=== PATIENT | female | born 1955 | race African-American/Black ===

== ENCOUNTER 2016-09-28 11:40 | Inpatient (IN) | payer OTHER, MEDICAID ==
[~2016-09-28] VITALS: Ht 160 cm; Wt 90.7 kg
[~2016-09-28 11:40] MED LIST: AMOX1TAB11 PO; DOXY100T PO; FURO40TA4 PO; GABA-586 PO; HYDR-2666 PO; HYDR-2867 PO; INSU100I17 SQ; INSU100I27 SQ; METH2.5T PO; METO50TA2 PO; MULT-460 PO; PANT40TA5 PO; PRED50TA PO; PYRI60TA PO; RITU10VI IV; ROSUVASTATIN CA10 MG PO; SENN1TAB99 PO; SPIR50TA2 PO; VENTOLIN HFA18 GM INH
--- NOTE | 2016-09-28 14:04 | RAD ---
Single view chest History:Chest pain for 4 days, history of bypass, diabetes and hypertension An AP view of the chest is submitted. Comparison: 07/15/2016. Findings: There is no significant infiltrate, pleural effusion, or pneumothorax. There again has been a median sternotomy. Pericardial cardiac silhouette is unchanged. There is mild linear likely fibrotic change left lung base as seen previously. There is again stent in right subclavian region. Impression: There is no radiographic evidence of acute cardiopulmonary disease.
[2016-09-28 14:10] LABS: BASO # 0.1 x10^3/uL (0.0-0.2); BASO % 1 % (0-3); EOS % 0 % (0-3); HEMATOCRIT 36.7 % (36.0-47.0); HEMOGLOBIN 10.9 g/dL (12.0-15.5); LYMPH # 0.6 x10^3/uL (1.0-4.8); LYMPH % 4 % (24-48); MEAN CORPUSCULAR HEMOGLOBIN 27 pg (25-35); MEAN CORPUSCULAR HGB CONC 30 g/dL (31-37); MEAN CORPUSCULAR VOLUME 92 fL (79-100); MONO % 3 % (0-9); NEUT % 92 % (31-73); PLATELET COUNT 210 x10^3/uL (140-400); RED BLOOD COUNT 3.99 x10^6/uL (3.50-5.40); RED CELL DISTRIBUTION WIDTH 19.7 % (11.5-14.5); WHITE BLOOD COUNT 13.4 x10^3/uL (4.0-11.0)
[2016-09-28 14:11] LABS: INR 1.3 (0.8-1.1); PROTHROMBIN TIME PATIENT 15.2 SEC (11.7-14.0)
[2016-09-28 15:09] LABS: PLT ESTIMATE ADEQUATE (ADEQUATE)
[2016-09-28 15:31] LABS: CALCIUM 9.3 mg/dL (8.5-10.1); CREATININE 0.9 mg/dL (0.6-1.0); GFR 76.8; POTASSIUM 3.5 mmol/L (3.5-5.1)
[2016-09-28 15:38] LABS: ALBUMIN 3.2 g/dL (3.4-5.0); ALBUMIN/GLOBULIN RATIO 1.1 (1.0-1.7); TOTAL BILIRUBIN 0.3 mg/dL (0.2-1.0); TOTAL PROTEIN 6.1 g/dL (6.4-8.2)
--- NOTE | 2016-09-28 15:55 | PHYS DOC ---
Past Medical History Past Medical History: CHF, CVA, Diabetes-Type II, Heart Disease, Hypertension, Other Additional Past Medical Histor: Myasthenia Gravis, Respiratory compromised r/t MG,Paralyzed diaphragm Past Surgical History: Coronary Bypass Surgery, , Hysterectomy, Tonsillectomy, Other Additional Past Surgical Histo: Fistula placed "Several",L)arm fx w/repair Alcohol Use: None Drug Use: None Adult General Chief Complaint Chief Complaint: CHEST PAIN HPI HPI 61-year-old female with a history of coronary artery disease status post four- way bypass presents with lower extremity swelling and chest pain. She states she 's recently received one of her routine plasmapheresis treatments. She denies any fever chills sweats. She denies any significant shortness of breath. She does have a little bit of a cough. She does admit to dyspnea on exertion. She states she is not as concerned about her legs because they normally swell after she receives plasmapheresis. [] Review of Systems Review of Systems Constitutional: Denies fever or chills [] Eyes: Denies change in visual acuity, redness, or eye pain [] HENT: Denies nasal congestion or sore throat [] Respiratory: Denies cough or shortness of breath [] Cardiovascular: No additional information not addressed in HPI [] GI: Denies abdominal pain, nausea, vomiting, bloody stools or diarrhea [] : Denies dysuria or hematuria [] Musculoskeletal: Denies back pain or joint pain [] Integument: Denies rash or skin lesions [] Neurologic: Denies headache, focal weakness or sensory changes [] Endocrine: Denies polyuria or polydipsia [] Current Medications Current Medications Allergies Allergies Allergies Coded Allergies Type Severity Reaction Last Updated Verified Iodinated Contrast Media - Oral and Allergy Intermediate 04/23/16 Yes adhesive tape Allergy Intermediate 04/23/16 Yes insulin glargine Allergy Intermediate 04/23/16 Yes levofloxacin Allergy Intermediate 04/23/16 Yes Physical Exam Physical Exam Constitutional: Well developed, well nourished, no acute distress, non-toxic appearance. [] HENT: Normocephalic, atraumatic, bilateral external ears normal, oropharynx moist, no oral exudates, nose normal. [] Eyes: PERRLA, EOMI, conjunctiva normal, no discharge. [] Neck: Normal range of motion, no tenderness, supple, no stridor. [] Cardiovascular:Heart rate regular rhythm, no murmur [] Lungs & Thorax: Bilateral breath sounds clear to auscultation [] Abdomen: Bowel sounds normal, soft, no tenderness, no masses, no pulsatile masses. [] Skin: Warm, dry, no erythema, no rash. [] Back: No tenderness, no CVA tenderness. [] Extremities: No tenderness, no cyanosis, no clubbing, ROM intact, no edema. [] Neurologic: Alert and oriented X 3, normal motor function, normal sensory function, no focal deficits noted. [] Psychologic: Affect normal, judgement normal, mood normal. [] Current Patient Data Vital Signs Vital Signs Date Time Temp Pulse Resp B/P Pulse Ox O2 Delivery O2 Flow Rate FiO2 09/28/16 13:30 162/70 Room Air 09/28/16 13:19 68 94 09/28/16 11:46 98.1 22 98.1 Lab Values Laboratory Tests Test 09/28/16 11:50 09/28/16 15:05 White Blood Count 13.4x10^3/uL (4.0-11.0) H Red Blood Count 3.99x10^6/uL (3.50-5.40) Hemoglobin 10.9g/dL (12.0-15.5) L Hematocrit 36.7% (36.0-47.0) Mean Corpuscular Volume 92fL (79-100) Mean Corpuscular Hemoglobin 27pg (25-35) Mean Corpuscular Hemoglobin Concent 30g/dL (31-37) L Red Cell Distribution Width 19.7% (11.5-14.5) H Platelet Count 210x10^3/uL (140-400) Neutrophils (%) (Auto) 92% (31-73) H Lymphocytes (%) (Auto) 4% (24-48) L Monocytes (%) (Auto) 3% (0-9) Eosinophils (%) (Auto) 0% (0-3) Basophils (%) (Auto) 1% (0-3) Neutrophils # (Auto) 12.4x10^3uL (1.8-7.7) H Lymphocytes # (Auto) 0.6x10^3/uL (1.0-4.8) L Monocytes # (Auto) 0.3x10^3/uL (0.0-1.1) Eosinophils # (Auto) 0.0x10^3/uL (0.0-0.7) Basophils # (Auto) 0.1x10^3/uL (0.0-0.2) Segmented Neutrophils % 91% (35-66) H Lymphocytes % 6% (24-48) L Monocytes % 3% (0-10) Platelet Estimate Adequate (ADEQUATE) Prothrombin Time 15.2SEC (11.7-14.0) H Prothrombin Time INR 1.3 (0.8-1.1) H Sodium Level 150mmol/L (136-145) H Potassium Level 3.5mmol/L (3.5-5.1) Chloride Level 109mmol/L (98-107) H Carbon Dioxide Level 34mmol/L (21-32) H Anion Gap 7 (6-14) Blood Urea Nitrogen 18mg/dL (7-20) Creatinine 0.9mg/dL (0.6-1.0) Estimated GFR (Cockcroft-Gault) 76.8 BUN/Creatinine Ratio 20 (6-20) Glucose Level 172mg/dL (70-99) H Calcium Level 9.3mg/dL (8.5-10.1) Total Bilirubin 0.3mg/dL (0.2-1.0) Aspartate Amino Transferase (AST) 20U/L (15-37) Alanine Aminotransferase (ALT) 36U/L (14-59) Alkaline Phosphatase 58U/L (46-116) Creatine Kinase 46U/L (26-192) Troponin I Quantitative 0.112ng/mL (0.000-0.055) Total Protein 6.1g/dL (6.4-8.2) L Albumin 3.2g/dL (3.4-5.0) L Albumin/Globulin Ratio 1.1 (1.0-1.7) Laboratory Tests 09/28/16 11:50 Laboratory Tests 09/28/16 15:05 EKG EKG EKG: Normal sinus rhythm rate of [address]-T changes [] Radiology/Procedures Radiology/Procedures [] Impressions: PROCEDURE: CHEST AP ONLY Single view chest History:Chest pain for 4 days, history of bypass, diabetes and hypertension An AP view of the chest is submitted. Comparison: 07/15/2016. Findings: There is no significant infiltrate, pleural effusion, or pneumothorax. There again has been a median sternotomy. Pericardial cardiac silhouette is unchanged. There is mild linear likely fibrotic change left lung base as seen previously. There is again stent in right subclavian region. Impression: There is no radiographic evidence of acute cardiopulmonary disease. Course & Med Decision Making Course & Med Decision Making Pertinent Labs and Imaging studies reviewed. (See chart for details) [ED course: Evaluation reveals a 59-year-old female with concerning symptoms for acute coronary syndrome. The patient remained essentially chest pain-free throughout her stay in the emergency department however her troponin was elevated. We gave her aspirin and Lovenox during her stay in the department. I spoke with Dr. Denney who agreed to accept patient for admission. We will consult cardiology to help assist in the management of the patient on the floor.] Dragon Disclaimer Dragon Disclaimer This electronic medical record was generated, in whole or in part, using a voice recognition dictation system. Departure Departure Impression: Primary Impression: Chest pain Disposition: ADMITTED INPATIENT Admitting Physician: Srinivas Negron Condition: STABLE Referrals: JANEY JONES MD (PCP) Problem Qualifiers Primary Impression: Chest pain Chest pain type: unspecified Qualified Code: R07.9 - Chest pain, unspecified SALMA BURNETTE DO Sep 28, 2016 15:55
[2016-09-28] MEDS ORDERED: FENTANYL PF 100 MCG/2 ML VIAL. IV PRN (16:00)
[2016-09-28] MEDS ORDERED: ACETAMINOPHEN 325 MG TABLET. PO PRN (16:00)
[2016-09-28] MEDS ORDERED: NITROGLYCERIN SUBLINGUAL 0.4 MG BOTTLE OF 25. SL PRN (16:00)
[2016-09-28] MEDS ORDERED: ASPIRIN 81 MG TAB.CHEW PO ONE (16:00)
[2016-09-28] MEDS: IV NORMAL SALINE 1000ML BAG 1,000 ML IV SCH ×2 (16:00→21:58)
[2016-09-28] MEDS ORDERED: ONDANSETRON PF 4 MG/2 ML VIAL. IV PRN (16:00)
[2016-09-28] MEDS ORDERED: ENOXAPARIN ** NOTE DOSE ** SYRINGE SQ ONE (16:15)
[2016-09-28] MEDS: ENOXAPARIN ** NOTE DOSE ** SYRINGE SQ SCH (17:00)
--- NOTE | 2016-09-28 18:53 | EKG ---
[facility] [address] [place] [address] Test Date: 2016-09-28 Test Time: 11:49:40 Pat Name: ASMUEL FONTENOT Department: Room: ED HOLD 1 Gender: F Flower Picker: : [phone] Requested By: SALMA BURNETTE Order Number: [id number] Reading MD: Tatiana Rueda Measurements Intervals [place] Rate: 68 P: 34 UT: 108 QRS: 30 QRSD: 96 T: 87 QT: 410 QTc: 441 Interpretive Statements SINUS RHYTHM LEFT ATRIAL ABNORMALITY ABNORMAL ECG RI6.01 Compared to ECG 07/15/2016 15:43:32 T-wave abnormality no longer present Electronically Signed On 09-29-2016 19:09:37 [employer] by Tatiana Rueda
[2016-09-28 19:49] VITALS: BP 153/63
[2016-09-28] MEDS ORDERED: DOXYCYCLINE HYCLATE 100 MG TABLET PO SCH (21:00)
[2016-09-28] MEDS: ALBUTEROL SULFATE 2.5 MG/3 ML NEBU. NEB SCH ×2 (21:00→23:33)
[2016-09-28] MEDS ORDERED: AMOXICILLIN/K CLAV 875/125MG TABLET. PO SCH (21:00)
[2016-09-28] MEDS: ATORVASTATIN CALCIUM 40 MG TABLET. PO SCH (21:58)
[2016-09-28] MEDS: GABAPENTIN 300 MG CAPSULE. PO SCH (21:59)
[2016-09-28] MEDS: PYRIDOSTIGMINE BROMIDE 60 MG TABLET PO SCH (22:00)
[2016-09-28] MEDS: INSULIN DETEMIR 300 UNITS/3 ML INSULN.PEN. SQ SCH (22:01)
[2016-09-28] MEDS: HYDRALAZINE 10 MG TABLET PO SCH (22:04)
[2016-09-28] MEDS: METOPROLOL TART IMMED RELEASE 50 MG TABLET PO SCH (22:05)
--- NOTE | 2016-09-28 22:38 | HP ---
ADMIT DATE: 09/28/2016 CHIEF COMPLAINT: Chest pain. HISTORY OF PRESENT ILLNESS: The patient is a pleasant 61-year-old female well known to our service. She has known coronary disease and multiple medical issues. She has had bypass surgery even. Basically, she presents with chest pain. She has some lower extremity swelling, rates her symptoms at 9 out of 10. She tried to increase her home meds, but that did not work. She also has a cough. I have discussed the case with the ER physician. We are going to admit the patient and consult Cardiology. PAST MEDICAL HISTORY: Coronary artery disease with coronary artery bypass grafting, hysterectomy, tonsillectomy, myasthenia gravis, hypertension, left arm fistula, stroke, . ALLERGIES: IODINE, ADHESIVE TAPE, INSULIN, LEVAQUIN. FAMILY HISTORY: Coronary disease. SOCIAL HISTORY: She does not drink, smoke, or take drugs. MEDICATIONS: Reviewed, please refer to the MRAD. REVIEW OF SYSTEMS: GENERAL: No history of weight change, weakness or fevers. SKIN: No bruising, hair changes or rashes. EYES: No blurred, double or loss of vision. NOSE AND THROAT: No history of nosebleeds, hoarseness or sore throat. CARDIAC: Complains of chest pain. LUNGS: Denies cough, hemoptysis, wheezing or shortness of breath. GASTROINTESTINAL: Denies changes in appetite, nausea, vomiting, diarrhea or constipation. GENITOURINARY: No history of frequency, urgency, hesitancy or nocturia. NEUROLOGIC: Denies history of numbness, tingling, tremor or weakness. PSYCHIATRIC: No history of panic, anxiety or depression. ENDOCRINE: No history of heat or cold intolerance, polyuria or polydipsia. EXTREMITIES: Denies muscle weakness, joint pain, pain on walking or stiffness. PHYSICAL EXAMINATION: VITAL SIGNS: Temperature afebrile, pulse 64, respirations 20, blood pressure 158/70. GENERAL: She is alert, cooperative. HEART: Normal S1, S2. LUNGS: Clear. ABDOMEN: Soft, positive bowel sounds. EXTREMITIES: 1+ edema. SKIN: No rashes. PSYCHIATRIC: She is stable. VASCULAR: Good capillary refill. ENDOCRINE: No thyromegaly. LYMPHATICS: No cervical nodes. HEMATOPOIETIC: No bruising. LABORATORY DATA: White count 13, hemoglobin 10.9, platelets 210. Electrolytes: Sodium 150, potassium 3.5, chloride 109, bicarb 34, BUN 18, creatinine 0.9, glucose 172. INR 1.3. ASSESSMENT AND PLAN: Chest pain. We will check serial enzymes, serial EKGs. Consult Cardiology, cardiac monitoring, resume home medicines. BI LARSON DO DR: YOSI/jesus JOB#: [id number] / [id number]
[2016-09-28 22:53] VITALS: BP 157/70
[2016-09-29] MEDS ORDERED: NON FORMULARY ITEM (Albuterol Sulfate (Ventolin Hfa Inhaler) 2 PUFF) INH SCH
[2016-09-29] MEDS: IV NORMAL SALINE 1000ML BAG 1,000 ML IV SCH ×2 (01:10→12:00)
[2016-09-29 02:24] VITALS: BP 194/95
[2016-09-29] MEDS: ALBUTEROL SULFATE 2.5 MG/3 ML NEBU. NEB SCH ×6 (04:00→23:40)
[2016-09-29] MEDS: HYDROCODONE/APAP 5/325MG TABLET. PO PRN (04:00)
[2016-09-29] MEDS ORDERED: MYCO500T PO (04:32)
[2016-09-29] MEDS ORDERED: PANT40TA3 PO (04:33)
[2016-09-29] MEDS ORDERED: FERR-26 PO (04:35)
[2016-09-29] MEDS ORDERED: FURO40TA4 PO (04:37)
[2016-09-29] MEDS ORDERED: DRON400T PO (04:37)
[2016-09-29] MEDS ORDERED: BACI1CAP6 PO (04:42)
[2016-09-29] MEDS ORDERED: ALEN70TA3 PO (04:43)
[2016-09-29] MEDS ORDERED: APIX5TAB PO (04:44)
[2016-09-29] MEDS ORDERED: oscal 500 (04:46)
[2016-09-29] MEDS ORDERED: CLOT15CR3 TP (04:48)
[2016-09-29 07:00] VITALS: BP 154/56
[2016-09-29] MEDS: INSULIN ASPART 300 UNITS/3 ML INSULN.PEN SQ SCH ×3 (07:30→17:49)
[2016-09-29] MEDS: SENNOSIDES/DOCUSATE 8.6/50MG TABLET. PO SCH (09:00)
--- NOTE | 2016-09-29 10:46 | PDOC ---
PROGRESS NOTES Chief Complaint Chief Complaint cc: chest pain Chest pain : Trend troponin, atypical in nature, says flutter of her heart. Telemetry Chronic CHF with diastolic dysfunction: IV Lasix, monitor intake and out put Elevated troponin: Monitor, cardiology consult. hx PAFIB : sinus now Restrictive lung disease/ROBERTO hx CAD; CABG in 2000 HTN: controlled, continue with home regimen. HLP: statin Hx of CVA/TIA DM2 with retinopathy: SSI with Levemir Hx of myasthenia gravis: intermittent plasmapheresis last treatment 03/2016. Hx of IgA monoclonal gammopathy Polypharmacy Hypernatremia: monitor, nephrology consult History of Present Illness History of Present Illness got 150mls/hr fluids flutter in heart no chest pain no fever Vitals Vitals Vital Signs Date Time Temp Pulse Resp B/P Pulse Ox O2 Delivery O2 Flow Rate FiO2 09/29/16 07:49 92 Room Air 09/29/16 07:00 97.9 72 20 154/56 97.9 Physical Exam General: Alert, Oriented X3 Heart: Normal S1 Lungs: Clear, Other Extremities: Other (+2 edema) Skin: No rashes Labs LABS Laboratory Tests Test 09/28/16 11:50 09/28/16 15:05 09/28/16 20:00 09/28/16 21:08 White Blood Count 13.4x10^3/uL (4.0-11.0) Red Blood Count 3.99x10^6/uL (3.50-5.40) Hemoglobin 10.9g/dL (12.0-15.5) Hematocrit 36.7% (36.0-47.0) Mean Corpuscular Volume 92fL (79-100) Mean Corpuscular Hemoglobin 27pg (25-35) Mean Corpuscular Hemoglobin Concent 30g/dL (31-37) Red Cell Distribution Width 19.7% (11.5-14.5) Platelet Count 210x10^3/uL (140-400) Neutrophils (%) (Auto) 92% (31-73) Lymphocytes (%) (Auto) 4% (24-48) Monocytes (%) (Auto) 3% (0-9) Eosinophils (%) (Auto) 0% (0-3) Basophils (%) (Auto) 1% (0-3) Neutrophils # (Auto) 12.4x10^3uL (1.8-7.7) Lymphocytes # (Auto) 0.6x10^3/uL (1.0-4.8) Monocytes # (Auto) 0.3x10^3/uL (0.0-1.1) Eosinophils # (Auto) 0.0x10^3/uL (0.0-0.7) Basophils # (Auto) 0.1x10^3/uL (0.0-0.2) Segmented Neutrophils % 91% (35-66) Lymphocytes % 6% (24-48) Monocytes % 3% (0-10) Platelet Estimate Adequate (ADEQUATE) Prothrombin Time 15.2SEC (11.7-14.0) Prothromb Time International Ratio 1.3 (0.8-1.1) Sodium Level 150mmol/L (136-145) Potassium Level 3.5mmol/L (3.5-5.1) Chloride Level 109mmol/L (98-107) Carbon Dioxide Level 34mmol/L (21-32) Anion Gap 7 (6-14) Blood Urea Nitrogen 18mg/dL (7-20) Creatinine 0.9mg/dL (0.6-1.0) Estimated GFR (Cockcroft-Gault) 76.8 BUN/Creatinine Ratio 20 (6-20) Glucose Level 172mg/dL (70-99) Calcium Level 9.3mg/dL (8.5-10.1) Total Bilirubin 0.3mg/dL (0.2-1.0) Aspartate Amino Transf (AST/SGOT) 20U/L (15-37) Alanine Aminotransferase (ALT/SGPT) 36U/L (14-59) Alkaline Phosphatase 58U/L (46-116) Creatine Kinase 46U/L (26-192) Troponin I Quantitative 0.112ng/mL (0.000-0.055) 0.074ng/mL (0.000-0.055) KX-Qje-Y-Type Natriuretic Peptide 1262pg/mL (0-124) Total Protein 6.1g/dL (6.4-8.2) Albumin 3.2g/dL (3.4-5.0) Albumin/Globulin Ratio 1.1 (1.0-1.7) Glucose (Fingerstick) 156mg/dL (70-99) Test 09/29/16 03:00 Troponin I Quantitative 0.068ng/mL (0.000-0.055) Assessment and Plan Assessmemt and Plan Problems Medical Problems: (1) Chest pain Status: Acute (2) Chest pain Status: Acute (3) Hypernatremia Status: Acute Problems: Comment Review of Relevant I have reviewed the following items omer (where applicable) has been applied. Labs Laboratory Tests Test 09/28/16 11:50 09/28/16 15:05 09/28/16 20:00 09/28/16 21:08 White Blood Count 13.4x10^3/uL (4.0-11.0) Red Blood Count 3.99x10^6/uL (3.50-5.40) Hemoglobin 10.9g/dL (12.0-15.5) Hematocrit 36.7% (36.0-47.0) Mean Corpuscular Volume 92fL (79-100) Mean Corpuscular Hemoglobin 27pg (25-35) Mean Corpuscular Hemoglobin Concent 30g/dL (31-37) Red Cell Distribution Width 19.7% (11.5-14.5) Platelet Count 210x10^3/uL (140-400) Neutrophils (%) (Auto) 92% (31-73) Lymphocytes (%) (Auto) 4% (24-48) Monocytes (%) (Auto) 3% (0-9) Eosinophils (%) (Auto) 0% (0-3) Basophils (%) (Auto) 1% (0-3) Neutrophils # (Auto) 12.4x10^3uL (1.8-7.7) Lymphocytes # (Auto) 0.6x10^3/uL (1.0-4.8) Monocytes # (Auto) 0.3x10^3/uL (0.0-1.1) Eosinophils # (Auto) 0.0x10^3/uL (0.0-0.7) Basophils # (Auto) 0.1x10^3/uL (0.0-0.2) Segmented Neutrophils % 91% (35-66) Lymphocytes % 6% (24-48) Monocytes % 3% (0-10) Platelet Estimate Adequate (ADEQUATE) Prothrombin Time 15.2SEC (11.7-14.0) Prothromb Time International Ratio 1.3 (0.8-1.1) Sodium Level 150mmol/L (136-145) Potassium Level 3.5mmol/L (3.5-5.1) Chloride Level 109mmol/L (98-107) Carbon Dioxide Level 34mmol/L (21-32) Anion Gap 7 (6-14) Blood Urea Nitrogen 18mg/dL (7-20) Creatinine 0.9mg/dL (0.6-1.0) Estimated GFR (Cockcroft-Gault) 76.8 BUN/Creatinine Ratio 20 (6-20) Glucose Level 172mg/dL (70-99) Calcium Level 9.3mg/dL (8.5-10.1) Total Bilirubin 0.3mg/dL (0.2-1.0) Aspartate Amino Transf (AST/SGOT) 20U/L (15-37) Alanine Aminotransferase (ALT/SGPT) 36U/L (14-59) Alkaline Phosphatase 58U/L (46-116) Creatine Kinase 46U/L (26-192) Troponin I Quantitative 0.112ng/mL (0.000-0.055) 0.074ng/mL (0.000-0.055) GY-Qsg-D-Type Natriuretic Peptide 1262pg/mL (0-124) Total Protein 6.1g/dL (6.4-8.2) Albumin 3.2g/dL (3.4-5.0) Albumin/Globulin Ratio 1.1 (1.0-1.7) Glucose (Fingerstick) 156mg/dL (70-99) Test 09/29/16 03:00 Troponin I Quantitative 0.068ng/mL (0.000-0.055) Laboratory Tests Test 09/28/16 11:50 09/28/16 15:05 09/28/16 20:00 09/28/16 21:08 White Blood Count 13.4x10^3/uL (4.0-11.0) Red Blood Count 3.99x10^6/uL (3.50-5.40) Hemoglobin 10.9g/dL (12.0-15.5) Hematocrit 36.7% (36.0-47.0) Mean Corpuscular Volume 92fL (79-100) Mean Corpuscular Hemoglobin 27pg (25-35) Mean Corpuscular Hemoglobin Concent 30g/dL (31-37) Red Cell Distribution Width 19.7% (11.5-14.5) Platelet Count 210x10^3/uL (140-400) Neutrophils (%) (Auto) 92% (31-73) Lymphocytes (%) (Auto) 4% (24-48) Monocytes (%) (Auto) 3% (0-9) Eosinophils (%) (Auto) 0% (0-3) Basophils (%) (Auto) 1% (0-3) Neutrophils # (Auto) 12.4x10^3uL (1.8-7.7) Lymphocytes # (Auto) 0.6x10^3/uL (1.0-4.8) Monocytes # (Auto) 0.3x10^3/uL (0.0-1.1) Eosinophils # (Auto) 0.0x10^3/uL (0.0-0.7) Basophils # (Auto) 0.1x10^3/uL (0.0-0.2) Segmented Neutrophils % 91% (35-66) Lymphocytes % 6% (24-48) Monocytes % 3% (0-10) Platelet Estimate Adequate (ADEQUATE) Prothrombin Time 15.2SEC (11.7-14.0) Prothromb Time International Ratio 1.3 (0.8-1.1) Sodium Level 150mmol/L (136-145) Potassium Level 3.5mmol/L (3.5-5.1) Chloride Level 109mmol/L (98-107) Carbon Dioxide Level 34mmol/L (21-32) Anion Gap 7 (6-14) Blood Urea Nitrogen 18mg/dL (7-20) Creatinine 0.9mg/dL (0.6-1.0) Estimated GFR (Cockcroft-Gault) 76.8 BUN/Creatinine Ratio 20 (6-20) Glucose Level 172mg/dL (70-99) Calcium Level 9.3mg/dL (8.5-10.1) Total Bilirubin 0.3mg/dL (0.2-1.0) Aspartate Amino Transf (AST/SGOT) 20U/L (15-37) Alanine Aminotransferase (ALT/SGPT) 36U/L (14-59) Alkaline Phosphatase 58U/L (46-116) Creatine Kinase 46U/L (26-192) Troponin I Quantitative 0.112ng/mL (0.000-0.055) 0.074ng/mL (0.000-0.055) XS-Iyc-D-Type Natriuretic Peptide 1262pg/mL (0-124) Total Protein 6.1g/dL (6.4-8.2) Albumin 3.2g/dL (3.4-5.0) Albumin/Globulin Ratio 1.1 (1.0-1.7) Glucose (Fingerstick) 156mg/dL (70-99) Test 09/29/16 03:00 Troponin I Quantitative 0.068ng/mL (0.000-0.055) Medications Current Medications Ondansetron HCl (Zofran) 4 mg PRN Q8HRS PRN IV NAUSEA/VOMITING; Start 09/28/16 at 16:00; Stop 09/29/16 at 15:59 Fentanyl Citrate 50 mcg 50 mcg PRN Q2HR PRN IV PAIN; Start 09/28/16 at 16:00; Stop 09/29/16 at 15:59 Sodium Chloride (Iv Sodium Chloride 0.9% 1000ml Bag) 1,000 ml @ 150 mls/hr Q6H40M IV Last administered on 09/29/16 01:10; Start 09/28/16 at 16:00; Stop 09/29/16 at 15:59 Acetaminophen (Tylenol) 650 mg PRN Q4HRS PRN PO FEVER; Start 09/28/16 at 16:00 ; Stop 09/29/16 at 15:59 Nitroglycerin (Nitrostat) 0.4 mg PRN Q5MIN PRN SL CHEST PAIN; Start 09/28/16 at 16:00; Stop 09/29/16 at 15:59 Enoxaparin Sodium (Lovenox Per Pharmacy Treatment Dosing) 1 each PRN DAILY PRN MC SEE COMMENTS; Start 09/28/16 at 16:00 Aspirin (Children'S Aspirin) 324 mg 1X ONCE PO Last administered on 09/28/16 16:38; Start 09/28/16 at 16:00; Stop 09/28/16 at 16:01; Status DC Enoxaparin Sodium (Lovenox 100mg Syringe) 90 mg 1X ONCE SQ Last administered on 09/28/16 16:38; Start 09/28/16 at 16:15; Stop 09/28/16 at 16:16; Status DC Enoxaparin Sodium (Lovenox 100mg Syringe) 90 mg Q12HR SQ ; Start 09/28/16 at 17: 00 Amoxicillin/ Clavulanate Potassium (Augmentin 875/ 125mg) 1 tab BID PO ; Start 09/28/16 at 21:00; Status Cancel Doxycycline Hyclate (Vibra-Tab) 100 mg BID PO ; Start 09/28/16 at 21:00; Status Cancel Furosemide (Lasix) 40 mg QODAY PO ; Start 09/29/16 at 09:00 Gabapentin (Neurontin) 300 mg QHS PO Last administered on 09/28/16 21:59; Start 09/28/16 at 21:00 Hydralazine HCl (Apresoline) 10 mg TID PO Last administered on 09/28/16 22:04 ; Start 09/28/16 at 21:00 Acetaminophen/ Hydrocodone Bitart (Lortab 5/325) 1 tab PRN Q6HRS PRN PO PAIN Last administered on 09/29/16 04:00; Start 09/28/16 at 20:15 Insulin Aspart (Novolog) 10 units TIDAC SQ ; Start 09/29/16 at 07:30 Insulin Detemir (Levemir) 20 units HS SQ ; Start 09/28/16 at 21:00 Methotrexate (Rheumatrex) 2.5 mg WEEKLY PO ; Start 10/05/16 at 09:00; Status UNV Metoprolol Tartrate (Lopressor) 50 mg BID PO Last administered on 09/28/16 22: 05; Start 09/28/16 at 21:00 Pantoprazole Sodium (Protonix) 40 mg DAILY07 PO ; Start 09/29/16 at 09:00 Pyridostigmine [place] (Mestinon) 60 mg QID PO Last administered on 09/28/16 22:00; Start 09/28/16 at 21:00 Senna/Docusate Sodium (Senna Plus) 1 tab DAILY PO ; Start 09/29/16 at 09:00 Non-Formulary Medication 2 puff Q4HRS INH FOR ASTHMA; Start 09/29/16 at 00:00; Stop 09/29/16 at 00:00; Status DC Prednisone (Prednisone) 50 mg DAILY PO ; Start 09/29/16 at 09:00 Atorvastatin Calcium (Lipitor) 40 mg QHS PO Last administered on 09/28/16t 21: 58; Start 09/28/16 at 21:00 Spironolactone (Aldactone) 50 mg DAILY PO ; Start 09/29/16 at 09:00 Albuterol Sulfate (Ventolin Neb Soln) 2.5 mg Q4HRS NEB Last administered on t 07:49; Start 09/28/16 at 21:00 Active Scripts Active Reported Lotrisone Cream (Clotrimazole/Betamethasone Dip) 15 Gm Cream..g. 1 Hema TP BID [oscal 500] Eliquis (Apixaban) 5 Mg Tablet 5 Mg PO Fosamax (Alendronate Sodium) 70 Mg Tablet 1 Tab PO QSU Probiotic (Bacillus Coagulans) 1 Each Capsule.dr 1 Each PO PRN Multaq (Dronedarone Hcl) 400 Mg Tablet 1 Tab PO BIDAC Furosemide 40 Mg Tablet 0.5 Tab PO DAILY Ferrous Sulfate 325 Mg Tablet 1 Tab PO TID Cellcept (Mycophenolate Mofetil) 500 Mg Tablet 1 Tab PO BID Doxycycline Hyclate 100 Mg Tablet 1 Tab PO BID 10 Days Ventolin Hfa Inhaler (Albuterol Sulfate) 18 Gm Hfa.aer.ad 2 Puff INH Q4HRS Amox Tr-K Clv 875-125 Mg Tab (Amoxicillin/Potassium Clav) 1 Each Tablet 1 Tab PO BID Multiple Vitamin (Multivitamin With Minerals) 1 Each Tablet 1 Each PO Spironolactone 50 Mg Tablet 1 Tab PO DAILY Senna-Docusate Sodium Tablet (Sennosides/Docusate Sodium) 1 Each Tablet 1 Each PO Rosuvastatin Calcium 10 Mg Tablet 10 Mg PO DAILY Pyridostigmine [place] 60 Mg Tablet 60 Mg PO QID Prednisone 50 Mg Tablet 50 Mg PO DAILY Pantoprazole Sodium 40 Mg Tablet.dr 1 Tab PO DAILY Metoprolol Tartrate 50 Mg Tablet 1 Tab PO BID Methotrexate (Methotrexate Sodium) 2.5 Mg Tablet 8 Tab PO WEEKLY Levemir Flextouch (Insulin Detemir) 100 Unit/1 Ml Insuln.pen Unit SQ BIDAC 40 units in am, 25 units evening Novolog Flexpen (Insulin Aspart) 100 Unit/1 Ml Insuln.pen 35 Unit SQ TIDAC Hydrocodone-Apap 5-325 (Hydrocodone Bit/Acetaminophen) 1 Each Tablet 1 Tab PO PRN Q6HRS PRN Hydralazine Hcl 10 Mg Tablet 1 Tab PO TID Gabapentin 300 Mg Capsule 300 Mg PO QHS Furosemide 40 Mg Tablet 40 Mg PO QODAY Vitals/I & O Vital Sign - Last 24 Hours 09/28/16 09/28/16 09/28/16 09/28/16 11:46 12:19 12:49 13:19 Temp 98.1 98.1 Pulse 66 62 68 Resp 22 B/P 182/82 158/71 189/84 191/86 Pulse Ox 94 93 94 O2 Delivery Room Air Room Air Room Air Room Air 09/28/16 09/28/16 09/28/16 09/28/16 13:30 16:38 17:08 17:38 Pulse 62 56 56 B/P 162/70 190/81 158/70 170/75 Pulse Ox 95 96 96 O2 Delivery Room Air Room Air Room Air Room Air 09/28/16 09/28/16 09/28/16 09/28/16 18:08 18:38 19:08 19:45 Pulse 62 80 B/P 171/79 169/77 146/72 Pulse Ox 98 96 95 O2 Delivery Room Air Room Air Room Air Room Air 09/28/16 09/28/16 09/28/16 09/28/16 19:49 19:49 22:04 22:05 Temp 98.4 98.4 98.4 98.4 Pulse 66 66 64 64 Resp 18 18 B/P 153/63 153/63 173/64 173/64 Pulse Ox 96 96 O2 Delivery Room Air Room Air 09/28/16 09/28/16 09/29/16 09/29/16 22:53 23:32 02:24 04:00 Temp 97.9 97.9 97.9 97.9 Pulse 60 68 Resp 20 19 18 B/P 157/70 194/95 Pulse Ox 94 97 94 94 O2 Delivery Room Air Room Air Room Air Room Air 09/29/16 09/29/16 09/29/16 04:58 07:00 07:49 Temp 97.9 97.9 Pulse 72 Resp 20 B/P 154/56 Pulse Ox 94 90 92 O2 Delivery Room Air Room Air Room Air Intake and Output 09/28/16 09/28/16 09/29/16 15:00 23:00 07:00 Intake Total 1231 ml Output Total 250 ml Balance 981 ml KENYATTA MILLER MD Sep 29, 2016 10:46
[2016-09-29 11:00] VITALS: BP 136/61
[2016-09-29] MEDS ORDERED: FUROSEMIDE 20 MG/2 ML VIAL IVP ONE (11:45)
[2016-09-29 12:20] LABS: CALCIUM 9.4 mg/dL (8.5-10.1); CREATININE 1.1 mg/dL (0.6-1.0); GFR 60.9; POTASSIUM 3.9 mmol/L (3.5-5.1)
[2016-09-29] MEDS: METOPROLOL TART IMMED RELEASE 50 MG TABLET PO SCH ×2 (12:27→20:11)
[2016-09-29] MEDS: SPIRONOLACTONE 25 MG TABLET PO SCH (12:27)
[2016-09-29] MEDS: PANTOPRAZOLE 40 MG TABLET. PO SCH (12:27)
[2016-09-29] MEDS: FUROSEMIDE 40 MG TABLET PO SCH (12:28)
[2016-09-29] MEDS: PYRIDOSTIGMINE BROMIDE 60 MG TABLET PO SCH ×4 (12:28→20:11)
[2016-09-29] MEDS: HYDRALAZINE 10 MG TABLET PO SCH ×3 (12:29→20:11)
[2016-09-29] MEDS: ENOXAPARIN ** NOTE DOSE ** SYRINGE SQ SCH ×2 (12:30→20:12)
[2016-09-29] MEDS: PREDNISONE 10 MG TABLET PO SCH (12:34)
[2016-09-29 15:00] VITALS: BP 117/57
[2016-09-29] MEDS ORDERED: DEXTROSE 50% 25 GM / 50ML DISP.SYRIN. IV PRN (19:00)
[2016-09-29 19:13] VITALS: BP 138/61
[2016-09-29] MEDS: GABAPENTIN 300 MG CAPSULE. PO SCH (20:10)
[2016-09-29] MEDS: ATORVASTATIN CALCIUM 40 MG TABLET. PO SCH (20:12)
[2016-09-29] MEDS: INSULIN DETEMIR 300 UNITS/3 ML INSULN.PEN. SQ SCH (20:18)
[2016-09-29 23:10] VITALS: BP 145/61
--- NOTE | 2016-09-29 23:21 | PDOC2 ---
CARDIAC CONSULT DATE OF CONSULT Date of Consult DATE: 09/29/16 REASON FOR CONSULT Reason for Consult: Heart failure REFERRING PHYSICIAN Referring Physician: Hospitalist SOURCE Source: Patient HISTORY OF PRESENT ILLNESS HISTORY OF PRESENT ILLNESS Patient is a 61 y.o woman with past medical history as noted below who presents to the hospital in the setting of dypsnea and chest pain. 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 More recently, she transferred her other care to the [facility]. SHe presented with acute on chronic heart failure symptoms and some mild chest discomfort. Denies any palpitations, syncope, orthopnea or PND but does have exertional dyspnea . PAST MEDICAL HISTORY Cardiovascular: CAD, CHF, HTN Heme/Onc: Cancer Hepatobiliary: No pertinent hx Psych: No pertinent hx Musculoskeletal: low back pain PAST SURGICAL HISTORY Past Surgical History: CABG FAMILY HISTORY Family History Non contributory. SOCIAL HISTORY Smoke: No ALCOHOL: none Drugs: None Lives: Alone Domestic Violence: Neg CURRENT MEDICATIONS CURRENT MEDICATIONS Current Medications Medications (Trade) Dose Ordered Sig/Oksana Route PRN Reason Start Time Stop Time Status Last Admin Dose Admin Furosemide (Lasix) 40 mg QODAY PO 09/29/16 09:00 09/29/16 12:28 Insulin Aspart (Novolog) 10 units TIDAC SQ 09/29/16 07:30 09/29/16 19:08 DC 09/29/16 17:49 Pantoprazole Sodium (Protonix) 40 mg DAILY07 PO 09/29/16 09:00 09/29/16 12:27 Prednisone (Prednisone) 50 mg DAILY PO 09/29/16 09:00 09/29/16 12:34 Spironolactone (Aldactone) 50 mg DAILY PO 09/29/16 09:00 09/29/16 12:27 Furosemide (Lasix) 40 mg 1X ONCE IVP 09/29/16 11:45 09/29/16 11:46 DC 09/29/16 12:30 ALLERGIES ALLERGIES: Coded Allergies: Iodinated Contrast Media - Oral and (Verified Allergy, Intermediate, ) adhesive tape (Verified Allergy, Intermediate, 04/23/16) insulin glargine (Verified Allergy, Intermediate, 04/23/16) levofloxacin (Verified Allergy, Intermediate, 04/23/16) ROS General: YES: Chills, Fatigue, Night Sweats PSYCHOLOGICAL ROS: YES: Anxiety Eyes: Yes Blurry vision HEENT: YES: Joanna ALLERGY AND IMMUNOLOGY: YES: Hives Hematological and Lymphatic: YES: Bleeding Problems, Blood Clots Respiratory: YES: Cough PHYSICAL EXAM General: Alert, Oriented X3 HEENT: Atraumatic Lungs: Clear to auscultation Heart: Regular rate, Normal S1, Normal S2 Abdomen: Normal bowel sounds Extremities: No clubbing Skin: No rashes Neuro: Normal gait, Normal speech Psych/Mental Status: Mental status NL VITALS VITALS Vital Signs Date Time Temp Pulse Resp B/P Pulse Ox O2 Delivery O2 Flow Rate FiO2 09/29/16 20:56 Room Air 09/29/16 20:11 73 138/61 09/29/16 19:13 98.1 20 93 98.1 LABS Lab: Laboratory Tests Test 09/29/16 03:00 09/29/16 08:49 09/29/16 12:40 09/29/16 17:08 Sodium Level 150mmol/L (136-145) Potassium Level 3.9mmol/L (3.5-5.1) Chloride Level 108mmol/L (98-107) Carbon Dioxide Level 29mmol/L (21-32) Anion Gap 13 (6-14) Blood Urea Nitrogen 19mg/dL (7-20) Creatinine 1.1mg/dL (0.6-1.0) Estimated GFR (Cockcroft-Gault) 60.9 Glucose Level 125mg/dL (70-99) Calcium Level 9.4mg/dL (8.5-10.1) Troponin I Quantitative 0.068ng/mL (0.000-0.055) Glucose (Fingerstick) 120mg/dL (70-99) 279mg/dL (70-99) 256mg/dL (70-99) ASSESSMENT/PLAN ASSESSMENT/PLAN 1. Acute on chronic diastolic HF 2. Hypernatremia - suspect hypervolemic Hypernatremia 3. HTN 4. Morbid obesity 5. CAD s/p CABG - remote. Plan: 1. Continue diuresis. 2. Will need to monitor Na in a.m. May need vasopressin antagonists. 3. CP likely non-cardiac. Supportive care. Will follow along. Problems: BEATRICE TREJO MD Sep 29, 2016 23:21
[2016-09-30] VITALS (7 sets, daily range): BP systolic 128–192; BP diastolic 48–79
[2016-09-30] MEDS: ALBUTEROL SULFATE 2.5 MG/3 ML NEBU. NEB SCH ×6 (03:07→22:36)
[2016-09-30] MEDS: PANTOPRAZOLE 40 MG TABLET. PO SCH (05:09)
[2016-09-30] MEDS: HYDROCODONE/APAP 5/325MG TABLET. PO PRN ×2 (05:10→15:48)
[2016-09-30] MEDS ORDERED: INSULIN DETEMIR 300 UNITS/3 ML INSULN.PEN. SQ SCH (08:00)
[2016-09-30] MEDS: INSULIN ASPART 300 UNITS/3 ML INSULN.PEN SQ SCH ×6 (08:51→18:04)
[2016-09-30] MEDS: METOPROLOL TART IMMED RELEASE 50 MG TABLET PO SCH ×2 (10:16→21:03)
[2016-09-30] MEDS: FUROSEMIDE 40 MG TABLET PO SCH (10:16)
[2016-09-30] MEDS: HYDRALAZINE 10 MG TABLET PO SCH ×3 (10:16→21:02)
[2016-09-30] MEDS: SPIRONOLACTONE 25 MG TABLET PO SCH (10:16)
[2016-09-30] MEDS: SENNOSIDES/DOCUSATE 8.6/50MG TABLET. PO SCH (10:17)
[2016-09-30] MEDS: ENOXAPARIN ** NOTE DOSE ** SYRINGE SQ SCH ×2 (10:17→21:03)
[2016-09-30] MEDS: PREDNISONE 10 MG TABLET PO SCH (10:17)
[2016-09-30] MEDS: PYRIDOSTIGMINE BROMIDE 60 MG TABLET PO SCH ×4 (10:18→21:02)
[2016-09-30] MEDS: ANTI-COAG MONITOR BY PHARMACY. MC PRN ×2 (10:27→10:45)
[2016-09-30 10:48] LABS: BASO % 0 % (0-3); EOS % 0 % (0-3); HEMATOCRIT 37.4 % (36.0-47.0); HEMOGLOBIN 11.2 g/dL (12.0-15.5); LYMPH # 0.8 x10^3/uL (1.0-4.8); LYMPH % 8 % (24-48); MEAN CORPUSCULAR HEMOGLOBIN 27 pg (25-35); MEAN CORPUSCULAR HGB CONC 30 g/dL (31-37); MEAN CORPUSCULAR VOLUME 90 fL (79-100); MONO % 7 % (0-9); NEUT % 84 % (31-73); PLATELET COUNT 189 x10^3/uL (140-400); RED BLOOD COUNT 4.16 x10^6/uL (3.50-5.40); RED CELL DISTRIBUTION WIDTH 18.9 % (11.5-14.5); WHITE BLOOD COUNT 10.3 x10^3/uL (4.0-11.0)
[2016-09-30 10:49] LABS: CALCIUM 8.9 mg/dL (8.5-10.1); CREATININE 1.2 mg/dL (0.6-1.0); GFR 55.1; POTASSIUM 3.1 mmol/L (3.5-5.1)
--- NOTE | 2016-09-30 11:55 | PDOC2 ---
CONSULT Date of Consult Date of Consult DATE: 09/30/16 TIME: 11:39 Reason for Consult Reason for Consult: ^Na Referring Physician Referring Physician: Lu Identification/Chief Complaint Chief Complaint CP Problems: Source Source: Chart review, Patient Past Medical History Cardiovascular: CAD, CHF, HTN Pulmonary: Other CENTRAL NERVOUS SYSTEM: CVA, TIA, Other GI: Diverticulosis, GERD, Irritable bowel disease Heme/Onc: Cancer Hepatobiliary: No pertinent hx Psych: No pertinent hx Musculoskeletal: low back pain Rheumatologic: No pertinent hx Infectious disease: No pertinent hx Renal/: Chronic renal insuff Endocrine: Diabetes Past Surgical History Past Surgical History: CABG Family History Family History: Asthma Social History No ALCOHOL: none Drugs: None Lives: Alone Domestic Violence: Neg Current Problem List Problem List Problems Medical Problems: (1) Chest pain Status: Acute (2) Chest pain Status: Acute (3) Hypernatremia Status: Acute Current Medications Current Medications Current Medications Ondansetron HCl (Zofran) 4 mg PRN Q8HRS PRN IV NAUSEA/VOMITING; Start 09/28/16 at 16:00; Stop 09/29/16 at 15:59; Status DC Fentanyl Citrate 50 mcg 50 mcg PRN Q2HR PRN IV PAIN; Start 09/28/16 at 16:00; Stop 09/29/16 at 15:59; Status DC Sodium Chloride (Iv Sodium Chloride 0.9% 1000ml Bag) 1,000 ml @ 150 mls/hr Q6H40M IV Last administered on 09/29/16 01:10; Start 09/28/16 at 16:00; Stop 09/29/16 at 15:59; Status DC Acetaminophen (Tylenol) 650 mg PRN Q4HRS PRN PO FEVER; Start 09/28/16 at 16:00 ; Stop 09/29/16 at 15:59; Status DC Nitroglycerin (Nitrostat) 0.4 mg PRN Q5MIN PRN SL CHEST PAIN; Start 09/28/16 at 16:00; Stop 09/29/16 at 15:59; Status DC Enoxaparin Sodium (Lovenox Per Pharmacy Treatment Dosing) 1 each PRN DAILY PRN MC SEE COMMENTS; Start 09/28/16 at 16:00 Aspirin (Children'S Aspirin) 324 mg 1X ONCE PO Last administered on 2/11/17at 16:38; Start 09/28/16 at 16:00; Stop 09/28/16 at 16:01; Status DC Enoxaparin Sodium (Lovenox 100mg Syringe) 90 mg 1X ONCE SQ Last administered on 09/28/16 16:38; Start 09/28/16 at 16:15; Stop 09/28/16 at 16:16; Status DC Enoxaparin Sodium (Lovenox 100mg Syringe) 90 mg Q12HR SQ Last administered on 10:17; Start 09/28/16 at 17:00 Amoxicillin/ Clavulanate Potassium (Augmentin 875/ 125mg) 1 tab BID PO ; Start 09/28/16 at 21:00; Status Cancel Doxycycline Hyclate (Vibra-Tab) 100 mg BID PO ; Start 09/28/16 at 21:00; Status Cancel Furosemide (Lasix) 40 mg QODAY PO Last administered on 09/30/16 10:16; Start 09/29/16 at 09:00 Gabapentin (Neurontin) 300 mg QHS PO Last administered on 09/29/16 20:10; Start 09/28/16 at 21:00 Hydralazine HCl (Apresoline) 10 mg TID PO Last administered on 09/30/16 10:16 ; Start 09/28/16 at 21:00 Acetaminophen/ Hydrocodone Bitart (Lortab 5/325) 1 tab PRN Q6HRS PRN PO PAIN Last administered on 09/30/16 05:10; Start 09/28/16 at 20:15 Insulin Aspart (Novolog) 10 units TIDAC SQ Last administered on 09/29/16 17:49 ; Start 09/29/16 at 07:30; Stop 09/29/16 at 19:08; Status DC Insulin Detemir (Levemir) 20 units HS SQ Last administered on 09/29/16 20:18; Start 09/28/16 at 21:00 Methotrexate (Rheumatrex) 2.5 mg WEEKLY PO ; Start 10/05/16 at 09:00; Status UNV Metoprolol Tartrate (Lopressor) 50 mg BID PO Last administered on 09/30/16 10: 16; Start 09/28/16 at 21:00 Pantoprazole Sodium (Protonix) 40 mg DAILY07 PO Last administered on 09/30/16 05:09; Start 09/29/16 at 09:00 Pyridostigmine [place] (Mestinon) 60 mg QID PO Last administered on 09/30/16 10:18; Start 09/28/16 at 21:00 Senna/Docusate Sodium (Senna Plus) 1 tab DAILY PO Last administered on 10:17; Start 09/29/16 at 09:00 Non-Formulary Medication 2 puff Q4HRS INH FOR ASTHMA; Start 09/29/16 at 00:00; Stop 09/29/16 at 00:00; Status DC Prednisone (Prednisone) 50 mg DAILY PO Last administered on 09/30/16 10:17; Start 09/29/16 at 09:00 Atorvastatin Calcium (Lipitor) 40 mg QHS PO Last administered on 09/29/16 20: 12; Start 09/28/16 at 21:00 Spironolactone (Aldactone) 50 mg DAILY PO Last administered on 09/30/16 10:16 ; Start 09/29/16 at 09:00 Albuterol Sulfate (Ventolin Neb Soln) 2.5 mg Q4HRS NEB Last administered on 08:07; Start 09/28/16 at 21:00 Furosemide (Lasix) 40 mg 1X ONCE IVP Last administered on 09/29/16 12:30; Start 09/29/16 at 11:45; Stop 09/29/16 at 11:46; Status DC Insulin Aspart (Novolog) 35 units TIDAC SQ Last administered on 09/30/16 08:51 ; Start 09/30/16 at 07:30 Insulin Detemir (Levemir) 30 units DAILY08 SQ Last administered on 09/30/16 08 :50; Start 09/30/16 at 08:00 Insulin Aspart (Novolog) 0-7 UNITS TIDWMEALS SQ Last administered on 09/30/16 08:52; Start 09/30/16 at 08:00 Dextrose 12.5 gm PRN Q15MIN PRN IV SEE COMMENTS; Start 09/29/16 at 19:00 Info (Anti-Coagulation Monitoring By Pharmacy) 1 each PRN DAILY PRN MC SEE COMMENTS Last administered on 2/13/17at 10:45; Start 09/30/16 at 10:30 Active Scripts Active Reported Lotrisone Cream (Clotrimazole/Betamethasone Dip) 15 Gm Cream..g. 1 Hema TP BID [oscal 500] Eliquis (Apixaban) 5 Mg Tablet 5 Mg PO Fosamax (Alendronate Sodium) 70 Mg Tablet 1 Tab PO QSU Probiotic (Bacillus Coagulans) 1 Each Capsule.dr 1 Each PO PRN Multaq (Dronedarone Hcl) 400 Mg Tablet 1 Tab PO BIDAC Furosemide 40 Mg Tablet 0.5 Tab PO DAILY Ferrous Sulfate 325 Mg Tablet 1 Tab PO TID Cellcept (Mycophenolate Mofetil) 500 Mg Tablet 1 Tab PO BID Doxycycline Hyclate 100 Mg Tablet 1 Tab PO BID 10 Days Ventolin Hfa Inhaler (Albuterol Sulfate) 18 Gm Hfa.aer.ad 2 Puff INH Q4HRS Amox Tr-K Clv 875-125 Mg Tab (Amoxicillin/Potassium Clav) 1 Each Tablet 1 Tab PO BID Multiple Vitamin (Multivitamin With Minerals) 1 Each Tablet 1 Each PO Spironolactone 50 Mg Tablet 1 Tab PO DAILY Senna-Docusate Sodium Tablet (Sennosides/Docusate Sodium) 1 Each Tablet 1 Each PO Rosuvastatin Calcium 10 Mg Tablet 10 Mg PO DAILY Pyridostigmine [place] 60 Mg Tablet 60 Mg PO QID Prednisone 50 Mg Tablet 50 Mg PO DAILY Pantoprazole Sodium 40 Mg Tablet.dr 1 Tab PO DAILY Metoprolol Tartrate 50 Mg Tablet 1 Tab PO BID Methotrexate (Methotrexate Sodium) 2.5 Mg Tablet 8 Tab PO WEEKLY Levemir Flextouch (Insulin Detemir) 100 Unit/1 Ml Insuln.pen Unit SQ BIDAC 40 units in am, 25 units evening Novolog Flexpen (Insulin Aspart) 100 Unit/1 Ml Insuln.pen 35 Unit SQ TIDAC Hydrocodone-Apap 5-325 (Hydrocodone Bit/Acetaminophen) 1 Each Tablet 1 Tab PO PRN Q6HRS PRN Hydralazine Hcl 10 Mg Tablet 1 Tab PO TID Gabapentin 300 Mg Capsule 300 Mg PO QHS Furosemide 40 Mg Tablet 40 Mg PO QODAY Allergies Allergies: Coded Allergies: Iodinated Contrast Media - Oral and (Verified Allergy, Intermediate, ) adhesive tape (Verified Allergy, Intermediate, 04/23/16) insulin glargine (Verified Allergy, Intermediate, 04/23/16) levofloxacin (Verified Allergy, Intermediate, 04/23/16) ROS Review of System GEN: no Fevers no Chills EYES: no new Visual Complaints ENT: no EN Drainage no Hearing deficiets CVS: no Orthopnea + CP + Edema in Lower ext RESP: no SOB no HERNANDEZ GI: no Nausea no Vomiting : no Dysuria no Urgency HEME: no easy bruising no Palp Ly Nodes NEURO no Focal Weakness no Sz PSYCH: no Suicidal Ideation min Depression SKIN: no Rashes ENDO: no Polyuria or Polydipsia no Hot/Cold Intolerance MU SK: No Arthraigia no Myalgia Physical Exam Physical Exam General Appearance: Awake Alert Oriented x 3 In no Distress; Cushingoid Appearance Eyes: VIsion Unchanged Conjunctiva Normal EN: No EN Drainage Mucous Memb. moist Neck: no JVD min JVP Supple no Thyromegaly; thick neck CVS: S1 S2 + Murmur No Gallop No Rub +2-3 Edema Resp: rare Rales no Rhonchi no Acc. Muscle use GI: BS +ve NO Bruit Non Tender Non Distended - obese : no CVA tenderness; no Suprapubic Tenderness SKIN: no Rashes Breast Exam deferred Mu.Sk: Adequate ROM no Muscle Atrophy Heme: Unable to palpate Obvious LAD palp Splenomegaly NEURO: adequate Strength x 4; ? a little weak in her thighs Cranial Nerves II - XII grossly intact Psych: min Depressed no Active hallucination Vital Signs Vital Signs Date Time Temp Pulse Resp B/P Pulse Ox O2 Delivery O2 Flow Rate FiO2 09/30/16 11:12 98.6 73 18 135/57 97 Room Air 98.6 Assessment & Plan ^Na - in adequate Water intake. Not noted to be polyuric. Watch trend off of Diurecits for now Edema - ECHO noted - Unclear etio. If Liver US is WNL and no IVC obstruction is noted - she may need Lymphedema therapy. Lt sided Edema has been Chrnoic after SVG harvest ? KORY - watch off of Diuretics for now Low K - PO KCL for now Labs Labs Laboratory Tests Test 09/28/16 11:50 09/28/16 15:05 09/28/16 20:00 09/28/16 21:08 White Blood Count 13.4x10^3/uL (4.0-11.0) Red Blood Count 3.99x10^6/uL (3.50-5.40) Hemoglobin 10.9g/dL (12.0-15.5) Hematocrit 36.7% (36.0-47.0) Mean Corpuscular Volume 92fL (79-100) Mean Corpuscular Hemoglobin 27pg (25-35) Mean Corpuscular Hemoglobin Concent 30g/dL (31-37) Red Cell Distribution Width 19.7% (11.5-14.5) Platelet Count 210x10^3/uL (140-400) Neutrophils (%) (Auto) 92% (31-73) Lymphocytes (%) (Auto) 4% (24-48) Monocytes (%) (Auto) 3% (0-9) Eosinophils (%) (Auto) 0% (0-3) Basophils (%) (Auto) 1% (0-3) Neutrophils # (Auto) 12.4x10^3uL (1.8-7.7) Lymphocytes # (Auto) 0.6x10^3/uL (1.0-4.8) Monocytes # (Auto) 0.3x10^3/uL (0.0-1.1) Eosinophils # (Auto) 0.0x10^3/uL (0.0-0.7) Basophils # (Auto) 0.1x10^3/uL (0.0-0.2) Segmented Neutrophils % 91% (35-66) Lymphocytes % 6% (24-48) Monocytes % 3% (0-10) Platelet Estimate Adequate (ADEQUATE) Prothrombin Time 15.2SEC (11.7-14.0) Prothromb Time International Ratio 1.3 (0.8-1.1) Sodium Level 150mmol/L (136-145) Potassium Level 3.5mmol/L (3.5-5.1) Chloride Level 109mmol/L (98-107) Carbon Dioxide Level 34mmol/L (21-32) Anion Gap 7 (6-14) Blood Urea Nitrogen 18mg/dL (7-20) Creatinine 0.9mg/dL (0.6-1.0) Estimated GFR (Cockcroft-Gault) 76.8 BUN/Creatinine Ratio 20 (6-20) Glucose Level 172mg/dL (70-99) Calcium Level 9.3mg/dL (8.5-10.1) Total Bilirubin 0.3mg/dL (0.2-1.0) Aspartate Amino Transf (AST/SGOT) 20U/L (15-37) Alanine Aminotransferase (ALT/SGPT) 36U/L (14-59) Alkaline Phosphatase 58U/L (46-116) Creatine Kinase 46U/L (26-192) Troponin I Quantitative 0.112ng/mL (0.000-0.055) 0.074ng/mL (0.000-0.055) OZ-Esr-C-Type Natriuretic Peptide 1262pg/mL (0-124) Total Protein 6.1g/dL (6.4-8.2) Albumin 3.2g/dL (3.4-5.0) Albumin/Globulin Ratio 1.1 (1.0-1.7) Glucose (Fingerstick) 156mg/dL (70-99) Test 09/29/16 03:00 09/29/16 08:49 09/29/16 12:40 09/29/16 17:08 Sodium Level 150mmol/L (136-145) Potassium Level 3.9mmol/L (3.5-5.1) Chloride Level 108mmol/L (98-107) Carbon Dioxide Level 29mmol/L (21-32) Anion Gap 13 (6-14) Blood Urea Nitrogen 19mg/dL (7-20) Creatinine 1.1mg/dL (0.6-1.0) Estimated GFR (Cockcroft-Gault) 60.9 Glucose Level 125mg/dL (70-99) Calcium Level 9.4mg/dL (8.5-10.1) Troponin I Quantitative 0.068ng/mL (0.000-0.055) Glucose (Fingerstick) 120mg/dL (70-99) 279mg/dL (70-99) 256mg/dL (70-99) Test 09/30/16 07:38 09/30/16 10:34 Glucose (Fingerstick) 234mg/dL (70-99) White Blood Count 10.3x10^3/uL (4.0-11.0) Red Blood Count 4.16x10^6/uL (3.50-5.40) Hemoglobin 11.2g/dL (12.0-15.5) Hematocrit 37.4% (36.0-47.0) Mean Corpuscular Volume 90fL (79-100) Mean Corpuscular Hemoglobin 27pg (25-35) Mean Corpuscular Hemoglobin Concent 30g/dL (31-37) Red Cell Distribution Width 18.9% (11.5-14.5) Platelet Count 189x10^3/uL (140-400) Neutrophils (%) (Auto) 84% (31-73) Lymphocytes (%) (Auto) 8% (24-48) Monocytes (%) (Auto) 7% (0-9) Eosinophils (%) (Auto) 0% (0-3) Basophils (%) (Auto) 0% (0-3) Neutrophils # (Auto) 8.7x10^3uL (1.8-7.7) Lymphocytes # (Auto) 0.8x10^3/uL (1.0-4.8) Monocytes # (Auto) 0.8x10^3/uL (0.0-1.1) Eosinophils # (Auto) 0.0x10^3/uL (0.0-0.7) Basophils # (Auto) 0.0x10^3/uL (0.0-0.2) Sodium Level 148mmol/L (136-145) Potassium Level 3.1mmol/L (3.5-5.1) Chloride Level 105mmol/L (98-107) Carbon Dioxide Level 32mmol/L (21-32) Anion Gap 11 (6-14) Blood Urea Nitrogen 20mg/dL (7-20) Creatinine 1.2mg/dL (0.6-1.0) Estimated GFR (Cockcroft-Gault) 55.1 Glucose Level 228mg/dL (70-99) Calcium Level 8.9mg/dL (8.5-10.1) Laboratory Tests Test 09/29/16 12:40 09/29/16 17:08 09/30/16 07:38 09/30/16 10:34 Glucose (Fingerstick) 279mg/dL (70-99) 256mg/dL (70-99) 234mg/dL (70-99) White Blood Count 10.3x10^3/uL (4.0-11.0) Red Blood Count 4.16x10^6/uL (3.50-5.40) Hemoglobin 11.2g/dL (12.0-15.5) Hematocrit 37.4% (36.0-47.0) Mean Corpuscular Volume 90fL (79-100) Mean Corpuscular Hemoglobin 27pg (25-35) Mean Corpuscular Hemoglobin Concent 30g/dL (31-37) Red Cell Distribution Width 18.9% (11.5-14.5) Platelet Count 189x10^3/uL (140-400) Neutrophils (%) (Auto) 84% (31-73) Lymphocytes (%) (Auto) 8% (24-48) Monocytes (%) (Auto) 7% (0-9) Eosinophils (%) (Auto) 0% (0-3) Basophils (%) (Auto) 0% (0-3) Neutrophils # (Auto) 8.7x10^3uL (1.8-7.7) Lymphocytes # (Auto) 0.8x10^3/uL (1.0-4.8) Monocytes # (Auto) 0.8x10^3/uL (0.0-1.1) Eosinophils # (Auto) 0.0x10^3/uL (0.0-0.7) Basophils # (Auto) 0.0x10^3/uL (0.0-0.2) Sodium Level 148mmol/L (136-145) Potassium Level 3.1mmol/L (3.5-5.1) Chloride Level 105mmol/L (98-107) Carbon Dioxide Level 32mmol/L (21-32) Anion Gap 11 (6-14) Blood Urea Nitrogen 20mg/dL (7-20) Creatinine 1.2mg/dL (0.6-1.0) Estimated GFR (Cockcroft-Gault) 55.1 Glucose Level 228mg/dL (70-99) Calcium Level 8.9mg/dL (8.5-10.1) Images Images Comparison: 07/15/2016. Findings: There is no significant infiltrate, pleural effusion, or pneumothorax. There again has been a median sternotomy. Pericardial cardiac silhouette is unchanged. There is mild linear likely fibrotic change left lung base as seen previously. There is again stent in right subclavian region. Impression: There is no radiographic evidence of acute cardiopulmonary disease. ALEISHA MELENDEZ MD Sep 30, 2016 11:55
[2016-09-30] MEDS ORDERED: MAGNESIUM SULFATE 2GM 50 ML IV PRN (12:00)
[2016-09-30] MEDS: POTASSIUM CHLORIDE 20 MEQ TABLET.ER. PO SCH ×3 (13:31→21:02)
--- NOTE | 2016-09-30 13:36 | PDOC ---
PROGRESS NOTES Chief Complaint Chief Complaint cc: chest pain Chest pain : Trend troponin, atypical in nature, says flutter of her heart. Telemetry Chronic CHF with diastolic dysfunction: IV Lasix, monitor intake and out put Elevated troponin: Monitor, cardiology consult. hx PAFIB : sinus now Restrictive lung disease/ROBERTO hx CAD; CABG in 2000 HTN: controlled, continue with home regimen. HLP: statin Hx of CVA/TIA DM2 with retinopathy: SSI with Levemir , INCrease to levemir 40u bid, aspart 35u tid Hx of myasthenia gravis: intermittent plasmapheresis last treatment 03/2016. decrease prednisone to 30mg daily as per pt till go to see her own doc Hx of IgA monoclonal gammopathy Polypharmacy Hypernatremia: monitor, nephrology consult lasix dced as per specialist History of Present Illness History of Present Illness Na 148 from 150 hyperglycemia sometime sob, on RA Vitals Vitals Vital Signs Date Time Temp Pulse Resp B/P Pulse Ox O2 Delivery O2 Flow Rate FiO2 09/30/16 12:37 Room Air 09/30/16 12:30 94 09/30/16 11:12 98.6 73 18 135/57 98.6 Physical Exam General: Alert, Oriented X3 Heart: Regular rate, Normal S1, Normal S2 Lungs: Clear, Other Abdomen: Normal bowel sounds Extremities: No clubbing Skin: No rashes Labs LABS Laboratory Tests Test 09/29/16 17:08 09/30/16 07:38 09/30/16 10:34 Glucose (Fingerstick) 256mg/dL (70-99) 234mg/dL (70-99) White Blood Count 10.3x10^3/uL (4.0-11.0) Red Blood Count 4.16x10^6/uL (3.50-5.40) Hemoglobin 11.2g/dL (12.0-15.5) Hematocrit 37.4% (36.0-47.0) Mean Corpuscular Volume 90fL (79-100) Mean Corpuscular Hemoglobin 27pg (25-35) Mean Corpuscular Hemoglobin Concent 30g/dL (31-37) Red Cell Distribution Width 18.9% (11.5-14.5) Platelet Count 189x10^3/uL (140-400) Neutrophils (%) (Auto) 84% (31-73) Lymphocytes (%) (Auto) 8% (24-48) Monocytes (%) (Auto) 7% (0-9) Eosinophils (%) (Auto) 0% (0-3) Basophils (%) (Auto) 0% (0-3) Neutrophils # (Auto) 8.7x10^3uL (1.8-7.7) Lymphocytes # (Auto) 0.8x10^3/uL (1.0-4.8) Monocytes # (Auto) 0.8x10^3/uL (0.0-1.1) Eosinophils # (Auto) 0.0x10^3/uL (0.0-0.7) Basophils # (Auto) 0.0x10^3/uL (0.0-0.2) Sodium Level 148mmol/L (136-145) Potassium Level 3.1mmol/L (3.5-5.1) Chloride Level 105mmol/L (98-107) Carbon Dioxide Level 32mmol/L (21-32) Anion Gap 11 (6-14) Blood Urea Nitrogen 20mg/dL (7-20) Creatinine 1.2mg/dL (0.6-1.0) Estimated GFR (Cockcroft-Gault) 55.1 Glucose Level 228mg/dL (70-99) Calcium Level 8.9mg/dL (8.5-10.1) Review of Systems Review of Systems no fever, chills, sob or chest pain Assessment and Plan Assessmemt and Plan Problems Medical Problems: (1) Chest pain Status: Acute (2) Chest pain Status: Acute (3) Hypernatremia Status: Acute Problems: Comment Review of Relevant I have reviewed the following items omer (where applicable) has been applied. Labs Laboratory Tests Test 09/28/16 15:05 09/28/16 20:00 09/28/16 21:08 09/29/16 03:00 Sodium Level 150mmol/L (136-145) 150mmol/L (136-145) Potassium Level 3.5mmol/L (3.5-5.1) 3.9mmol/L (3.5-5.1) Chloride Level 109mmol/L (98-107) 108mmol/L (98-107) Carbon Dioxide Level 34mmol/L (21-32) 29mmol/L (21-32) Anion Gap 7 (6-14) 13 (6-14) Blood Urea Nitrogen 18mg/dL (7-20) 19mg/dL (7-20) Creatinine 0.9mg/dL (0.6-1.0) 1.1mg/dL (0.6-1.0) Estimated GFR (Cockcroft-Gault) 76.8 60.9 BUN/Creatinine Ratio 20 (6-20) Glucose Level 172mg/dL (70-99) 125mg/dL (70-99) Calcium Level 9.3mg/dL (8.5-10.1) 9.4mg/dL (8.5-10.1) Total Bilirubin 0.3mg/dL (0.2-1.0) Aspartate Amino Transf (AST/SGOT) 20U/L (15-37) Alanine Aminotransferase (ALT/SGPT) 36U/L (14-59) Alkaline Phosphatase 58U/L (46-116) Creatine Kinase 46U/L (26-192) Troponin I Quantitative 0.112ng/mL (0.000-0.055) 0.074ng/mL (0.000-0.055) 0.068ng/mL (0.000-0.055) KX-Hof-E-Type Natriuretic Peptide 1262pg/mL (0-124) Total Protein 6.1g/dL (6.4-8.2) Albumin 3.2g/dL (3.4-5.0) Albumin/Globulin Ratio 1.1 (1.0-1.7) Glucose (Fingerstick) 156mg/dL (70-99) Test 09/29/16 08:49 09/29/16 12:40 09/29/16 17:08 09/30/16 07:38 Glucose (Fingerstick) 120mg/dL (70-99) 279mg/dL (70-99) 256mg/dL (70-99) 234mg/dL (70-99) Test 09/30/16 10:34 White Blood Count 10.3x10^3/uL (4.0-11.0) Red Blood Count 4.16x10^6/uL (3.50-5.40) Hemoglobin 11.2g/dL (12.0-15.5) Hematocrit 37.4% (36.0-47.0) Mean Corpuscular Volume 90fL (79-100) Mean Corpuscular Hemoglobin 27pg (25-35) Mean Corpuscular Hemoglobin Concent 30g/dL (31-37) Red Cell Distribution Width 18.9% (11.5-14.5) Platelet Count 189x10^3/uL (140-400) Neutrophils (%) (Auto) 84% (31-73) Lymphocytes (%) (Auto) 8% (24-48) Monocytes (%) (Auto) 7% (0-9) Eosinophils (%) (Auto) 0% (0-3) Basophils (%) (Auto) 0% (0-3) Neutrophils # (Auto) 8.7x10^3uL (1.8-7.7) Lymphocytes # (Auto) 0.8x10^3/uL (1.0-4.8) Monocytes # (Auto) 0.8x10^3/uL (0.0-1.1) Eosinophils # (Auto) 0.0x10^3/uL (0.0-0.7) Basophils # (Auto) 0.0x10^3/uL (0.0-0.2) Sodium Level 148mmol/L (136-145) Potassium Level 3.1mmol/L (3.5-5.1) Chloride Level 105mmol/L (98-107) Carbon Dioxide Level 32mmol/L (21-32) Anion Gap 11 (6-14) Blood Urea Nitrogen 20mg/dL (7-20) Creatinine 1.2mg/dL (0.6-1.0) Estimated GFR (Cockcroft-Gault) 55.1 Glucose Level 228mg/dL (70-99) Calcium Level 8.9mg/dL (8.5-10.1) Laboratory Tests Test 09/29/16 17:08 09/30/16 07:38 09/30/16 10:34 Glucose (Fingerstick) 256mg/dL (70-99) 234mg/dL (70-99) White Blood Count 10.3x10^3/uL (4.0-11.0) Red Blood Count 4.16x10^6/uL (3.50-5.40) Hemoglobin 11.2g/dL (12.0-15.5) Hematocrit 37.4% (36.0-47.0) Mean Corpuscular Volume 90fL (79-100) Mean Corpuscular Hemoglobin 27pg (25-35) Mean Corpuscular Hemoglobin Concent 30g/dL (31-37) Red Cell Distribution Width 18.9% (11.5-14.5) Platelet Count 189x10^3/uL (140-400) Neutrophils (%) (Auto) 84% (31-73) Lymphocytes (%) (Auto) 8% (24-48) Monocytes (%) (Auto) 7% (0-9) Eosinophils (%) (Auto) 0% (0-3) Basophils (%) (Auto) 0% (0-3) Neutrophils # (Auto) 8.7x10^3uL (1.8-7.7) Lymphocytes # (Auto) 0.8x10^3/uL (1.0-4.8) Monocytes # (Auto) 0.8x10^3/uL (0.0-1.1) Eosinophils # (Auto) 0.0x10^3/uL (0.0-0.7) Basophils # (Auto) 0.0x10^3/uL (0.0-0.2) Sodium Level 148mmol/L (136-145) Potassium Level 3.1mmol/L (3.5-5.1) Chloride Level 105mmol/L (98-107) Carbon Dioxide Level 32mmol/L (21-32) Anion Gap 11 (6-14) Blood Urea Nitrogen 20mg/dL (7-20) Creatinine 1.2mg/dL (0.6-1.0) Estimated GFR (Cockcroft-Gault) 55.1 Glucose Level 228mg/dL (70-99) Calcium Level 8.9mg/dL (8.5-10.1) Medications Current Medications Ondansetron HCl (Zofran) 4 mg PRN Q8HRS PRN IV NAUSEA/VOMITING; Start 09/28/16 at 16:00; Stop 09/29/16 at 15:59; Status DC Fentanyl Citrate 50 mcg 50 mcg PRN Q2HR PRN IV PAIN; Start 09/28/16 at 16:00; Stop 09/29/16 at 15:59; Status DC Sodium Chloride (Iv Sodium Chloride 0.9% 1000ml Bag) 1,000 ml @ 150 mls/hr Q6H40M IV Last administered on 09/29/16 01:10; Start 09/28/16 at 16:00; Stop 09/29/16 at 15:59; Status DC Acetaminophen (Tylenol) 650 mg PRN Q4HRS PRN PO FEVER; Start 09/28/16 at 16:00 ; Stop 09/29/16 at 15:59; Status DC Nitroglycerin (Nitrostat) 0.4 mg PRN Q5MIN PRN SL CHEST PAIN; Start 09/28/16 at 16:00; Stop 09/29/16 at 15:59; Status DC Enoxaparin Sodium (Lovenox Per Pharmacy Treatment Dosing) 1 each PRN DAILY PRN MC SEE COMMENTS; Start 09/28/16 at 16:00 Aspirin (Children'S Aspirin) 324 mg 1X ONCE PO Last administered on 09/28/16 16:38; Start 09/28/16 at 16:00; Stop 09/28/16 at 16:01; Status DC Enoxaparin Sodium (Lovenox 100mg Syringe) 90 mg 1X ONCE SQ Last administered on 09/28/16 16:38; Start 09/28/16 at 16:15; Stop 09/28/16 at 16:16; Status DC Enoxaparin Sodium (Lovenox 100mg Syringe) 90 mg Q12HR SQ Last administered on 10:17; Start 09/28/16 at 17:00 Amoxicillin/ Clavulanate Potassium (Augmentin 875/ 125mg) 1 tab BID PO ; Start 09/28/16 at 21:00; Status Cancel Doxycycline Hyclate (Vibra-Tab) 100 mg BID PO ; Start 09/28/16 at 21:00; Status Cancel Furosemide (Lasix) 40 mg QODAY PO Last administered on 09/30/16 10:16; Start 09/29/16 at 09:00; Stop 09/30/16 at 11:50; Status DC Gabapentin (Neurontin) 300 mg QHS PO Last administered on 09/29/16 20:10; Start 09/28/16 at 21:00 Hydralazine HCl (Apresoline) 10 mg TID PO Last administered on 09/30/16 10:16 ; Start 09/28/16 at 21:00 Acetaminophen/ Hydrocodone Bitart (Lortab 5/325) 1 tab PRN Q6HRS PRN PO PAIN Last administered on 09/30/16 05:10; Start 09/28/16 at 20:15 Insulin Aspart (Novolog) 10 units TIDAC SQ Last administered on 09/29/16 17:49 ; Start 09/29/16 at 07:30; Stop 09/29/16 at 19:08; Status DC Insulin Detemir (Levemir) 20 units HS SQ Last administered on 09/29/16 20:18; Start 09/28/16 at 21:00 Methotrexate (Rheumatrex) 2.5 mg WEEKLY PO ; Start 10/05/16 at 09:00; Status UNV Metoprolol Tartrate (Lopressor) 50 mg BID PO Last administered on 09/30/16 10: 16; Start 09/28/16 at 21:00 Pantoprazole Sodium (Protonix) 40 mg DAILY07 PO Last administered on 09/30/16 05:09; Start 09/29/16 at 09:00 Pyridostigmine [place] (Mestinon) 60 mg QID PO Last administered on 09/30/16 10:18; Start 09/28/16 at 21:00 Senna/Docusate Sodium (Senna Plus) 1 tab DAILY PO Last administered on 10:17; Start 09/29/16 at 09:00 Non-Formulary Medication 2 puff Q4HRS INH FOR ASTHMA; Start 09/29/16 at 00:00; Stop 09/29/16 at 00:00; Status DC Prednisone (Prednisone) 50 mg DAILY PO Last administered on 09/30/16 10:17; Start 09/29/16 at 09:00 Atorvastatin Calcium (Lipitor) 40 mg QHS PO Last administered on 09/29/16 20: 12; Start 09/28/16 at 21:00 Spironolactone (Aldactone) 50 mg DAILY PO Last administered on 09/30/16 10:16 ; Start 09/29/16 at 09:00; Stop 09/30/16 at 11:50; Status DC Albuterol Sulfate (Ventolin Neb Soln) 2.5 mg Q4HRS NEB Last administered on 12:26; Start 09/28/16 at 21:00 Furosemide (Lasix) 40 mg 1X ONCE IVP Last administered on 09/29/16 12:30; Start 09/29/16 at 11:45; Stop 09/29/16 at 11:46; Status DC Insulin Aspart (Novolog) 35 units TIDAC SQ Last administered on 09/30/16 08:51 ; Start 09/30/16 at 07:30 Insulin Detemir (Levemir) 30 units DAILY08 SQ Last administered on 09/30/16 08 :50; Start 09/30/16 at 08:00 Insulin Aspart (Novolog) 0-7 UNITS TIDWMEALS SQ Last administered on 09/30/16 08:52; Start 09/30/16 at 08:00 Dextrose 12.5 gm PRN Q15MIN PRN IV SEE COMMENTS; Start 09/29/16 at 19:00 Info 1 each 1 each PRN DAILY PRN MC SEE COMMENTS Last administered on 10:45; Start 09/30/16 at 10:30 Magnesium Sulfate/ Dextrose (Magnesium Sulfate PREMIX 2GM) 50 ml @ 25 mls/hr PRN DAILY PRN IV for Mag < 1.7 on am labs; Start 09/30/16 at 12:00 Potassium Chloride (Klor-Con) 40 meq QID PO ; Start 09/30/16 at 13:00; Stop at 21:01 Active Scripts Active Reported Lotrisone Cream (Clotrimazole/Betamethasone Dip) 15 Gm Cream..g. 1 Hema TP BID [oscal 500] Eliquis (Apixaban) 5 Mg Tablet 5 Mg PO Fosamax (Alendronate Sodium) 70 Mg Tablet 1 Tab PO QSU Probiotic (Bacillus Coagulans) 1 Each Capsule.dr 1 Each PO PRN Multaq (Dronedarone Hcl) 400 Mg Tablet 1 Tab PO BIDAC Furosemide 40 Mg Tablet 0.5 Tab PO DAILY Ferrous Sulfate 325 Mg Tablet 1 Tab PO TID Cellcept (Mycophenolate Mofetil) 500 Mg Tablet 1 Tab PO BID Doxycycline Hyclate 100 Mg Tablet 1 Tab PO BID 10 Days Ventolin Hfa Inhaler (Albuterol Sulfate) 18 Gm Hfa.aer.ad 2 Puff INH Q4HRS Amox Tr-K Clv 875-125 Mg Tab (Amoxicillin/Potassium Clav) 1 Each Tablet 1 Tab PO BID Multiple Vitamin (Multivitamin With Minerals) 1 Each Tablet 1 Each PO Spironolactone 50 Mg Tablet 1 Tab PO DAILY Senna-Docusate Sodium Tablet (Sennosides/Docusate Sodium) 1 Each Tablet 1 Each PO Rosuvastatin Calcium 10 Mg Tablet 10 Mg PO DAILY Pyridostigmine [place] 60 Mg Tablet 60 Mg PO QID Prednisone 50 Mg Tablet 50 Mg PO DAILY Pantoprazole Sodium 40 Mg Tablet.dr 1 Tab PO DAILY Metoprolol Tartrate 50 Mg Tablet 1 Tab PO BID Methotrexate (Methotrexate Sodium) 2.5 Mg Tablet 8 Tab PO WEEKLY Levemir Flextouch (Insulin Detemir) 100 Unit/1 Ml Insuln.pen Unit SQ BIDAC 40 units in am, 25 units evening Novolog Flexpen (Insulin Aspart) 100 Unit/1 Ml Insuln.pen 35 Unit SQ TIDAC Hydrocodone-Apap 5-325 (Hydrocodone Bit/Acetaminophen) 1 Each Tablet 1 Tab PO PRN Q6HRS PRN Hydralazine Hcl 10 Mg Tablet 1 Tab PO TID Gabapentin 300 Mg Capsule 300 Mg PO QHS Furosemide 40 Mg Tablet 40 Mg PO QODAY Vitals/I & O Vital Sign - Last 24 Hours 09/29/16 09/29/16 09/29/16 09/29/16 14:00 15:00 15:12 19:13 Temp 98.3 98.1 98.3 98.1 Pulse 64 64 73 Resp 20 20 B/P 117/57 117/57 138/61 Pulse Ox 96 93 O2 Delivery Room Air Room Air Room Air 09/29/16 09/29/16 09/29/16 09/29/16 19:40 20:11 20:11 20:56 Pulse 73 73 B/P 138/61 138/61 O2 Delivery Room Air Room Air 09/29/16 09/29/16 09/30/16 09/30/16 23:10 23:41 02:47 05:10 Temp 98.1 98.3 98.1 98.3 Pulse 78 75 Resp 18 18 20 B/P 145/61 165/79 Pulse Ox 96 O2 Delivery Room Air Room Air Room Air Room Air 09/30/16 09/30/16 09/30/16 09/30/16 06:10 07:33 08:00 08:08 Temp 98.4 98.4 Pulse 69 Resp 18 17 B/P 192/67 Pulse Ox 93 94 O2 Delivery Room Air Room Air Room Air Room Air 09/30/16 09/30/16 09/30/16 09/30/16 10:16 10:16 11:12 12:30 Temp 98.6 98.6 Pulse 87 69 73 Resp 18 B/P 192/67 192/67 135/57 Pulse Ox 97 94 O2 Delivery Room Air Room Air 09/30/16 12:37 O2 Delivery Room Air Intake and Output 09/29/16 09/29/16 09/30/16 15:00 23:00 07:00 Intake Total 720 ml 240 ml Output Total 1600 ml 200 ml Balance -880 ml 40 ml AMANDEEP ASTORGA MD Sep 30, 2016 13:36
[2016-09-30] MEDS ORDERED: ONDANSETRON PF 4 MG/2 ML VIAL. IV PRN (13:45)
--- NOTE | 2016-09-30 16:11 | RAD ---
INDICATION: Abdominal pain. COMPARISON: None. TECHNIQUE: Grayscale and color ultrasound images obtained through the abdomen. FINDINGS: Aorta/IVC: Vascular flow seen in proximal inferior vena cava but the majority of the inferior vena cava is obscured including mid to distal portion Pancreas: Only partially seen secondary to bowel gas. Liver: Liver is echogenic Gallbladder: Partially contracted Common Bile Duct: Not dilated. Right Kidney: No hydronephrosis. Vascular flow seen in the visualized portions of the portal and hepatic veins. IMPRESSION: Inferior vena cava is only seen through a small portion of its course and has vascular flow in this region. Liver is echogenic. Nonspecific but can be seen with fatty infiltration.
--- NOTE | 2016-09-30 16:20 | PDOC ---
MAURISIO DE LEON [employer] 09/30/16 1620: CARDIO Progress Notes Date and Time Date of Service 09/30/16 Subjective Subjective: No Chest Pain, Other (feeling better, dyspnea improved ) Vitals Vitals Vital Signs Date Time Temp Pulse Resp B/P Pulse Ox O2 Delivery O2 Flow Rate FiO2 09/30/16 15:48 16 94 Room Air 09/30/16 15:48 68 137/51 09/30/16 15:36 98.4 98.4 Weight Weight [ ] Input and Output Intake and Output Intake and Output 09/30/16 07:00 Intake Total 960 ml Output Total 1800 ml Balance -840 ml Intake Oral 960 ml Output Urine Total 1800 ml Laboratory Labs Laboratory Tests Test 09/29/16 17:08 09/30/16 07:38 09/30/16 10:34 Glucose (Fingerstick) 256mg/dL (70-99) 234mg/dL (70-99) White Blood Count 10.3x10^3/uL (4.0-11.0) Red Blood Count 4.16x10^6/uL (3.50-5.40) Hemoglobin 11.2g/dL (12.0-15.5) Hematocrit 37.4% (36.0-47.0) Mean Corpuscular Volume 90fL (79-100) Mean Corpuscular Hemoglobin 27pg (25-35) Mean Corpuscular Hemoglobin Concent 30g/dL (31-37) Red Cell Distribution Width 18.9% (11.5-14.5) Platelet Count 189x10^3/uL (140-400) Neutrophils (%) (Auto) 84% (31-73) Lymphocytes (%) (Auto) 8% (24-48) Monocytes (%) (Auto) 7% (0-9) Eosinophils (%) (Auto) 0% (0-3) Basophils (%) (Auto) 0% (0-3) Neutrophils # (Auto) 8.7x10^3uL (1.8-7.7) Lymphocytes # (Auto) 0.8x10^3/uL (1.0-4.8) Monocytes # (Auto) 0.8x10^3/uL (0.0-1.1) Eosinophils # (Auto) 0.0x10^3/uL (0.0-0.7) Basophils # (Auto) 0.0x10^3/uL (0.0-0.2) Sodium Level 148mmol/L (136-145) Potassium Level 3.1mmol/L (3.5-5.1) Chloride Level 105mmol/L (98-107) Carbon Dioxide Level 32mmol/L (21-32) Anion Gap 11 (6-14) Blood Urea Nitrogen 20mg/dL (7-20) Creatinine 1.2mg/dL (0.6-1.0) Estimated GFR (Cockcroft-Gault) 55.1 Glucose Level 228mg/dL (70-99) Calcium Level 8.9mg/dL (8.5-10.1) Physical Exam HEENT: Neck Supple W Full Motion Chest: Symmetric LUNGS: Clear to Auscultation Heart: S1S2, RRR Abdomen: Soft N/T Extremities: No Calf Tenderness Neurology: alert, oriented, follow commands Assessment Assessment 1. Acute on chronic diastolic HF 2. Chest pain 3. Mildly elevated troponin 4. Coronary artery disease s/p remote CABG 5. Hypertension 6. PAFIB- maintaining SR 7. Pulmonary hypertension 8. Hyperlipidemia 9. Hypernatremia 10. Hypokalemia Recommendations Appears fairly compensated from a HF standpoint. Diuretics being held secondary to hypernatremia; Na now 148. CP likely non-cardiac in nature; recent MPI with no evidence of ischemia. Continue secondary prevention Check lipids Replace K, check Mg- replace as warranted Supportive care BEATRICE TREJO MD 09/30/16 2209: CARDIO Progress Notes Plan Plan Pt. seen and examined. Agree with above [employer] INTER[employer] note. No acute events overnight. Doing about the same today, no sig improvement. Persistent bilateral lower ext edema. Labs reviewed. Na 148 Noted nephrology recs. Will follow along. MAURISIO DE LEON APRN Sep 30, 2016 16:20 BEATRICE TREJO MD Sep 30, 2016 22:09
[2016-09-30 16:53] LABS: MAGNESIUM 1.7 mg/dL (1.8-2.4)
[2016-09-30 16:56] LABS: CHOLESTEROL/HDL RATIO 2.4
[2016-09-30] MEDS ORDERED: INSULIN ASPART 300 UNITS/3 ML INSULN.PEN SQ ONE (18:00)
[2016-09-30] MEDS ORDERED: MYCOPHENOLATE MOFETIL 250 MG CAPSULE. PO SCH (18:30)
[2016-09-30] MEDS: MYCOPHENOLATE MOFETIL 250 MG CAPSULE. PO SCH (18:35)
[2016-09-30] MEDS: ATORVASTATIN CALCIUM 40 MG TABLET. PO SCH (21:02)
[2016-09-30] MEDS: GABAPENTIN 300 MG CAPSULE. PO SCH (21:02)
[2016-09-30] MEDS: INSULIN DETEMIR 300 UNITS/3 ML INSULN.PEN. SQ SCH (21:07)
[2016-10-01] MEDS: HYDROCODONE/APAP 5/325MG TABLET. PO PRN (00:59)
[2016-10-01] MEDS: ALBUTEROL SULFATE 2.5 MG/3 ML NEBU. NEB SCH ×6 (02:19→23:30)
[2016-10-01 03:00] VITALS: BP 146/59
--- NOTE | 2016-10-01 03:51 | CONS ---
DATE OF CONSULTATION: REASON FOR CONSULTATION: Hypernatremia. HISTORY OF PRESENT ILLNESS: The patient is a 61-year-old -[place] female with known history of myasthenia gravis. She apparently had plasmapheresis in the middle of August. She was discharged from [facility] on the . She claims that after she has had significant worsening of her edema in the right lower extremity, she was also noted to have some chest pain and was admitted to the hospital for further evaluation. She has been evaluated by Dr. Cheng, who she is not going to follow as an outpatient. She is known to have CAD status post CABG. Her chest pain is currently felt to be noncardiac; however, further workup for the same is ongoing. Echocardiogram shows EF of 70% in the past. Her sodium was noted to be 150 at presentation and is now down to 148. She claims that she does not drink enough water because she does not want her phlegm to come up. She has had chronic issues with the same. For rest of details, see electronic records. ALEISHA MELENDEZ MD DR: MORENO/jesus JOB#: [id number] / [id number]
[2016-10-01 06:34] LABS: ALBUMIN 3.2 g/dL (3.4-5.0); CALCIUM 9.1 mg/dL (8.5-10.1); CREATININE 1.1 mg/dL (0.6-1.0); GFR 60.9; PHOSPHORUS 2.7 mg/dL (2.6-4.7)
[2016-10-01 07:00] VITALS: BP 147/73
[2016-10-01] MEDS: INSULIN ASPART 300 UNITS/3 ML INSULN.PEN SQ SCH ×6 (07:30→17:52)
[2016-10-01] MEDS: PANTOPRAZOLE 40 MG TABLET. PO SCH (08:57)
[2016-10-01] MEDS: METOPROLOL TART IMMED RELEASE 50 MG TABLET PO SCH ×2 (08:58→21:53)
[2016-10-01] MEDS: HYDRALAZINE 10 MG TABLET PO SCH ×3 (08:58→21:49)
[2016-10-01] MEDS: PREDNISONE 10 MG TABLET PO SCH (08:58)
[2016-10-01] MEDS: PYRIDOSTIGMINE BROMIDE 60 MG TABLET PO SCH ×4 (08:58→21:49)
[2016-10-01] MEDS: ENOXAPARIN ** NOTE DOSE ** SYRINGE SQ SCH (09:00)
[2016-10-01] MEDS: SENNOSIDES/DOCUSATE 8.6/50MG TABLET. PO SCH (09:00)
[2016-10-01] MEDS: MYCOPHENOLATE MOFETIL 250 MG CAPSULE. PO SCH ×2 (10:26→17:28)
[2016-10-01 11:22] VITALS: BP 142/50
--- NOTE | 2016-10-01 11:30 | PDOC ---
SUBJECTIVE ROS ^Na Feels Bloated CVS: no Orthopnea, no CP RESP: no SOB, no HERNANDEZ GI: no Nausea, no Vomiting : no Dysuria, no Urgency OBJECTIVE Vital Signs Vital Signs Date Time Temp Pulse Resp B/P Pulse Ox O2 Delivery O2 Flow Rate FiO2 10/01/16 11:22 97.8 76 20 142/50 92 Room Air 97.8 I & 0 Intake and Output 10/01/16 07:00 Intake Total 1480 ml Output Total 2750 ml Balance -1270 ml Intake Oral 1480 ml Output Urine Total 2750 ml # Bowel Movements 3 PHYSICAL EXAM Physical Exam General Appearance: Awake Alert Oriented x 3 In no Distress; Cushingoid Appearance Eyes: VIsion Unchanged Conjunctiva Normal EN: No EN Drainage Mucous Memb. moist Neck: no JVD min JVP Supple no Thyromegaly; thick neck CVS: S1 S2 + Murmur No Gallop No Rub +2-3 Edema Resp: rare Rales no Rhonchi no Acc. Muscle use GI: BS +ve NO Bruit Non Tender Non Distended - obese : no CVA tenderness; no Suprapubic Tenderness Assessment & Plan ^Na - inadequate Water intake as admitted by pt. Not noted to be polyuric. PPN ( hypotonic IVF) and lasix (did not use D5 due to ^ FSBS Edema - ECHO noted -suspect asso with Pulm HTN and Fatty liver. this usually occurs after TPE (per pt) ? KORY - better today - reval after -ve fluid balance Low K - Better after PO KCL , watch with restarting some lasix COMMENT/RELEVANT DATA Meds Current Medications Medications (Trade) Dose Ordered Sig/Oksana Start Time Stop Time Status Last Admin Dose Admin Acetaminophen (Tylenol) 650 mg PRN Q6HRS PRN 09/30/16 13:45 Acetaminophen/ Hydrocodone Bitart (Lortab 5/325) 1 tab PRN Q6HRS PRN 09/28/16 20:15 10/01/16 00:59 1 TAB Albuterol Sulfate (Ventolin Neb Soln) 2.5 mg Q4HRS 09/28/16 21:00 10/01/16 09:16 2.5 MG Amoxicillin/ Clavulanate Potassium (Augmentin 875/ 125mg) 1 tab BID 09/28/16 21:00 Cancel Apixaban (Eliquis) 5 mg BID 10/01/16 21:00 Aspirin (Children'S Aspirin) 324 mg 1X ONCE 09/28/16 16:00 09/28/16 16:01 DC 09/28/16 16:38 324 MG Atorvastatin Calcium (Lipitor) 40 mg QHS 09/28/16 21:00 09/30/16 21:02 40 MG Dextrose 12.5 gm PRN Q15MIN PRN 09/29/16 19:00 Doxycycline Hyclate (Vibra-Tab) 100 mg BID 09/28/16 21:00 Cancel Enoxaparin Sodium (Lovenox 100mg Syringe) 90 mg Q12HR 09/28/16 17:00 10/01/16 09:56 DC 10/01/16 09:00 90 MG Enoxaparin Sodium (Lovenox Per Pharmacy Treatment Dosing) 1 each PRN DAILY PRN 09/28/16 16:00 10/01/16 09:56 DC Fentanyl Citrate 50 mcg 50 mcg PRN Q2HR PRN 09/28/16 16:00 09/29/16 15:59 DC Furosemide (Lasix) 40 mg 1X ONCE 09/29/16 11:45 09/29/16 11:46 DC 09/29/16 12:30 40 MG Gabapentin (Neurontin) 300 mg QHS 09/28/16 21:00 09/30/16 21:02 300 MG Hydralazine HCl (Apresoline) 10 mg TID 09/28/16 21:00 10/01/16 08:58 10 MG Info 1 each 1 each PRN DAILY PRN 09/30/16 10:30 09/30/16 10:45 1 EACH Insulin Aspart (Novolog) 35 units 1X ONCE 09/30/16 18:00 09/30/16 18:04 DC 09/30/16 18:00 35 UNITS Insulin Detemir (Levemir) 40 units DAILY08 10/01/16 08:00 Magnesium Sulfate/ Dextrose (Magnesium Sulfate PREMIX 2GM) 50 ml @ 25 mls/hr PRN DAILY PRN 09/30/16 12:00 Methotrexate (Rheumatrex) 2.5 mg WEEKLY 10/05/16 09:00 UNV Metoprolol Tartrate (Lopressor) 50 mg BID 09/28/16 21:00 10/01/16 08:58 50 MG Mycophenolate Mofetil (Cellcept) 1,000 mg BID@09,18 09/30/16 18:30 10/01/16 10:26 1,000 MG Nitroglycerin (Nitrostat) 0.4 mg PRN Q5MIN PRN 09/28/16 16:00 09/29/16 15:59 DC Non-Formulary Medication 2 puff Q4HRS 09/29/16 00:00 09/29/16 00:00 DC Ondansetron HCl (Zofran) 4 mg PRN Q6HRS PRN 09/30/16 13:45 Pantoprazole Sodium (Protonix) 40 mg DAILY07 09/29/16 09:00 10/01/16 08:57 40 MG Potassium Chloride (Klor-Con) 40 meq QID 09/30/16 13:00 09/30/16 21:01 DC 09/30/16 21:02 40 MEQ Prednisone (Prednisone) 30 mg DAILY 10/01/16 09:00 10/01/16 08:58 30 MG Pyridostigmine [place] (Mestinon) 60 mg QID 09/28/16 21:00 10/01/16 08:58 60 MG Senna/Docusate Sodium (Senna Plus) 1 tab DAILY 09/29/16 09:00 10/01/16 09:00 1 TAB Sodium Chloride (Iv Sodium Chloride 0.9% 1000ml Bag) 1,000 ml @ 150 mls/hr Q6H40M 09/28/16 16:00 09/29/16 15:59 DC 09/29/16 01:10 150 MLS/HR Spironolactone (Aldactone) 50 mg DAILY 09/29/16 09:00 09/30/16 11:50 DC 09/30/16 10:16 50 MG Lab Laboratory Tests Test 09/30/16 15:54 09/30/16 17:53 09/30/16 21:00 10/01/16 05:35 Glucose (Fingerstick) 174mg/dL (70-99) 318mg/dL (70-99) 259mg/dL (70-99) Hemoglobin 10.7g/dL (12.0-15.5) Sodium Level 149mmol/L (136-145) Potassium Level 5.0mmol/L (3.5-5.1) Chloride Level 110mmol/L (98-107) Carbon Dioxide Level 32mmol/L (21-32) Anion Gap 7 (6-14) Blood Urea Nitrogen 22mg/dL (7-20) Creatinine 1.1mg/dL (0.6-1.0) Estimated GFR (Cockcroft-Gault) 60.9 Glucose Level 141mg/dL (70-99) Calcium Level 9.1mg/dL (8.5-10.1) Phosphorus Level 2.7mg/dL (2.6-4.7) Magnesium Level 2.1mg/dL (1.8-2.4) Albumin 3.2g/dL (3.4-5.0) Test 10/01/16 08:48 10/01/16 11:12 Glucose (Fingerstick) 104mg/dL (70-99) 216mg/dL (70-99) ALEISHA MELENDEZ MD Oct 01, 2016 11:30
--- NOTE | 2016-10-01 11:37 | PDOC ---
MAURISIO DE LEON ENGINE ASSEMBLY SUPERVISOR 10/01/16 1137: CARDIO Progress Notes Date and Time Date of Service 10/01/16 Time of Evaluation 1045 Subjective Subjective: No Chest Pain, No shortness of breath, Other (no significant changes. pain right mid-back- worse with movement, imporved with massage) Vitals Vitals Vital Signs Date Time Temp Pulse Resp B/P Pulse Ox O2 Delivery O2 Flow Rate FiO2 10/01/16 11:22 97.8 76 20 142/50 92 Room Air 97.8 Weight Weight [ ] Input and Output Intake and Output Intake and Output 10/01/16 07:00 Intake Total 1480 ml Output Total 2750 ml Balance -1270 ml Intake Oral 1480 ml Output Urine Total 2750 ml # Bowel Movements 3 Laboratory Labs Laboratory Tests Test 09/30/16 15:54 09/30/16 17:53 09/30/16 21:00 10/01/16 05:35 Glucose (Fingerstick) 174mg/dL (70-99) 318mg/dL (70-99) 259mg/dL (70-99) Hemoglobin 10.7g/dL (12.0-15.5) Sodium Level 149mmol/L (136-145) Potassium Level 5.0mmol/L (3.5-5.1) Chloride Level 110mmol/L (98-107) Carbon Dioxide Level 32mmol/L (21-32) Anion Gap 7 (6-14) Blood Urea Nitrogen 22mg/dL (7-20) Creatinine 1.1mg/dL (0.6-1.0) Estimated GFR (Cockcroft-Gault) 60.9 Glucose Level 141mg/dL (70-99) Calcium Level 9.1mg/dL (8.5-10.1) Phosphorus Level 2.7mg/dL (2.6-4.7) Magnesium Level 2.1mg/dL (1.8-2.4) Albumin 3.2g/dL (3.4-5.0) Test 10/01/16 08:48 10/01/16 11:12 Glucose (Fingerstick) 104mg/dL (70-99) 216mg/dL (70-99) Physical Exam HEENT: Neck Supple W Full Motion Chest: Symmetric LUNGS: Clear to Auscultation Heart: S1S2, RRR, other (2/6 systolic murmur ) Abdomen: Soft N/T Extremities: No Calf Tenderness, Other (persistent 2+ bilateral LE edema ) Neurology: alert, oriented, follow commands Assessment Assessment 1. Acute on chronic diastolic HF 2. Chest pain 3. Mildly elevated troponin 4. Coronary artery disease s/p remote CABG 5. Hypertension 6. PAFIB- maintaining SR 7. Pulmonary hypertension 8. Hyperlipidemia 9. Hypernatremia 10. Hypokalemia Recommendations Appears fairly compensated from a HF standpoint. Diuretics being held secondary to hypernatremia; Na now 148. CP likely non-cardiac in nature; recent MPI with no evidence of ischemia. Continue secondary prevention Check lipids Replace K, check Mg- replace as warranted Supportive care Plan Plan 1. Acute on chronic diastolic HF 2. Chest pain 3. Mildly elevated troponin 4. Coronary artery disease s/p remote CABG 5. Hypertension 6. PAFIB- maintaining SR 7. Pulmonary hypertension 8. Hypernatremia Recommendations Na 149. Hypotonic IVF and lasix per renal Continue supportive care BEATRICE TREJO MD 10/01/16 1628: CARDIO Progress Notes Plan Plan Patient seen and examined. Agree with above nurse practitioner note. No acute events overnight. Patient still has hypernatremia with a sodium of 149. On examination she still has persistent edema. Noted nephrology recommendations for reinitiation of Lasix with hypotonic saline. We will attempt to obtain a serum and urine osmolality for further evaluation of her electrolyte status. Continue supportive care from a cardiac perspective. We will follow along closely. Agree with diuresis. MAURISIO DE LEON APRN Oct 01, 2016 11:37 BEATRICE TREJO MD Oct 01, 2016 16:28
[2016-10-01] MEDS: AA 3%/ELECTROLYTE-TPN SOLN/GLY 1,000 ML IV SCH (12:40)
[2016-10-01] MEDS: INSULIN DETEMIR 300 UNITS/3 ML INSULN.PEN. SQ SCH ×2 (12:54→21:59)
[2016-10-01] MEDS: ANTI-COAG MONITOR BY PHARMACY. MC PRN (13:06)
--- NOTE | 2016-10-01 13:11 | PDOC ---
PROGRESS NOTES Chief Complaint Chief Complaint cc: chest pain Chest pain : Trend troponin, atypical in nature, says flutter of her heart. Telemetry Chronic CHF with diastolic dysfunction: IV Lasix, monitor intake and out put Elevated troponin: Monitor, cardiology consult. hx PAFIB : sinus now Restrictive lung disease/ROBERTO hx CAD; CABG in 2000 HTN: controlled, continue with home regimen. HLP: statin Hx of CVA/TIA DM2 with retinopathy: SSI with Levemir , INCrease to levemir 40u bid, aspart 35u tid Hx of myasthenia gravis: intermittent plasmapheresis last treatment 03/2016. decrease prednisone to 30mg daily as per pt till go to see her own doc Hx of IgA monoclonal gammopathy Polypharmacy Hypernatremia: monitor, nephrology consult PPN as per renal, lasix iv bid on insulin, adjust dose on eliquis at home, resume, dc lovenox History of Present Illness History of Present Illness Na 149 from 150 hyperglycemia better sometime sob, on RA Vitals Vitals Vital Signs Date Time Temp Pulse Resp B/P Pulse Ox O2 Delivery O2 Flow Rate FiO2 10/01/16 12:35 93 Room Air 10/01/16 11:22 97.8 76 20 142/50 97.8 Physical Exam General: Alert, Oriented X3 Heart: Regular rate, Normal S1, Normal S2 Lungs: Clear, Other Abdomen: Normal bowel sounds Extremities: No clubbing Skin: No rashes Labs LABS Laboratory Tests Test 09/30/16 15:54 09/30/16 17:53 09/30/16 21:00 10/01/16 05:35 Glucose (Fingerstick) 174mg/dL (70-99) 318mg/dL (70-99) 259mg/dL (70-99) Hemoglobin 10.7g/dL (12.0-15.5) Sodium Level 149mmol/L (136-145) Potassium Level 5.0mmol/L (3.5-5.1) Chloride Level 110mmol/L (98-107) Carbon Dioxide Level 32mmol/L (21-32) Anion Gap 7 (6-14) Blood Urea Nitrogen 22mg/dL (7-20) Creatinine 1.1mg/dL (0.6-1.0) Estimated GFR (Cockcroft-Gault) 60.9 Glucose Level 141mg/dL (70-99) Calcium Level 9.1mg/dL (8.5-10.1) Phosphorus Level 2.7mg/dL (2.6-4.7) Magnesium Level 2.1mg/dL (1.8-2.4) Albumin 3.2g/dL (3.4-5.0) Test 10/01/16 08:48 10/01/16 11:12 Glucose (Fingerstick) 104mg/dL (70-99) 216mg/dL (70-99) Review of Systems Review of Systems no fever, chills, sob or chest pain Assessment and Plan Assessmemt and Plan Problems Medical Problems: (1) Chest pain Status: Acute (2) Chest pain Status: Acute (3) Hypernatremia Status: Acute Problems: Comment Review of Relevant I have reviewed the following items omer (where applicable) has been applied. Labs Laboratory Tests Test 09/29/16 17:08 09/29/16 20:09 09/30/16 04:10 09/30/16 07:38 Glucose (Fingerstick) 256mg/dL (70-99) 287mg/dL (70-99) 287mg/dL (70-99) 234mg/dL (70-99) Test 09/30/16 10:34 09/30/16 11:15 09/30/16 15:54 09/30/16 17:53 White Blood Count 10.3x10^3/uL (4.0-11.0) Red Blood Count 4.16x10^6/uL (3.50-5.40) Hemoglobin 11.2g/dL (12.0-15.5) Hematocrit 37.4% (36.0-47.0) Mean Corpuscular Volume 90fL (79-100) Mean Corpuscular Hemoglobin 27pg (25-35) Mean Corpuscular Hemoglobin Concent 30g/dL (31-37) Red Cell Distribution Width 18.9% (11.5-14.5) Platelet Count 189x10^3/uL (140-400) Neutrophils (%) (Auto) 84% (31-73) Lymphocytes (%) (Auto) 8% (24-48) Monocytes (%) (Auto) 7% (0-9) Eosinophils (%) (Auto) 0% (0-3) Basophils (%) (Auto) 0% (0-3) Neutrophils # (Auto) 8.7x10^3uL (1.8-7.7) Lymphocytes # (Auto) 0.8x10^3/uL (1.0-4.8) Monocytes # (Auto) 0.8x10^3/uL (0.0-1.1) Eosinophils # (Auto) 0.0x10^3/uL (0.0-0.7) Basophils # (Auto) 0.0x10^3/uL (0.0-0.2) Sodium Level 148mmol/L (136-145) Potassium Level 3.1mmol/L (3.5-5.1) Chloride Level 105mmol/L (98-107) Carbon Dioxide Level 32mmol/L (21-32) Anion Gap 11 (6-14) Blood Urea Nitrogen 20mg/dL (7-20) Creatinine 1.2mg/dL (0.6-1.0) Estimated GFR (Cockcroft-Gault) 55.1 Glucose Level 228mg/dL (70-99) Calcium Level 8.9mg/dL (8.5-10.1) Magnesium Level 1.7mg/dL (1.8-2.4) Triglycerides Level 150mg/dL (0-150) Cholesterol Level 160mg/dL (0-200) LDL Cholesterol, Calculated 64mg/dL (0-100) VLDL Cholesterol, Calculated 30mg/dL (0-40) HDL Cholesterol 66mg/dL (40-60) Cholesterol/HDL Ratio 2.4 Glucose (Fingerstick) 266mg/dL (70-99) 174mg/dL (70-99) 318mg/dL (70-99) Test 09/30/16 21:00 10/01/16 05:35 10/01/16 08:48 10/01/16 11:12 Glucose (Fingerstick) 259mg/dL (70-99) 104mg/dL (70-99) 216mg/dL (70-99) Hemoglobin 10.7g/dL (12.0-15.5) Sodium Level 149mmol/L (136-145) Potassium Level 5.0mmol/L (3.5-5.1) Chloride Level 110mmol/L (98-107) Carbon Dioxide Level 32mmol/L (21-32) Anion Gap 7 (6-14) Blood Urea Nitrogen 22mg/dL (7-20) Creatinine 1.1mg/dL (0.6-1.0) Estimated GFR (Cockcroft-Gault) 60.9 Glucose Level 141mg/dL (70-99) Calcium Level 9.1mg/dL (8.5-10.1) Phosphorus Level 2.7mg/dL (2.6-4.7) Magnesium Level 2.1mg/dL (1.8-2.4) Albumin 3.2g/dL (3.4-5.0) Laboratory Tests Test 09/30/16 15:54 09/30/16 17:53 09/30/16 21:00 10/01/16 05:35 Glucose (Fingerstick) 174mg/dL (70-99) 318mg/dL (70-99) 259mg/dL (70-99) Hemoglobin 10.7g/dL (12.0-15.5) Sodium Level 149mmol/L (136-145) Potassium Level 5.0mmol/L (3.5-5.1) Chloride Level 110mmol/L (98-107) Carbon Dioxide Level 32mmol/L (21-32) Anion Gap 7 (6-14) Blood Urea Nitrogen 22mg/dL (7-20) Creatinine 1.1mg/dL (0.6-1.0) Estimated GFR (Cockcroft-Gault) 60.9 Glucose Level 141mg/dL (70-99) Calcium Level 9.1mg/dL (8.5-10.1) Phosphorus Level 2.7mg/dL (2.6-4.7) Magnesium Level 2.1mg/dL (1.8-2.4) Albumin 3.2g/dL (3.4-5.0) Test 10/01/16 08:48 10/01/16 11:12 Glucose (Fingerstick) 104mg/dL (70-99) 216mg/dL (70-99) Medications Current Medications Ondansetron HCl (Zofran) 4 mg PRN Q8HRS PRN IV NAUSEA/VOMITING; Start 09/28/16 at 16:00; Stop 09/29/16 at 15:59; Status DC Fentanyl Citrate 50 mcg 50 mcg PRN Q2HR PRN IV PAIN; Start 09/28/16 at 16:00; Stop 09/29/16 at 15:59; Status DC Sodium Chloride (Iv Sodium Chloride 0.9% 1000ml Bag) 1,000 ml @ 150 mls/hr Q6H40M IV Last administered on 09/29/16 01:10; Start 09/28/16 at 16:00; Stop 09/29/16 at 15:59; Status DC Acetaminophen (Tylenol) 650 mg PRN Q4HRS PRN PO FEVER; Start 09/28/16 at 16:00 ; Stop 09/29/16 at 15:59; Status DC Nitroglycerin (Nitrostat) 0.4 mg PRN Q5MIN PRN SL CHEST PAIN; Start 09/28/16 at 16:00; Stop 09/29/16 at 15:59; Status DC Enoxaparin Sodium (Lovenox Per Pharmacy Treatment Dosing) 1 each PRN DAILY PRN MC SEE COMMENTS; Start 09/28/16 at 16:00; Stop 10/01/16 at 09:56; Status DC Aspirin (Children'S Aspirin) 324 mg 1X ONCE PO Last administered on 09/28/16 16:38; Start 09/28/16 at 16:00; Stop 09/28/16 at 16:01; Status DC Enoxaparin Sodium (Lovenox 100mg Syringe) 90 mg 1X ONCE SQ Last administered on 09/28/16 16:38; Start 09/28/16 at 16:15; Stop 09/28/16 at 16:16; Status DC Enoxaparin Sodium (Lovenox 100mg Syringe) 90 mg Q12HR SQ Last administered on 09:00; Start 09/28/16 at 17:00; Stop 10/01/16 at 09:56; Status DC Amoxicillin/ Clavulanate Potassium (Augmentin 875/ 125mg) 1 tab BID PO ; Start 09/28/16 at 21:00; Status Cancel Doxycycline Hyclate (Vibra-Tab) 100 mg BID PO ; Start 09/28/16 at 21:00; Status Cancel Furosemide (Lasix) 40 mg QODAY PO Last administered on 09/30/16 10:16; Start 09/29/16 at 09:00; Stop 09/30/16 at 11:50; Status DC Gabapentin (Neurontin) 300 mg QHS PO Last administered on 09/30/16 21:02; Start 09/28/16 at 21:00 Hydralazine HCl (Apresoline) 10 mg TID PO Last administered on 10/01/16 08:58 ; Start 09/28/16 at 21:00 Acetaminophen/ Hydrocodone Bitart (Lortab 5/325) 1 tab PRN Q6HRS PRN PO PAIN Last administered on 10/01/16 00:59; Start 09/28/16 at 20:15 Insulin Aspart (Novolog) 10 units TIDAC SQ Last administered on 09/29/16 17:49 ; Start 09/29/16 at 07:30; Stop 09/29/16 at 19:08; Status DC Insulin Detemir (Levemir) 20 units HS SQ Last administered on 09/29/16 20:18; Start 09/28/16 at 21:00; Stop 09/30/16 at 13:36; Status DC Methotrexate (Rheumatrex) 2.5 mg WEEKLY PO ; Start 10/05/16 at 09:00; Status UNV Metoprolol Tartrate (Lopressor) 50 mg BID PO Last administered on 10/01/16 08: 58; Start 09/28/16 at 21:00 Pantoprazole Sodium (Protonix) 40 mg DAILY07 PO Last administered on 10/01/16 08:57; Start 09/29/16 at 09:00 Pyridostigmine [place] (Mestinon) 60 mg QID PO Last administered on 10/01/16 08:58; Start 09/28/16 at 21:00 Senna/Docusate Sodium (Senna Plus) 1 tab DAILY PO Last administered on 09:00; Start 09/29/16 at 09:00 Non-Formulary Medication 2 puff Q4HRS INH FOR ASTHMA; Start 09/29/16 at 00:00; Stop 09/29/16 at 00:00; Status DC Prednisone (Prednisone) 50 mg DAILY PO Last administered on 09/30/16 10:17; Start 09/29/16 at 09:00; Stop 09/30/16 at 13:36; Status DC Atorvastatin Calcium (Lipitor) 40 mg QHS PO Last administered on 09/30/16 21: 02; Start 09/28/16 at 21:00 Spironolactone (Aldactone) 50 mg DAILY PO Last administered on 09/30/16 10:16 ; Start 09/29/16 at 09:00; Stop 09/30/16 at 11:50; Status DC Albuterol Sulfate (Ventolin Neb Soln) 2.5 mg Q4HRS NEB Last administered on 12:33; Start 09/28/16 at 21:00 Furosemide (Lasix) 40 mg 1X ONCE IVP Last administered on 09/29/16 12:30; Start 09/29/16 at 11:45; Stop 09/29/16 at 11:46; Status DC Insulin Aspart (Novolog) 35 units TIDAC SQ Last administered on 10/01/16 12:55 ; Start 09/30/16 at 07:30 Insulin Detemir (Levemir) 30 units DAILY08 SQ Last administered on 09/30/16 08 :50; Start 09/30/16 at 08:00; Stop 09/30/16 at 13:36; Status DC Insulin Aspart (Novolog) 0-7 UNITS TIDWMEALS SQ Last administered on 09/30/16 18:04; Start 09/30/16 at 08:00 Dextrose 12.5 gm PRN Q15MIN PRN IV SEE COMMENTS; Start 09/29/16 at 19:00 Info 1 each 1 each PRN DAILY PRN MC SEE COMMENTS Last administered on 13:06; Start 09/30/16 at 10:30 Magnesium Sulfate/ Dextrose (Magnesium Sulfate PREMIX 2GM) 50 ml @ 25 mls/hr PRN DAILY PRN IV for Mag < 1.7 on am labs; Start 09/30/16 at 12:00 Potassium Chloride (Klor-Con) 40 meq QID PO Last administered on 09/30/16 21: 02; Start 09/30/16 at 13:00; Stop 09/30/16 at 21:01; Status DC Insulin Detemir (Levemir) 40 units HS SQ Last administered on 09/30/16 21:07; Start 09/30/16 at 21:00 Insulin Detemir (Levemir) 40 units DAILY08 SQ Last administered on 10/01/16 12 :54; Start 10/01/16 at 08:00 Prednisone (Prednisone) 30 mg DAILY PO Last administered on 10/01/16 08:58; Start 10/01/16 at 09:00 Acetaminophen (Tylenol) 650 mg PRN Q6HRS PRN PO MILD PAIN / TEMP; Start at 13:45 Ondansetron HCl (Zofran) 4 mg PRN Q6HRS PRN IV NAUSEA/VOMITING; Start 09/30/16 at 13:45 Mycophenolate Mofetil (Cellcept) 500 mg BID@18 PO ; Start 09/30/16 at 18:30; Stop 09/30/16 at 18:30; Status DC Insulin Aspart (Novolog) 35 units 1X ONCE SQ Last administered on 09/30/16 18 :00; Start 09/30/16 at 18:00; Stop 09/30/16 at 18:04; Status DC Mycophenolate Mofetil (Cellcept) 1,000 mg BID@ PO Last administered on 10:26; Start 09/30/16 at 18:30 Apixaban 5 mg 5 mg BID PO ; Start 10/01/16 at 21:00 Amino Acids/ Glycerin/ Electrolytes (Procalamine) 1,000 ml @ 80 mls/hr [id number] IV Last administered on 10/01/16 12:40; Start 10/01/16 at 11:45 Furosemide (Lasix) 40 mg BID92 IVP ; Start 10/01/16 at 14:00 Active Scripts Active Reported Lotrisone Cream (Clotrimazole/Betamethasone Dip) 15 Gm Cream..g. 1 Hema TP BID [oscal 500] Eliquis (Apixaban) 5 Mg Tablet 5 Mg PO BID Fosamax (Alendronate Sodium) 70 Mg Tablet 1 Tab PO QSU Probiotic (Bacillus Coagulans) 1 Each Capsule.dr 1 Each PO PRN Multaq (Dronedarone Hcl) 400 Mg Tablet 1 Tab PO BIDAC Furosemide 40 Mg Tablet 0.5 Tab PO DAILY Ferrous Sulfate 325 Mg Tablet 1 Tab PO TID Cellcept (Mycophenolate Mofetil) 500 Mg Tablet 1 Tab PO BID Doxycycline Hyclate 100 Mg Tablet 1 Tab PO BID 10 Days Ventolin Hfa Inhaler (Albuterol Sulfate) 18 Gm Hfa.aer.ad 2 Puff INH Q4HRS Amox Tr-K Clv 875-125 Mg Tab (Amoxicillin/Potassium Clav) 1 Each Tablet 1 Tab PO BID Multiple Vitamin (Multivitamin With Minerals) 1 Each Tablet 1 Each PO Spironolactone 50 Mg Tablet 1 Tab PO DAILY Senna-Docusate Sodium Tablet (Sennosides/Docusate Sodium) 1 Each Tablet 1 Each PO Rosuvastatin Calcium 10 Mg Tablet 10 Mg PO DAILY Pyridostigmine [place] 60 Mg Tablet 60 Mg PO QID Prednisone 50 Mg Tablet 50 Mg PO DAILY Pantoprazole Sodium 40 Mg Tablet.dr 1 Tab PO DAILY Metoprolol Tartrate 50 Mg Tablet 1 Tab PO BID Methotrexate (Methotrexate Sodium) 2.5 Mg Tablet 8 Tab PO WEEKLY Levemir Flextouch (Insulin Detemir) 100 Unit/1 Ml Insuln.pen Unit SQ BIDAC 40 units in am, 25 units evening Novolog Flexpen (Insulin Aspart) 100 Unit/1 Ml Insuln.pen 35 Unit SQ TIDAC Hydrocodone-Apap 5-325 (Hydrocodone Bit/Acetaminophen) 1 Each Tablet 1 Tab PO PRN Q6HRS PRN Hydralazine Hcl 10 Mg Tablet 1 Tab PO TID Gabapentin 300 Mg Capsule 300 Mg PO QHS Furosemide 40 Mg Tablet 40 Mg PO QODAY Vitals/I & O Vital Sign - Last 24 Hours 09/30/16 09/30/16 09/30/16 09/30/16 13:37 15:03 15:36 15:48 Temp 98.4 98.4 Pulse 68 68 68 Resp 20 B/P 137/64 137/51 137/51 Pulse Ox 100 94 O2 Delivery Room Air Room Air 09/30/16 09/30/16 09/30/16 09/30/16 15:48 19:24 19:35 20:08 Temp 97.4 97.4 Pulse 76 Resp 16 20 B/P 128/48 Pulse Ox 94 100 93 O2 Delivery Room Air Room Air Room Air Room Air 09/30/16 09/30/16 09/30/16 10/01/16 21:02 21:03 23:00 00:59 Temp 98.4 98.4 Pulse 76 76 80 Resp 22 18 B/P 128/48 128/48 142/69 Pulse Ox 92 92 O2 Delivery Room Air Room Air 10/01/16 10/01/16 10/01/16 10/01/16 01:59 03:00 07:00 08:00 Temp 97.6 98.5 97.6 98.5 Pulse 72 81 Resp 20 20 18 B/P 146/59 147/73 Pulse Ox 92 94 90 O2 Delivery Room Air Room Air Room Air Room Air 10/01/16 10/01/16 10/01/16 10/01/16 08:58 08:58 09:30 11:22 Temp 97.8 97.8 Pulse 72 72 76 Resp 20 B/P 146/59 146/59 142/50 Pulse Ox 94 92 O2 Delivery Room Air Room Air 10/01/16 12:35 Pulse Ox 93 O2 Delivery Room Air Intake and Output 09/30/16 09/30/16 10/01/16 15:00 23:00 07:00 Intake Total 0 ml 1280 ml 200 ml Output Total 1800 ml 950 ml Balance 0 ml -520 ml -750 ml AMANDEEP ASTORGA MD Oct 01, 2016 13:11
[2016-10-01] MEDS: FUROSEMIDE 40 MG/4 ML VIAL IVP SCH (13:35)
[2016-10-01 15:21] VITALS: BP 133/58
[2016-10-01 19:53] VITALS: BP 138/68
[2016-10-01] MEDS: GABAPENTIN 300 MG CAPSULE. PO SCH (21:00)
[2016-10-01] MEDS: ATORVASTATIN CALCIUM 40 MG TABLET. PO SCH (21:49)
[2016-10-01] MEDS: APIXABAN 5 MG TABLET. PO SCH (21:53)
[2016-10-01] MEDS: ACETAMINOPHEN 325 MG TABLET. PO PRN (22:20)
[2016-10-01 23:29] VITALS: BP 156/40
[2016-10-02] MEDS: AA 3%/ELECTROLYTE-TPN SOLN/GLY 1,000 ML IV SCH ×2 (00:15→11:57)
[2016-10-02 03:04] VITALS: BP 124/96
[2016-10-02] MEDS: ALBUTEROL SULFATE 2.5 MG/3 ML NEBU. NEB SCH ×6 (04:00→23:22)
[2016-10-02] MEDS: PANTOPRAZOLE 40 MG TABLET. PO SCH (06:24)
[2016-10-02 07:42] VITALS: BP 175/95
[2016-10-02] MEDS: INSULIN ASPART 300 UNITS/3 ML INSULN.PEN SQ SCH ×6 (08:00→17:35)
[2016-10-02] MEDS: INSULIN DETEMIR 300 UNITS/3 ML INSULN.PEN. SQ SCH ×2 (08:47→21:13)
[2016-10-02] MEDS: PYRIDOSTIGMINE BROMIDE 60 MG TABLET PO SCH ×4 (08:54→21:09)
[2016-10-02] MEDS: APIXABAN 5 MG TABLET. PO SCH ×2 (08:54→21:09)
[2016-10-02] MEDS: MYCOPHENOLATE MOFETIL 250 MG CAPSULE. PO SCH ×2 (08:54→17:33)
[2016-10-02] MEDS: SENNOSIDES/DOCUSATE 8.6/50MG TABLET. PO SCH (08:55)
[2016-10-02] MEDS: PREDNISONE 10 MG TABLET PO SCH (08:55)
[2016-10-02] MEDS: HYDRALAZINE 10 MG TABLET PO SCH ×3 (08:55→21:10)
[2016-10-02] MEDS: METOPROLOL TART IMMED RELEASE 50 MG TABLET PO SCH ×2 (08:56→21:10)
[2016-10-02] MEDS: FUROSEMIDE 40 MG/4 ML VIAL IVP SCH ×2 (08:57→14:58)
[2016-10-02] MEDS: ANTI-COAG MONITOR BY PHARMACY. MC PRN (08:59)
[2016-10-02 11:12] LABS: ALBUMIN 2.7 g/dL (3.4-5.0); CALCIUM 9.1 mg/dL (8.5-10.1); CREATININE 1.1 mg/dL (0.6-1.0); GFR 60.9; PHOSPHORUS 2.1 mg/dL (2.6-4.7); POTASSIUM 4.7 mmol/L (3.5-5.1)
--- NOTE | 2016-10-02 11:27 | PDOC ---
Renal-Progress Notes Subjective Notes Notes NONE History of Present Illness Hx of present illness NO CHANGE Vitals Vitals Vital Signs Date Time Temp Pulse Resp B/P Pulse Ox O2 Delivery O2 Flow Rate FiO2 10/02/16 08:56 71 175/95 10/02/16 07:45 98 Room Air 10/02/16 07:42 98.3 19 98.3 Weight Weight [ ] I.O. Intake and Output Intake and Output 10/02/16 06:59 Output Total 1700 ml Balance -1700 ml Output Urine Total 1700 ml Labs Labs Laboratory Tests Test 10/01/16 17:19 10/01/16 21:03 10/02/16 07:42 10/02/16 10:17 Glucose (Fingerstick) 342mg/dL (70-99) 349mg/dL (70-99) 114mg/dL (70-99) 290mg/dL (70-99) Test 10/02/16 10:35 Sodium Level 145mmol/L (136-145) Potassium Level 4.7mmol/L (3.5-5.1) Chloride Level 106mmol/L (98-107) Carbon Dioxide Level 32mmol/L (21-32) Anion Gap 7 (6-14) Blood Urea Nitrogen 21mg/dL (7-20) Creatinine 1.1mg/dL (0.6-1.0) Estimated GFR (Cockcroft-Gault) 60.9 Glucose Level 342mg/dL (70-99) Calcium Level 9.1mg/dL (8.5-10.1) Phosphorus Level 2.1mg/dL (2.6-4.7) Magnesium Level 1.8mg/dL (1.8-2.4) Albumin 2.7g/dL (3.4-5.0) Review of Systems Constitutional: yes: no symptom reported Physical Exam General Appearance: no apparent distress Skin: warm Respiratory: bilateral CTA Heart: S1S2, RRR Abdomen: soft, bowel sounds present Genitourinary: bladder flat Neurology: alert, oriented Assessment Assessment IMP HYPERNATREMIA-IMPROVING HYPOVOLEMIA MILD KORY-BETTER PLAN CONT WITH PPN LABS IN AM WILL FOLLOW MYLA MCCRAY MD Oct 02, 2016 11:27
[2016-10-02 11:32] VITALS: BP 138/63
--- NOTE | 2016-10-02 13:23 | PDOC ---
CARDIO Progress Notes Date and Time Date of Service 10/02/16 Time of Evaluation 1110 Subjective Subjective: No Chest Pain, No shortness of breath, Other (no acute events overnight. had episodes of urinary incont.) Vitals Vitals Vital Signs Date Time Temp Pulse Resp B/P Pulse Ox O2 Delivery O2 Flow Rate FiO2 10/02/16 11:39 Room Air 10/02/16 11:32 98.1 80 20 138/63 97 98.1 Weight Weight [ ] Input and Output Intake and Output Intake and Output 10/02/16 06:59 Output Total 1700 ml Balance -1700 ml Output Urine Total 1700 ml Laboratory Labs Laboratory Tests Test 10/01/16 17:19 10/01/16 21:03 10/02/16 07:42 10/02/16 10:17 Glucose (Fingerstick) 342mg/dL (70-99) 349mg/dL (70-99) 114mg/dL (70-99) 290mg/dL (70-99) Test 10/02/16 10:35 Sodium Level 145mmol/L (136-145) Potassium Level 4.7mmol/L (3.5-5.1) Chloride Level 106mmol/L (98-107) Carbon Dioxide Level 32mmol/L (21-32) Anion Gap 7 (6-14) Blood Urea Nitrogen 21mg/dL (7-20) Creatinine 1.1mg/dL (0.6-1.0) Estimated GFR (Cockcroft-Gault) 60.9 Glucose Level 342mg/dL (70-99) Calcium Level 9.1mg/dL (8.5-10.1) Phosphorus Level 2.1mg/dL (2.6-4.7) Magnesium Level 1.8mg/dL (1.8-2.4) Albumin 2.7g/dL (3.4-5.0) Review of Systems Constitutional: yes: no symptom reported Physical Exam HEENT: Neck Supple W Full Motion Chest: Symmetric LUNGS: Clear to Auscultation Heart: S1S2, RRR, other (2/6 systolic murmur ) Abdomen: Soft N/T Extremities: No Calf Tenderness, Other (persistent 2+ bilateral LE edema ) Neurology: alert, oriented, follow commands Assessment Assessment 1. Acute on chronic diastolic HF 2. Coronary artery disease s/p remote CABG 3. Hypertension 4. PAFIB- maintaining SR 5. Pulmonary hypertension 6. Hypernatremia 7. Mild protein malnutrition Recommendations Na improved; now 145. Moderate UOP overnight. Having incontinence; difficulty making it to BR. To try BSC- d/w RN urine osmolality pending Continue PPN and lasix Supportive care MAURISIO DE LEON APRN Oct 02, 2016 13:23
[2016-10-02 14:15] VITALS: BP 151/60
--- NOTE | 2016-10-02 14:15 | PDOC ---
PROGRESS NOTES Chief Complaint Chief Complaint cc: chest pain Chest pain : Trend troponin, atypical in nature, says flutter of her heart. Telemetry Chronic CHF with diastolic dysfunction: IV Lasix, monitor intake and out put Elevated troponin: Monitor, cardiology consult. hx PAFIB : sinus now Restrictive lung disease/ROBERTO hx CAD; CABG in 2000 HTN: controlled, continue with home regimen. HLP: statin Hx of CVA/TIA DM2 with retinopathy: SSI with Levemir , INCrease to levemir 40u bid, aspart 35u tid Hx of myasthenia gravis: intermittent plasmapheresis last treatment 03/2016. decrease prednisone to 30mg daily as per pt till go to see her own doc Hx of IgA monoclonal gammopathy Polypharmacy Hypernatremia: monitor, nephrology consult PPN as per renal, lasix iv bid on insulin, adjust dose on eliquis at home, resume, dc lovenox History of Present Illness History of Present Illness Na 145 from 150 hyperglycemia better sometime sob, on RA Vitals Vitals Vital Signs Date Time Temp Pulse Resp B/P Pulse Ox O2 Delivery O2 Flow Rate FiO2 10/02/16 11:39 Room Air 10/02/16 11:32 98.1 80 20 138/63 97 98.1 Physical Exam General: Alert, Oriented X3 Heart: Regular rate, Normal S1, Normal S2 Lungs: Clear, Other Abdomen: Normal bowel sounds Extremities: No clubbing Skin: No rashes Labs LABS Laboratory Tests Test 10/01/16 17:19 10/01/16 21:03 10/02/16 07:42 10/02/16 10:17 Glucose (Fingerstick) 342mg/dL (70-99) 349mg/dL (70-99) 114mg/dL (70-99) 290mg/dL (70-99) Test 10/02/16 10:35 Sodium Level 145mmol/L (136-145) Potassium Level 4.7mmol/L (3.5-5.1) Chloride Level 106mmol/L (98-107) Carbon Dioxide Level 32mmol/L (21-32) Anion Gap 7 (6-14) Blood Urea Nitrogen 21mg/dL (7-20) Creatinine 1.1mg/dL (0.6-1.0) Estimated GFR (Cockcroft-Gault) 60.9 Glucose Level 342mg/dL (70-99) Calcium Level 9.1mg/dL (8.5-10.1) Phosphorus Level 2.1mg/dL (2.6-4.7) Magnesium Level 1.8mg/dL (1.8-2.4) Albumin 2.7g/dL (3.4-5.0) Review of Systems Review of Systems no fever, chills, sob or chest pain Assessment and Plan Assessmemt and Plan Problems Medical Problems: (1) Chest pain Status: Acute (2) Chest pain Status: Acute (3) Hypernatremia Status: Acute Problems: Comment Review of Relevant I have reviewed the following items omer (where applicable) has been applied. Labs Laboratory Tests Test 09/30/16 15:54 09/30/16 17:53 09/30/16 21:00 10/01/16 05:35 Glucose (Fingerstick) 174mg/dL (70-99) 318mg/dL (70-99) 259mg/dL (70-99) Hemoglobin 10.7g/dL (12.0-15.5) Sodium Level 149mmol/L (136-145) Potassium Level 5.0mmol/L (3.5-5.1) Chloride Level 110mmol/L (98-107) Carbon Dioxide Level 32mmol/L (21-32) Anion Gap 7 (6-14) Blood Urea Nitrogen 22mg/dL (7-20) Creatinine 1.1mg/dL (0.6-1.0) Estimated GFR (Cockcroft-Gault) 60.9 Glucose Level 141mg/dL (70-99) Serum Osmolality 311mOsm/Kg (279-304) Calcium Level 9.1mg/dL (8.5-10.1) Phosphorus Level 2.7mg/dL (2.6-4.7) Magnesium Level 2.1mg/dL (1.8-2.4) Albumin 3.2g/dL (3.4-5.0) Test 10/01/16 08:48 10/01/16 11:12 10/01/16 17:19 10/01/16 21:03 Glucose (Fingerstick) 104mg/dL (70-99) 216mg/dL (70-99) 342mg/dL (70-99) 349mg/dL (70-99) Test 10/02/16 07:42 10/02/16 10:17 10/02/16 10:35 Glucose (Fingerstick) 114mg/dL (70-99) 290mg/dL (70-99) Sodium Level 145mmol/L (136-145) Potassium Level 4.7mmol/L (3.5-5.1) Chloride Level 106mmol/L (98-107) Carbon Dioxide Level 32mmol/L (21-32) Anion Gap 7 (6-14) Blood Urea Nitrogen 21mg/dL (7-20) Creatinine 1.1mg/dL (0.6-1.0) Estimated GFR (Cockcroft-Gault) 60.9 Glucose Level 342mg/dL (70-99) Calcium Level 9.1mg/dL (8.5-10.1) Phosphorus Level 2.1mg/dL (2.6-4.7) Magnesium Level 1.8mg/dL (1.8-2.4) Albumin 2.7g/dL (3.4-5.0) Laboratory Tests Test 10/01/16 17:19 10/01/16 21:03 10/02/16 07:42 10/02/16 10:17 Glucose (Fingerstick) 342mg/dL (70-99) 349mg/dL (70-99) 114mg/dL (70-99) 290mg/dL (70-99) Test 10/02/16 10:35 Sodium Level 145mmol/L (136-145) Potassium Level 4.7mmol/L (3.5-5.1) Chloride Level 106mmol/L (98-107) Carbon Dioxide Level 32mmol/L (21-32) Anion Gap 7 (6-14) Blood Urea Nitrogen 21mg/dL (7-20) Creatinine 1.1mg/dL (0.6-1.0) Estimated GFR (Cockcroft-Gault) 60.9 Glucose Level 342mg/dL (70-99) Calcium Level 9.1mg/dL (8.5-10.1) Phosphorus Level 2.1mg/dL (2.6-4.7) Magnesium Level 1.8mg/dL (1.8-2.4) Albumin 2.7g/dL (3.4-5.0) Medications Current Medications Ondansetron HCl (Zofran) 4 mg PRN Q8HRS PRN IV NAUSEA/VOMITING; Start 09/28/16 at 16:00; Stop 09/29/16 at 15:59; Status DC Fentanyl Citrate 50 mcg 50 mcg PRN Q2HR PRN IV PAIN; Start 09/28/16 at 16:00; Stop 09/29/16 at 15:59; Status DC Sodium Chloride (Iv Sodium Chloride 0.9% 1000ml Bag) 1,000 ml @ 150 mls/hr Q6H40M IV Last administered on 09/29/16 01:10; Start 09/28/16 at 16:00; Stop 09/29/16 at 15:59; Status DC Acetaminophen (Tylenol) 650 mg PRN Q4HRS PRN PO FEVER; Start 09/28/16 at 16:00 ; Stop 09/29/16 at 15:59; Status DC Nitroglycerin (Nitrostat) 0.4 mg PRN Q5MIN PRN SL CHEST PAIN; Start 09/28/16 at 16:00; Stop 09/29/16 at 15:59; Status DC Enoxaparin Sodium (Lovenox Per Pharmacy Treatment Dosing) 1 each PRN DAILY PRN MC SEE COMMENTS; Start 09/28/16 at 16:00; Stop 10/01/16 at 09:56; Status DC Aspirin (Children'S Aspirin) 324 mg 1X ONCE PO Last administered on 09/28/16 16:38; Start 09/28/16 at 16:00; Stop 09/28/16 at 16:01; Status DC Enoxaparin Sodium (Lovenox 100mg Syringe) 90 mg 1X ONCE SQ Last administered on 09/28/16 16:38; Start 09/28/16 at 16:15; Stop 09/28/16 at 16:16; Status DC Enoxaparin Sodium (Lovenox 100mg Syringe) 90 mg Q12HR SQ Last administered on 09:00; Start 09/28/16 at 17:00; Stop 10/01/16 at 09:56; Status DC Amoxicillin/ Clavulanate Potassium (Augmentin 875/ 125mg) 1 tab BID PO ; Start 09/28/16 at 21:00; Status Cancel Doxycycline Hyclate (Vibra-Tab) 100 mg BID PO ; Start 09/28/16 at 21:00; Status Cancel Furosemide (Lasix) 40 mg QODAY PO Last administered on 09/30/16 10:16; Start 09/29/16 at 09:00; Stop 09/30/16 at 11:50; Status DC Gabapentin (Neurontin) 300 mg QHS PO Last administered on 09/30/16 21:02; Start 09/28/16 at 21:00 Hydralazine HCl (Apresoline) 10 mg TID PO Last administered on 10/02/16 08:55 ; Start 09/28/16 at 21:00 Acetaminophen/ Hydrocodone Bitart (Lortab 5/325) 1 tab PRN Q6HRS PRN PO PAIN Last administered on 10/01/16 00:59; Start 09/28/16 at 20:15 Insulin Aspart (Novolog) 10 units TIDAC SQ Last administered on 09/29/16 17:49 ; Start 09/29/16 at 07:30; Stop 09/29/16 at 19:08; Status DC Insulin Detemir (Levemir) 20 units HS SQ Last administered on 09/29/16 20:18; Start 09/28/16 at 21:00; Stop 09/30/16 at 13:36; Status DC Methotrexate (Rheumatrex) 2.5 mg WEEKLY PO ; Start 10/05/16 at 09:00; Status UNV Metoprolol Tartrate (Lopressor) 50 mg BID PO Last administered on 10/02/16 08: 56; Start 09/28/16 at 21:00 Pantoprazole Sodium (Protonix) 40 mg DAILY07 PO Last administered on 10/02/16 06:24; Start 09/29/16 at 09:00 Pyridostigmine [place] (Mestinon) 60 mg QID PO Last administered on 10/02/16 08:54; Start 09/28/16 at 21:00 Senna/Docusate Sodium (Senna Plus) 1 tab DAILY PO Last administered on 08:55; Start 09/29/16 at 09:00 Non-Formulary Medication 2 puff Q4HRS INH FOR ASTHMA; Start 09/29/16 at 00:00; Stop 09/29/16 at 00:00; Status DC Prednisone (Prednisone) 50 mg DAILY PO Last administered on 09/30/16 10:17; Start 09/29/16 at 09:00; Stop 09/30/16 at 13:36; Status DC Atorvastatin Calcium (Lipitor) 40 mg QHS PO Last administered on 10/01/16 21: 49; Start 09/28/16 at 21:00 Spironolactone (Aldactone) 50 mg DAILY PO Last administered on 09/30/16 10:16 ; Start 09/29/16 at 09:00; Stop 09/30/16 at 11:50; Status DC Albuterol Sulfate (Ventolin Neb Soln) 2.5 mg Q4HRS NEB Last administered on 11:36; Start 09/28/16 at 21:00 Furosemide (Lasix) 40 mg 1X ONCE IVP Last administered on 09/29/16 12:30; Start 09/29/16 at 11:45; Stop 09/29/16 at 11:46; Status DC Insulin Aspart (Novolog) 35 units TIDAC SQ Last administered on 10/01/16 12:55 ; Start 09/30/16 at 07:30; Stop 10/01/16 at 13:11; Status DC Insulin Detemir (Levemir) 30 units DAILY08 SQ Last administered on 09/30/16 08 :50; Start 09/30/16 at 08:00; Stop 09/30/16 at 13:36; Status DC Insulin Aspart (Novolog) 0-7 UNITS TIDWMEALS SQ Last administered on 10/02/16 11:57; Start 09/30/16 at 08:00 Dextrose 12.5 gm PRN Q15MIN PRN IV SEE COMMENTS; Start 09/29/16 at 19:00 Info 1 each 1 each PRN DAILY PRN MC SEE COMMENTS Last administered on 08:59; Start 09/30/16 at 10:30 Magnesium Sulfate/ Dextrose (Magnesium Sulfate PREMIX 2GM) 50 ml @ 25 mls/hr PRN DAILY PRN IV for Mag < 1.7 on am labs; Start 09/30/16 at 12:00 Potassium Chloride (Klor-Con) 40 meq QID PO Last administered on 09/30/16 21: 02; Start 09/30/16 at 13:00; Stop 09/30/16 at 21:01; Status DC Insulin Detemir (Levemir) 40 units HS SQ Last administered on 10/01/16 21:59; Start 09/30/16 at 21:00 Insulin Detemir (Levemir) 40 units DAILY08 SQ Last administered on 10/02/16 08 :47; Start 10/01/16 at 08:00 Prednisone (Prednisone) 30 mg DAILY PO Last administered on 10/02/16 08:55; Start 10/01/16 at 09:00 Acetaminophen (Tylenol) 650 mg PRN Q6HRS PRN PO MILD PAIN / TEMP Last administered on 10/01/16 22:20; Start 09/30/16 at 13:45 Ondansetron HCl (Zofran) 4 mg PRN Q6HRS PRN IV NAUSEA/VOMITING; Start 09/30/16 at 13:45 Mycophenolate Mofetil (Cellcept) 500 mg BID@,18 PO ; Start 09/30/16 at 18:30; Stop 09/30/16 at 18:30; Status DC Insulin Aspart (Novolog) 35 units 1X ONCE SQ Last administered on 09/30/16 18 :00; Start 09/30/16 at 18:00; Stop 09/30/16 at 18:04; Status DC Mycophenolate Mofetil (Cellcept) 1,000 mg BID@09,18 PO Last administered on 08:54; Start 09/30/16 at 18:30 Apixaban 5 mg 5 mg BID PO Last administered on 10/02/16 08:54; Start 10/01/16 at 21:00 Amino Acids/ Glycerin/ Electrolytes (Procalamine) 1,000 ml @ 80 mls/hr [id number] IV Last administered on 10/02/16 11:57; Start 10/01/16 at 11:45 Furosemide (Lasix) 40 mg BID92 IVP Last administered on 10/02/16 08:57; Start 10/01/16 at 14:00 Insulin Aspart (Novolog) 30 units TIDAC SQ Last administered on 10/02/16 11:56 ; Start 10/01/16 at 16:30 Active Scripts Active Reported Lotrisone Cream (Clotrimazole/Betamethasone Dip) 15 Gm Cream..g. 1 Hema TP BID [oscal 500] Eliquis (Apixaban) 5 Mg Tablet 5 Mg PO BID Fosamax (Alendronate Sodium) 70 Mg Tablet 1 Tab PO QSU Probiotic (Bacillus Coagulans) 1 Each Capsule.dr 1 Each PO PRN Multaq (Dronedarone Hcl) 400 Mg Tablet 1 Tab PO BIDAC Furosemide 40 Mg Tablet 0.5 Tab PO DAILY Ferrous Sulfate 325 Mg Tablet 1 Tab PO TID Cellcept (Mycophenolate Mofetil) 500 Mg Tablet 1 Tab PO BID Doxycycline Hyclate 100 Mg Tablet 1 Tab PO BID 10 Days Ventolin Hfa Inhaler (Albuterol Sulfate) 18 Gm Hfa.aer.ad 2 Puff INH Q4HRS Amox Tr-K Clv 875-125 Mg Tab (Amoxicillin/Potassium Clav) 1 Each Tablet 1 Tab PO BID Multiple Vitamin (Multivitamin With Minerals) 1 Each Tablet 1 Each PO Spironolactone 50 Mg Tablet 1 Tab PO DAILY Senna-Docusate Sodium Tablet (Sennosides/Docusate Sodium) 1 Each Tablet 1 Each PO Rosuvastatin Calcium 10 Mg Tablet 10 Mg PO DAILY Pyridostigmine [place] 60 Mg Tablet 60 Mg PO QID Prednisone 50 Mg Tablet 50 Mg PO DAILY Pantoprazole Sodium 40 Mg Tablet. 1 Tab PO DAILY Metoprolol Tartrate 50 Mg Tablet 1 Tab PO BID Methotrexate (Methotrexate Sodium) 2.5 Mg Tablet 8 Tab PO WEEKLY Levemir Flextouch (Insulin Detemir) 100 Unit/1 Ml Insuln.pen Unit SQ BIDAC 40 units in am, 25 units evening Novolog Flexpen (Insulin Aspart) 100 Unit/1 Ml Insuln.pen 35 Unit SQ TIDAC Hydrocodone-Apap 5-325 (Hydrocodone Bit/Acetaminophen) 1 Each Tablet 1 Tab PO PRN Q6HRS PRN Hydralazine Hcl 10 Mg Tablet 1 Tab PO TID Gabapentin 300 Mg Capsule 300 Mg PO QHS Furosemide 40 Mg Tablet 40 Mg PO QODAY Vitals/I & O Vital Sign - Last 24 Hours 10/01/16 10/01/16 10/01/16 10/01/16 15:21 17:02 19:47 19:53 Temp 97.3 97.9 97.3 97.9 Pulse 95 80 Resp 20 18 B/P 133/58 138/68 Pulse Ox 96 97 98 O2 Delivery Room Air Room Air Room Air Room Air 10/01/16 10/01/16 10/01/16 10/01/16 20:00 21:49 21:53 23:29 Temp 98.1 98.1 Pulse 87 90 73 Resp 18 B/P 138/68 138/68 156/40 Pulse Ox 93 O2 Delivery Room Air Room Air 10/01/16 10/02/16 10/02/16 10/02/16 23:30 03:04 07:42 07:45 Temp 98.0 98.3 98.0 98.3 Pulse 65 71 Resp 22 19 B/P 124/96 175/95 Pulse Ox 97 98 98 O2 Delivery Room Air Room Air Room Air Room Air 10/02/16 10/02/16 10/02/16 10/02/16 08:55 08:56 11:32 11:39 Temp 98.1 98.1 Pulse 71 71 80 Resp 20 B/P 175/95 175/95 138/63 Pulse Ox 97 O2 Delivery Room Air Room Air Intake and Output 10/01/16 10/01/16 10/02/16 15:00 23:00 07:00 Output Total 800 ml 650 ml 250 ml Balance -800 ml -650 ml -250 ml AMANDEEP ASTORGA MD Oct 02, 2016 14:14
[2016-10-02] MEDS: ASPIRIN ENTERIC COATED 81 MG TABLET.DR. PO SCH (17:32)
[2016-10-02 19:48] VITALS: BP 144/67
[2016-10-02] MEDS: GABAPENTIN 300 MG CAPSULE. PO SCH (21:09)
[2016-10-02] MEDS: ATORVASTATIN CALCIUM 40 MG TABLET. PO SCH (21:09)
[2016-10-02 22:48] VITALS: BP 180/64
[2016-10-03] MEDS: AA 3%/ELECTROLYTE-TPN SOLN/GLY 1,000 ML IV SCH ×2 (01:15→13:31)
[2016-10-03 02:39] VITALS: BP 173/68
[2016-10-03] MEDS: ALBUTEROL SULFATE 2.5 MG/3 ML NEBU. NEB SCH ×6 (04:00→23:41)
[2016-10-03 07:00] VITALS: BP 167/68
[2016-10-03 09:59] LABS: ALBUMIN 2.9 g/dL (3.4-5.0); CALCIUM 9.8 mg/dL (8.5-10.1); CREATININE 0.9 mg/dL (0.6-1.0); GFR 76.8; MAGNESIUM 2.1 mg/dL (1.8-2.4); PHOSPHORUS 3.2 mg/dL (2.6-4.7); POTASSIUM 4.7 mmol/L (3.5-5.1)
[2016-10-03] MEDS: MYCOPHENOLATE MOFETIL 250 MG CAPSULE. PO SCH ×2 (10:32→18:11)
[2016-10-03] MEDS: PYRIDOSTIGMINE BROMIDE 60 MG TABLET PO SCH ×4 (10:32→21:47)
[2016-10-03] MEDS: ASPIRIN ENTERIC COATED 81 MG TABLET.DR. PO SCH (10:32)
[2016-10-03] MEDS: PANTOPRAZOLE 40 MG TABLET. PO SCH (10:33)
[2016-10-03] MEDS: APIXABAN 5 MG TABLET. PO SCH ×2 (10:33→21:48)
[2016-10-03] MEDS: PREDNISONE 10 MG TABLET PO SCH (10:33)
[2016-10-03] MEDS: METOPROLOL TART IMMED RELEASE 50 MG TABLET PO SCH ×2 (10:33→21:48)
[2016-10-03] MEDS: SENNOSIDES/DOCUSATE 8.6/50MG TABLET. PO SCH (10:33)
[2016-10-03] MEDS: HYDRALAZINE 10 MG TABLET PO SCH ×3 (10:34→21:48)
[2016-10-03] MEDS: FUROSEMIDE 40 MG/4 ML VIAL IVP SCH (10:34)
[2016-10-03] MEDS: INSULIN DETEMIR 300 UNITS/3 ML INSULN.PEN. SQ SCH ×2 (10:35→21:58)
[2016-10-03] MEDS: INSULIN ASPART 300 UNITS/3 ML INSULN.PEN SQ SCH ×6 (10:36→17:00)
[2016-10-03] MEDS: HYDROCODONE/APAP 5/325MG TABLET. PO PRN (10:57)
[2016-10-03 11:00] VITALS: BP 138/65
--- NOTE | 2016-10-03 11:35 | PDOC ---
Renal-Progress Notes Subjective Notes Notes NONE History of Present Illness Hx of present illness STABLE Vitals Vitals Vital Signs Date Time Temp Pulse Resp B/P Pulse Ox O2 Delivery O2 Flow Rate FiO2 10/03/16 10:57 18 92 Room Air 10/03/16 10:34 70 167/68 10/03/16 07:00 98.4 98.4 Weight Weight [ ] I.O. Intake and Output Intake and Output 10/03/16 07:00 Intake Total 1221 ml Output Total 2050 ml Balance -829 ml Intake Oral 600 ml IV Total 621 ml Output Urine Total 2050 ml Labs Labs Laboratory Tests Test 10/02/16 16:59 10/02/16 20:52 10/03/16 08:27 10/03/16 09:30 Glucose (Fingerstick) 326mg/dL (70-99) 332mg/dL (70-99) 162mg/dL (70-99) Sodium Level 144mmol/L (136-145) Potassium Level 4.7mmol/L (3.5-5.1) Chloride Level 104mmol/L (98-107) Carbon Dioxide Level 34mmol/L (21-32) Anion Gap 6 (6-14) Blood Urea Nitrogen 26mg/dL (7-20) Creatinine 0.9mg/dL (0.6-1.0) Estimated GFR (Cockcroft-Gault) 76.8 Glucose Level 237mg/dL (70-99) Calcium Level 9.8mg/dL (8.5-10.1) Phosphorus Level 3.2mg/dL (2.6-4.7) Magnesium Level 2.1mg/dL (1.8-2.4) Albumin 2.9g/dL (3.4-5.0) Review of Systems Constitutional: yes: no symptom reported Physical Exam General Appearance: no apparent distress Skin: warm Respiratory: bilateral CTA Heart: S1S2, RRR Abdomen: soft, bowel sounds present Genitourinary: bladder flat Neurology: alert, oriented, follow commands Assessment Assessment IMP HYPERNATREMIA-IMPROVING MILD KORY-BETTER PLAN CONT WITH PPN CHANGE LASIX TO PO LABS IN AM WILL FOLLOW MYLA MCCRAY MD Oct 03, 2016 11:35
--- NOTE | 2016-10-03 12:22 | PDOC ---
THIEUN LUCAS [facility] [employer] 10/03/16 1222: CARDIO Progress Notes Date and Time Date of Service 10/03/2016 Time of Evaluation 1222 Subjective Subjective: No Chest Pain, No shortness of breath, Other (sinus headache today) Vitals Vitals Vital Signs Date Time Temp Pulse Resp B/P Pulse Ox O2 Delivery O2 Flow Rate FiO2 10/03/16 12:09 Room Air 10/03/16 10:57 18 92 10/03/16 10:34 70 167/68 10/03/16 07:00 98.4 98.4 Weight Weight [ ] Input and Output Intake and Output Intake and Output 10/03/16 06:59 Intake Total 1221 ml Output Total 2050 ml Balance -829 ml Intake Oral 600 ml IV Total 621 ml Output Urine Total 2050 ml Laboratory Labs Laboratory Tests Test 10/02/16 16:59 10/02/16 20:52 10/03/16 08:27 10/03/16 09:30 Glucose (Fingerstick) 326mg/dL (70-99) 332mg/dL (70-99) 162mg/dL (70-99) Sodium Level 144mmol/L (136-145) Potassium Level 4.7mmol/L (3.5-5.1) Chloride Level 104mmol/L (98-107) Carbon Dioxide Level 34mmol/L (21-32) Anion Gap 6 (6-14) Blood Urea Nitrogen 26mg/dL (7-20) Creatinine 0.9mg/dL (0.6-1.0) Estimated GFR (Cockcroft-Gault) 76.8 Glucose Level 237mg/dL (70-99) Calcium Level 9.8mg/dL (8.5-10.1) Phosphorus Level 3.2mg/dL (2.6-4.7) Magnesium Level 2.1mg/dL (1.8-2.4) Albumin 2.9g/dL (3.4-5.0) Test 10/03/16 11:51 Glucose (Fingerstick) 308mg/dL (70-99) Review of Systems Constitutional: yes: no symptom reported Physical Exam HEENT: Neck Supple W Full Motion Chest: Symmetric LUNGS: Clear to Auscultation Heart: S1S2, RRR, no murmurs (1/6 systolic), murmurs, other (tele: SR) Abdomen: Soft N/T Extremities: Other (1+ bilateral LE edema; dressing on right posterior calf) Neurology: alert, oriented, follow commands Assessment Assessment 1. Acute on chronic diastolic HF appears reasonably compensated continue medical management 2. Coronary artery disease s/p remote CABG no anginal symptoms continue secondary prevention 3. Hypertension not well controlled with grade 1 diastolic dysfunction and DM - recommend addition of ARB if agreeable with Nephrology 4. PAFIB- maintaining SR rate controlled with BB and with OAC for stroke prevention 5. Pulmonary hypertension, mild to moderate PA = 43 needs improved control of systemic HTN as well BEATRICE TREJO MD 10/03/16 1702: CARDIO Progress Notes Plan Plan Patient seen and examined. Agree with above nurse practitioner note. No acute events overnight. Tolerating diuresis well. Continues to be on PPN. Persistent lower extremity edema is present. Seen by wound care clinic. No significant changes to cardiovascular exam. Laboratory studies reviewed with a sodium now 144. Continue supportive care from a cardiac perspective. We'll follow along. EUN RAJPUT APRN Oct 03, 2016 12:22 BEATRICE TREJO MD Oct 03, 2016 17:02
--- NOTE | 2016-10-03 13:23 | PDOC2 ---
CONSULT Date of Consult Date of Consult DATE: 10/03/16 TIME: 13:16 Reason for Consult Reason for Consult: Right lower extremity wound Referring Physician Referring Physician: Hospitalist Identification/Chief Complaint Chief Complaint This is a 61-year-old patient recently admitted for congestive heart failure and atypical chest discomfort. She is a well-known patient to the wound care center and has been followed for right lower extremity venous insufficiency ulceration with vasculitic component for some time. We're asked to review care of the ulcer. History of Present Illness Reason for Visit: Patient is well known to the wound care clinic for right lower extremity venous insufficiency ulceration with fat layer exposure and complicated by a vasculitic components. Were currently utilizing aqua cell AG the affected site. She reports no worsened pain, drainage, odor or redness. She denied right calf pain or worsened swelling. Historically, appetite and intake have been somewhat marginal. She is been poorly tolerant of compression. Past Medical History Cardiovascular: CAD, CHF, HTN Pulmonary: Other CENTRAL NERVOUS SYSTEM: CVA, TIA, Other GI: Diverticulosis, GERD, Irritable bowel disease Heme/Onc: Cancer Hepatobiliary: No pertinent hx Psych: No pertinent hx Rheumatologic: No pertinent hx Infectious disease: No pertinent hx Renal/: Chronic renal insuff Endocrine: Diabetes Past Surgical History Past Surgical History: CABG Family History Family History: Asthma Social History No ALCOHOL: none Drugs: None Lives: Alone Domestic Violence: Neg Current Problem List Problem List Problems Medical Problems: (1) Chest pain Status: Acute (2) Chest pain Status: Acute (3) Hypernatremia Status: Acute Current Medications Current Medications Current Medications Ondansetron HCl (Zofran) 4 mg PRN Q8HRS PRN IV NAUSEA/VOMITING; Start 09/28/16 at 16:00; Stop 09/29/16 at 15:59; Status DC Fentanyl Citrate 50 mcg 50 mcg PRN Q2HR PRN IV PAIN; Start 09/28/16 at 16:00; Stop 09/29/16 at 15:59; Status DC Sodium Chloride (Iv Sodium Chloride 0.9% 1000ml Bag) 1,000 ml @ 150 mls/hr Q6H40M IV Last administered on 09/29/16t 01:10; Start 09/28/16 at 16:00; Stop 09/29/16 at 15:59; Status DC Acetaminophen (Tylenol) 650 mg PRN Q4HRS PRN PO FEVER; Start 09/28/16 at 16:00 ; Stop 09/29/16 at 15:59; Status DC Nitroglycerin (Nitrostat) 0.4 mg PRN Q5MIN PRN SL CHEST PAIN; Start 09/28/16 at 16:00; Stop 09/29/16 at 15:59; Status DC Enoxaparin Sodium (Lovenox Per Pharmacy Treatment Dosing) 1 each PRN DAILY PRN MC SEE COMMENTS; Start 09/28/16 at 16:00; Stop 10/01/16 at 09:56; Status DC Aspirin (Children'S Aspirin) 324 mg 1X ONCE PO Last administered on 09/28/16 16:38; Start 09/28/16 at 16:00; Stop 09/28/16 at 16:01; Status DC Enoxaparin Sodium (Lovenox 100mg Syringe) 90 mg 1X ONCE SQ Last administered on 09/28/16 16:38; Start 09/28/16 at 16:15; Stop 09/28/16 at 16:16; Status DC Enoxaparin Sodium (Lovenox 100mg Syringe) 90 mg Q12HR SQ Last administered on 09:00; Start 09/28/16 at 17:00; Stop 10/01/16 at 09:56; Status DC Amoxicillin/ Clavulanate Potassium (Augmentin 875/ 125mg) 1 tab BID PO ; Start 09/28/16 at 21:00; Status Cancel Doxycycline Hyclate (Vibra-Tab) 100 mg BID PO ; Start 09/28/16 at 21:00; Status Cancel Furosemide (Lasix) 40 mg QODAY PO Last administered on 09/30/16 10:16; Start 09/29/16 at 09:00; Stop 09/30/16 at 11:50; Status DC Gabapentin (Neurontin) 300 mg QHS PO Last administered on 10/02/16 21:09; Start 09/28/16 at 21:00 Hydralazine HCl (Apresoline) 10 mg TID PO Last administered on 10/03/16 13:04 ; Start 09/28/16 at 21:00 Acetaminophen/ Hydrocodone Bitart (Lortab 5/325) 1 tab PRN Q6HRS PRN PO PAIN Last administered on 10/03/16 10:57; Start 09/28/16 at 20:15 Insulin Aspart (Novolog) 10 units TIDAC SQ Last administered on 09/29/16 17:49 ; Start 09/29/16 at 07:30; Stop 09/29/16 at 19:08; Status DC Insulin Detemir (Levemir) 20 units HS SQ Last administered on 09/29/16 20:18; Start 09/28/16 at 21:00; Stop 09/30/16 at 13:36; Status DC Methotrexate (Rheumatrex) 2.5 mg WEEKLY PO ; Start 10/05/16 at 09:00; Status UNV Metoprolol Tartrate (Lopressor) 50 mg BID PO Last administered on 10/03/16 10: 33; Start 09/28/16 at 21:00 Pantoprazole Sodium (Protonix) 40 mg DAILY07 PO Last administered on 10/03/16 10:33; Start 09/29/16 at 09:00 Pyridostigmine [place] (Mestinon) 60 mg QID PO Last administered on 10/03/16 13:02; Start 09/28/16 at 21:00 Senna/Docusate Sodium (Senna Plus) 1 tab DAILY PO Last administered on 10:33; Start 09/29/16 at 09:00 Non-Formulary Medication 2 puff Q4HRS INH FOR ASTHMA; Start 09/29/16 at 00:00; Stop 09/29/16 at 00:00; Status DC Prednisone (Prednisone) 50 mg DAILY PO Last administered on 09/30/16 10:17; Start 09/29/16 at 09:00; Stop 09/30/16 at 13:36; Status DC Atorvastatin Calcium (Lipitor) 40 mg QHS PO Last administered on 10/02/16 21: 09; Start 09/28/16 at 21:00 Spironolactone (Aldactone) 50 mg DAILY PO Last administered on 09/30/16 10:16 ; Start 09/29/16 at 09:00; Stop 09/30/16 at 11:50; Status DC Albuterol Sulfate (Ventolin Neb Soln) 2.5 mg Q4HRS NEB Last administered on 12:07; Start 09/28/16 at 21:00 Furosemide (Lasix) 40 mg 1X ONCE IVP Last administered on 09/29/16 12:30; Start 09/29/16 at 11:45; Stop 09/29/16 at 11:46; Status DC Insulin Aspart (Novolog) 35 units TIDAC SQ Last administered on 10/01/16 12:55 ; Start 09/30/16 at 07:30; Stop 10/01/16 at 13:11; Status DC Insulin Detemir (Levemir) 30 units DAILY08 SQ Last administered on 09/30/16 08 :50; Start 09/30/16 at 08:00; Stop 09/30/16 at 13:36; Status DC Insulin Aspart (Novolog) 0-7 UNITS TIDWMEALS SQ Last administered on 10/03/16 13:01; Start 09/30/16 at 08:00 Dextrose 12.5 gm PRN Q15MIN PRN IV SEE COMMENTS; Start 09/29/16 at 19:00 Info 1 each 1 each PRN DAILY PRN MC SEE COMMENTS Last administered on 08:59; Start 09/30/16 at 10:30 Magnesium Sulfate/ Dextrose (Magnesium Sulfate PREMIX 2GM) 50 ml @ 25 mls/hr PRN DAILY PRN IV for Mag < 1.7 on am labs; Start 09/30/16 at 12:00 Potassium Chloride (Klor-Con) 40 meq QID PO Last administered on 09/30/16 21: 02; Start 09/30/16 at 13:00; Stop 09/30/16 at 21:01; Status DC Insulin Detemir (Levemir) 40 units HS SQ Last administered on 10/02/16 21:13; Start 09/30/16 at 21:00 Insulin Detemir (Levemir) 40 units DAILY08 SQ Last administered on 10/03/16 10 :35; Start 10/01/16 at 08:00 Prednisone (Prednisone) 30 mg DAILY PO Last administered on 10/03/16 10:33; Start 10/01/16 at 09:00 Acetaminophen (Tylenol) 650 mg PRN Q6HRS PRN PO MILD PAIN / TEMP Last administered on 10/01/16 22:20; Start 09/30/16 at 13:45 Ondansetron HCl (Zofran) 4 mg PRN Q6HRS PRN IV NAUSEA/VOMITING; Start 09/30/16 at 13:45 Mycophenolate Mofetil (Cellcept) 500 mg BID@,18 PO ; Start 09/30/16 at 18:30; Stop 09/30/16 at 18:30; Status DC Insulin Aspart (Novolog) 35 units 1X ONCE SQ Last administered on 09/30/16 18 :00; Start 09/30/16 at 18:00; Stop 09/30/16 at 18:04; Status DC Mycophenolate Mofetil (Cellcept) 1,000 mg BID@,18 PO Last administered on 10:32; Start 09/30/16 at 18:30 Apixaban 5 mg 5 mg BID PO Last administered on 10/03/16 10:33; Start 10/01/16 at 21:00 Amino Acids/ Glycerin/ Electrolytes (Procalamine) 1,000 ml @ 80 mls/hr [id number] IV Last administered on 10/03/16 01:15; Start 10/01/16 at 11:45 Furosemide (Lasix) 40 mg BID92 IVP Last administered on 10/03/16 10:34; Start 10/01/16 at 14:00; Stop 10/03/16 at 11:36; Status DC Insulin Aspart (Novolog) 30 units TIDAC SQ Last administered on 10/03/16 13:01 ; Start 10/01/16 at 16:30 Aspirin (Ecotrin) 81 mg [id number] PO Last administered on 10/03/16 10:32; Start 10/02/16 at 17:00 Furosemide (Lasix) 40 mg DAILY PO ; Start 10/04/16 at 09:00 Active Scripts Active Reported Lotrisone Cream (Clotrimazole/Betamethasone Dip) 15 Gm Cream..g. 1 Hema TP BID [oscal 500] Eliquis (Apixaban) 5 Mg Tablet 5 Mg PO BID Fosamax (Alendronate Sodium) 70 Mg Tablet 1 Tab PO QSU Probiotic (Bacillus Coagulans) 1 Each Capsule.dr 1 Each PO PRN Multaq (Dronedarone Hcl) 400 Mg Tablet 1 Tab PO BIDAC Furosemide 40 Mg Tablet 0.5 Tab PO DAILY Ferrous Sulfate 325 Mg Tablet 1 Tab PO TID Cellcept (Mycophenolate Mofetil) 500 Mg Tablet 1 Tab PO BID Doxycycline Hyclate 100 Mg Tablet 1 Tab PO BID 10 Days Ventolin Hfa Inhaler (Albuterol Sulfate) 18 Gm Hfa.aer.ad 2 Puff INH Q4HRS Amox Tr-K Clv 875-125 Mg Tab (Amoxicillin/Potassium Clav) 1 Each Tablet 1 Tab PO BID Multiple Vitamin (Multivitamin With Minerals) 1 Each Tablet 1 Each PO Spironolactone 50 Mg Tablet 1 Tab PO DAILY Senna-Docusate Sodium Tablet (Sennosides/Docusate Sodium) 1 Each Tablet 1 Each PO Rosuvastatin Calcium 10 Mg Tablet 10 Mg PO DAILY Pyridostigmine [place] 60 Mg Tablet 60 Mg PO QID Prednisone 50 Mg Tablet 50 Mg PO DAILY Pantoprazole Sodium 40 Mg Tablet.dr 1 Tab PO DAILY Metoprolol Tartrate 50 Mg Tablet 1 Tab PO BID Methotrexate (Methotrexate Sodium) 2.5 Mg Tablet 8 Tab PO WEEKLY Levemir Flextouch (Insulin Detemir) 100 Unit/1 Ml Insuln.pen Unit SQ BIDAC 40 units in am, 25 units evening Novolog Flexpen (Insulin Aspart) 100 Unit/1 Ml Insuln.pen 35 Unit SQ TIDAC Hydrocodone-Apap 5-325 (Hydrocodone Bit/Acetaminophen) 1 Each Tablet 1 Tab PO PRN Q6HRS PRN Hydralazine Hcl 10 Mg Tablet 1 Tab PO TID Gabapentin 300 Mg Capsule 300 Mg PO QHS Furosemide 40 Mg Tablet 40 Mg PO QODAY Allergies Allergies: Coded Allergies: Iodinated Contrast Media - Oral and (Verified Allergy, Intermediate, ) adhesive tape (Verified Allergy, Intermediate, 04/23/16) insulin glargine (Verified Allergy, Intermediate, 04/23/16) levofloxacin (Verified Allergy, Intermediate, 04/23/16) ROS General: YES: Fatigue Respiratory: YES: Shortness of breath (this is improved) Cardiovascular: yes Chest Pain (also significantly improved), yes Edema (mild chronic bilateral edema noted) Musculoskeletal: Yes Muscular Weakness (myasthenia gravis) Physical Exam General: Alert, Oriented X3, Cooperative HEENT: Atraumatic, PERRLA, EOMI Lungs: Normal air movement Heart: Regular rate Abdomen: Soft Extremities: No clubbing, No cyanosis, Other (negative Homans on the right) Skin: Other (right calf demonstrates a 2.6 cm x 2.1 cm x 0.4 cm ulcer with chronic wound edges, minimal slough fibrin in the base and moderate serosanguineous drainage present. The periwound is intact. This is not significantly changed from prior evaluations) Neuro: Normal speech, Cranial nerves 3-12 NL Psych/Mental Status: Mental status NL, Mood NL Vitals VITALS Vital Signs Date Time Temp Pulse Resp B/P Pulse Ox O2 Delivery O2 Flow Rate FiO2 10/03/16 13:04 77 138/64 10/03/16 12:09 Room Air 10/03/16 11:57 18 99 10/03/16 11:00 98.5 98.5 Labs Labs Laboratory Tests Test 10/01/16 17:19 10/01/16 20:05 10/01/16 21:03 10/02/16 07:42 Glucose (Fingerstick) 342mg/dL (70-99) 349mg/dL (70-99) 114mg/dL (70-99) Urine Osmolality 481mOsmol/kg (.) Test 10/02/16 10:17 10/02/16 10:35 10/02/16 16:59 10/02/16 20:52 Glucose (Fingerstick) 290mg/dL (70-99) 326mg/dL (70-99) 332mg/dL (70-99) Sodium Level 145mmol/L (136-145) Potassium Level 4.7mmol/L (3.5-5.1) Chloride Level 106mmol/L (98-107) Carbon Dioxide Level 32mmol/L (21-32) Anion Gap 7 (6-14) Blood Urea Nitrogen 21mg/dL (7-20) Creatinine 1.1mg/dL (0.6-1.0) Estimated GFR (Cockcroft-Gault) 60.9 Glucose Level 342mg/dL (70-99) Calcium Level 9.1mg/dL (8.5-10.1) Phosphorus Level 2.1mg/dL (2.6-4.7) Magnesium Level 1.8mg/dL (1.8-2.4) Albumin 2.7g/dL (3.4-5.0) Test 10/03/16 08:27 10/03/16 09:30 10/03/16 11:51 Glucose (Fingerstick) 162mg/dL (70-99) 308mg/dL (70-99) Sodium Level 144mmol/L (136-145) Potassium Level 4.7mmol/L (3.5-5.1) Chloride Level 104mmol/L (98-107) Carbon Dioxide Level 34mmol/L (21-32) Anion Gap 6 (6-14) Blood Urea Nitrogen 26mg/dL (7-20) Creatinine 0.9mg/dL (0.6-1.0) Estimated GFR (Cockcroft-Gault) 76.8 Glucose Level 237mg/dL (70-99) Calcium Level 9.8mg/dL (8.5-10.1) Phosphorus Level 3.2mg/dL (2.6-4.7) Magnesium Level 2.1mg/dL (1.8-2.4) Albumin 2.9g/dL (3.4-5.0) Laboratory Tests Test 10/02/16 16:59 10/02/16 20:52 10/03/16 08:27 10/03/16 09:30 Glucose (Fingerstick) 326mg/dL (70-99) 332mg/dL (70-99) 162mg/dL (70-99) Sodium Level 144mmol/L (136-145) Potassium Level 4.7mmol/L (3.5-5.1) Chloride Level 104mmol/L (98-107) Carbon Dioxide Level 34mmol/L (21-32) Anion Gap 6 (6-14) Blood Urea Nitrogen 26mg/dL (7-20) Creatinine 0.9mg/dL (0.6-1.0) Estimated GFR (Cockcroft-Gault) 76.8 Glucose Level 237mg/dL (70-99) Calcium Level 9.8mg/dL (8.5-10.1) Phosphorus Level 3.2mg/dL (2.6-4.7) Magnesium Level 2.1mg/dL (1.8-2.4) Albumin 2.9g/dL (3.4-5.0) Test 10/03/16 11:51 Glucose (Fingerstick) 308mg/dL (70-99) Assessment/Plan Assessment/Plan Right calf venous insufficiency ulceration with evidence of fat layer exposure. Dressing replaced with aqua cell AG under absorbent foam. This to be changed on 2 time weekly basis. We continue to recommend Medi collar cutter compression as tolerated. We anticipate following the patient up in roughly 3-4 weeks time. The patient only allows herself monthly clinic visits because of considerable co -pay cost. ALINE JONES DO Oct 03, 2016 13:23
[2016-10-03 15:01] VITALS: BP 135/54
--- NOTE | 2016-10-03 15:32 | PDOC ---
PROGRESS NOTES Chief Complaint Chief Complaint cc: chest pain Chest pain Chronic CHF with diastolic dysfunction Elevated troponin hx PAFIB Restrictive lung disease/ROBERTO hx CAD; CABG in 2000 HTN HLP: statin Hx of CVA/TIA DM2 with retinopathy Hx of myasthenia gravis: intermittent plasmapheresis last treatment 03/2016. decrease prednisone to 30mg daily as per pt till go to see her own doc Hx of IgA monoclonal gammopathy Polypharmacy Hypernatremia PPN as per renal, lasix iv bid on insulin, adjust dose on eliquis at home, resume, dc lovenox dc tmr History of Present Illness History of Present Illness Na 145 from 150 hyperglycemia better sometime sob, on RA Vitals Vitals Vital Signs Date Time Temp Pulse Resp B/P Pulse Ox O2 Delivery O2 Flow Rate FiO2 10/03/16 15:01 98.3 67 20 135/54 95 Room Air 98.3 Physical Exam General: Alert, Oriented X3, Cooperative Heart: Regular rate Lungs: Clear, Other Abdomen: Soft Extremities: No clubbing, No cyanosis, Other (negative Homans on the right) Skin: Other (right calf demonstrates a 2.6 cm x 2.1 cm x 0.4 cm ulcer with chronic wound edges, minimal slough fibrin in the base and moderate serosanguineous drainage present. The periwound is intact. This is not significantly changed from prior evaluations) Labs LABS Laboratory Tests Test 10/02/16 16:59 10/02/16 20:52 10/03/16 08:27 10/03/16 09:30 Glucose (Fingerstick) 326mg/dL (70-99) 332mg/dL (70-99) 162mg/dL (70-99) Sodium Level 144mmol/L (136-145) Potassium Level 4.7mmol/L (3.5-5.1) Chloride Level 104mmol/L (98-107) Carbon Dioxide Level 34mmol/L (21-32) Anion Gap 6 (6-14) Blood Urea Nitrogen 26mg/dL (7-20) Creatinine 0.9mg/dL (0.6-1.0) Estimated GFR (Cockcroft-Gault) 76.8 Glucose Level 237mg/dL (70-99) Calcium Level 9.8mg/dL (8.5-10.1) Phosphorus Level 3.2mg/dL (2.6-4.7) Magnesium Level 2.1mg/dL (1.8-2.4) Albumin 2.9g/dL (3.4-5.0) Test 10/03/16 11:51 Glucose (Fingerstick) 308mg/dL (70-99) Review of Systems Review of Systems General: Alert, Oriented X3, Cooperative, No acute distress Heart: Normal S1, Normal S2, Other (tele: ST, 2/6 systolic murmur ) Lungs: Clear Abdomen: Soft, No tenderness Extremities: Normal pulses, Other (1+ bilateral LE edema ) Skin: No breakdown, No significant lesion Assessment and Plan Assessmemt and Plan Problems Medical Problems: (1) Chest pain Status: Acute (2) Chest pain Status: Acute (3) Hypernatremia Status: Acute Problems: Comment Review of Relevant I have reviewed the following items omer (where applicable) has been applied. Labs Laboratory Tests Test 10/01/16 17:19 10/01/16 20:05 10/01/16 21:03 10/02/16 07:42 Glucose (Fingerstick) 342mg/dL (70-99) 349mg/dL (70-99) 114mg/dL (70-99) Urine Osmolality 481mOsmol/kg (.) Test 10/02/16 10:17 10/02/16 10:35 10/02/16 16:59 10/02/16 20:52 Glucose (Fingerstick) 290mg/dL (70-99) 326mg/dL (70-99) 332mg/dL (70-99) Sodium Level 145mmol/L (136-145) Potassium Level 4.7mmol/L (3.5-5.1) Chloride Level 106mmol/L (98-107) Carbon Dioxide Level 32mmol/L (21-32) Anion Gap 7 (6-14) Blood Urea Nitrogen 21mg/dL (7-20) Creatinine 1.1mg/dL (0.6-1.0) Estimated GFR (Cockcroft-Gault) 60.9 Glucose Level 342mg/dL (70-99) Calcium Level 9.1mg/dL (8.5-10.1) Phosphorus Level 2.1mg/dL (2.6-4.7) Magnesium Level 1.8mg/dL (1.8-2.4) Albumin 2.7g/dL (3.4-5.0) Test 10/03/16 08:27 10/03/16 09:30 10/03/16 11:51 Glucose (Fingerstick) 162mg/dL (70-99) 308mg/dL (70-99) Sodium Level 144mmol/L (136-145) Potassium Level 4.7mmol/L (3.5-5.1) Chloride Level 104mmol/L (98-107) Carbon Dioxide Level 34mmol/L (21-32) Anion Gap 6 (6-14) Blood Urea Nitrogen 26mg/dL (7-20) Creatinine 0.9mg/dL (0.6-1.0) Estimated GFR (Cockcroft-Gault) 76.8 Glucose Level 237mg/dL (70-99) Calcium Level 9.8mg/dL (8.5-10.1) Phosphorus Level 3.2mg/dL (2.6-4.7) Magnesium Level 2.1mg/dL (1.8-2.4) Albumin 2.9g/dL (3.4-5.0) Laboratory Tests Test 10/02/16 16:59 10/02/16 20:52 10/03/16 08:27 10/03/16 09:30 Glucose (Fingerstick) 326mg/dL (70-99) 332mg/dL (70-99) 162mg/dL (70-99) Sodium Level 144mmol/L (136-145) Potassium Level 4.7mmol/L (3.5-5.1) Chloride Level 104mmol/L (98-107) Carbon Dioxide Level 34mmol/L (21-32) Anion Gap 6 (6-14) Blood Urea Nitrogen 26mg/dL (7-20) Creatinine 0.9mg/dL (0.6-1.0) Estimated GFR (Cockcroft-Gault) 76.8 Glucose Level 237mg/dL (70-99) Calcium Level 9.8mg/dL (8.5-10.1) Phosphorus Level 3.2mg/dL (2.6-4.7) Magnesium Level 2.1mg/dL (1.8-2.4) Albumin 2.9g/dL (3.4-5.0) Test 10/03/16 11:51 Glucose (Fingerstick) 308mg/dL (70-99) Medications Current Medications Ondansetron HCl (Zofran) 4 mg PRN Q8HRS PRN IV NAUSEA/VOMITING; Start 09/28/16 at 16:00; Stop 09/29/16 at 15:59; Status DC Fentanyl Citrate 50 mcg 50 mcg PRN Q2HR PRN IV PAIN; Start 09/28/16 at 16:00; Stop 09/29/16 at 15:59; Status DC Sodium Chloride (Iv Sodium Chloride 0.9% 1000ml Bag) 1,000 ml @ 150 mls/hr Q6H40M IV Last administered on 09/29/16 01:10; Start 09/28/16 at 16:00; Stop 09/29/16 at 15:59; Status DC Acetaminophen (Tylenol) 650 mg PRN Q4HRS PRN PO FEVER; Start 09/28/16 at 16:00 ; Stop 09/29/16 at 15:59; Status DC Nitroglycerin (Nitrostat) 0.4 mg PRN Q5MIN PRN SL CHEST PAIN; Start 09/28/16 at 16:00; Stop 09/29/16 at 15:59; Status DC Enoxaparin Sodium (Lovenox Per Pharmacy Treatment Dosing) 1 each PRN DAILY PRN MC SEE COMMENTS; Start 09/28/16 at 16:00; Stop 10/01/16 at 09:56; Status DC Aspirin (Children'S Aspirin) 324 mg 1X ONCE PO Last administered on 09/28/16 16:38; Start 09/28/16 at 16:00; Stop 09/28/16 at 16:01; Status DC Enoxaparin Sodium (Lovenox 100mg Syringe) 90 mg 1X ONCE SQ Last administered on 09/28/16 16:38; Start 09/28/16 at 16:15; Stop 09/28/16 at 16:16; Status DC Enoxaparin Sodium (Lovenox 100mg Syringe) 90 mg Q12HR SQ Last administered on 09:00; Start 09/28/16 at 17:00; Stop 10/01/16 at 09:56; Status DC Amoxicillin/ Clavulanate Potassium (Augmentin 875/ 125mg) 1 tab BID PO ; Start 09/28/16 at 21:00; Status Cancel Doxycycline Hyclate (Vibra-Tab) 100 mg BID PO ; Start 09/28/16 at 21:00; Status Cancel Furosemide (Lasix) 40 mg QODAY PO Last administered on 09/30/16 10:16; Start 09/29/16 at 09:00; Stop 09/30/16 at 11:50; Status DC Gabapentin (Neurontin) 300 mg QHS PO Last administered on 10/02/16 21:09; Start 09/28/16 at 21:00 Hydralazine HCl (Apresoline) 10 mg TID PO Last administered on 10/03/16 13:04 ; Start 09/28/16 at 21:00 Acetaminophen/ Hydrocodone Bitart (Lortab 5/325) 1 tab PRN Q6HRS PRN PO PAIN Last administered on 10/03/16 10:57; Start 09/28/16 at 20:15 Insulin Aspart (Novolog) 10 units TIDAC SQ Last administered on 09/29/16 17:49 ; Start 09/29/16 at 07:30; Stop 09/29/16 at 19:08; Status DC Insulin Detemir (Levemir) 20 units HS SQ Last administered on 09/29/16 20:18; Start 09/28/16 at 21:00; Stop 09/30/16 at 13:36; Status DC Methotrexate (Rheumatrex) 2.5 mg WEEKLY PO ; Start 10/05/16 at 09:00; Status UNV Metoprolol Tartrate (Lopressor) 50 mg BID PO Last administered on 10/03/16 10: 33; Start 09/28/16 at 21:00 Pantoprazole Sodium (Protonix) 40 mg DAILY07 PO Last administered on 10/03/16 10:33; Start 09/29/16 at 09:00 Pyridostigmine [place] (Mestinon) 60 mg QID PO Last administered on 10/03/16 13:02; Start 09/28/16 at 21:00 Senna/Docusate Sodium (Senna Plus) 1 tab DAILY PO Last administered on 10:33; Start 09/29/16 at 09:00 Non-Formulary Medication 2 puff Q4HRS INH FOR ASTHMA; Start 09/29/16 at 00:00; Stop 09/29/16 at 00:00; Status DC Prednisone (Prednisone) 50 mg DAILY PO Last administered on 09/30/16 10:17; Start 09/29/16 at 09:00; Stop 09/30/16 at 13:36; Status DC Atorvastatin Calcium (Lipitor) 40 mg QHS PO Last administered on 10/02/16 21: 09; Start 09/28/16 at 21:00 Spironolactone (Aldactone) 50 mg DAILY PO Last administered on 09/30/16 10:16 ; Start 09/29/16 at 09:00; Stop 09/30/16 at 11:50; Status DC Albuterol Sulfate (Ventolin Neb Soln) 2.5 mg Q4HRS NEB Last administered on 12:07; Start 09/28/16 at 21:00 Furosemide (Lasix) 40 mg 1X ONCE IVP Last administered on 09/29/16 12:30; Start 09/29/16 at 11:45; Stop 09/29/16 at 11:46; Status DC Insulin Aspart (Novolog) 35 units TIDAC SQ Last administered on 10/01/16 12:55 ; Start 09/30/16 at 07:30; Stop 10/01/16 at 13:11; Status DC Insulin Detemir (Levemir) 30 units DAILY08 SQ Last administered on 09/30/16 08 :50; Start 09/30/16 at 08:00; Stop 09/30/16 at 13:36; Status DC Insulin Aspart (Novolog) 0-7 UNITS TIDWMEALS SQ Last administered on 10/03/16 13:01; Start 09/30/16 at 08:00 Dextrose 12.5 gm PRN Q15MIN PRN IV SEE COMMENTS; Start 09/29/16 at 19:00 Info 1 each 1 each PRN DAILY PRN MC SEE COMMENTS Last administered on 08:59; Start 09/30/16 at 10:30 Magnesium Sulfate/ Dextrose (Magnesium Sulfate PREMIX 2GM) 50 ml @ 25 mls/hr PRN DAILY PRN IV for Mag < 1.7 on am labs; Start 09/30/16 at 12:00 Potassium Chloride (Klor-Con) 40 meq QID PO Last administered on 09/30/16 21: 02; Start 09/30/16 at 13:00; Stop 09/30/16 at 21:01; Status DC Insulin Detemir (Levemir) 40 units HS SQ Last administered on 10/02/16 21:13; Start 09/30/16 at 21:00 Insulin Detemir (Levemir) 40 units DAILY08 SQ Last administered on 10/03/16 10 :35; Start 10/01/16 at 08:00 Prednisone (Prednisone) 30 mg DAILY PO Last administered on 10/03/16 10:33; Start 10/01/16 at 09:00 Acetaminophen (Tylenol) 650 mg PRN Q6HRS PRN PO MILD PAIN / TEMP Last administered on 10/01/16 22:20; Start 09/30/16 at 13:45 Ondansetron HCl (Zofran) 4 mg PRN Q6HRS PRN IV NAUSEA/VOMITING; Start 09/30/16 at 13:45 Mycophenolate Mofetil (Cellcept) 500 mg BID@,18 PO ; Start 09/30/16 at 18:30; Stop 09/30/16 at 18:30; Status DC Insulin Aspart (Novolog) 35 units 1X ONCE SQ Last administered on 09/30/16 18 :00; Start 09/30/16 at 18:00; Stop 09/30/16 at 18:04; Status DC Mycophenolate Mofetil (Cellcept) 1,000 mg BID@,18 PO Last administered on 10:32; Start 09/30/16 at 18:30 Apixaban 5 mg 5 mg BID PO Last administered on 10/03/16 10:33; Start 10/01/16 at 21:00 Amino Acids/ Glycerin/ Electrolytes (Procalamine) 1,000 ml @ 80 mls/hr [id number] IV Last administered on 10/03/16 13:31; Start 10/01/16 at 11:45 Furosemide (Lasix) 40 mg BID92 IVP Last administered on 10/03/16 10:34; Start 10/01/16 at 14:00; Stop 10/03/16 at 11:36; Status DC Insulin Aspart (Novolog) 30 units TIDAC SQ Last administered on 10/03/16 13:01 ; Start 10/01/16 at 16:30 Aspirin (Ecotrin) 81 mg DAILYWBKFT PO Last administered on 10/03/16 10:32; Start 10/02/16 at 17:00 Furosemide (Lasix) 40 mg DAILY PO ; Start 10/04/16 at 09:00 Active Scripts Active Reported Lotrisone Cream (Clotrimazole/Betamethasone Dip) 15 Gm Cream..g. 1 Hema TP BID [oscal 500] Eliquis (Apixaban) 5 Mg Tablet 5 Mg PO BID Fosamax (Alendronate Sodium) 70 Mg Tablet 1 Tab PO QSU Probiotic (Bacillus Coagulans) 1 Each Capsule.dr 1 Each PO PRN Multaq (Dronedarone Hcl) 400 Mg Tablet 1 Tab PO BIDAC Furosemide 40 Mg Tablet 0.5 Tab PO DAILY Ferrous Sulfate 325 Mg Tablet 1 Tab PO TID Cellcept (Mycophenolate Mofetil) 500 Mg Tablet 1 Tab PO BID Doxycycline Hyclate 100 Mg Tablet 1 Tab PO BID 10 Days Ventolin Hfa Inhaler (Albuterol Sulfate) 18 Gm Hfa.aer.ad 2 Puff INH Q4HRS Amox Tr-K Clv 875-125 Mg Tab (Amoxicillin/Potassium Clav) 1 Each Tablet 1 Tab PO BID Multiple Vitamin (Multivitamin With Minerals) 1 Each Tablet 1 Each PO Spironolactone 50 Mg Tablet 1 Tab PO DAILY Senna-Docusate Sodium Tablet (Sennosides/Docusate Sodium) 1 Each Tablet 1 Each PO Rosuvastatin Calcium 10 Mg Tablet 10 Mg PO DAILY Pyridostigmine [place] 60 Mg Tablet 60 Mg PO QID Prednisone 50 Mg Tablet 50 Mg PO DAILY Pantoprazole Sodium 40 Mg Tablet. 1 Tab PO DAILY Metoprolol Tartrate 50 Mg Tablet 1 Tab PO BID Methotrexate (Methotrexate Sodium) 2.5 Mg Tablet 8 Tab PO WEEKLY Levemir Flextouch (Insulin Detemir) 100 Unit/1 Ml Insuln.pen Unit SQ BIDAC 40 units in am, 25 units evening Novolog Flexpen (Insulin Aspart) 100 Unit/1 Ml Insuln.pen 35 Unit SQ TIDAC Hydrocodone-Apap 5-325 (Hydrocodone Bit/Acetaminophen) 1 Each Tablet 1 Tab PO PRN Q6HRS PRN Hydralazine Hcl 10 Mg Tablet 1 Tab PO TID Gabapentin 300 Mg Capsule 300 Mg PO QHS Furosemide 40 Mg Tablet 40 Mg PO QODAY Vitals/I & O Vital Sign - Last 24 Hours 10/02/16 10/02/16 10/02/16 10/02/16 15:54 19:31 19:48 20:00 Temp 98.8 98.8 Pulse 80 Resp 20 B/P 144/67 Pulse Ox 100 O2 Delivery Room Air Room Air Room Air Room Air 10/02/16 10/02/16 10/02/16 10/03/16 21:10 21:10 22:48 02:39 Temp 98.3 98.5 98.3 98.5 Pulse 80 80 82 75 Resp 20 22 B/P 144/67 144/67 180/64 173/68 Pulse Ox 93 93 O2 Delivery Room Air Room Air 10/03/16 10/03/16 10/03/16 10/03/16 07:00 07:54 09:17 10:33 Temp 98.4 98.4 Pulse 70 70 Resp 18 B/P 167/68 167/68 Pulse Ox 91 92 O2 Delivery Room Air Room Air Room Air 10/03/16 10/03/16 10/03/16 10/03/16 10:34 10:57 11:00 11:57 Temp 98.5 98.5 Pulse 70 75 Resp 18 20 18 B/P 167/68 138/65 Pulse Ox 92 99 99 O2 Delivery Room Air Room Air Room Air 10/03/16 10/03/16 10/03/16 12:09 13:04 15:01 Temp 98.3 98.3 Pulse 77 67 Resp 20 B/P 138/64 135/54 Pulse Ox 95 O2 Delivery Room Air Room Air Intake and Output 10/02/16 10/02/16 10/03/16 15:00 23:00 07:00 Intake Total 1221 ml Output Total 850 ml 400 ml 800 ml Balance -850 ml 821 ml -800 ml AMANDEEP ASTORGA MD Oct 03, 2016 15:32
[2016-10-03 19:05] VITALS: BP 141/45
[2016-10-03] MEDS: ATORVASTATIN CALCIUM 40 MG TABLET. PO SCH (21:47)
[2016-10-03] MEDS: GABAPENTIN 300 MG CAPSULE. PO SCH (21:48)
[2016-10-03 23:45] VITALS: BP 156/60
[2016-10-04] MEDS: ALBUTEROL SULFATE 2.5 MG/3 ML NEBU. NEB SCH ×6 (03:40→23:50)
[2016-10-04 03:45] VITALS: BP 114/35
[2016-10-04] MEDS: AA 3%/ELECTROLYTE-TPN SOLN/GLY 1,000 ML IV SCH ×2 (05:04→14:45)
[2016-10-04] MEDS: PANTOPRAZOLE 40 MG TABLET. PO SCH (05:09)
[2016-10-04] MEDS: HYDROCODONE/APAP 5/325MG TABLET. PO PRN (05:46)
[2016-10-04] MEDS: ACETAMINOPHEN 325 MG TABLET. PO PRN ×3 (05:46→22:39)
[2016-10-04 07:43] VITALS: BP 139/66
[2016-10-04] MEDS: MYCOPHENOLATE MOFETIL 250 MG CAPSULE. PO SCH ×2 (08:39→18:06)
[2016-10-04] MEDS: SENNOSIDES/DOCUSATE 8.6/50MG TABLET. PO SCH (08:39)
[2016-10-04] MEDS: ASPIRIN ENTERIC COATED 81 MG TABLET.DR. PO SCH (08:40)
[2016-10-04] MEDS: HYDRALAZINE 10 MG TABLET PO SCH ×3 (08:40→21:06)
[2016-10-04] MEDS: PREDNISONE 10 MG TABLET PO SCH (08:40)
[2016-10-04] MEDS: PYRIDOSTIGMINE BROMIDE 60 MG TABLET PO SCH ×4 (08:40→21:06)
[2016-10-04] MEDS: METOPROLOL TART IMMED RELEASE 50 MG TABLET PO SCH ×2 (08:41→21:06)
[2016-10-04] MEDS: INSULIN DETEMIR 300 UNITS/3 ML INSULN.PEN. SQ SCH ×2 (08:44→21:12)
[2016-10-04] MEDS: INSULIN ASPART 300 UNITS/3 ML INSULN.PEN SQ SCH ×6 (08:45→18:13)
[2016-10-04] MEDS: APIXABAN 5 MG TABLET. PO SCH ×2 (09:00→21:06)
[2016-10-04 09:21] LABS: ALBUMIN 2.8 g/dL (3.4-5.0); CALCIUM 9.6 mg/dL (8.5-10.1); CREATININE 1.2 mg/dL (0.6-1.0); GFR 55.1; PHOSPHORUS 4.1 mg/dL (2.6-4.7); POTASSIUM 4.8 mmol/L (3.5-5.1)
--- NOTE | 2016-10-04 10:53 | PDOC ---
Renal-Progress Notes Subjective Notes Notes NONE History of Present Illness Hx of present illness NO CHANGE Vitals Vitals Vital Signs Date Time Temp Pulse Resp B/P Pulse Ox O2 Delivery O2 Flow Rate FiO2 10/04/16 08:41 73 139/66 10/04/16 07:56 94 Room Air 10/04/16 07:43 98.3 17 98.3 Weight Weight [ ] I.O. Intake and Output Intake and Output 10/04/16 07:00 Intake Total 1932 ml Output Total 1000 ml Balance 932 ml IV Total 1932 ml Output Urine Total 1000 ml # Voids 3 Labs Labs Laboratory Tests Test 10/03/16 11:51 10/03/16 17:29 10/03/16 20:59 10/04/16 07:46 Glucose (Fingerstick) 308mg/dL (70-99) 98mg/dL (70-99) 285mg/dL (70-99) 183mg/dL (70-99) Test 10/04/16 08:34 Sodium Level 142mmol/L (136-145) Potassium Level 4.8mmol/L (3.5-5.1) Chloride Level 103mmol/L (98-107) Carbon Dioxide Level 35mmol/L (21-32) Anion Gap 4 (6-14) Blood Urea Nitrogen 38mg/dL (7-20) Creatinine 1.2mg/dL (0.6-1.0) Estimated GFR (Cockcroft-Gault) 55.1 Glucose Level 193mg/dL (70-99) Calcium Level 9.6mg/dL (8.5-10.1) Phosphorus Level 4.1mg/dL (2.6-4.7) Magnesium Level 2.3mg/dL (1.8-2.4) Albumin 2.8g/dL (3.4-5.0) Review of Systems Constitutional: yes: no symptom reported Physical Exam General Appearance: no apparent distress Skin: warm Respiratory: bilateral CTA Heart: S1S2, RRR Abdomen: soft, bowel sounds present Genitourinary: bladder flat Neurology: alert, oriented, follow commands Assessment Assessment IMP HYPERNATREMIA-IMPROVING MILD KORY-BETTER PLAN CONT WITH PPN CONT LASIX WILL FOLLOW MYLA MCCRAY MD Oct 04, 2016 10:53
[2016-10-04] MEDS: ANTI-COAG MONITOR BY PHARMACY. MC PRN (11:11)
[2016-10-04 11:30] VITALS: BP 136/76
--- NOTE | 2016-10-04 11:37 | PDOC ---
CARDIO Progress Notes Date and Time Date of Service 10/04/16 Time of Evaluation 1015 Subjective Subjective: No Chest Pain, No shortness of breath, Other (sinus headache today) Vitals Vitals Vital Signs Date Time Temp Pulse Resp B/P Pulse Ox O2 Delivery O2 Flow Rate FiO2 10/04/16 08:41 73 139/66 10/04/16 07:56 94 Room Air 10/04/16 07:43 98.3 17 98.3 Weight Weight [ ] Input and Output Intake and Output Intake and Output 10/04/16 07:00 Intake Total 1932 ml Output Total 1000 ml Balance 932 ml IV Total 1932 ml Output Urine Total 1000 ml # Voids 3 Laboratory Labs Laboratory Tests Test 10/03/16 11:51 10/03/16 17:29 10/03/16 20:59 10/04/16 07:46 Glucose (Fingerstick) 308mg/dL (70-99) 98mg/dL (70-99) 285mg/dL (70-99) 183mg/dL (70-99) Test 10/04/16 08:34 Sodium Level 142mmol/L (136-145) Potassium Level 4.8mmol/L (3.5-5.1) Chloride Level 103mmol/L (98-107) Carbon Dioxide Level 35mmol/L (21-32) Anion Gap 4 (6-14) Blood Urea Nitrogen 38mg/dL (7-20) Creatinine 1.2mg/dL (0.6-1.0) Estimated GFR (Cockcroft-Gault) 55.1 Glucose Level 193mg/dL (70-99) Calcium Level 9.6mg/dL (8.5-10.1) Phosphorus Level 4.1mg/dL (2.6-4.7) Magnesium Level 2.3mg/dL (1.8-2.4) Albumin 2.8g/dL (3.4-5.0) Review of Systems Constitutional: yes: no symptom reported Physical Exam HEENT: Neck Supple W Full Motion Chest: Symmetric LUNGS: Clear to Auscultation Heart: S1S2, RRR, no murmurs (1/6 systolic), murmurs, other (tele: SR) Abdomen: Soft N/T Extremities: Other (1+ bilateral LE edema; dressing on right posterior calf) Neurology: alert, oriented, follow commands Assessment Assessment 1. Chronic diastolic HF 2. Coronary artery disease s/p remote CABG 3. Hypertension 4. PAFIB- maintaining SR 5. Pulmonary hypertension 6. Hypernatremia 7. Mild protein malnutrition Recommendations Na improved; now 142. Moderate UOP overnight. urine osmolality WNL PPN currently held due to IV complications. Continue diuresis. Continue supportive care from a cardiovascular perspective MAURISIO DE LEON APRN Oct 04, 2016 11:37
[2016-10-04] MEDS: ASCORBIC ACID 500 MG TABLET PO SCH ×2 (13:06→21:06)
[2016-10-04] MEDS: MULTIVITAMIN with MINERAL TABLET. PO SCH (13:06)
[2016-10-04] MEDS: FUROSEMIDE 40 MG TABLET PO SCH (13:06)
--- NOTE | 2016-10-04 15:52 | PDOC ---
PROGRESS NOTES Chief Complaint Chief Complaint cc: chest pain Chest pain Chronic CHF with diastolic dysfunction Elevated troponin hx PAFIB Restrictive lung disease/ROBERTO hx CAD; CABG in 2000 HTN HLP: statin Hx of CVA/TIA DM2 with retinopathy Hx of myasthenia gravis: intermittent plasmapheresis last treatment 03/2016. decrease prednisone to 30mg daily as per pt till go to see her own doc Hx of IgA monoclonal gammopathy Polypharmacy Hypernatremia PPN as per renal, lasix iv bid changed to 40mg daily on insulin, adjust dose on eliquis at home, resume, dc lovenox dc tmr History of Present Illness History of Present Illness Na 142 from 150 hyperglycemia better sometime sob, on RA Vitals Vitals Vital Signs Date Time Temp Pulse Resp B/P Pulse Ox O2 Delivery O2 Flow Rate FiO2 10/04/16 13:06 76 136/76 10/04/16 12:33 Room Air 10/04/16 11:30 98.9 18 91 98.9 Physical Exam General: Alert, Oriented X3, Cooperative Heart: Regular rate Lungs: Clear, Other Abdomen: Soft Extremities: No clubbing, No cyanosis, Other (negative Homans on the right) Skin: Other (right calf demonstrates a 2.6 cm x 2.1 cm x 0.4 cm ulcer with chronic wound edges, minimal slough fibrin in the base and moderate serosanguineous drainage present. The periwound is intact. This is not significantly changed from prior evaluations) Labs LABS Laboratory Tests Test 10/03/16 17:29 10/03/16 20:59 10/04/16 07:46 10/04/16 08:34 Glucose (Fingerstick) 98mg/dL (70-99) 285mg/dL (70-99) 183mg/dL (70-99) Sodium Level 142mmol/L (136-145) Potassium Level 4.8mmol/L (3.5-5.1) Chloride Level 103mmol/L (98-107) Carbon Dioxide Level 35mmol/L (21-32) Anion Gap 4 (6-14) Blood Urea Nitrogen 38mg/dL (7-20) Creatinine 1.2mg/dL (0.6-1.0) Estimated GFR (Cockcroft-Gault) 55.1 Glucose Level 193mg/dL (70-99) Calcium Level 9.6mg/dL (8.5-10.1) Phosphorus Level 4.1mg/dL (2.6-4.7) Magnesium Level 2.3mg/dL (1.8-2.4) Albumin 2.8g/dL (3.4-5.0) Test 10/04/16 12:25 Glucose (Fingerstick) 348mg/dL (70-99) Review of Systems Review of Systems no fever, chills, mild sob, no chest pain Assessment and Plan Assessmemt and Plan Problems Medical Problems: (1) Chest pain Status: Acute (2) Chest pain Status: Acute (3) Hypernatremia Status: Acute Problems: Comment Review of Relevant I have reviewed the following items omer (where applicable) has been applied. Labs Laboratory Tests Test 10/02/16 16:59 10/02/16 20:52 10/03/16 08:27 10/03/16 09:30 Glucose (Fingerstick) 326mg/dL (70-99) 332mg/dL (70-99) 162mg/dL (70-99) Sodium Level 144mmol/L (136-145) Potassium Level 4.7mmol/L (3.5-5.1) Chloride Level 104mmol/L (98-107) Carbon Dioxide Level 34mmol/L (21-32) Anion Gap 6 (6-14) Blood Urea Nitrogen 26mg/dL (7-20) Creatinine 0.9mg/dL (0.6-1.0) Estimated GFR (Cockcroft-Gault) 76.8 Glucose Level 237mg/dL (70-99) Calcium Level 9.8mg/dL (8.5-10.1) Phosphorus Level 3.2mg/dL (2.6-4.7) Magnesium Level 2.1mg/dL (1.8-2.4) Albumin 2.9g/dL (3.4-5.0) Test 10/03/16 11:51 10/03/16 17:29 10/03/16 20:59 10/04/16 07:46 Glucose (Fingerstick) 308mg/dL (70-99) 98mg/dL (70-99) 285mg/dL (70-99) 183mg/dL (70-99) Test 10/04/16 08:34 10/04/16 12:25 Sodium Level 142mmol/L (136-145) Potassium Level 4.8mmol/L (3.5-5.1) Chloride Level 103mmol/L (98-107) Carbon Dioxide Level 35mmol/L (21-32) Anion Gap 4 (6-14) Blood Urea Nitrogen 38mg/dL (7-20) Creatinine 1.2mg/dL (0.6-1.0) Estimated GFR (Cockcroft-Gault) 55.1 Glucose Level 193mg/dL (70-99) Calcium Level 9.6mg/dL (8.5-10.1) Phosphorus Level 4.1mg/dL (2.6-4.7) Magnesium Level 2.3mg/dL (1.8-2.4) Albumin 2.8g/dL (3.4-5.0) Glucose (Fingerstick) 348mg/dL (70-99) Laboratory Tests Test 10/03/16 17:29 10/03/16 20:59 10/04/16 07:46 10/04/16 08:34 Glucose (Fingerstick) 98mg/dL (70-99) 285mg/dL (70-99) 183mg/dL (70-99) Sodium Level 142mmol/L (136-145) Potassium Level 4.8mmol/L (3.5-5.1) Chloride Level 103mmol/L (98-107) Carbon Dioxide Level 35mmol/L (21-32) Anion Gap 4 (6-14) Blood Urea Nitrogen 38mg/dL (7-20) Creatinine 1.2mg/dL (0.6-1.0) Estimated GFR (Cockcroft-Gault) 55.1 Glucose Level 193mg/dL (70-99) Calcium Level 9.6mg/dL (8.5-10.1) Phosphorus Level 4.1mg/dL (2.6-4.7) Magnesium Level 2.3mg/dL (1.8-2.4) Albumin 2.8g/dL (3.4-5.0) Test 10/04/16 12:25 Glucose (Fingerstick) 348mg/dL (70-99) Medications Current Medications Ondansetron HCl (Zofran) 4 mg PRN Q8HRS PRN IV NAUSEA/VOMITING; Start 09/28/16 at 16:00; Stop 09/29/16 at 15:59; Status DC Fentanyl Citrate 50 mcg 50 mcg PRN Q2HR PRN IV PAIN; Start 09/28/16 at 16:00; Stop 09/29/16 at 15:59; Status DC Sodium Chloride (Iv Sodium Chloride 0.9% 1000ml Bag) 1,000 ml @ 150 mls/hr Q6H40M IV Last administered on 09/29/16 01:10; Start 09/28/16 at 16:00; Stop 09/29/16 at 15:59; Status DC Acetaminophen (Tylenol) 650 mg PRN Q4HRS PRN PO FEVER; Start 09/28/16 at 16:00 ; Stop 09/29/16 at 15:59; Status DC Nitroglycerin (Nitrostat) 0.4 mg PRN Q5MIN PRN SL CHEST PAIN; Start 09/28/16 at 16:00; Stop 09/29/16 at 15:59; Status DC Enoxaparin Sodium (Lovenox Per Pharmacy Treatment Dosing) 1 each PRN DAILY PRN MC SEE COMMENTS; Start 09/28/16 at 16:00; Stop 10/01/16 at 09:56; Status DC Aspirin (Children'S Aspirin) 324 mg 1X ONCE PO Last administered on 09/28/16 16:38; Start 09/28/16 at 16:00; Stop 09/28/16 at 16:01; Status DC Enoxaparin Sodium (Lovenox 100mg Syringe) 90 mg 1X ONCE SQ Last administered on 09/28/16 16:38; Start 09/28/16 at 16:15; Stop 09/28/16 at 16:16; Status DC Enoxaparin Sodium (Lovenox 100mg Syringe) 90 mg Q12HR SQ Last administered on 09:00; Start 09/28/16 at 17:00; Stop 10/01/16 at 09:56; Status DC Amoxicillin/ Clavulanate Potassium (Augmentin 875/ 125mg) 1 tab BID PO ; Start 09/28/16 at 21:00; Status Cancel Doxycycline Hyclate (Vibra-Tab) 100 mg BID PO ; Start 09/28/16 at 21:00; Status Cancel Furosemide (Lasix) 40 mg QODAY PO Last administered on 09/30/16 10:16; Start 09/29/16 at 09:00; Stop 09/30/16 at 11:50; Status DC Gabapentin (Neurontin) 300 mg QHS PO Last administered on 10/03/16 21:48; Start 09/28/16 at 21:00 Hydralazine HCl (Apresoline) 10 mg TID PO Last administered on 10/04/16 13:06 ; Start 09/28/16 at 21:00 Acetaminophen/ Hydrocodone Bitart (Lortab 5/325) 1 tab PRN Q6HRS PRN PO PAIN Last administered on 10/03/16 10:57; Start 09/28/16 at 20:15 Insulin Aspart (Novolog) 10 units TIDAC SQ Last administered on 09/29/16 17:49 ; Start 09/29/16 at 07:30; Stop 09/29/16 at 19:08; Status DC Insulin Detemir (Levemir) 20 units HS SQ Last administered on 09/29/16 20:18; Start 09/28/16 at 21:00; Stop 09/30/16 at 13:36; Status DC Methotrexate (Rheumatrex) 2.5 mg WEEKLY PO ; Start 10/05/16 at 09:00; Status UNV Metoprolol Tartrate (Lopressor) 50 mg BID PO Last administered on 10/04/16 08: 41; Start 09/28/16 at 21:00 Pantoprazole Sodium (Protonix) 40 mg DAILY07 PO Last administered on 10/04/16 05:09; Start 09/29/16 at 09:00 Pyridostigmine [place] (Mestinon) 60 mg QID PO Last administered on 10/04/16 13:06; Start 09/28/16 at 21:00 Senna/Docusate Sodium (Senna Plus) 1 tab DAILY PO Last administered on 08:39; Start 09/29/16 at 09:00 Non-Formulary Medication 2 puff Q4HRS INH FOR ASTHMA; Start 09/29/16 at 00:00; Stop 09/29/16 at 00:00; Status DC Prednisone (Prednisone) 50 mg DAILY PO Last administered on 09/30/16 10:17; Start 09/29/16 at 09:00; Stop 09/30/16 at 13:36; Status DC Atorvastatin Calcium (Lipitor) 40 mg QHS PO Last administered on 10/03/16 21: 47; Start 09/28/16 at 21:00 Spironolactone (Aldactone) 50 mg DAILY PO Last administered on 09/30/16 10:16 ; Start 09/29/16 at 09:00; Stop 09/30/16 at 11:50; Status DC Albuterol Sulfate (Ventolin Neb Soln) 2.5 mg Q4HRS NEB Last administered on 12:32; Start 09/28/16 at 21:00 Furosemide (Lasix) 40 mg 1X ONCE IVP Last administered on 09/29/16 12:30; Start 09/29/16 at 11:45; Stop 09/29/16 at 11:46; Status DC Insulin Aspart (Novolog) 35 units TIDAC SQ Last administered on 10/01/16 12:55 ; Start 09/30/16 at 07:30; Stop 10/01/16 at 13:11; Status DC Insulin Detemir (Levemir) 30 units DAILY08 SQ Last administered on 09/30/16 08 :50; Start 09/30/16 at 08:00; Stop 09/30/16 at 13:36; Status DC Insulin Aspart (Novolog) 0-7 UNITS TIDWMEALS SQ Last administered on 10/04/16 13:09; Start 09/30/16 at 08:00 Dextrose 12.5 gm PRN Q15MIN PRN IV SEE COMMENTS; Start 09/29/16 at 19:00 Info 1 each 1 each PRN DAILY PRN MC SEE COMMENTS Last administered on 11:11; Start 09/30/16 at 10:30 Magnesium Sulfate/ Dextrose (Magnesium Sulfate PREMIX 2GM) 50 ml @ 25 mls/hr PRN DAILY PRN IV for Mag < 1.7 on am labs; Start 09/30/16 at 12:00 Potassium Chloride (Klor-Con) 40 meq QID PO Last administered on 09/30/16 21: 02; Start 09/30/16 at 13:00; Stop 09/30/16 at 21:01; Status DC Insulin Detemir (Levemir) 40 units HS SQ Last administered on 10/02/16 21:13; Start 09/30/16 at 21:00; Stop 10/03/16 at 15:32; Status DC Insulin Detemir (Levemir) 40 units DAILY08 SQ Last administered on 10/04/16 08 :44; Start 10/01/16 at 08:00 Prednisone (Prednisone) 30 mg DAILY PO Last administered on 10/04/16 08:40; Start 10/01/16 at 09:00 Acetaminophen (Tylenol) 650 mg PRN Q6HRS PRN PO MILD PAIN / TEMP Last administered on 10/04/16 05:46; Start 09/30/16 at 13:45 Ondansetron HCl (Zofran) 4 mg PRN Q6HRS PRN IV NAUSEA/VOMITING; Start 09/30/16 at 13:45 Mycophenolate Mofetil (Cellcept) 500 mg BID@,18 PO ; Start 09/30/16 at 18:30; Stop 09/30/16 at 18:30; Status DC Insulin Aspart (Novolog) 35 units 1X ONCE SQ Last administered on 09/30/16 18 :00; Start 09/30/16 at 18:00; Stop 09/30/16 at 18:04; Status DC Mycophenolate Mofetil (Cellcept) 1,000 mg BID@09,18 PO Last administered on 08:39; Start 09/30/16 at 18:30 Apixaban 5 mg 5 mg BID PO Last administered on 10/04/16 09:00; Start 10/01/16 at 21:00 Amino Acids/ Glycerin/ Electrolytes (Procalamine) 1,000 ml @ 80 mls/hr [id number] IV Last administered on 10/04/16 05:04; Start 10/01/16 at 11:45 Furosemide (Lasix) 40 mg BID92 IVP Last administered on 10/03/16 10:34; Start 10/01/16 at 14:00; Stop 10/03/16 at 11:36; Status DC Insulin Aspart (Novolog) 30 units TIDAC SQ Last administered on 10/03/16 13:01 ; Start 10/01/16 at 16:30; Stop 10/03/16 at 15:32; Status DC Aspirin (Ecotrin) 81 mg [id number] PO Last administered on 10/04/16 08:40; Start 10/02/16 at 17:00 Furosemide (Lasix) 40 mg DAILY PO Last administered on 10/04/16 13:06; Start 10/04/16 at 09:00 Insulin Aspart (Novolog) 35 units TIDAC SQ Last administered on 10/04/16 13:09 ; Start 10/03/16 at 16:30 Insulin Detemir (Levemir) 45 units HS SQ Last administered on 10/03/16 21:58; Start 10/03/16 at 21:00 Multivitamins/ Calcium (Thera M Plus) 1 tab DAILY PO Last administered on 13:06; Start 10/04/16 at 12:00 Ascorbic Acid (Vitamin C) 500 mg BID PO Last administered on 10/04/16 13:06; Start 10/04/16 at 12:00 Active Scripts Active Reported Lotrisone Cream (Clotrimazole/Betamethasone Dip) 15 Gm Cream..g. 1 Hema TP BID [oscal 500] Eliquis (Apixaban) 5 Mg Tablet 5 Mg PO BID Fosamax (Alendronate Sodium) 70 Mg Tablet 1 Tab PO QSU Probiotic (Bacillus Coagulans) 1 Each Capsule.dr 1 Each PO PRN Multaq (Dronedarone Hcl) 400 Mg Tablet 1 Tab PO BIDAC Furosemide 40 Mg Tablet 0.5 Tab PO DAILY Ferrous Sulfate 325 Mg Tablet 1 Tab PO TID Cellcept (Mycophenolate Mofetil) 500 Mg Tablet 1 Tab PO BID Doxycycline Hyclate 100 Mg Tablet 1 Tab PO BID 10 Days Ventolin Hfa Inhaler (Albuterol Sulfate) 18 Gm Hfa.aer.ad 2 Puff INH Q4HRS Amox Tr-K Clv 875-125 Mg Tab (Amoxicillin/Potassium Clav) 1 Each Tablet 1 Tab PO BID Multiple Vitamin (Multivitamin With Minerals) 1 Each Tablet 1 Each PO Spironolactone 50 Mg Tablet 1 Tab PO DAILY Senna-Docusate Sodium Tablet (Sennosides/Docusate Sodium) 1 Each Tablet 1 Each PO Rosuvastatin Calcium 10 Mg Tablet 10 Mg PO DAILY Pyridostigmine [place] 60 Mg Tablet 60 Mg PO QID Prednisone 50 Mg Tablet 50 Mg PO DAILY Pantoprazole Sodium 40 Mg Tablet.dr 1 Tab PO DAILY Metoprolol Tartrate 50 Mg Tablet 1 Tab PO BID Methotrexate (Methotrexate Sodium) 2.5 Mg Tablet 8 Tab PO WEEKLY Levemir Flextouch (Insulin Detemir) 100 Unit/1 Ml Insuln.pen Unit SQ BIDAC 40 units in am, 25 units evening Novolog Flexpen (Insulin Aspart) 100 Unit/1 Ml Insuln.pen 35 Unit SQ TIDAC Hydrocodone-Apap 5-325 (Hydrocodone Bit/Acetaminophen) 1 Each Tablet 1 Tab PO PRN Q6HRS PRN Hydralazine Hcl 10 Mg Tablet 1 Tab PO TID Gabapentin 300 Mg Capsule 300 Mg PO QHS Furosemide 40 Mg Tablet 40 Mg PO QODAY Vitals/I & O Vital Sign - Last 24 Hours 10/03/16 10/03/16 10/03/16 10/03/16 16:15 19:05 19:34 20:00 Temp 98.6 98.6 Pulse 79 Resp 16 B/P 141/45 Pulse Ox 93 94 O2 Delivery Room Air Room Air Room Air Room Air 10/03/16 10/03/16 10/03/16 10/04/16 21:48 21:48 23:45 03:45 Temp 98.2 98.7 98.2 98.7 Pulse 79 79 93 68 Resp 23 18 B/P 141/45 141/45 156/60 114/35 Pulse Ox 90 95 O2 Delivery Room Air Room Air 10/04/16 10/04/16 10/04/16 10/04/16 07:43 07:56 08:40 08:41 Temp 98.3 98.3 Pulse 73 73 73 Resp 17 B/P 139/66 139/66 139/66 Pulse Ox 92 94 O2 Delivery Room Air Room Air 10/04/16 10/04/16 10/04/16 11:30 12:33 13:06 Temp 98.9 98.9 Pulse 76 76 Resp 18 B/P 136/76 136/76 Pulse Ox 91 O2 Delivery Room Air Room Air Intake and Output 10/03/16 10/03/16 10/04/16 15:00 23:00 07:00 Intake Total 932 ml 1000 ml Output Total 300 ml 700 ml Balance 932 ml -300 ml 300 ml AMANDEEP ASTORGA MD Oct 04, 2016 15:52
[2016-10-04 19:50] VITALS: BP 142/67
[2016-10-04] MEDS: ATORVASTATIN CALCIUM 40 MG TABLET. PO SCH (21:05)
[2016-10-04] MEDS: GABAPENTIN 300 MG CAPSULE. PO SCH (21:06)
[2016-10-04 23:15] VITALS: BP 139/71
[2016-10-05 03:30] VITALS: BP 132/57
[2016-10-05] MEDS: ALBUTEROL SULFATE 2.5 MG/3 ML NEBU. NEB SCH ×5 (04:00→19:53)
[2016-10-05 06:42] LABS: ALBUMIN 2.9 g/dL (3.4-5.0); CALCIUM 9.2 mg/dL (8.5-10.1); CREATININE 1.1 mg/dL (0.6-1.0); GFR 60.9; PHOSPHORUS 5.6 mg/dL (2.6-4.7); POTASSIUM 4.2 mmol/L (3.5-5.1)
[2016-10-05 07:00] VITALS: BP 116/62
[2016-10-05] MEDS: AA 3%/ELECTROLYTE-TPN SOLN/GLY 1,000 ML IV SCH ×2 (07:26→15:45)
[2016-10-05] MEDS: INSULIN ASPART 300 UNITS/3 ML INSULN.PEN SQ SCH ×6 (08:00→17:00)
[2016-10-05] MEDS: MYCOPHENOLATE MOFETIL 250 MG CAPSULE. PO SCH ×2 (08:25→16:54)
[2016-10-05] MEDS: ASPIRIN ENTERIC COATED 81 MG TABLET.DR. PO SCH (08:26)
[2016-10-05] MEDS: PYRIDOSTIGMINE BROMIDE 60 MG TABLET PO SCH ×4 (08:26→21:09)
[2016-10-05] MEDS: APIXABAN 5 MG TABLET. PO SCH ×2 (08:26→21:09)
[2016-10-05] MEDS: ASCORBIC ACID 500 MG TABLET PO SCH ×2 (08:26→21:09)
[2016-10-05] MEDS: SENNOSIDES/DOCUSATE 8.6/50MG TABLET. PO SCH (08:26)
[2016-10-05] MEDS: HYDRALAZINE 10 MG TABLET PO SCH ×3 (08:26→21:09)
[2016-10-05] MEDS: FUROSEMIDE 40 MG TABLET PO SCH (08:26)
[2016-10-05] MEDS: MULTIVITAMIN with MINERAL TABLET. PO SCH (08:27)
[2016-10-05] MEDS: PANTOPRAZOLE 40 MG TABLET. PO SCH (08:27)
[2016-10-05] MEDS: PREDNISONE 10 MG TABLET PO SCH (08:27)
[2016-10-05] MEDS: METOPROLOL TART IMMED RELEASE 50 MG TABLET PO SCH ×2 (08:29→21:09)
[2016-10-05] MEDS: INSULIN DETEMIR 300 UNITS/3 ML INSULN.PEN. SQ SCH (08:40)
[2016-10-05] MEDS ORDERED: METHOTREXATE SODIUM 2.5 MG TABLET PO SCH (09:00)
[2016-10-05] MEDS: ANTI-COAG MONITOR BY PHARMACY. MC PRN (09:24)
[2016-10-05 10:29] VITALS: BP 110/53
[2016-10-05 15:04] VITALS: BP 138/59
[2016-10-05] MEDS ORDERED: ASCO500T2 PO (15:12)
[2016-10-05] MEDS ORDERED: PRED-220 PO (15:12)
[2016-10-05] MEDS ORDERED: FURO40TA4 PO (15:12)
--- NOTE | 2016-10-05 15:16 | PDOC3 ---
Discharge Summary [facility] Date of Admission: Sep 28, 2016 Discharge Date: Oct 05, 2016 Admitting Diagnosis Chest pain, atypical, 2/2 anxiety likely Chronic CHF with diastolic dysfunction Elevated troponin hx PAFIB Restrictive lung disease/ROBERTO hx CAD; CABG in 2000 HTN HLP Hx of CVA/TIA DM2 with retinopathy Hx of myasthenia gravis: intermittent plasmapheresis last treatment 03/2016. decrease prednisone to 30mg daily as per pt till go to see her own doc Hx of IgA monoclonal gammopathy Polypharmacy Hypernatremia leg wound Problems: Final Diagnosis Problems Medical Problems: (1) Chest pain Status: Acute (2) Chest pain Status: Acute (3) Hypernatremia Status: Acute CONSULTS renal card Brief Hospital Course Ms. Narvaez is a 61 old F, MS on plasmaparesis in as per her neuro, currently on prednisone 30mg daily, DM2 on insulin, comes for sob, chest pain, was found hypernatremia. Pt recived higher dose of lasix, with PPN, Na better, but still flucuate. dc home if ok with specialists , with lasix 40mg daily. 6min walk passed. dc tiem 35min. General: Alert, Oriented X3, Cooperative Heart: Regular rate Lungs: Clear, Other Abdomen: Soft Extremities: No clubbing, No cyanosis, Other (negative Homans on the right) Skin: Other (right calf demonstrates a 2.6 cm x 2.1 cm x 0.4 cm ulcer with chronic wound edges, minimal slough fibrin in the base and moderate serosanguineous drainage present. The periwound is intact. This is not significantly changed from prior evaluations) Patient History: Family history: Cardiovascular disease (situation) 32 MOTHER Family history: Diabetes mellitus (situation) G8 BROTHER 32 MOTHER Family history: Hypertension (situation) 32 MOTHER Problems: Disposition home CONDITION AT DISCHARGE: Improved Diet cardiac ,ada Scheduled Albuterol Sulfate (Ventolin Hfa Inhaler) 2 PUFF INH Q4HRS (Reported) Alendronate Sodium (Fosamax) 1 TAB PO QSU (Reported) Amoxicillin/Potassium Clav (Amox Tr-K Clv 875-125 Mg Tab) 1 TAB PO BID (Reported ) Apixaban (Eliquis) 5 MG PO BID (Reported) Clotrimazole/Betamethasone Dip (Lotrisone Cream) 1 DAVE TP BID (Reported) Doxycycline Hyclate (Doxycycline Hyclate) 1 TAB PO BID (Reported) Dronedarone Hcl (Multaq) 1 TAB PO BIDAC (Reported) Ferrous Sulfate (Ferrous Sulfate) 1 TAB PO TID (Reported) Furosemide (Furosemide) 40 MG PO QODAY (Reported) Furosemide (Furosemide) 0.5 TAB PO DAILY (Reported) Gabapentin (Gabapentin) 300 MG PO QHS (Reported) Hydralazine Hcl (Hydralazine Hcl) 1 TAB PO TID (Reported) Insulin Aspart (Novolog Flexpen) 35 UNIT SQ TIDAC (Reported) Insulin Detemir (Levemir Flextouch) UNIT SQ BIDAC (Reported) Methotrexate Sodium (Methotrexate) 8 TAB PO WEEKLY (Reported) Metoprolol Tartrate (Metoprolol Tartrate) 1 TAB PO BID (Reported) Mycophenolate Mofetil (Cellcept) 1 TAB PO BID (Reported) Pantoprazole Sodium (Pantoprazole Sodium) 1 TAB PO DAILY (Reported) Prednisone (Prednisone) 50 MG PO DAILY (Reported) Pyridostigmine [place] (Pyridostigmine [place]) 60 MG PO QID (Reported) Rosuvastatin Calcium (Rosuvastatin Calcium) 10 MG PO DAILY (Reported) Spironolactone (Spironolactone) 1 TAB PO DAILY (Reported) Scheduled PRN Bacillus Coagulans (Probiotic) 1 EACH PO PRN prn (Reported) Hydrocodone Bit/Acetaminophen (Hydrocodone-Apap 5-325 ) 1 TAB PO PRN Q6HRS PRN PRN PAIN (Reported) Miscellaneous Medications ([oscal 500]) (Reported) Multivitamin With Minerals (Multiple Vitamin) 1 EACH PO (Reported) Sennosides/Docusate Sodium (Senna-Docusate Sodium Tablet) 1 EACH PO (Reported) Discontinued Medications Pantoprazole Sodium (Protonix) 1 TAB PO DAILY (Reported) Follow Up card, renal , pcp in 2 weeks AMANDEEP ASTORGA MD Oct 05, 2016 15:15
[2016-10-05 19:50] VITALS: BP 142/49
[2016-10-05] MEDS ORDERED: INSULIN DETEMIR 300 UNITS/3 ML INSULN.PEN. SQ SCH (21:00)
[2016-10-05] MEDS: GABAPENTIN 300 MG CAPSULE. PO SCH (21:09)
[2016-10-05] MEDS: ATORVASTATIN CALCIUM 40 MG TABLET. PO SCH (21:09)
[2016-10-05] MEDS: ACETAMINOPHEN 325 MG TABLET. PO PRN (21:13)
[2016-10-05 23:41] VITALS: BP 130/52
[2016-10-06] MEDS: ALBUTEROL SULFATE 2.5 MG/3 ML NEBU. NEB SCH ×3 (03:20→08:22)
[2016-10-06 03:50] VITALS: BP 153/53
[2016-10-06] MEDS: AA 3%/ELECTROLYTE-TPN SOLN/GLY 1,000 ML IV SCH (04:15)
[2016-10-06] MEDS: PANTOPRAZOLE 40 MG TABLET. PO SCH (06:31)
[2016-10-06 07:20] LABS: ALBUMIN 2.6 g/dL (3.4-5.0); CALCIUM 8.8 mg/dL (8.5-10.1); CREATININE 1.1 mg/dL (0.6-1.0); GFR 60.9; PHOSPHORUS 3.8 mg/dL (2.6-4.7); POTASSIUM 4.8 mmol/L (3.5-5.1)
[2016-10-06 07:59] VITALS: BP 141/69
[2016-10-06] MEDS: PYRIDOSTIGMINE BROMIDE 60 MG TABLET PO SCH (08:32)
[2016-10-06] MEDS: MYCOPHENOLATE MOFETIL 250 MG CAPSULE. PO SCH (08:33)
[2016-10-06] MEDS: HYDRALAZINE 10 MG TABLET PO SCH (08:34)
[2016-10-06] MEDS: MULTIVITAMIN with MINERAL TABLET. PO SCH (08:34)
[2016-10-06] MEDS: PREDNISONE 10 MG TABLET PO SCH (08:34)
[2016-10-06] MEDS: ASCORBIC ACID 500 MG TABLET PO SCH (08:34)
[2016-10-06] MEDS: ASPIRIN ENTERIC COATED 81 MG TABLET.DR. PO SCH (08:34)
[2016-10-06] MEDS: METOPROLOL TART IMMED RELEASE 50 MG TABLET PO SCH (08:34)
[2016-10-06] MEDS: FUROSEMIDE 40 MG TABLET PO SCH (08:34)
[2016-10-06] MEDS: SENNOSIDES/DOCUSATE 8.6/50MG TABLET. PO SCH (08:35)
[2016-10-06] MEDS: APIXABAN 5 MG TABLET. PO SCH (08:35)
[2016-10-06] MEDS: INSULIN DETEMIR 300 UNITS/3 ML INSULN.PEN. SQ SCH (08:49)
[2016-10-06] MEDS: INSULIN ASPART 300 UNITS/3 ML INSULN.PEN SQ SCH ×4 (08:50→12:00)
[2016-10-06 11:38] VITALS: BP 124/62
--- NOTE | 2016-10-06 12:03 | PDOC ---
SUBJECTIVE ROS ^Na - KORY Doing well OBJECTIVE Vital Signs Vital Signs Date Time Temp Pulse Resp B/P Pulse Ox O2 Delivery O2 Flow Rate FiO2 10/06/16 11:38 98.1 68 19 124/62 94 Room Air 98.1 I & 0 Intake and Output 10/06/16 07:00 Intake Total 750 ml Balance 750 ml Intake Oral 750 ml # Voids 4 PHYSICAL EXAM Physical Exam General Appearance: Awake: Alert Oriented x 3 Neck: No JVD or JVP Chest: CTA Dhiraj Heart: S1 S2 Abdomen - Soft NTND Extremities - + Edema DIAGNOSIS/ASSESSMENT Assessment & Plan ^Na - Reoslved KORY - Resolved Edema - diuresis as needed. willbe available prn Problems: COMMENT/RELEVANT DATA Meds Current Medications Medications (Trade) Dose Ordered Sig/Oksana Start Time Stop Time Status Last Admin Dose Admin Acetaminophen (Tylenol) 650 mg PRN Q6HRS PRN 09/30/16 13:45 10/05/16 21:13 650 MG Acetaminophen/ Hydrocodone Bitart (Lortab 5/325) 1 tab PRN Q6HRS PRN 09/28/16 20:15 10/03/16 10:57 1 TAB Albuterol Sulfate (Ventolin Neb Soln) 2.5 mg Q4HRS 09/28/16 21:00 10/06/16 08:22 2.5 MG Amino Acids/ Glycerin/ Electrolytes (Procalamine) 1,000 ml @ 80 mls/hr [id number] 10/01/16 11:45 10/04/16 05:04 80 MLS/HR Amoxicillin/ Clavulanate Potassium (Augmentin 875/ 125mg) 1 tab BID 09/28/16 21:00 Cancel Apixaban 5 mg 5 mg BID 10/01/16 21:00 10/06/16 08:35 5 MG Ascorbic Acid (Vitamin C) 500 mg BID 10/04/16 12:00 10/06/16 08:34 500 MG Aspirin (Children'S Aspirin) 324 mg 1X ONCE 09/28/16 16:00 09/28/16 16:01 DC 09/28/16 16:38 324 MG Aspirin (Ecotrin) 81 mg [id number] 10/02/16 17:00 10/06/16 08:34 81 MG Atorvastatin Calcium (Lipitor) 40 mg QHS 09/28/16 21:00 10/05/16 21:09 40 MG Dextrose 12.5 gm PRN Q15MIN PRN 09/29/16 19:00 Doxycycline Hyclate (Vibra-Tab) 100 mg BID 09/28/16 21:00 Cancel Enoxaparin Sodium (Lovenox 100mg Syringe) 90 mg Q12HR 09/28/16 17:00 10/01/16 09:56 DC 10/01/16 09:00 90 MG Enoxaparin Sodium (Lovenox Per Pharmacy Treatment Dosing) 1 each PRN DAILY PRN 09/28/16 16:00 10/01/16 09:56 DC Fentanyl Citrate 50 mcg 50 mcg PRN Q2HR PRN 09/28/16 16:00 09/29/16 15:59 DC Furosemide (Lasix) 40 mg DAILY 10/04/16 09:00 10/06/16 08:34 40 MG Gabapentin (Neurontin) 300 mg QHS 09/28/16 21:00 10/05/16 21:09 300 MG Hydralazine HCl (Apresoline) 10 mg TID 09/28/16 21:00 10/06/16 08:34 10 MG Info 1 each 1 each PRN DAILY PRN 09/30/16 10:30 10/05/16 09:24 1 EACH Insulin Aspart (Novolog) 35 units TIDAC 10/03/16 16:30 10/06/16 08:50 35 UNITS Insulin Detemir (Levemir) 20 units HS 10/05/16 21:00 10/05/16 21:16 20 UNITS Magnesium Sulfate/ Dextrose (Magnesium Sulfate PREMIX 2GM) 50 ml @ 25 mls/hr PRN DAILY PRN 09/30/16 12:00 Methotrexate (Rheumatrex) 2.5 mg WEEKLY 10/05/16 09:00 UNV Metoprolol Tartrate (Lopressor) 50 mg BID 09/28/16 21:00 10/06/16 08:34 50 MG Multivitamins/ Calcium (Thera M Plus) 1 tab DAILY 10/04/16 12:00 10/06/16 08:34 1 TAB Mycophenolate Mofetil (Cellcept) 1,000 mg BID@09,18 09/30/16 18:30 10/06/16 08:33 1,000 MG Nitroglycerin (Nitrostat) 0.4 mg PRN Q5MIN PRN 09/28/16 16:00 09/29/16 15:59 DC Non-Formulary Medication 2 puff Q4HRS 09/29/16 00:00 09/29/16 00:00 DC Ondansetron HCl (Zofran) 4 mg PRN Q6HRS PRN 09/30/16 13:45 Pantoprazole Sodium (Protonix) 40 mg DAILY07 09/29/16 09:00 10/06/16 06:31 40 MG Potassium Chloride (Klor-Con) 40 meq QID 09/30/16 13:00 09/30/16 21:01 DC 09/30/16 21:02 40 MEQ Prednisone (Prednisone) 30 mg DAILY 10/01/16 09:00 10/06/16 08:34 30 MG Pyridostigmine [place] (Mestinon) 60 mg QID 09/28/16 21:00 10/06/16 08:32 60 MG Senna/Docusate Sodium (Senna Plus) 1 tab DAILY 09/29/16 09:00 10/05/16 08:26 1 TAB Sodium Chloride (Iv Sodium Chloride 0.9% 1000ml Bag) 1,000 ml @ 150 mls/hr Q6H40M 09/28/16 16:00 09/29/16 15:59 DC 09/29/16 01:10 150 MLS/HR Spironolactone (Aldactone) 50 mg DAILY 09/29/16 09:00 09/30/16 11:50 DC 09/30/16 10:16 50 MG Lab Laboratory Tests Test 10/05/16 16:49 10/05/16 21:07 10/06/16 06:25 10/06/16 08:27 Glucose (Fingerstick) 301mg/dL (70-99) 266mg/dL (70-99) 183mg/dL (70-99) Sodium Level 145mmol/L (136-145) Potassium Level 4.8mmol/L (3.5-5.1) Chloride Level 107mmol/L (98-107) Carbon Dioxide Level 34mmol/L (21-32) Anion Gap 4 (6-14) Blood Urea Nitrogen 36mg/dL (7-20) Creatinine 1.1mg/dL (0.6-1.0) Estimated GFR (Cockcroft-Gault) 60.9 Glucose Level 223mg/dL (70-99) Calcium Level 8.8mg/dL (8.5-10.1) Phosphorus Level 3.8mg/dL (2.6-4.7) Albumin 2.6g/dL (3.4-5.0) Test 10/06/16 11:42 Glucose (Fingerstick) 203mg/dL (70-99) ALEISHA MELENDEZ MD Oct 06, 2016 12:03
[2016-10-06] MEDS: ANTI-COAG MONITOR BY PHARMACY. MC PRN (12:15)
--- NOTE | 2016-10-06 13:27 | PDOC3 ---
Discharge Summary [facility] Date of Admission: Sep 28, 2016 Discharge Date: Oct 06, 2016 Admitting Diagnosis Chest pain, atypical, 2/2 anxiety likely Chronic CHF with diastolic dysfunction Elevated troponin hx PAFIB Restrictive lung disease/ROBERTO hx CAD; CABG in 2000 HTN HLP Hx of CVA/TIA DM2 with retinopathy Hx of myasthenia gravis: intermittent plasmapheresis last treatment 03/2016. decrease prednisone to 30mg daily as per pt till go to see her own doc Hx of IgA monoclonal gammopathy Polypharmacy Hypernatremia leg wound Problems: Final Diagnosis Problems Medical Problems: (1) Chest pain Status: Acute (2) Chest pain Status: Acute (3) Hypernatremia Status: Acute CONSULTS renal card Brief Hospital Course Brief Hospital Course Ms. Narvaez is a 61 old F, MS on plasmaparesis in as per her neuro, currently on prednisone 30mg daily, DM2 on insulin, comes for sob, chest pain, was found hypernatremia. Pt recived higher dose of lasix, with PPN, Na better, but still flucuate. dc home if ok with specialists , with lasix 40mg daily. 6min walk passed. dc time 35min. General: Alert, Oriented X3, Cooperative Heart: Regular rate Lungs: Clear, Other Abdomen: Soft Extremities: No clubbing, No cyanosis, Other (negative Homans on the right) Skin: Other (right calf demonstrates a 2.6 cm x 2.1 cm x 0.4 cm ulcer with chronic wound edges, minimal slough fibrin in the base and moderate serosanguineous drainage present. The periwound is intact. This is not significantly changed from prior evaluations) Patient History: Family history: Cardiovascular disease (situation) 32 MOTHER Family history: Diabetes mellitus (situation) G8 BROTHER 32 MOTHER Family history: Hypertension (situation) 32 MOTHER Problems: Disposition home CONDITION AT DISCHARGE: Improved Diet cardiac Scheduled Albuterol Sulfate (Ventolin Hfa Inhaler) 2 PUFF INH Q4HRS (Reported) Alendronate Sodium (Fosamax) 1 TAB PO QSU (Reported) Apixaban (Eliquis) 5 MG PO BID (Reported) Ascorbic Acid (Vitamin C) 500 MG PO BID Clotrimazole/Betamethasone Dip (Lotrisone Cream) 1 DAVE TP BID (Reported) Ferrous Sulfate (Ferrous Sulfate) 1 TAB PO TID (Reported) Furosemide (Furosemide) 40 MG PO DAILY Gabapentin (Gabapentin) 300 MG PO QHS (Reported) Hydralazine Hcl (Hydralazine Hcl) 1 TAB PO TID (Reported) Insulin Aspart (Novolog Flexpen) 35 UNIT SQ TIDAC (Reported) Insulin Detemir (Levemir Flextouch) UNIT SQ BIDAC (Reported) Methotrexate Sodium (Methotrexate) 8 TAB PO WEEKLY (Reported) Metoprolol Tartrate (Metoprolol Tartrate) 1 TAB PO BID (Reported) Mycophenolate Mofetil (Cellcept) 1 TAB PO BID (Reported) Pantoprazole Sodium (Pantoprazole Sodium) 1 TAB PO DAILY (Reported) Prednisone (Prednisone) 30 MG PO DAILY Pyridostigmine Lee (Pyridostigmine Lee) 60 MG PO QID (Reported) Rosuvastatin Calcium (Rosuvastatin Calcium) 10 MG PO DAILY (Reported) Scheduled PRN Bacillus Coagulans (Probiotic) 1 EACH PO PRN prn (Reported) Hydrocodone Bit/Acetaminophen (Hydrocodone-Apap 5-325 ) 1 TAB PO PRN Q6HRS PRN PRN PAIN (Reported) Miscellaneous Medications ([oscal 500]) (Reported) Multivitamin With Minerals (Multiple Vitamin) 1 EACH PO (Reported) Sennosides/Docusate Sodium (Senna-Docusate Sodium Tablet) 1 EACH PO (Reported) Discontinued Medications Amoxicillin/Potassium Clav (Amox Tr-K Clv 875-125 Mg Tab) 1 TAB PO BID (Reported ) Doxycycline Hyclate (Doxycycline Hyclate) 1 TAB PO BID (Reported) Dronedarone Hcl (Multaq) 1 TAB PO BIDAC (Reported) Furosemide (Furosemide) 40 MG PO QODAY (Reported) Furosemide (Furosemide) 0.5 TAB PO DAILY (Reported) Pantoprazole Sodium (Protonix) 1 TAB PO DAILY (Reported) Prednisone (Prednisone) 50 MG PO DAILY (Reported) Spironolactone (Spironolactone) 1 TAB PO DAILY (Reported) Follow Up pcp , renal in 2 weeks AMANDEEP ASTORGA MD Oct 06, 2016 13:26
== END 2016-10-06 13:00 | disposition home or self-care (01) | DRG 682 ==
LOC: ER 11:40 → ED HOLD 15:56 → 2 NORTH 19:13 → 2 SOUTH 10-01 07:45
PROVIDERS: ADMIT Internal Medicine; ATTEND Internal Medicine
DX: N17.9 Acute kidney failure, unspecified (principal); I50.33 Acute on chronic diastolic (congestive) heart failure; E87.0 Hyperosmolality and hypernatremia; E44.1 Mild protein-calorie malnutrition; E11.319 Type 2 diabetes mellitus with unspecified diabetic retinopathy without macular edema; E11.622 Type 2 diabetes mellitus with other skin ulcer; E11.65 Type 2 diabetes mellitus with hyperglycemia; E66.01 Morbid (severe) obesity due to excess calories; E78.5 Hyperlipidemia, unspecified; E86.1 Hypovolemia; E87.6 Hypokalemia; F41.9 Anxiety disorder, unspecified; G47.33 Obstructive sleep apnea (adult) (pediatric); Z60.2 Problems related to living alone; I11.0 Hypertensive heart disease with heart failure; I48.0 Paroxysmal atrial fibrillation; I25.10 Atherosclerotic heart disease of native coronary artery without angina pectoris; K57.90 Diverticulosis of intestine, part unspecified, without perforation or abscess without bleeding; R07.89 Other chest pain; M54.5 Low back pain; I27.2 Other secondary pulmonary hypertension; I87.2 Venous insufficiency (chronic) (peripheral); K21.9 Gastro-esophageal reflux disease without esophagitis; K58.9 Irritable bowel syndrome, unspecified; Z79.4 Long term (current) use of insulin; Z82.49 Family history of ischemic heart disease and other diseases of the circulatory system; Z82.5 Family history of asthma and other chronic lower respiratory diseases; Z83.3 Family history of diabetes mellitus; Z86.73 Personal history of transient ischemic attack (TIA), and cerebral infarction without residual deficits; Z95.1 Presence of aortocoronary bypass graft; Z90.710 Acquired absence of both cervix and uterus; Z88.8 Allergy status to other drugs, medicaments and biological substances; Z88.1 Allergy status to other antibiotic agents; Z91.041 Radiographic dye allergy status
CPT/HCPCS: 36415; 71010; 76705; 80048; 80053; 80061; 80069; 82550; 82947; 83735; 83880; 83930; 83935; 84484; 85007; 85018; 85027; 85610; 93005; 94250; 94620; 94640; 94760; 96372; J1650; J1815; J1940; J7030; J7512; J7517; 99285-25

== ENCOUNTER → 2016-11-19 | Outpatient (CLI) | payer OTHER, MEDICAID ==
[2016-10-22 11:39] VITALS: BP 120/51
[~2016-11-19] MED LIST changes: +ALEN70TA3 PO; +APIX5TAB PO; +ASCO500T2 PO; +BACI1CAP6 PO; +CLOT15CR3 TP; +DRON400T PO; +FERR-26 PO; +MYCO500T PO; +PANT40TA3 PO; +PRED-220 PO; +oscal 500
== END | disposition home or self-care (01) ==
LOC: PMGWOUND 10:53
PROVIDERS: ATTEND Emergency Medicine Undersea and Hyperbaric Medicine
DX: I87.311 Chronic venous hypertension (idiopathic) with ulcer of right lower extremity (principal); E11.622 Type 2 diabetes mellitus with other skin ulcer; L97.211 Non-pressure chronic ulcer of right calf limited to breakdown of skin; I11.0 Hypertensive heart disease with heart failure; I50.9 Heart failure, unspecified; Z86.73 Personal history of transient ischemic attack (TIA), and cerebral infarction without residual deficits; E78.00 Pure hypercholesterolemia, unspecified
CPT/HCPCS: 11042

== ENCOUNTER → 2016-12-19 | Outpatient (CLI) | payer MEDICAID, OTHER ==
[2016-10-22 11:39] VITALS: BP 120/51
== END | disposition home or self-care (01) ==
LOC: PMGWOUND 10:59
PROVIDERS: ATTEND Emergency Medicine Undersea and Hyperbaric Medicine
DX: I87.311 Chronic venous hypertension (idiopathic) with ulcer of right lower extremity (principal); L97.212 Non-pressure chronic ulcer of right calf with fat layer exposed; I25.10 Atherosclerotic heart disease of native coronary artery without angina pectoris; E78.00 Pure hypercholesterolemia, unspecified; I11.0 Hypertensive heart disease with heart failure; I50.9 Heart failure, unspecified; Z90.710 Acquired absence of both cervix and uterus; Z86.73 Personal history of transient ischemic attack (TIA), and cerebral infarction without residual deficits
CPT/HCPCS: 99214

== ENCOUNTER → 2017-01-23 | Outpatient (CLI) | payer OTHER ==
[2016-10-22 11:39] VITALS: BP 120/51
[~2017-01-23] MED LIST changes: -HYDR-2666 PO; +HYDR-2758 PO
== END | disposition home or self-care (01) ==
LOC: PMGWOUND 11:03
PROVIDERS: ATTEND Emergency Medicine Undersea and Hyperbaric Medicine
DX: I87.311 Chronic venous hypertension (idiopathic) with ulcer of right lower extremity (principal); L97.212 Non-pressure chronic ulcer of right calf with fat layer exposed; I25.10 Atherosclerotic heart disease of native coronary artery without angina pectoris; I11.0 Hypertensive heart disease with heart failure; I50.9 Heart failure, unspecified; E78.00 Pure hypercholesterolemia, unspecified; Z86.73 Personal history of transient ischemic attack (TIA), and cerebral infarction without residual deficits; Z90.710 Acquired absence of both cervix and uterus
CPT/HCPCS: 99214

== ENCOUNTER → 2017-03-04 | Outpatient (CLI) | payer OTHER ==
[2016-10-22 11:39] VITALS: BP 120/51
[~2017-03-04] MED LIST changes: +[UNRECOGNIZED DRUG - CODE] PO
== END | disposition home or self-care (01) ==
LOC: PMGWOUND 11:00
PROVIDERS: ATTEND Emergency Medicine Undersea and Hyperbaric Medicine
DX: I87.311 Chronic venous hypertension (idiopathic) with ulcer of right lower extremity (principal); L97.212 Non-pressure chronic ulcer of right calf with fat layer exposed; I11.0 Hypertensive heart disease with heart failure; I50.9 Heart failure, unspecified; E78.00 Pure hypercholesterolemia, unspecified; Z90.710 Acquired absence of both cervix and uterus; Z86.73 Personal history of transient ischemic attack (TIA), and cerebral infarction without residual deficits
CPT/HCPCS: 97597

== ENCOUNTER 2017-03-11 07:50 | Inpatient (IN) | payer OTHER ==
[~2017-03-11] VITALS: Ht 160 cm; Wt 96.6 kg
[~2017-03-11 07:50] MED LIST changes: -[UNRECOGNIZED DRUG - CODE] PO
[2017-03-11] MEDS ORDERED: ASPIRIN 325 MG TABLET PO ONE (08:30)
--- NOTE | 2017-03-11 08:38 | PHYS DOC ---
Past Medical History Past Medical History: CHF, CVA, Diabetes-Type II, Heart Disease, Hypertension, Other Additional Past Medical Histor: Myasthenia Gravis, Respiratory compromised r/t MG,Paralyzed diaphragm Past Surgical History: Coronary Bypass Surgery, , Hysterectomy, Tonsillectomy, Other Additional Past Surgical Histo: Fistula placed "Several",L)arm fx w/repair Alcohol Use: None Drug Use: None Adult General Chief Complaint Chief Complaint: SHORTNESS OF BREATH HPI HPI Patient is a 61 year old female with history of diabetes type 2, hypertension, CAD, chronic venous stenosis with venous stasis ulcer on the right lower extremity, chronic left lower extremity swelling who presents today complaining of a 3 out of 10 mid substernal chest pain and shortness of breath that began yesterday. Patient is attributing her chest pain and shortness of breath to her lower extremity pain from venous stasis. She states whenever her pain is high she tends to have chest pain with shortness of breath. Patient denies anything making the chest pain better, denies chest pain radiation. Denies any fever coughing or congestion. She states she took pain a pain pill at home. She states she follows up with the wound clinic at [facility] for the venous stasis. PCP Dr. Valdez Review of Systems Review of Systems Constitutional: Denies fever or chills [] Eyes: Denies change in visual acuity, redness, or eye pain [] HENT: Denies nasal congestion or sore throat [] Respiratory: chest pain GI: Denies abdominal pain, nausea, vomiting, bloody stools or diarrhea [] : Denies dysuria or hematuria [] Musculoskeletal: RLE venous stasis ulcer and swelling to the LLE Integument: Denies rash or skin lesions [] Neurologic: Denies headache, focal weakness or sensory changes [] Endocrine: Denies polyuria or polydipsia [] Current Medications Current Medications Current Medications Medications (Trade) Dose Ordered Sig/Oksana Start Time Stop Time Status Last Admin Dose Admin Aspirin (Liza Aspirin) 325 mg 1X ONCE 03/11/17 08:30 03/11/17 08:31 DC 03/11/17 09:01 325 MG Allergies Allergies Allergies Coded Allergies Type Severity Reaction Last Updated Verified Iodinated Contrast- Oral and IV Dye Allergy Intermediate 04/23/16 Yes adhesive tape Allergy Intermediate 04/23/16 Yes insulin glargine Allergy Intermediate 04/23/16 Yes levofloxacin Allergy Intermediate 04/23/16 Yes Physical Exam Physical Exam Constitutional: Well developed, well nourished, no acute distress, non-toxic appearance. [] HENT: Normocephalic, atraumatic, bilateral external ears normal, oropharynx moist, no oral exudates, nose normal. [] Eyes: PERRLA, EOMI, conjunctiva normal, no discharge. [] Neck: Normal range of motion, no tenderness, supple, no stridor. [] Cardiovascular:Heart rate regular rhythm, no murmur [] Lungs & Thorax: Bilateral breath sounds clear to auscultation [] Abdomen: Bowel sounds normal, soft, no tenderness, no masses, no pulsatile masses. [] Skin: Right distal sheen with multiple stage two wounds mostly scabbed up consistent with venous stasis ulcer. +2 right pedal pulse. Left lower extremity with last 2 edema. +2 pedal pulse and left lower extremity. Back: No tenderness, no CVA tenderness. [] Extremities: No tenderness, no cyanosis, no clubbing, ROM intact, no edema. [] Neurologic: Alert and oriented X 3, normal motor function, normal sensory function, no focal deficits noted. [] Psychologic: Affect normal, judgement normal, mood normal. [] Current Patient Data Vital Signs Vital Signs Date Time Temp Pulse Resp B/P (MAP) Pulse Ox O2 Delivery O2 Flow Rate FiO2 03/11/17 07:55 98.2 81 26 220/95 (136) 93 Room Air 98.2 Lab Values Laboratory Tests Test 03/11/17 08:45 03/11/17 08:55 03/11/17 10:10 White Blood Count 9.5 x10^3/uL (4.0-11.0) Red Blood Count 4.13 x10^6/uL (3.50-5.40) Hemoglobin 10.5 g/dL (12.0-15.5) L Hematocrit 35.3 % (36.0-47.0) L Mean Corpuscular Volume 86 fL (79-100) Mean Corpuscular Hemoglobin 25 pg (25-35) Mean Corpuscular Hemoglobin Concent 30 g/dL (31-37) L Red Cell Distribution Width 19.5 % (11.5-14.5) H Platelet Count 229 x10^3/uL (140-400) Neutrophils (%) (Auto) 83 % (31-73) H Lymphocytes (%) (Auto) 7 % (24-48) L Monocytes (%) (Auto) 9 % (0-9) Eosinophils (%) (Auto) 0 % (0-3) Basophils (%) (Auto) 1 % (0-3) Neutrophils # (Auto) 7.9 x10^3uL (1.8-7.7) H Lymphocytes # (Auto) 0.7 x10^3/uL (1.0-4.8) L Monocytes # (Auto) 0.8 x10^3/uL (0.0-1.1) Eosinophils # (Auto) 0.0 x10^3/uL (0.0-0.7) Basophils # (Auto) 0.1 x10^3/uL (0.0-0.2) Prothrombin Time 15.3 SEC (11.7-14.0) H Prothrombin Time INR 1.3 (0.8-1.1) H PTT 29 SEC (24-38) Sodium Level 142 mmol/L (136-145) Potassium Level 4.1 mmol/L (3.5-5.1) Chloride Level 102 mmol/L (98-107) Carbon Dioxide Level 32 mmol/L (21-32) Anion Gap 8 (6-14) Blood Urea Nitrogen 34 mg/dL (7-20) H Creatinine 1.3 mg/dL (0.6-1.0) H Estimated GFR (Cockcroft-Gault) 50.2 BUN/Creatinine Ratio 26 (6-20) H Glucose Level 401 mg/dL (70-99) H Lactic Acid Level 1.8 mmol/L (0.4-2.0) Calcium Level 9.8 mg/dL (8.5-10.1) Magnesium Level 1.9 mg/dL (1.8-2.4) Total Bilirubin 0.4 mg/dL (0.2-1.0) Aspartate Amino Transferase (AST) 19 U/L (15-37) Alanine Aminotransferase (ALT) 24 U/L (14-59) Alkaline Phosphatase 90 U/L (46-116) Creatine Kinase 55 U/L (26-192) Creatine Kinase MB (Mass) 1.9 ng/mL (0.0-3.6) Creatine Kinase MB Relative Index % (0-4) Troponin I Quantitative 0.100 ng/mL (0.000-0.055) DQ-Ygn-C-Type Natriuretic Peptide 3520 pg/mL (0-124) H Total Protein 7.1 g/dL (6.4-8.2) Albumin 3.1 g/dL (3.4-5.0) L Albumin/Globulin Ratio 0.8 (1.0-1.7) L Lipase 151 U/L (73-393) O2 Saturation 97 % (92-99) Arterial Blood pH 7.40 (7.35-7.45) Arterial Blood pCO2 at Patient Temp 47 mmHg (35-46) H Arterial Blood pO2 at Patient Temp 113 mmHg (65-108) H Arterial Blood HCO3 29 mmol/L (21-28) H Arterial Blood Base Excess 3 mmol/L (-3-3) FiO2 28 Urine Collection Type Void Urine Color Yellow Urine Clarity Clear Urine pH 5.5 Urine Specific [place] >=1.030 Urine Protein 100 mg/dL (NEG-TRACE) Urine Glucose (UA) >=1000 mg/dL (NEG) Urine Ketones (Stick) Negative mg/dL (NEG) Urine Blood Negative (NEG) Urine Nitrite Negative (NEG) Urine Bilirubin Negative (NEG) Urine Urobilinogen Dipstick 0.2 mg/dL (0.2 mg/dL) Urine Leukocyte Esterase Negative (NEG) Urine RBC 1-2 /HPF (0-2) Urine WBC 1-4 /HPF (0-4) Urine Squamous Epithelial Cells Few /LPF Urine Bacteria Few /HPF (0-FEW) Urine Mucus Slight /LPF Laboratory Tests 03/11/17 08:45 Laboratory Tests 03/11/17 08:45 EKG EKG 08:[address] Mendiola sinus rhythm, QRS interval 102, heart rate 75 [] Radiology/Procedures Radiology/Procedures []PROCEDURE: PORTABLE CHEST 1V Portable chest, 03/11/2017: History: Shortness of breath and chest pain Comparison is made to a study from 09/28/2016. There has been a previous median sternotomy. Surgical clips are present the left hilum. A vascular stent is projected over the right subclavian region. The heart is at the upper limits of normal in size. The pulmonary vascularity is normal. There is minimal left perihilar scarring. No acute infiltrate is seen. There is no evidence of pleural fluid. IMPRESSION: No acute abnormality is detected with no significant change since 09/28/2016. DICTATED and SIGNED BY: BRIANA TALBOT MD DATE: 03/11/17 0853 CC: LEDA AGUILAR APRN; JANEY JONES MD ~ Course & Med Decision Making Course & Med Decision Making Pertinent Labs and Imaging studies reviewed. (See chart for details) This is a 61-year-old female patient with multiple medical history including CAD venous stasis diabetes type 2 and hypertension who presents today complaining of 3 out of 10 substernal chest pain with shortness of breath that began yesterday, patient is attributing her chest pain to her lower extremity pain. Chest x-ray and EKG are negative for any acute findings. CBC with hemoglobin of 10.5, hematocrit 35.3. CMP with creatinine of 1.3, BUN of 26. Troponin 0.1. BNP 3520 Patient's vitals on arrival to the ED blood pressure was 220/95, respirations were 26 on room and the patient appeared very anxious on arrival to the ED, O2 sats 93% on room air, heart rate 81. Patient had no IV access for work. She was given clonidine for his blood pressure. 10:07 Consulted with windows mobile developer Karina who will f/u with patient 10:[address] Bailey who accepted patient for admission Dragon Disclaimer Dragon Disclaimer This electronic medical record was generated, in whole or in part, using a voice recognition dictation system. Departure Departure Impression: Primary Impression: Chest pain Additional Impressions: Dyspnea Elevated troponin Disposition: ADMITTED INPATIENT Condition: STABLE Referrals: JANEY JONES MD (PCP) Problem Qualifiers Primary Impression: Chest pain Chest pain type: unspecified Qualified Codes: R07.9 - Chest pain, unspecified Additional Impressions: Dyspnea Dyspnea type: dyspnea on exertion Qualified Codes: R06.09 - Other forms of dyspnea LEDA AGUILAR APRN Mar 11, 2017 08:38
[2017-03-11 08:57] LABS: BASO # 0.1 x10^3/uL (0.0-0.2); BASO % 1 % (0-3); EOS % 0 % (0-3); HEMATOCRIT 35.3 % (36.0-47.0); HEMOGLOBIN 10.5 g/dL (12.0-15.5); LYMPH # 0.7 x10^3/uL (1.0-4.8); LYMPH % 7 % (24-48); MEAN CORPUSCULAR HEMOGLOBIN 25 pg (25-35); MEAN CORPUSCULAR HGB CONC 30 g/dL (31-37); MEAN CORPUSCULAR VOLUME 86 fL (79-100); MONO % 9 % (0-9); NEUT % 83 % (31-73); PLATELET COUNT 229 x10^3/uL (140-400); RED BLOOD COUNT 4.13 x10^6/uL (3.50-5.40); RED CELL DISTRIBUTION WIDTH 19.5 % (11.5-14.5); WHITE BLOOD COUNT 9.5 x10^3/uL (4.0-11.0)
[2017-03-11 08:58] LABS: HCO3 ABG 29 mmol/L (21-28); PCO2 ABG 47 mmHg (35-46); PO2 ABG 113 mmHg (65-108); SAT O2 ABG 97 % (92-99)
--- NOTE | 2017-03-11 08:58 | RAD ---
Portable chest, 03/11/2017: History: Shortness of breath and chest pain Comparison is made to a study from 09/28/2016. There has been a previous median sternotomy. Surgical clips are present the left hilum. A vascular stent is projected over the right subclavian region. The heart is at the upper limits of normal in size. The pulmonary vascularity is normal. There is minimal left perihilar scarring. No acute infiltrate is seen. There is no evidence of pleural fluid. IMPRESSION: No acute abnormality is detected with no significant change since 09/28/2016.
[2017-03-11 09:02] LABS: FIO2 ABG 28
[2017-03-11 09:08] LABS: INR 1.3 (0.8-1.1); PROTHROMBIN TIME PATIENT 15.3 SEC (11.7-14.0)
[2017-03-11 09:13] LABS: CALCIUM 9.8 mg/dL (8.5-10.1); CREATININE 1.3 mg/dL (0.6-1.0); GFR 50.2; POTASSIUM 4.1 mmol/L (3.5-5.1)
[2017-03-11 09:20] LABS: ALBUMIN 3.1 g/dL (3.4-5.0); ALBUMIN/GLOBULIN RATIO 0.8 (1.0-1.7); MAGNESIUM 1.9 mg/dL (1.8-2.4); TOTAL BILIRUBIN 0.4 mg/dL (0.2-1.0); TOTAL PROTEIN 7.1 g/dL (6.4-8.2)
[2017-03-11 09:29] LABS: CKMB MASS 1.9 ng/mL (0.0-3.6); CREATINE KINASE 55 U/L (26-192)
[2017-03-11] MEDS ORDERED: cloNIDine HCL 0.1 MG TABLET PO ONE (10:15)
[2017-03-11 10:24] LABS: BILIRUBIN,URINE NEGATIVE (NEG); GLUCOSE,URINE >=1000 mg/dL (NEG); NITRITE,URINE NEGATIVE (NEG); PH,URINE 5.5; PROTEIN,URINE 100 mg/dL (NEG-TRACE); UROBILINOGEN,URINE 0.2 mg/dL (0.2 mg/dL)
[2017-03-11 10:31] LABS: SQUAMOUS EPITHELIAL CELL,UR FEW /LPF
[2017-03-11 10:32] LABS: BACTERIA,URINE FEW /HPF (0-FEW)
[2017-03-11] MEDS ORDERED: ONDANSETRON PF 4 MG/2 ML VIAL. IV PRN (11:00)
[2017-03-11] MEDS ORDERED: NITROGLYCERIN SUBLINGUAL 0.4 MG BOTTLE OF 25. SL PRN (11:00)
[2017-03-11] MEDS ORDERED: LABETALOL 20 MG/4 ML DISP.SYRIN. IVP PRN ×3 (11:00→15:30)
[2017-03-11] MEDS ORDERED: MORPHINE SULFATE 2 MG/ML DISP.SYRIN. IV PRN (11:00)
[2017-03-11] MEDS ORDERED: INSULIN REGULAR 100 UNIT/ML 10ML VIAL. IV ONE (11:30)
--- NOTE | 2017-03-11 11:45 | EKG ---
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
[2017-03-11 12:30] VITALS: BP 149/69
[2017-03-11] MEDS ORDERED: DEXTROSE 50% 25 GM / 50ML DISP.SYRIN. IV PRN (13:30)
[2017-03-11 15:00] VITALS: BP 153/75
[2017-03-11] MEDS ORDERED: hydrALAZINE 20 MG/ML VIAL. IVP PRN (15:30)
[2017-03-11] MEDS ORDERED: MYCO500T PO ×2 (15:36)
[2017-03-11] MEDS ORDERED: INSU100I17 SQ (15:36)
[2017-03-11] MEDS ORDERED: [UNRECOGNIZED DRUG - CODE] PO (15:36)
--- NOTE | 2017-03-11 15:43 | PDOC2 ---
[address] SUPERVISOR 03/11/17 1543: CARDIAC CONSULT DATE OF CONSULT Date of Consult DATE: 03/11/17 TIME: 15:00 REASON FOR CONSULT Reason for Consult: Chest pain REFERRING PHYSICIAN Referring Physician: Tala SOURCE Source: Chart review, Patient HISTORY OF PRESENT ILLNESS HISTORY OF PRESENT ILLNESS This is a pleasant 61 yo female admitted for complains of SOA. Reports that in the last 2-3 weeks she has been getting SOa. She has increased briefly her lasix, she will get better then comes back. This Friday she has double her lasix dose again and actually lost about 3 pounds the next day but Friday she was 212 lbs. She also started having burning sensation in her chest but no nausea, or diaphoresis. Positive for increasing leg swelling but she feels like her lasix is not working despite doubling it at times. Today her burning sensation has been intermittent and triggered with ambulation and her HERNANDEZ increased. Denies any palpitations and has been complaint with her medications. She remain to be 212 and her baseline weight is about 205 Lbs. She is being followed by home health and finally she was convinced by them and her sister to come in to be evaluated. Upon admission her BP was uncontrollably high. PAST MEDICAL HISTORY Past Medical History Cardiovascular: CAD, CHF, HTN, Hyperlipidemia Pulmonary: Other (diaphragmatic injury from CABG) CENTRAL NERVOUS SYSTEM: CVA, TIA, Other (Myasthenia gravis) GI: Diverticulosis, GERD, Irritable bowel disease Heme/Onc: Anemia NOS Hepatobiliary: No pertinent hx Psych: No pertinent hx Musculoskeletal: Osteoarthritis Rheumatologic: No pertinent hx Infectious disease: No pertinent hx ENT: No pertinent hx Renal/: Chronic renal insuff Endocrine: Diabetes (2) Dermatology: Other (RLE wound) PAST SURGICAL HISTORY Past Surgical History CABG, , Hysterectomy, Other (Fistula placed "Several",L)arm fx w/repair ) FAMILY HISTORY Family History Coronary Artery Disease (mother and father) SOCIAL HISTORY Social History Smoke: No ALCOHOL: none Drugs: None Lives: with Family CURRENT MEDICATIONS CURRENT MEDICATIONS Current Medications Medications (Trade) Dose Ordered Sig/Oksana Route PRN Reason Start Time Stop Time Status Last Admin Dose Admin Aspirin (Liza Aspirin) 325 mg 1X ONCE PO 03/11/17 08:30 03/11/17 08:31 DC 03/11/17 09:01 Clonidine HCl (Catapres) 0.2 mg 1X ONCE PO 03/11/17 10:15 03/11/17 10:16 DC 03/11/17 11:55 ALLERGIES ALLERGIES: Coded Allergies: Iodinated Contrast- Oral and IV Dye (Verified Allergy, Intermediate, ) adhesive tape (Verified Allergy, Intermediate, 04/23/16) insulin glargine (Verified Allergy, Intermediate, 04/23/16) levofloxacin (Verified Allergy, Intermediate, 04/23/16) ROS Review of System 14 point ROS evaluated with pertinent positives noted per HPI PHYSICAL EXAM General: Alert, Oriented X3, Cooperative, mild distress HEENT: Atraumatic, Mucous membr. moist/pink Lungs: Clear to auscultation Heart: Regular rate (SR), Normal S1, Normal S2, Other (4/6 ssytolic murmur to NORMA border) Extremities: No cyanosis, Other (3+ bilateral LE pitting edema) Skin: Other (RLE venous stasis ulcer to posterior calf) Neuro: Normal speech, Sensation intact Psych/Mental Status: Mental status NL, Mood NL MUSCULOSKELETAL: Osteoarthritic changes both hands VITALS VITALS Vital Signs Date Time Temp Pulse Resp B/P (MAP) Pulse Ox O2 Delivery O2 Flow Rate FiO2 03/11/17 12:30 98.6 73 16 149/69 (95) 99 Nasal Cannula 98.6 03/11/17 11:55 2.0 LABS Lab: Laboratory Tests Test 03/11/17 08:45 03/11/17 08:55 03/11/17 10:10 03/11/17 13:26 White Blood Count 9.5 x10^3/uL (4.0-11.0) Red Blood Count 4.13 x10^6/uL (3.50-5.40) Hemoglobin 10.5 g/dL (12.0-15.5) Hematocrit 35.3 % (36.0-47.0) Mean Corpuscular Volume 86 fL (79-100) Mean Corpuscular Hemoglobin 25 pg (25-35) Mean Corpuscular Hemoglobin Concent 30 g/dL (31-37) Red Cell Distribution Width 19.5 % (11.5-14.5) Platelet Count 229 x10^3/uL (140-400) Neutrophils (%) (Auto) 83 % (31-73) Lymphocytes (%) (Auto) 7 % (24-48) Monocytes (%) (Auto) 9 % (0-9) Eosinophils (%) (Auto) 0 % (0-3) Basophils (%) (Auto) 1 % (0-3) Neutrophils # (Auto) 7.9 x10^3uL (1.8-7.7) Lymphocytes # (Auto) 0.7 x10^3/uL (1.0-4.8) Monocytes # (Auto) 0.8 x10^3/uL (0.0-1.1) Eosinophils # (Auto) 0.0 x10^3/uL (0.0-0.7) Basophils # (Auto) 0.1 x10^3/uL (0.0-0.2) Prothrombin Time 15.3 SEC (11.7-14.0) Prothromb Time International Ratio 1.3 (0.8-1.1) Activated Partial Thromboplast Time 29 SEC (24-38) Sodium Level 142 mmol/L (136-145) Potassium Level 4.1 mmol/L (3.5-5.1) Chloride Level 102 mmol/L (98-107) Carbon Dioxide Level 32 mmol/L (21-32) Anion Gap 8 (6-14) Blood Urea Nitrogen 34 mg/dL (7-20) Creatinine 1.3 mg/dL (0.6-1.0) Estimated GFR (Cockcroft-Gault) 50.2 BUN/Creatinine Ratio 26 (6-20) Glucose Level 401 mg/dL (70-99) Lactic Acid Level 1.8 mmol/L (0.4-2.0) Calcium Level 9.8 mg/dL (8.5-10.1) Magnesium Level 1.9 mg/dL (1.8-2.4) Total Bilirubin 0.4 mg/dL (0.2-1.0) Aspartate Amino Transf (AST/SGOT) 19 U/L (15-37) Alanine Aminotransferase (ALT/SGPT) 24 U/L (14-59) Alkaline Phosphatase 90 U/L (46-116) Creatine Kinase 55 U/L (26-192) Creatine Kinase MB (Mass) 1.9 ng/mL (0.0-3.6) Creatine Kinase MB Relative Index % (0-4) Troponin I Quantitative 0.100 ng/mL (0.000-0.055) BQ-Swn-Y-Type Natriuretic Peptide 3520 pg/mL (0-124) Total Protein 7.1 g/dL (6.4-8.2) Albumin 3.1 g/dL (3.4-5.0) Albumin/Globulin Ratio 0.8 (1.0-1.7) Lipase 151 U/L (73-393) O2 Saturation 97 % (92-99) Arterial Blood pH 7.40 (7.35-7.45) Arterial Blood pCO2 at Patient Temp 47 mmHg (35-46) Arterial Blood pO2 at Patient Temp 113 mmHg (65-108) Arterial Blood HCO3 29 mmol/L (21-28) Arterial Blood Base Excess 3 mmol/L (-3-3) FiO2 28 Urine Collection Type Void Urine Color Yellow Urine Clarity Clear Urine pH 5.5 Urine Specific [place] >=1.030 Urine Protein 100 mg/dL (NEG-TRACE) Urine Glucose (UA) >=1000 mg/dL (NEG) Urine Ketones (Stick) Negative mg/dL (NEG) Urine Blood Negative (NEG) Urine Nitrite Negative (NEG) Urine Bilirubin Negative (NEG) Urine Urobilinogen Dipstick 0.2 mg/dL (0.2 mg/dL) Urine Leukocyte Esterase Negative (NEG) Urine RBC 1-2 /HPF (0-2) Urine WBC 1-4 /HPF (0-4) Urine Squamous Epithelial Cells Few /LPF Urine Bacteria Few /HPF (0-FEW) Urine Mucus Slight /LPF Glucose (Fingerstick) 323 mg/dL (70-99) ECHOCARDIOGRAM ECHOCARDIOGRAM <Conclusion> The left ventricular systolic function is normal. The Ejection Fraction is estimated at 70%. There is normal LV segmental wall motion. Transmitral Doppler flow pattern is Grade I-abnormal relaxation pattern. Trace to mild tricuspid regurgitation. There is mild-moderate pulmonary hypertension. The PA pressure was estimated at 43 mmHg. There is no evidence of significant pericardial effusion. DATE: 05/01/16 1319 STRESS TEST STRESS TEST Conclusion 1. Regadenoson cardioisotope stress test did not show any evidence of ischemia or infarct. 2. Normal left ventricular systolic function with ejection fraction calculated at 79%. 3. Low risk for cardiac events. DATE: 05/01/16 1623 ASSESSMENT/PLAN ASSESSMENT/PLAN 1. Acute on chronic diastolic CHF: poor response to lasix 2. Malignant HTN: better with clonidine 3. Elevated troponin: 0.1 mg initially. EKG SR without acute changes. Could be demand mediated but with refractory CHF underlying ischemia could not be completely ruled out. 4. PAFIB: remains in SR 5. KORY on CKD 6. DM2/HLP; BG uncontrolled. 7. Chest pain: mainly retrosternal burning. 8. Hx of myasthenia gravis: on immunosuppressants. 9. Allergy to IV dye. Recommendations 1. Start Bumex IV. goal wt 205. 2. TTE. Check TSH. Trend troponin 3. Will discuss with primary spool winder. 4. Labetolol IV PRN. Start home metoprolol, imdur 5. ASA. 81 mg, start on PPI 6. Elquis for stroke prevention Problems: BEATRICE TREJO MD 03/11/17 1750: CARDIAC CONSULT ALLERGIES ALLERGIES: Coded Allergies: Iodinated Contrast- Oral and IV Dye (Verified Allergy, Intermediate, ) adhesive tape (Verified Allergy, Intermediate, 04/23/16) insulin glargine (Verified Allergy, Intermediate, 04/23/16) levofloxacin (Verified Allergy, Intermediate, 04/23/16) ASSESSMENT/PLAN ASSESSMENT/PLAN Patient seen and examined. Agree with above nurse practitioner note. Well-known to us from her previous visits to the hospital. 61-year-old woman with chronic lower extremity edema likely lymphedema and venous insufficiency. Her previous evaluations have been negative with respect to venous and arterial insufficiencies. She has significant lower extremity edema and given her nonresponse to Lasix will appropriately initiated Bumex. goal weight and close monitoring of renal function. Supportive care. Repeat echo Cardigan as noted above. Thank you for this consultation. Problems: CALVIN ROSALES APRN Mar 11, 2017 15:43 BEATRICE TREJO MD Mar 11, 2017 17:50
[2017-03-11] MEDS: ASPIRIN ENTERIC COATED 81 MG TABLET.DR. PO SCH (17:13)
[2017-03-11] MEDS: PANTOPRAZOLE 40 MG TABLET.DR. PO SCH (17:13)
[2017-03-11] MEDS: ISOSORBIDE MONONITRATE ER 30 MG TAB.ER.24H PO SCH (17:13)
[2017-03-11] MEDS: BUMETANIDE 1 MG/4 ML VIAL. IV SCH (17:14)
[2017-03-11] MEDS: INSULIN ASPART 300 UNITS/3 ML INSULN.PEN SQ SCH ×2 (17:22→19:00)
[2017-03-11 19:35] VITALS: BP 102/54
[2017-03-11] MEDS ORDERED: NON FORMULARY ITEM (Albuterol Sulfate (Ventolin Hfa Inhaler) 2 PUFF) INH SCH (20:00)
[2017-03-11] MEDS: ALBUTEROL SULFATE 2.5 MG/3 ML NEBU. NEB SCH ×2 (20:14→23:27)
[2017-03-11] MEDS ORDERED: INSULIN DETEMIR 300 UNITS/3 ML INSULN.PEN. SQ SCH (21:00)
[2017-03-11] MEDS ORDERED: APIXABAN 5 MG TABLET. PO SCH (21:00)
[2017-03-11] MEDS ORDERED: METOPROLOL TART IMMED RELEASE 50 MG TABLET. PO SCH (21:00)
[2017-03-11] MEDS: ATORVASTATIN CALCIUM 40 MG TABLET. PO SCH (21:26)
[2017-03-11] MEDS: PYRIDOSTIGMINE BROMIDE 60 MG TABLET PO SCH (21:27)
[2017-03-11] MEDS: METOPROLOL TART IMMED RELEASE 50 MG TABLET. PO SCH (21:27)
[2017-03-11] MEDS: APIXABAN 5 MG TABLET. PO SCH (21:27)
[2017-03-11] MEDS: GABAPENTIN 300 MG CAPSULE. PO SCH (21:27)
[2017-03-11] MEDS: DOXYCYCLINE HYCLATE 100 MG TABLET PO SCH (21:27)
[2017-03-11] MEDS: ASCORBIC ACID 500 MG TABLET PO SCH (21:27)
[2017-03-11] MEDS: MYCOPHENOLATE MOFETIL 250 MG CAPSULE. PO SCH (21:28)
[2017-03-11] MEDS: hydrALAZINE 10 MG TABLET PO SCH (21:29)
[2017-03-11] MEDS: TERBUTALINE 2.5 MG PO SCH (21:29)
[2017-03-11] MEDS: HEPARIN PF for SUB-Q USE 5,000 UNIT/0.5 ML VIAL. SQ SCH (21:37)
[2017-03-11] MEDS: HYDROcodone/APAP 5/325MG 1 TAB TABLET PO PRN (21:40)
[2017-03-11 23:40] VITALS: BP 128/58
[2017-03-12 03:30] VITALS: BP 146/49
[2017-03-12] MEDS: HYDROcodone/APAP 5/325MG 1 TAB TABLET PO PRN ×3 (03:50→21:09)
[2017-03-12] MEDS: ALBUTEROL SULFATE 2.5 MG/3 ML NEBU. NEB SCH ×5 (04:00→19:32)
[2017-03-12 04:45] LABS: CALCIUM 8.2 mg/dL (8.5-10.1); CREATININE 1.2 mg/dL (0.6-1.0); GFR 55.1; MAGNESIUM 1.9 mg/dL (1.8-2.4); POTASSIUM 4.1 mmol/L (3.5-5.1)
--- NOTE | 2017-03-12 05:16 | ACF ---
Admission Forms Criteria HEART FAILURE: COMMON COMPLICATIONS Clinical Indications for Inpatient Care (Place 'X' for any and all applicable criteria): Ongoing inpatient care may be indicated for heart failure with 1 or more of the following (1)(2)(3)(4)(5)(6)(7)(8): [ ]I. New-onset heart failure [ ]II. Acute cardiac ischemia causing or associated with failure [ ]III. Ongoing need for care for primary condition requiring frequent therapy adjustments because of changes in cardiac function (eg, drug dosage changes for drugs that are renally metabolized) [X]IV. Complications of heart failure, including 1 or more of the following: [ ]a) Hemodynamic instability [ ]b) Pericardial effusion [ ]c) Symptomatic pleural effusion [ ]d) Hypoxemia [ ]e) Tachypnea [X]f) Dyspnea [ ]g) Syncope [ ]h) Altered mental status [ ]i) Acute renal insufficiency that is severe (reduction of more than 50% in estimated glomerular filtration rate from baseline) or progressive reduction of more than 25% in estimated glomerular filtration rate from baseline, with creatinine continuing to rise) [ ]j) Debilitating anasarca (eg tissue breakdown with infection, inability to void due to edema) (E) [ ]k) Clinically significant metabolic abnormalities due to heart failure (eg, new-onset metabolic acidosis) Extended stay may be needed until ALL of the following are present (1)(3)(18)(41 )(55) [ ]a) Hemodynamic stability [ ]b) Stable and effective diuretic regimen established (or patient on stable dialysis regimen if in chronic renal failure) [ ]c) Volume status acceptable on oral medication [ ]d) Breathing comfortably at rest [ ]e) Saturation of arterial oxygen greater than 90% or at acceptable baseline [ ]f) Pulmonary edema absent or improved [ ]g) Peripheral or sacral edema absent or improved [ ]h) Renal function stable and manageable at a lower level of care [ ]i) Complications (eg, pleural effusion) resolved or manageable at a lower level of care [ ]g) Patient or caregiver has received written discharge instructions or educational material addressing activity level, diet, discharge medications, follow-up appointment, weight monitoring, and what to do if symptoms worsen.(25)(26) The original [facility] [employer] content created by [employer] [employer] [employer] has been revised. The portions of the content which have been revised are identified through the use of italic text, and [facility] has neither reviewed nor approved the modified material.All other unmodified content is copyright [facility]. Please see references footnoted in the original [facility] edition 2015 Admission Criteria Met?: Yes ASPEN SANCHEZ Mar 12, 2017 05:16 SANIA MOYER MD Mar 17, 2017 08:48
[2017-03-12 05:44] LABS: BASO % 0 % (0-3); EOS % 1 % (0-3); HEMATOCRIT 30.1 % (36.0-47.0); HEMOGLOBIN 8.8 g/dL (12.0-15.5); LYMPH # 0.6 x10^3/uL (1.0-4.8); LYMPH % 8 % (24-48); MEAN CORPUSCULAR HEMOGLOBIN 26 pg (25-35); MEAN CORPUSCULAR HGB CONC 29 g/dL (31-37); MEAN CORPUSCULAR VOLUME 87 fL (79-100); MONO % 9 % (0-9); NEUT % 82 % (31-73); PLATELET COUNT 188 x10^3/uL (140-400); RED BLOOD COUNT 3.44 x10^6/uL (3.50-5.40); RED CELL DISTRIBUTION WIDTH 18.8 % (11.5-14.5); WHITE BLOOD COUNT 8.1 x10^3/uL (4.0-11.0)
[2017-03-12] MEDS: HEPARIN PF for SUB-Q USE 5,000 UNIT/0.5 ML VIAL. SQ SCH ×2 (06:14→13:12)
--- NOTE | 2017-03-12 06:44 | HP ---
ADMIT DATE: 03/11/2017 ADMISSION DIAGNOSES: Shortness of breath, congestive heart failure exacerbation. HISTORY OF PRESENT ILLNESS: The patient is a 61-year-old -Citizen Of [place] woman with CAD, CHF and frequent admissions for exacerbations, who presented to the Emergency Room today with acute shortness of breath. She relates that her symptoms actually started about a couple of days ago, she noted increased swelling in her right lower extremity, with her left lower extremity being always swollen secondary to venous graft collection on that side. She denies any fevers or chills, any nausea or vomiting. Denies any chest pain or diaphoresis. In the Emergency Room, EKG was essentially within normal limits. Chest x-ray shows no acute abnormality without significant change. Pulmonary vascularity was considered normal. Vital signs, however, showed a blood pressure of ____, pulse ox at 93 on room air with a pulse of 81. She was admitted with a presumptive diagnosis of CHF to the cardiovascular care unit. She now feels better, the chest pain has resolved. Breathing is still somewhat labored, but she is able to speak in full sentences. The patient has a posterior right lower leg ulcer, which is very painful. She states when dressings get changed, she also has severe pain and that actually causes shortness of breath and chest pain as well. 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 PAST SURGICAL HISTORY: Status post CABG, , hysterectomy and tonsillectomy. FAMILY HISTORY: No known cardiac history. SOCIAL HISTORY: Never smoker, no alcohol, no drugs. ALLERGIES: IODINE DYE, ADHESIVE TAPE, INSULIN GLARGINE (SHE IS ON), LEVOFLOXACIN. MEDICATIONS: MAR reconciled with home medications. REVIEW OF SYSTEMS: Positive as per HPI. Entire rest of organ system review else no findings. PHYSICAL EXAMINATION: VITAL SIGNS: From today show a blood pressure of 153/75, of note, initial presentation ____, heart rate at 68 currently, previously 74, respiratory rate at 20. She is afebrile and satting 100% on 2 liters. GENERAL: This is a morbidly obese 61-year-old -Citizen [place] woman, awake, alert, in no acute distress. HEENT: Shows no scleral icterus. NECK: Supple, without any JVD. LUNGS: Clear bilaterally. HEART: Has regular rate and rhythm without any murmurs. ABDOMEN: Obese, positive bowel sounds. Organs could not be palpated. EXTREMITIES: Showed 2+ edema on the left with chronic venous stasis skin changes, 1+ edema on the right. There is a posterior well healing ulcer of about 4 x 2 cm on the mid calf. LABORATORY DATA: CBC with a WBC of 9.5, hemoglobin 10.5, platelets of 229. Chemistries with a BUN and creatinine of 34 and 1.3, slightly above her previous baseline. Electrolytes, however, are within normal limits. Glucose at 401. LFTs within normal. ProBNP at 3520, troponin is 0.100. TSH at 6.4. Urine with specific gravity greater than 1.030. IMAGING STUDIES: Chest x-ray showing no acute abnormality with pulmonary vascularity normal, previous median sternotomy noted as well as clips in the left hilum. ASSESSMENT AND PLAN: The patient is a 61-year-old morbidly obese woman with coronary artery disease, congestive heart failure, who now presents with presumptive congestive heart failure exacerbation. She has received Bumex. In addition, Bumex today with good diuresis. We will monitor ins and outs. Clinically, she is currently stable, feels a little better. Monitor her electrolytes on treatment. The patient does have mild chronic renal insufficiency with mild bump in her creatinine, presumably secondary to congestive heart failure. We will monitor with further diuresis. Her diabetes mellitus is very poorly controlled currently. We will resume her home medications. Add insulin sliding scale and adjust her medication regimen as indicated. We will obtain hemoglobin A1c as well. Complicating matters as far as her respiratory status is concerned is myasthenia gravis with paralyzed diaphragm . We will continue all her home medications, including pyridostigmine and a fairly high dose of CellCept as well. The prescription has been written just 2 weeks ago. We will continue all her other home medications and especially for cardiac secondary prevention. Prophylaxis will be achieved with heparin subQ. The wound care nurse will be consulted for her lower extremity ulcer. SANIA MOYER MD DR: FORREST/jesus JOB#: [id number] / [id number] JANEY Askew MD MTDD
[2017-03-12 07:00] VITALS: BP 124/44
[2017-03-12] MEDS ORDERED: INSULIN DETEMIR 300 UNITS/3 ML INSULN.PEN. SQ SCH (07:30)
[2017-03-12] MEDS ORDERED: PANTOPRAZOLE 40 MG TABLET.DR. PO SCH ×2 (07:30→09:00)
[2017-03-12] MEDS ORDERED: FUROSEMIDE 40 MG TABLET. PO SCH (09:00)
[2017-03-12] MEDS: PYRIDOSTIGMINE BROMIDE 60 MG TABLET PO SCH ×4 (09:33→21:08)
[2017-03-12] MEDS: TERBUTALINE 2.5 MG PO SCH ×3 (09:34→21:08)
[2017-03-12] MEDS: PANTOPRAZOLE 40 MG TABLET.DR. PO SCH (09:34)
[2017-03-12] MEDS: ASCORBIC ACID 500 MG TABLET PO SCH ×2 (09:34→21:09)
[2017-03-12] MEDS: LACTOBACILLUS ACIDOPH & BULGAR 1 TABLET. PO SCH ×3 (09:34→16:42)
[2017-03-12] MEDS: DOXYCYCLINE HYCLATE 100 MG TABLET PO SCH (09:34)
[2017-03-12] MEDS: ISOSORBIDE MONONITRATE ER 30 MG TAB.ER.24H PO SCH (09:35)
[2017-03-12] MEDS: ASPIRIN ENTERIC COATED 81 MG TABLET.DR. PO SCH (09:35)
[2017-03-12] MEDS: hydrALAZINE 10 MG TABLET PO SCH ×3 (09:35→21:08)
[2017-03-12] MEDS: predniSONE 10 MG TABLET PO SCH (09:35)
[2017-03-12] MEDS: APIXABAN 5 MG TABLET. PO SCH ×2 (09:35→21:08)
[2017-03-12] MEDS: METOPROLOL TART IMMED RELEASE 50 MG TABLET. PO SCH ×2 (09:36→21:09)
[2017-03-12] MEDS: BUMETANIDE 1 MG/4 ML VIAL. IV SCH ×2 (09:37→16:42)
[2017-03-12] MEDS: MYCOPHENOLATE MOFETIL 250 MG CAPSULE. PO SCH ×2 (09:37→21:08)
[2017-03-12] MEDS: INSULIN ASPART 300 UNITS/3 ML INSULN.PEN SQ SCH ×6 (09:51→16:33)
[2017-03-12 10:59] VITALS: BP 120/53
--- NOTE | 2017-03-12 11:25 | CARD ---
APPROVED REPORT EXAM: Two-dimensional and M-mode echocardiogram with Doppler and color Doppler. Other Information Quality : Fair Rhythm : NSR INDICATION Chest Pain Congestive Heart Failure 2D DIMENSIONS RVDd2.5 (2.9-3.5cm)Left Atrium(2D)4.6 (1.6-4.0cm) IVSd0.9 (0.7-1.1cm)Aortic Root(2D)2.7 (2.0-3.7cm) LVDd3.8 (3.9-5.9cm)LVOT Diameter2.0 (1.8-2.4cm) PWd0.8 (0.7-1.1cm)LVDs2.0 (2.5-4.0cm) FS (%) 38.4 %SV49.3 ml LVEF(%)60.4 (>50%) Aortic Valve AoV Peak Eric.177.6cm/sAoV VTI34.4cm AO Peak GR.12.6mmHgLVOT Peak Eric.152.5cm/s LVOT VTI 25.95cmAO Mean GR.7mmHg NAKIA (VMAX)2.58hu0DRW (VTI)2.26cm2 Mitral Valve MV E Bbrdgclk632.3cm/sMV DECEL [id number] MV A Kmxbmjed781.2cm/sMV E Mean Gr.3mmHg MV KYZ76lhO/A Ratio0.8 MV A [id number] (PHT)2.73cm2 TDI E/Lateral E'13.8E/Medial E'19.9 Pulmonary Valve PV Peak Hhaxbbyk240.9cm/sPV Peak Grad.6mmHg RVOT VTI11.2cm Tricuspid Valve TR P. Wxwrwdmf347xx/sRAP TFTDJCDA0zrPa TR Peak Gr.68xnCkONMO58wfUo Pulmonary Vein S1 Jaknbkli41.2cm/sD2 Jvkesfqc46.6cm/s LEFT VENTRICLE The left ventricle is normal size. There is normal left ventricular wall thickness. Left ventricle sy stolic function is normal. The Ejection Fraction is 55-60%. There is normal LV segmental wall motion. The left ventricular diastolic function and filling is normal for age. There is no ventricular septa l defect visualized. RIGHT VENTRICLE The right ventricle is normal size. The right ventricular systolic function is normal. ATRIA The left atrium is mildly dilated. The right atrium size is normal. The interatrial septum is intact with no evidence for an atrial septal defect or patent foramen ovale as noted on 2-D or Doppler imagi ng. AORTIC VALVE The aortic valve is not well visualized but is mildly calcifed. The aortic valve appears trileaflet. Doppler and Color Flow revealed no significant aortic regurgitation. There is no significant aortic v alvular stenosis. MITRAL VALVE Mitral annular calcification is moderate. The mitral valve leaflets are thickened. There is no mitral valve stenosis. Doppler and Color Flow revealed trace to mild mitral regurgitation. TRICUSPID VALVE The tricuspid valve is normal in structure. Doppler and Color Flow revealed mild tricuspid regurgitat ion. The PA pressure was estimated at 38 mmHg. There is no tricuspid valve stenosis. PULMONIC VALVE The pulmonic valve is not well visualized. Doppler and Color Flow revealed no pulmonic valvular regur gitation. There is no pulmonic valvular stenosis. GREAT VESSELS The aortic root is normal in size. Normal pulmonary venous flow (Doppler). The IVC is normal in size and collapses >50% with inspiration. PERICARDIAL EFFUSION There is no evidence of significant pericardial effusion. Critical Notification Critical Value: No <Conclusion> Left ventricle systolic function is normal. The Ejection Fraction is 55-60%. There is normal LV segmental wall motion. The left atrium is mildly dilated. Trace to mild mitral regurgitation. Mild tricuspid regurgitation. The PA pressure was estimated at 38 mmHg. There is no evidence of significant pericardial effusion.
--- NOTE | 2017-03-12 13:37 | PDOC ---
PROGRESS NOTES Chief Complaint Chief Complaint bl leg edema 2/2 chronic lymphedema and venous insufficiency likely Chronic CHF with diastolic dysfunction Elevated troponin with chf hx PAFIB on eliquis, sinus now Restrictive lung disease/ROBERTO hx CAD; CABG in 2000 HTN HLP Hx of CVA/TIA DM2 with retinopathy Hx of myasthenia gravis: intermittent plasmapheresis last treatment 03/2016. Hx of IgA monoclonal gammopathy leg wound, chronically CKD3 atypical chest pain, gi possibly Allergy to IV dye. morbid obesity h/o diaphram paralyse plan: fu with card echo done ,basically normal immunosuppresive home meds resume home insulin , SSI dc doxy on bumex iv bid as per card, watch in and out wound care cont home meds, hold lasix on NC 2 L now eliquis, dc heparin. History of Present Illness History of Present Illness feels ok on NC2L NOT TAking salt at home , but has weight gain mild cough with some mucus . no copd hyperglycemia Vitals Vitals Vital Signs Date Time Temp Pulse Resp B/P (MAP) Pulse Ox O2 Delivery O2 Flow Rate FiO2 03/12/17 13:03 85 120/53 03/12/17 13:02 93 2.0 03/12/17 11:03 Nasal Cannula 03/12/17 10:59 98.3 20 98.3 Physical Exam General: Alert, Oriented X3, Cooperative, mild distress Heart: Regular rate (SR), Normal S1, Normal S2, Other (4/6 ssytolic murmur to NORMA border) Lungs: Clear, Other Abdomen: Normal bowel sounds Extremities: No cyanosis, Other (2+ bilateral LE pitting edema) Skin: Other (RLE venous stasis ulcer to posterior calf) Labs LABS Laboratory Tests Test 03/11/17 16:39 03/11/17 18:15 03/11/17 21:07 03/12/17 03:00 Glucose (Fingerstick) 358 mg/dL (70-99) 359 mg/dL (70-99) Troponin I Quantitative 0.072 ng/mL (0.000-0.055) White Blood Count 8.1 x10^3/uL (4.0-11.0) Red Blood Count 3.44 x10^6/uL (3.50-5.40) Hemoglobin 8.8 g/dL (12.0-15.5) Hematocrit 30.1 % (36.0-47.0) Mean Corpuscular Volume 87 fL (79-100) Mean Corpuscular Hemoglobin 26 pg (25-35) Mean Corpuscular Hemoglobin Concent 29 g/dL (31-37) Red Cell Distribution Width 18.8 % (11.5-14.5) Platelet Count 188 x10^3/uL (140-400) Neutrophils (%) (Auto) 82 % (31-73) Lymphocytes (%) (Auto) 8 % (24-48) Monocytes (%) (Auto) 9 % (0-9) Eosinophils (%) (Auto) 1 % (0-3) Basophils (%) (Auto) 0 % (0-3) Neutrophils # (Auto) 6.6 x10^3uL (1.8-7.7) Lymphocytes # (Auto) 0.6 x10^3/uL (1.0-4.8) Monocytes # (Auto) 0.7 x10^3/uL (0.0-1.1) Eosinophils # (Auto) 0.0 x10^3/uL (0.0-0.7) Basophils # (Auto) 0.0 x10^3/uL (0.0-0.2) Sodium Level 142 mmol/L (136-145) Potassium Level 4.1 mmol/L (3.5-5.1) Chloride Level 105 mmol/L (98-107) Carbon Dioxide Level 34 mmol/L (21-32) Anion Gap 3 (6-14) Blood Urea Nitrogen 26 mg/dL (7-20) Creatinine 1.2 mg/dL (0.6-1.0) Estimated GFR (Cockcroft-Gault) 55.1 Glucose Level 354 mg/dL (70-99) Calcium Level 8.2 mg/dL (8.5-10.1) Magnesium Level 1.9 mg/dL (1.8-2.4) Test 03/12/17 07:43 03/12/17 10:23 Glucose (Fingerstick) 274 mg/dL (70-99) 335 mg/dL (70-99) Review of Systems Review of Systems no fever, chills, chest pain Assessment and Plan Assessmemt and Plan Problems Medical Problems: (1) Dyspnea Status: Acute (2) Elevated troponin Status: Acute Problems: Comment Review of Relevant I have reviewed the following items omer (where applicable) has been applied. Labs Laboratory Tests Test 03/11/17 08:45 03/11/17 08:55 03/11/17 10:10 03/11/17 13:26 White Blood Count 9.5 x10^3/uL (4.0-11.0) Red Blood Count 4.13 x10^6/uL (3.50-5.40) Hemoglobin 10.5 g/dL (12.0-15.5) Hematocrit 35.3 % (36.0-47.0) Mean Corpuscular Volume 86 fL (79-100) Mean Corpuscular Hemoglobin 25 pg (25-35) Mean Corpuscular Hemoglobin Concent 30 g/dL (31-37) Red Cell Distribution Width 19.5 % (11.5-14.5) Platelet Count 229 x10^3/uL (140-400) Neutrophils (%) (Auto) 83 % (31-73) Lymphocytes (%) (Auto) 7 % (24-48) Monocytes (%) (Auto) 9 % (0-9) Eosinophils (%) (Auto) 0 % (0-3) Basophils (%) (Auto) 1 % (0-3) Neutrophils # (Auto) 7.9 x10^3uL (1.8-7.7) Lymphocytes # (Auto) 0.7 x10^3/uL (1.0-4.8) Monocytes # (Auto) 0.8 x10^3/uL (0.0-1.1) Eosinophils # (Auto) 0.0 x10^3/uL (0.0-0.7) Basophils # (Auto) 0.1 x10^3/uL (0.0-0.2) Prothrombin Time 15.3 SEC (11.7-14.0) Prothromb Time International Ratio 1.3 (0.8-1.1) Activated Partial Thromboplast Time 29 SEC (24-38) Sodium Level 142 mmol/L (136-145) Potassium Level 4.1 mmol/L (3.5-5.1) Chloride Level 102 mmol/L (98-107) Carbon Dioxide Level 32 mmol/L (21-32) Anion Gap 8 (6-14) Blood Urea Nitrogen 34 mg/dL (7-20) Creatinine 1.3 mg/dL (0.6-1.0) Estimated GFR (Cockcroft-Gault) 50.2 BUN/Creatinine Ratio 26 (6-20) Glucose Level 401 mg/dL (70-99) Lactic Acid Level 1.8 mmol/L (0.4-2.0) Calcium Level 9.8 mg/dL (8.5-10.1) Magnesium Level 1.9 mg/dL (1.8-2.4) Total Bilirubin 0.4 mg/dL (0.2-1.0) Aspartate Amino Transf (AST/SGOT) 19 U/L (15-37) Alanine Aminotransferase (ALT/SGPT) 24 U/L (14-59) Alkaline Phosphatase 90 U/L (46-116) Creatine Kinase 55 U/L (26-192) Creatine Kinase MB (Mass) 1.9 ng/mL (0.0-3.6) Creatine Kinase MB Relative Index % (0-4) Troponin I Quantitative 0.100 ng/mL (0.000-0.055) YS-Neq-C-Type Natriuretic Peptide 3520 pg/mL (0-124) Total Protein 7.1 g/dL (6.4-8.2) Albumin 3.1 g/dL (3.4-5.0) Albumin/Globulin Ratio 0.8 (1.0-1.7) Lipase 151 U/L (73-393) Thyroid Stimulating Hormone (TSH) 6.141 uIU/mL (0.358-3.74) O2 Saturation 97 % (92-99) Arterial Blood pH 7.40 (7.35-7.45) Arterial Blood pCO2 at Patient Temp 47 mmHg (35-46) Arterial Blood pO2 at Patient Temp 113 mmHg (65-108) Arterial Blood HCO3 29 mmol/L (21-28) Arterial Blood Base Excess 3 mmol/L (-3-3) FiO2 28 Urine Collection Type Void Urine Color Yellow Urine Clarity Clear Urine pH 5.5 Urine Specific [place] >=1.030 Urine Protein 100 mg/dL (NEG-TRACE) Urine Glucose (UA) >=1000 mg/dL (NEG) Urine Ketones (Stick) Negative mg/dL (NEG) Urine Blood Negative (NEG) Urine Nitrite Negative (NEG) Urine Bilirubin Negative (NEG) Urine Urobilinogen Dipstick 0.2 mg/dL (0.2 mg/dL) Urine Leukocyte Esterase Negative (NEG) Urine RBC 1-2 /HPF (0-2) Urine WBC 1-4 /HPF (0-4) Urine Squamous Epithelial Cells Few /LPF Urine Bacteria Few /HPF (0-FEW) Urine Mucus Slight /LPF Glucose (Fingerstick) 323 mg/dL (70-99) Test 03/11/17 16:39 03/11/17 18:15 03/11/17 21:07 03/12/17 03:00 Glucose (Fingerstick) 358 mg/dL (70-99) 359 mg/dL (70-99) Troponin I Quantitative 0.072 ng/mL (0.000-0.055) White Blood Count 8.1 x10^3/uL (4.0-11.0) Red Blood Count 3.44 x10^6/uL (3.50-5.40) Hemoglobin 8.8 g/dL (12.0-15.5) Hematocrit 30.1 % (36.0-47.0) Mean Corpuscular Volume 87 fL (79-100) Mean Corpuscular Hemoglobin 26 pg (25-35) Mean Corpuscular Hemoglobin Concent 29 g/dL (31-37) Red Cell Distribution Width 18.8 % (11.5-14.5) Platelet Count 188 x10^3/uL (140-400) Neutrophils (%) (Auto) 82 % (31-73) Lymphocytes (%) (Auto) 8 % (24-48) Monocytes (%) (Auto) 9 % (0-9) Eosinophils (%) (Auto) 1 % (0-3) Basophils (%) (Auto) 0 % (0-3) Neutrophils # (Auto) 6.6 x10^3uL (1.8-7.7) Lymphocytes # (Auto) 0.6 x10^3/uL (1.0-4.8) Monocytes # (Auto) 0.7 x10^3/uL (0.0-1.1) Eosinophils # (Auto) 0.0 x10^3/uL (0.0-0.7) Basophils # (Auto) 0.0 x10^3/uL (0.0-0.2) Sodium Level 142 mmol/L (136-145) Potassium Level 4.1 mmol/L (3.5-5.1) Chloride Level 105 mmol/L (98-107) Carbon Dioxide Level 34 mmol/L (21-32) Anion Gap 3 (6-14) Blood Urea Nitrogen 26 mg/dL (7-20) Creatinine 1.2 mg/dL (0.6-1.0) Estimated GFR (Cockcroft-Gault) 55.1 Glucose Level 354 mg/dL (70-99) Calcium Level 8.2 mg/dL (8.5-10.1) Magnesium Level 1.9 mg/dL (1.8-2.4) Test 03/12/17 07:43 03/12/17 10:23 Glucose (Fingerstick) 274 mg/dL (70-99) 335 mg/dL (70-99) Laboratory Tests Test 03/11/17 16:39 03/11/17 18:15 03/11/17 21:07 03/12/17 03:00 Glucose (Fingerstick) 358 mg/dL (70-99) 359 mg/dL (70-99) Troponin I Quantitative 0.072 ng/mL (0.000-0.055) White Blood Count 8.1 x10^3/uL (4.0-11.0) Red Blood Count 3.44 x10^6/uL (3.50-5.40) Hemoglobin 8.8 g/dL (12.0-15.5) Hematocrit 30.1 % (36.0-47.0) Mean Corpuscular Volume 87 fL (79-100) Mean Corpuscular Hemoglobin 26 pg (25-35) Mean Corpuscular Hemoglobin Concent 29 g/dL (31-37) Red Cell Distribution Width 18.8 % (11.5-14.5) Platelet Count 188 x10^3/uL (140-400) Neutrophils (%) (Auto) 82 % (31-73) Lymphocytes (%) (Auto) 8 % (24-48) Monocytes (%) (Auto) 9 % (0-9) Eosinophils (%) (Auto) 1 % (0-3) Basophils (%) (Auto) 0 % (0-3) Neutrophils # (Auto) 6.6 x10^3uL (1.8-7.7) Lymphocytes # (Auto) 0.6 x10^3/uL (1.0-4.8) Monocytes # (Auto) 0.7 x10^3/uL (0.0-1.1) Eosinophils # (Auto) 0.0 x10^3/uL (0.0-0.7) Basophils # (Auto) 0.0 x10^3/uL (0.0-0.2) Sodium Level 142 mmol/L (136-145) Potassium Level 4.1 mmol/L (3.5-5.1) Chloride Level 105 mmol/L (98-107) Carbon Dioxide Level 34 mmol/L (21-32) Anion Gap 3 (6-14) Blood Urea Nitrogen 26 mg/dL (7-20) Creatinine 1.2 mg/dL (0.6-1.0) Estimated GFR (Cockcroft-Gault) 55.1 Glucose Level 354 mg/dL (70-99) Calcium Level 8.2 mg/dL (8.5-10.1) Magnesium Level 1.9 mg/dL (1.8-2.4) Test 03/12/17 07:43 03/12/17 10:23 Glucose (Fingerstick) 274 mg/dL (70-99) 335 mg/dL (70-99) Medications Current Medications Aspirin ([employer] Aspirin) 325 mg 1X ONCE PO Last administered on 03/11/17 09:01 ; Start 03/11/17 at 08:30; Stop 03/11/17 at 08:31; Status DC Clonidine HCl (Catapres) 0.2 mg 1X ONCE PO Last administered on 03/11/17 11: 55; Start 03/11/17 at 10:15; Stop 03/11/17 at 10:16; Status DC Ondansetron HCl (Zofran) 4 mg PRN Q8HRS PRN IV NAUSEA/VOMITING; Start 03/11/17 at 11:00; Stop 03/11/17 at 18:35; Status DC Morphine Sulfate 2 mg PRN Q2HR PRN IV PAIN Last administered on 03/11/17 17:19 ; Start 03/11/17 at 11:00; Stop 03/11/17 at 18:35; Status DC Nitroglycerin (Nitrostat) 0.4 mg PRN Q5MIN PRN SL CHEST PAIN; Start 03/11/17 at 11:00; Stop 03/11/17 at 18:35; Status DC Labetalol HCl (Normodyne) 10 mg Q6HRS PRN IVP ELEVATED BP, SEE COMMENTS; Start 03/11/17 at 11:00; Stop 03/11/17 at 11:00; Status DC Labetalol HCl (Normodyne) 10 mg PRN Q6HRS PRN IVP ELEVATED BP, SEE COMMENTS; Start 03/11/17 at 11:00 Insulin Human Regular (NovoLIN R VIAL) 8 unit 1X ONCE IV ; Start 03/11/17 at 11 :30; Stop 03/11/17 at 11:31; Status DC Insulin Aspart (NovoLOG) 0-9 UNITS TIDWMEALS SQ Last administered on 03/12/17 12:07; Start 03/11/17 at 17:00 Dextrose (Dextrose 50%-Water Syringe) 12.5 gm PRN Q15MIN PRN IV SEE COMMENTS; Start 03/11/17 at 13:30 Bumetanide (Bumex) 2 mg BID94 IV Last administered on 03/12/17 09:37; Start at 16:00 Isosorbide Mononitrate (Imdur) 30 mg DAILY PO Last administered on 03/12/17 09 :35; Start 03/11/17 at 16:00 Metoprolol Tartrate (Lopressor) 50 mg BID PO Last administered on 03/12/17 09: 36; Start 03/11/17 at 21:00 Labetalol HCl (Normodyne) 20 mg PRN Q2HR PRN IVP HYPERTENSION, SEE COMMENTS; Start 03/11/17 at 15:30 Hydralazine HCl (Apresoline) 10 mg PRN Q4HRS PRN IVP ELEVATED BP, SEE COMMENTS ; Start 03/11/17 at 15:30 Aspirin (Ecotrin) 81 mg DAILYWBKFT PO Last administered on 03/12/17 09:35; Start 03/11/17 at 16:00 Apixaban (Eliquis) 5 mg BID PO Last administered on 03/12/17 09:35; Start at 21:00 Pantoprazole Sodium (Protonix) 40 mg DAILYAC PO Last administered on 03/12/17 09:34; Start 03/11/17 at 16:30 Info (Anti-Coagulation Monitoring By Pharmacy) 1 each PRN DAILY PRN MC SEE COMMENTS; Start 03/11/17 at 16:00 Apixaban (Eliquis) 5 mg BID PO ; Start 03/11/17 at 21:00; Status UNV Ascorbic Acid (Vitamin C) 500 mg BID PO Last administered on 03/12/17 09:34; Start 03/11/17 at 21:00 Furosemide (Lasix) 40 mg DAILY PO ; Start 03/12/17 at 09:00; Status UNV Hydralazine HCl (Apresoline) 10 mg TID PO Last administered on 03/12/17 13:03 ; Start 03/11/17 at 21:00 Acetaminophen/ Hydrocodone Bitart (Lortab 5/325) 1 tab PRN Q6HRS PRN PO PAIN Last administered on 03/12/17 13:02; Start 03/11/17 at 18:30 Insulin Aspart (NovoLOG) 30 units TIDWMEALS SQ Last administered on 03/12/17 12:08; Start 03/11/17 at 19:00 Insulin Detemir (Levemir) 25 units QHS SQ Last administered on 03/11/17 21:37 ; Start 03/11/17 at 21:00; Stop 03/12/17 at 10:34; Status DC Metoprolol Tartrate (Lopressor) 50 mg BID PO ; Start 03/11/17 at 21:00; Status UNV Pantoprazole Sodium (Protonix) 40 mg DAILY PO ; Start 03/12/17 at 09:00; Status UNV Prednisone (Prednisone) 10 mg DAILY PO Last administered on 03/12/17 09:35; Start 03/12/17 at 09:00 Pyridostigmine [place] (Mestinon) 60 mg QID PO Last administered on 03/12/17 13:02; Start 03/11/17 at 21:00 Terbutaline Sulfate (Brethine) 2.5 mg TID PO Last administered on 03/12/17 13: 02; Start 03/11/17 at 21:00 Non-Formulary Medication 2 puff Q4HRS INH ; Start 03/11/17 at 20:00; Status UNV Gabapentin (Neurontin) 300 mg QHS PO Last administered on 03/11/17 21:27; Start 03/11/17 at 21:00 Mycophenolate Mofetil (Cellcept) 1,000 mg DAILY PO Last administered on 09:37; Start 03/12/17 at 09:00 Mycophenolate Mofetil (Cellcept) 1,500 mg QHS PO Last administered on 21:28; Start 03/11/17 at 21:00 Atorvastatin Calcium (Lipitor) 40 mg QHS PO Last administered on 03/11/17 21: 26; Start 03/11/17 at 21:00 Lactobacillus Acidophilus (Bacid, Alyssa-Bid) 1 tab TIDWMEALS PO Last administered on 03/12/17 12:00; Start 03/12/17 at 08:00 Insulin Detemir (Levemir) 40 units DAILYAC SQ Last administered on 03/12/17 09 :53; Start 03/12/17 at 07:30; Stop 03/12/17 at 10:40; Status DC Albuterol Sulfate (Ventolin Neb Soln) 2.5 mg Q4HRS NEB Last administered on 20:14; Start 03/11/17 at 20:00; Stop 03/12/17 at 06:48; Status DC Doxycycline Hyclate (Vibra-Tab) 100 mg BID PO Last administered on 03/12/17 09 :34; Start 03/11/17 at 19:30 Heparin Sodium (Porcine) (Heparin Sq) 5,000 unit Q8HRS SQ Last administered on 03/12/17 13:12; Start 03/11/17 at 22:00 Pantoprazole Sodium (Protonix) 40 mg DAILYAC PO ; Start 03/12/17 at 07:30; Status UNV Albuterol Sulfate (Ventolin Neb Soln) 2.5 mg RTQID NEB Last administered on 11:02; Start 03/12/17 at 07:00 Insulin Detemir (Levemir) 40 units BID SQ ; Start 03/12/17 at 21:00 Active Scripts Active Prednisone 10 Mg Tablet 30 Mg PO DAILY Furosemide 40 Mg Tablet 40 Mg PO DAILY Vitamin C (Ascorbic Acid) 500 Mg Tablet 500 Mg PO BID Reported Terbutaline Sulfate 2.5 Mg Tablet 2.5 Mg PO TID Novolog Flexpen (Insulin Aspart) 100 Unit/1 Ml Insuln.pen 30 Unit SQ TIDWMEALS Cellcept (Mycophenolate Mofetil) 500 Mg Tablet 3 Tab PO HS Cellcept (Mycophenolate Mofetil) 500 Mg Tablet 2 Tab PO DAILY Eliquis (Apixaban) 5 Mg Tablet 5 Mg PO BID Fosamax (Alendronate Sodium) 70 Mg Tablet 1 Tab PO QSU Probiotic (Bacillus Coagulans) 1 Each Capsule.dr 1 Each PO PRN Cellcept (Mycophenolate Mofetil) 500 Mg Tablet 1 Tab PO BID Ventolin Hfa Inhaler (Albuterol Sulfate) 18 Gm Hfa.aer.ad 2 Puff INH Q4HRS Multiple Vitamin (Multivitamin With Minerals) 1 Each Tablet 1 Each PO Rosuvastatin Calcium 10 Mg Tablet 10 Mg PO DAILY Pyridostigmine [place] 60 Mg Tablet 60 Mg PO QID Pantoprazole Sodium 40 Mg Tablet.dr 1 Tab PO DAILY Metoprolol Tartrate 50 Mg Tablet 1 Tab PO BID Levemir Flextouch (Insulin Detemir) 100 Unit/1 Ml Insuln.pen Unit SQ BIDAC 40 units in am, 25 units evening Hydrocodone-Apap 5-325 (Hydrocodone Bit/Acetaminophen) 1 Each Tablet 1 Tab PO PRN Q6HRS PRN Hydralazine Hcl 10 Mg Tablet 1 Tab PO TID Gabapentin 300 Mg Capsule 300 Mg PO QHS Vitals/I & O Vital Sign - Last 24 Hours 03/11/17 03/11/17 03/11/17 03/11/17 15:00 17:13 17:19 18:18 Temp 98.5 98.5 Pulse 68 68 Resp 20 16 B/P (MAP) 153/75 (101) 153/75 Pulse Ox 100 100 100 O2 Delivery Nasal Cannula Nasal Cannula O2 Flow Rate 2.0 2.0 03/11/17 03/11/17 03/11/17 03/11/17 19:35 20:00 20:14 21:27 Temp 98.3 98.3 Pulse 88 68 Resp 16 B/P (MAP) 102/54 (70) 153/75 Pulse Ox 98 99 O2 Delivery Nasal Cannula Nasal Cannula O2 Flow Rate 2.0 3.0 3.0 03/11/17 03/11/17 03/11/17 03/12/17 21:29 21:29 23:40 03:30 Temp 98.7 98.5 98.7 98.5 Pulse 68 68 79 75 Resp 16 18 B/P (MAP) 153/75 153/75 128/58 (81) 146/49 (81) Pulse Ox 97 97 O2 Delivery Nasal Cannula Nasal Cannula O2 Flow Rate 2.0 2.0 03/12/17 03/12/17 03/12/17 03/12/17 07:00 07:22 08:57 09:34 Temp 98.3 98.3 Pulse 73 73 Resp 20 B/P (MAP) 124/44 (70) 124/44 Pulse Ox 96 98 O2 Delivery Nasal Cannula Nasal Cannula O2 Flow Rate 2.0 3.0 3.0 03/12/17 03/12/17 03/12/17 03/12/17 09:35 09:35 09:36 10:59 Temp 98.3 98.3 Pulse 73 73 73 85 Resp 20 B/P (MAP) 124/44 124/44 124/44 120/53 (75) Pulse Ox 93 O2 Delivery Nasal Cannula O2 Flow Rate 2.0 03/12/17 03/12/17 03/12/17 03/12/17 11:03 13:02 13:02 13:03 Pulse 85 85 B/P (MAP) 120/53 120/53 Pulse Ox 93 O2 Delivery Nasal Cannula O2 Flow Rate 2.0 2.0 Intake and Output 03/11/17 03/11/17 03/12/17 14:59 22:59 06:59 Intake Total 0 ml 0 ml Output Total 1000 ml 300 ml Balance -1000 ml -300 ml AMANDEEP ASTORGA MD Mar 12, 2017 13:37
[2017-03-12 14:51] VITALS: BP 126/63
--- NOTE | 2017-03-12 15:44 | PDOC ---
CALVIN ROSLAES [employer] EXAMINER 03/12/17 1544: CARDIO Progress Notes Date and Time Date of Service 03/12/2017 Time of Evaluation 1430 Subjective Subjective: No Chest Pain, No Palpitations, No Dizziness, Other (Still has HERNANDEZ but feels better. ) Vitals Vitals Vital Signs Date Time Temp Pulse Resp B/P (MAP) Pulse Ox O2 Delivery O2 Flow Rate FiO2 03/12/17 15:09 Nasal Cannula 2.0 03/12/17 14:51 98.9 87 20 126/63 (84) 96 98.9 Weight Weight [ ] Input and Output Intake and Output Intake and Output 03/12/17 07:00 Intake Total 0 ml Output Total 1300 ml Balance -1300 ml Intake Oral 0 ml Output Urine Total 1300 ml Laboratory Labs Laboratory Tests Test 03/11/17 16:39 03/11/17 18:15 03/11/17 21:07 03/12/17 03:00 Glucose (Fingerstick) 358 mg/dL (70-99) 359 mg/dL (70-99) Troponin I Quantitative 0.072 ng/mL (0.000-0.055) White Blood Count 8.1 x10^3/uL (4.0-11.0) Red Blood Count 3.44 x10^6/uL (3.50-5.40) Hemoglobin 8.8 g/dL (12.0-15.5) Hematocrit 30.1 % (36.0-47.0) Mean Corpuscular Volume 87 fL (79-100) Mean Corpuscular Hemoglobin 26 pg (25-35) Mean Corpuscular Hemoglobin Concent 29 g/dL (31-37) Red Cell Distribution Width 18.8 % (11.5-14.5) Platelet Count 188 x10^3/uL (140-400) Neutrophils (%) (Auto) 82 % (31-73) Lymphocytes (%) (Auto) 8 % (24-48) Monocytes (%) (Auto) 9 % (0-9) Eosinophils (%) (Auto) 1 % (0-3) Basophils (%) (Auto) 0 % (0-3) Neutrophils # (Auto) 6.6 x10^3uL (1.8-7.7) Lymphocytes # (Auto) 0.6 x10^3/uL (1.0-4.8) Monocytes # (Auto) 0.7 x10^3/uL (0.0-1.1) Eosinophils # (Auto) 0.0 x10^3/uL (0.0-0.7) Basophils # (Auto) 0.0 x10^3/uL (0.0-0.2) Sodium Level 142 mmol/L (136-145) Potassium Level 4.1 mmol/L (3.5-5.1) Chloride Level 105 mmol/L (98-107) Carbon Dioxide Level 34 mmol/L (21-32) Anion Gap 3 (6-14) Blood Urea Nitrogen 26 mg/dL (7-20) Creatinine 1.2 mg/dL (0.6-1.0) Estimated GFR (Cockcroft-Gault) 55.1 Glucose Level 354 mg/dL (70-99) Calcium Level 8.2 mg/dL (8.5-10.1) Magnesium Level 1.9 mg/dL (1.8-2.4) Test 03/12/17 07:43 03/12/17 10:23 Glucose (Fingerstick) 274 mg/dL (70-99) 335 mg/dL (70-99) Physical Exam HEENT: Neck Supple W Full Motion Chest: Symmetric LUNGS: Clear to Auscultation Heart: S1S2, RRR (SR) Abdomen: Soft N/T Extremities: No Calf Tenderness, Other (2+ bilateral LE pitting edema) Neurology: alert, oriented, follow commands Assessment Assessment 1. Acute on chronic diastolic CHF: suspecting contributing ROBERTO 2. Malignant HTN: controlled 3. Elevated troponin: Peaked at 0.1 mg. EKG SR without acute changes. Demand mediated. 4. PAFIB: remains in SR 5. KORY on CKD: improving 6. DM2/HLP; BG remains uncontrolled. 7. Atypical CP: likely GI 8. Hx of myasthenia gravis: on immunosuppressants. 9. Subclinical hypothyroidism: TSH 6s, defer to PCP 10. Anemia: decreased to Hgb 8.8. Defer to PCP Recommendations 1. Continue bumex IV will transition to po bumex once close to goal wt 205. Monitor renal function. 2. TTE with normal wall motion and EF, mild to mod pulmonary HTN. Consider outpt sleep study 3. Continue secondary prevention 4. Eliquis for stroke prevention but will consider holding if Hgb continues to trend down 5. Hemogram this afternoon. . BEATRICE TREJO MD 03/12/17 2208: CARDIO Progress Notes Plan Plan Pt. seen and examined. Agree with above [employer] note. No chest pain. Edema improved. LLE lymphedema. RLE stable. Wound being cared by wound care team. No arterial insuff noted. Plan as above. CALVIN ROSALES APRN Mar 12, 2017 15:44 BEATRICE TREJO MD Mar 12, 2017 22:08
[2017-03-12 16:48] LABS: HEMATOCRIT 33.1 % (36.0-47.0); HEMOGLOBIN 9.8 g/dL (12.0-15.5); RED BLOOD COUNT 3.82 x10^6/uL (3.50-5.40); RED CELL DISTRIBUTION WIDTH 18.7 % (11.5-14.5); WHITE BLOOD COUNT 9.9 x10^3/uL (4.0-11.0)
[2017-03-12 19:20] VITALS: BP 127/54
[2017-03-12] MEDS: INSULIN DETEMIR 300 UNITS/3 ML INSULN.PEN. SQ SCH (21:00)
[2017-03-12] MEDS: GABAPENTIN 300 MG CAPSULE. PO SCH (21:00)
[2017-03-12] MEDS: ATORVASTATIN CALCIUM 40 MG TABLET. PO SCH (21:08)
[2017-03-12 23:35] VITALS: BP 137/55
[2017-03-13 03:05] VITALS: BP 133/53
[2017-03-13 07:00] VITALS: BP 134/60
[2017-03-13 07:42] LABS: BASO % 0 % (0-3); EOS % 0 % (0-3); HEMATOCRIT 33.7 % (36.0-47.0); HEMOGLOBIN 9.8 g/dL (12.0-15.5); LYMPH # 0.6 x10^3/uL (1.0-4.8); LYMPH % 6 % (24-48); MEAN CORPUSCULAR HEMOGLOBIN 25 pg (25-35); MEAN CORPUSCULAR HGB CONC 29 g/dL (31-37); MEAN CORPUSCULAR VOLUME 86 fL (79-100); MONO % 6 % (0-9); NEUT % 87 % (31-73); PLATELET COUNT 221 x10^3/uL (140-400); RED BLOOD COUNT 3.92 x10^6/uL (3.50-5.40); RED CELL DISTRIBUTION WIDTH 18.8 % (11.5-14.5); WHITE BLOOD COUNT 8.9 x10^3/uL (4.0-11.0)
[2017-03-13 07:49] LABS: CALCIUM 8.6 mg/dL (8.5-10.1); POTASSIUM 3.8 mmol/L (3.5-5.1)
[2017-03-13] MEDS: ALBUTEROL SULFATE 2.5 MG/3 ML NEBU. NEB SCH ×4 (08:25→19:45)
[2017-03-13] MEDS: PYRIDOSTIGMINE BROMIDE 60 MG TABLET PO SCH ×4 (09:01→20:51)
[2017-03-13] MEDS: BUMETANIDE 1 MG/4 ML VIAL. IV SCH ×2 (09:02→17:23)
[2017-03-13] MEDS: PANTOPRAZOLE 40 MG TABLET.DR. PO SCH (09:02)
[2017-03-13] MEDS: HYDROcodone/APAP 5/325MG 1 TAB TABLET PO PRN ×2 (09:02→20:50)
[2017-03-13] MEDS: predniSONE 10 MG TABLET PO SCH (09:02)
[2017-03-13] MEDS: METOPROLOL TART IMMED RELEASE 50 MG TABLET. PO SCH ×2 (09:03→20:50)
[2017-03-13] MEDS: ISOSORBIDE MONONITRATE ER 30 MG TAB.ER.24H PO SCH (09:03)
[2017-03-13] MEDS: ASCORBIC ACID 500 MG TABLET PO SCH ×2 (09:03→20:50)
[2017-03-13] MEDS: hydrALAZINE 10 MG TABLET PO SCH ×3 (09:04→20:51)
[2017-03-13] MEDS: LACTOBACILLUS ACIDOPH & BULGAR 1 TABLET. PO SCH ×3 (09:04→17:22)
[2017-03-13] MEDS: TERBUTALINE 2.5 MG PO SCH ×3 (09:04→20:51)
[2017-03-13] MEDS: APIXABAN 5 MG TABLET. PO SCH ×2 (09:04→20:51)
[2017-03-13] MEDS: INSULIN ASPART 300 UNITS/3 ML INSULN.PEN SQ SCH ×6 (09:10→17:00)
[2017-03-13] MEDS: INSULIN DETEMIR 300 UNITS/3 ML INSULN.PEN. SQ SCH ×3 (09:13→21:19)
[2017-03-13] MEDS: ASPIRIN ENTERIC COATED 81 MG TABLET.DR. PO SCH (09:32)
[2017-03-13] MEDS: MYCOPHENOLATE MOFETIL 250 MG CAPSULE. PO SCH ×2 (09:33→20:50)
[2017-03-13 11:00] VITALS: BP 120/61
--- NOTE | 2017-03-13 11:34 | PDOC ---
PROGRESS NOTES Chief Complaint Chief Complaint bl leg edema 2/2 chronic lymphedema and venous insufficiency likely Chronic CHF with diastolic dysfunction Elevated troponin with chf hx PAFIB on eliquis, sinus now Restrictive lung disease/ROBERTO hx CAD; CABG in 2000 HTN HLP Hx of CVA/TIA DM2 with retinopathy Hx of myasthenia gravis: intermittent plasmapheresis last treatment 03/2016. Hx of IgA monoclonal gammopathy leg wound, chronically CKD3 atypical chest pain, gi possibly Allergy to IV dye. morbid obesity h/o diaphram paralyse History of Present Illness History of Present Illness DOing good, no inc in SOA LEgs still swollen but not worse Advised to keep legs up LYtes ok, creat 1,.0, K normal PLAN: COnt bumex MOnitor lytes while on diuresis PT/OT Keep legs elevated Add OT for lymphedema Vitals Vitals Vital Signs Date Time Temp Pulse Resp B/P (MAP) Pulse Ox O2 Delivery O2 Flow Rate FiO2 03/13/17 09:04 90 134/60 03/13/17 09:02 18 98 2.0 03/13/17 08:26 Nasal Cannula 03/13/17 07:00 98.5 98.5 Physical Exam General: Alert, Oriented X3, Cooperative, mild distress Heart: Regular rate (SR), Normal S1, Normal S2, Other (4/6 ssytolic murmur to NORMA border) Lungs: Clear, Other Abdomen: Normal bowel sounds Extremities: No cyanosis, Other (2+ bilateral LE pitting edema) Skin: Other (RLE venous stasis ulcer to posterior calf) Labs LABS Laboratory Tests Test 03/12/17 16:26 03/12/17 16:40 03/12/17 20:41 03/13/17 07:15 Glucose (Fingerstick) 68 mg/dL (70-99) 182 mg/dL (70-99) White Blood Count 9.9 x10^3/uL (4.0-11.0) 8.9 x10^3/uL (4.0-11.0) Red Blood Count 3.82 x10^6/uL (3.50-5.40) 3.92 x10^6/uL (3.50-5.40) Hemoglobin 9.8 g/dL (12.0-15.5) 9.8 g/dL (12.0-15.5) Hematocrit 33.1 % (36.0-47.0) 33.7 % (36.0-47.0) Mean Corpuscular Volume 87 fL (79-100) 86 fL (79-100) Mean Corpuscular Hemoglobin 26 pg (25-35) 25 pg (25-35) Mean Corpuscular Hemoglobin Concent 30 g/dL (31-37) 29 g/dL (31-37) Red Cell Distribution Width 18.7 % (11.5-14.5) 18.8 % (11.5-14.5) Platelet Count 215 x10^3/uL (140-400) 221 x10^3/uL (140-400) Neutrophils (%) (Auto) 87 % (31-73) Lymphocytes (%) (Auto) 6 % (24-48) Monocytes (%) (Auto) 6 % (0-9) Eosinophils (%) (Auto) 0 % (0-3) Basophils (%) (Auto) 0 % (0-3) Neutrophils # (Auto) 7.8 x10^3uL (1.8-7.7) Lymphocytes # (Auto) 0.6 x10^3/uL (1.0-4.8) Monocytes # (Auto) 0.5 x10^3/uL (0.0-1.1) Eosinophils # (Auto) 0.0 x10^3/uL (0.0-0.7) Basophils # (Auto) 0.0 x10^3/uL (0.0-0.2) Sodium Level 145 mmol/L (136-145) Potassium Level 3.8 mmol/L (3.5-5.1) Chloride Level 104 mmol/L (98-107) Carbon Dioxide Level 35 mmol/L (21-32) Anion Gap 6 (6-14) Blood Urea Nitrogen 23 mg/dL (7-20) Creatinine 1.0 mg/dL (0.6-1.0) Estimated GFR (Cockcroft-Gault) 68.0 Glucose Level 214 mg/dL (70-99) Calcium Level 8.6 mg/dL (8.5-10.1) Test 03/13/17 08:14 Glucose (Fingerstick) 215 mg/dL (70-99) Review of Systems Review of Systems swollen legs, all else is neg Assessment and Plan Assessmemt and Plan Problems Medical Problems: (1) Dyspnea Status: Acute (2) Elevated troponin Status: Acute Problems: Comment Review of Relevant I have reviewed the following items omer (where applicable) has been applied. Labs Laboratory Tests Test 03/11/17 13:26 03/11/17 16:39 03/11/17 18:15 03/11/17 21:07 Glucose (Fingerstick) 323 mg/dL (70-99) 358 mg/dL (70-99) 359 mg/dL (70-99) Troponin I Quantitative 0.072 ng/mL (0.000-0.055) Test 03/12/17 03:00 03/12/17 07:43 03/12/17 10:23 03/12/17 16:26 White Blood Count 8.1 x10^3/uL (4.0-11.0) Red Blood Count 3.44 x10^6/uL (3.50-5.40) Hemoglobin 8.8 g/dL (12.0-15.5) Hematocrit 30.1 % (36.0-47.0) Mean Corpuscular Volume 87 fL (79-100) Mean Corpuscular Hemoglobin 26 pg (25-35) Mean Corpuscular Hemoglobin Concent 29 g/dL (31-37) Red Cell Distribution Width 18.8 % (11.5-14.5) Platelet Count 188 x10^3/uL (140-400) Neutrophils (%) (Auto) 82 % (31-73) Lymphocytes (%) (Auto) 8 % (24-48) Monocytes (%) (Auto) 9 % (0-9) Eosinophils (%) (Auto) 1 % (0-3) Basophils (%) (Auto) 0 % (0-3) Neutrophils # (Auto) 6.6 x10^3uL (1.8-7.7) Lymphocytes # (Auto) 0.6 x10^3/uL (1.0-4.8) Monocytes # (Auto) 0.7 x10^3/uL (0.0-1.1) Eosinophils # (Auto) 0.0 x10^3/uL (0.0-0.7) Basophils # (Auto) 0.0 x10^3/uL (0.0-0.2) Sodium Level 142 mmol/L (136-145) Potassium Level 4.1 mmol/L (3.5-5.1) Chloride Level 105 mmol/L (98-107) Carbon Dioxide Level 34 mmol/L (21-32) Anion Gap 3 (6-14) Blood Urea Nitrogen 26 mg/dL (7-20) Creatinine 1.2 mg/dL (0.6-1.0) Estimated GFR (Cockcroft-Gault) 55.1 Glucose Level 354 mg/dL (70-99) Calcium Level 8.2 mg/dL (8.5-10.1) Magnesium Level 1.9 mg/dL (1.8-2.4) Glucose (Fingerstick) 274 mg/dL (70-99) 335 mg/dL (70-99) 68 mg/dL (70-99) Test 03/12/17 16:40 03/12/17 20:41 03/13/17 07:15 03/13/17 08:14 White Blood Count 9.9 x10^3/uL (4.0-11.0) 8.9 x10^3/uL (4.0-11.0) Red Blood Count 3.82 x10^6/uL (3.50-5.40) 3.92 x10^6/uL (3.50-5.40) Hemoglobin 9.8 g/dL (12.0-15.5) 9.8 g/dL (12.0-15.5) Hematocrit 33.1 % (36.0-47.0) 33.7 % (36.0-47.0) Mean Corpuscular Volume 87 fL (79-100) 86 fL (79-100) Mean Corpuscular Hemoglobin 26 pg (25-35) 25 pg (25-35) Mean Corpuscular Hemoglobin Concent 30 g/dL (31-37) 29 g/dL (31-37) Red Cell Distribution Width 18.7 % (11.5-14.5) 18.8 % (11.5-14.5) Platelet Count 215 x10^3/uL (140-400) 221 x10^3/uL (140-400) Glucose (Fingerstick) 182 mg/dL (70-99) 215 mg/dL (70-99) Neutrophils (%) (Auto) 87 % (31-73) Lymphocytes (%) (Auto) 6 % (24-48) Monocytes (%) (Auto) 6 % (0-9) Eosinophils (%) (Auto) 0 % (0-3) Basophils (%) (Auto) 0 % (0-3) Neutrophils # (Auto) 7.8 x10^3uL (1.8-7.7) Lymphocytes # (Auto) 0.6 x10^3/uL (1.0-4.8) Monocytes # (Auto) 0.5 x10^3/uL (0.0-1.1) Eosinophils # (Auto) 0.0 x10^3/uL (0.0-0.7) Basophils # (Auto) 0.0 x10^3/uL (0.0-0.2) Sodium Level 145 mmol/L (136-145) Potassium Level 3.8 mmol/L (3.5-5.1) Chloride Level 104 mmol/L (98-107) Carbon Dioxide Level 35 mmol/L (21-32) Anion Gap 6 (6-14) Blood Urea Nitrogen 23 mg/dL (7-20) Creatinine 1.0 mg/dL (0.6-1.0) Estimated GFR (Cockcroft-Gault) 68.0 Glucose Level 214 mg/dL (70-99) Calcium Level 8.6 mg/dL (8.5-10.1) Laboratory Tests Test 03/12/17 16:26 03/12/17 16:40 03/12/17 20:41 03/13/17 07:15 Glucose (Fingerstick) 68 mg/dL (70-99) 182 mg/dL (70-99) White Blood Count 9.9 x10^3/uL (4.0-11.0) 8.9 x10^3/uL (4.0-11.0) Red Blood Count 3.82 x10^6/uL (3.50-5.40) 3.92 x10^6/uL (3.50-5.40) Hemoglobin 9.8 g/dL (12.0-15.5) 9.8 g/dL (12.0-15.5) Hematocrit 33.1 % (36.0-47.0) 33.7 % (36.0-47.0) Mean Corpuscular Volume 87 fL (79-100) 86 fL (79-100) Mean Corpuscular Hemoglobin 26 pg (25-35) 25 pg (25-35) Mean Corpuscular Hemoglobin Concent 30 g/dL (31-37) 29 g/dL (31-37) Red Cell Distribution Width 18.7 % (11.5-14.5) 18.8 % (11.5-14.5) Platelet Count 215 x10^3/uL (140-400) 221 x10^3/uL (140-400) Neutrophils (%) (Auto) 87 % (31-73) Lymphocytes (%) (Auto) 6 % (24-48) Monocytes (%) (Auto) 6 % (0-9) Eosinophils (%) (Auto) 0 % (0-3) Basophils (%) (Auto) 0 % (0-3) Neutrophils # (Auto) 7.8 x10^3uL (1.8-7.7) Lymphocytes # (Auto) 0.6 x10^3/uL (1.0-4.8) Monocytes # (Auto) 0.5 x10^3/uL (0.0-1.1) Eosinophils # (Auto) 0.0 x10^3/uL (0.0-0.7) Basophils # (Auto) 0.0 x10^3/uL (0.0-0.2) Sodium Level 145 mmol/L (136-145) Potassium Level 3.8 mmol/L (3.5-5.1) Chloride Level 104 mmol/L (98-107) Carbon Dioxide Level 35 mmol/L (21-32) Anion Gap 6 (6-14) Blood Urea Nitrogen 23 mg/dL (7-20) Creatinine 1.0 mg/dL (0.6-1.0) Estimated GFR (Cockcroft-Gault) 68.0 Glucose Level 214 mg/dL (70-99) Calcium Level 8.6 mg/dL (8.5-10.1) Test 03/13/17 08:14 Glucose (Fingerstick) 215 mg/dL (70-99) Medications Current Medications Aspirin (Liza Aspirin) 325 mg 1X ONCE PO Last administered on 03/11/17t 09:01 ; Start 03/11/17 at 08:30; Stop 03/11/17 at 08:31; Status DC Clonidine HCl (Catapres) 0.2 mg 1X ONCE PO Last administered on 03/11/17 11: 55; Start 03/11/17 at 10:15; Stop 03/11/17 at 10:16; Status DC Ondansetron HCl (Zofran) 4 mg PRN Q8HRS PRN IV NAUSEA/VOMITING; Start 03/11/17 at 11:00; Stop 03/11/17 at 18:35; Status DC Morphine Sulfate 2 mg PRN Q2HR PRN IV PAIN Last administered on 03/11/17 17:19 ; Start 03/11/17 at 11:00; Stop 03/11/17 at 18:35; Status DC Nitroglycerin (Nitrostat) 0.4 mg PRN Q5MIN PRN SL CHEST PAIN; Start 03/11/17 at 11:00; Stop 03/11/17 at 18:35; Status DC Labetalol HCl (Normodyne) 10 mg Q6HRS PRN IVP ELEVATED BP, SEE COMMENTS; Start 03/11/17 at 11:00; Stop 03/11/17 at 11:00; Status DC Labetalol HCl (Normodyne) 10 mg PRN Q6HRS PRN IVP ELEVATED BP, SEE COMMENTS; Start 03/11/17 at 11:00 Insulin Human Regular (NovoLIN R VIAL) 8 unit 1X ONCE IV ; Start 03/11/17 at 11 :30; Stop 03/11/17 at 11:31; Status DC Insulin Aspart (NovoLOG) 0-9 UNITS TIDWMEALS SQ Last administered on 03/13/17 09:14; Start 03/11/17 at 17:00 Dextrose (Dextrose 50%-Water Syringe) 12.5 gm PRN Q15MIN PRN IV SEE COMMENTS; Start 03/11/17 at 13:30 Bumetanide (Bumex) 2 mg [id number] IV Last administered on 03/13/17 09:02; Start at 16:00 Isosorbide Mononitrate (Imdur) 30 mg DAILY PO Last administered on 03/13/17 09 :03; Start 03/11/17 at 16:00 Metoprolol Tartrate (Lopressor) 50 mg BID PO Last administered on 03/13/17 09: 03; Start 03/11/17 at 21:00 Labetalol HCl (Normodyne) 20 mg PRN Q2HR PRN IVP HYPERTENSION, SEE COMMENTS; Start 03/11/17 at 15:30; Stop 03/12/17 at 13:36; Status DC Hydralazine HCl (Apresoline) 10 mg PRN Q4HRS PRN IVP ELEVATED BP, SEE COMMENTS ; Start 03/11/17 at 15:30 Aspirin (Ecotrin) 81 mg [id number] PO Last administered on 03/13/17 09:32; Start 03/11/17 at 16:00 Apixaban (Eliquis) 5 mg BID PO Last administered on 03/13/17 09:04; Start at 21:00 Pantoprazole Sodium (Protonix) 40 mg DAILYAC PO Last administered on 03/13/17 09:02; Start 03/11/17 at 16:30 Info (Anti-Coagulation Monitoring By Pharmacy) 1 each PRN DAILY PRN MC SEE COMMENTS; Start 03/11/17 at 16:00 Apixaban (Eliquis) 5 mg BID PO ; Start 03/11/17 at 21:00; Status UNV Ascorbic Acid (Vitamin C) 500 mg BID PO Last administered on 03/13/17 09:03; Start 03/11/17 at 21:00 Furosemide (Lasix) 40 mg DAILY PO ; Start 03/12/17 at 09:00; Status UNV Hydralazine HCl (Apresoline) 10 mg TID PO Last administered on 03/13/17 09:04 ; Start 03/11/17 at 21:00 Acetaminophen/ Hydrocodone Bitart (Lortab 5/325) 1 tab PRN Q6HRS PRN PO PAIN Last administered on 03/13/17 09:02; Start 03/11/17 at 18:30 Insulin Aspart (NovoLOG) 30 units TIDWMEALS SQ Last administered on 03/13/17 09:10; Start 03/11/17 at 19:00 Insulin Detemir (Levemir) 25 units QHS SQ Last administered on 03/11/17 21:37 ; Start 03/11/17 at 21:00; Stop 03/12/17 at 10:34; Status DC Metoprolol Tartrate (Lopressor) 50 mg BID PO ; Start 03/11/17 at 21:00; Status UNV Pantoprazole Sodium (Protonix) 40 mg DAILY PO ; Start 03/12/17 at 09:00; Status UNV Prednisone (Prednisone) 10 mg DAILY PO Last administered on 03/13/17 09:02; Start 03/12/17 at 09:00 Pyridostigmine Webb (Mestinon) 60 mg QID PO Last administered on 03/13/17 09:01; Start 03/11/17 at 21:00 Terbutaline Sulfate (Brethine) 2.5 mg TID PO Last administered on 03/13/17 09: 04; Start 03/11/17 at 21:00 Non-Formulary Medication 2 puff Q4HRS INH ; Start 03/11/17 at 20:00; Status UNV Gabapentin (Neurontin) 300 mg QHS PO Last administered on 03/11/17 21:27; Start 03/11/17 at 21:00 Mycophenolate Mofetil (Cellcept) 1,000 mg DAILY PO Last administered on 09:33; Start 03/12/17 at 09:00 Mycophenolate Mofetil (Cellcept) 1,500 mg QHS PO Last administered on 21:08; Start 03/11/17 at 21:00 Atorvastatin Calcium (Lipitor) 40 mg QHS PO Last administered on 03/12/17 21: 08; Start 03/11/17 at 21:00 Lactobacillus Acidophilus (Bacid, Alyssa-Bid) 1 tab TIDWMEALS PO Last administered on 03/13/17 09:04; Start 03/12/17 at 08:00 Insulin Detemir (Levemir) 40 units DAILYAC SQ Last administered on 03/12/17 09 :53; Start 03/12/17 at 07:30; Stop 03/12/17 at 10:40; Status DC Albuterol Sulfate (Ventolin Neb Soln) 2.5 mg Q4HRS NEB Last administered on 20:14; Start 03/11/17 at 20:00; Stop 03/12/17 at 06:48; Status DC Doxycycline Hyclate (Vibra-Tab) 100 mg BID PO Last administered on 03/12/17 09 :34; Start 03/11/17 at 19:30; Stop 03/12/17 at 13:30; Status DC Heparin Sodium (Porcine) (Heparin Sq) 5,000 unit Q8HRS SQ Last administered on 03/12/17 13:12; Start 03/11/17 at 22:00; Stop 03/12/17 at 13:36; Status DC Pantoprazole Sodium (Protonix) 40 mg DAILYAC PO ; Start 03/12/17 at 07:30; Status UNV Albuterol Sulfate (Ventolin Neb Soln) 2.5 mg RTQID NEB Last administered on 08:25; Start 03/12/17 at 07:00 Insulin Detemir (Levemir) 40 units BID SQ Last administered on 03/13/17 09:13 ; Start 03/12/17 at 21:00 Active Scripts Active Prednisone 10 Mg Tablet 30 Mg PO DAILY Furosemide 40 Mg Tablet 40 Mg PO DAILY Vitamin C (Ascorbic Acid) 500 Mg Tablet 500 Mg PO BID Reported Terbutaline Sulfate 2.5 Mg Tablet 2.5 Mg PO TID Novolog Flexpen (Insulin Aspart) 100 Unit/1 Ml Insuln.pen 30 Unit SQ TIDWMEALS Cellcept (Mycophenolate Mofetil) 500 Mg Tablet 3 Tab PO HS Cellcept (Mycophenolate Mofetil) 500 Mg Tablet 2 Tab PO DAILY Eliquis (Apixaban) 5 Mg Tablet 5 Mg PO BID Fosamax (Alendronate Sodium) 70 Mg Tablet 1 Tab PO QSU Probiotic (Bacillus Coagulans) 1 Each Capsule.dr 1 Each PO PRN Cellcept (Mycophenolate Mofetil) 500 Mg Tablet 1 Tab PO BID Ventolin Hfa Inhaler (Albuterol Sulfate) 18 Gm Hfa.aer.ad 2 Puff INH Q4HRS Multiple Vitamin (Multivitamin With Minerals) 1 Each Tablet 1 Each PO Rosuvastatin Calcium 10 Mg Tablet 10 Mg PO DAILY Pyridostigmine Webb 60 Mg Tablet 60 Mg PO QID Pantoprazole Sodium 40 Mg Tablet. 1 Tab PO DAILY Metoprolol Tartrate 50 Mg Tablet 1 Tab PO BID Levemir Flextouch (Insulin Detemir) 100 Unit/1 Ml Insuln.pen Unit SQ BIDAC 40 units in am, 25 units evening Hydrocodone-Apap 5-325 (Hydrocodone Bit/Acetaminophen) 1 Each Tablet 1 Tab PO PRN Q6HRS PRN Hydralazine Hcl 10 Mg Tablet 1 Tab PO TID Gabapentin 300 Mg Capsule 300 Mg PO QHS Vitals/I & O Vital Sign - Last 24 Hours 03/12/17 03/12/17 03/12/17 03/12/17 13:02 13:02 13:03 14:17 Pulse 85 85 B/P (MAP) 120/53 120/53 Pulse Ox 93 93 O2 Flow Rate 2.0 2.0 03/12/17 03/12/17 03/12/17 03/12/17 14:51 15:09 19:20 19:32 Temp 98.9 97.9 98.9 97.9 Pulse 87 85 Resp 20 18 B/P (MAP) 126/63 (84) 127/54 (78) Pulse Ox 96 97 98 O2 Delivery Nasal Cannula Nasal Cannula Nasal Cannula Nasal Cannula O2 Flow Rate 2.0 2.0 2.0 2.0 03/12/17 03/12/17 03/12/17 03/12/17 20:00 21:08 21:08 21:09 Pulse 85 85 85 B/P (MAP) 127/54 127/54 127/54 O2 Flow Rate 2.0 03/12/17 03/12/17 03/13/17 03/13/17 23:00 23:35 03:05 07:00 Temp 98.5 98.4 98.5 98.5 98.4 98.5 Pulse 84 77 76 85 Resp 18 18 22 B/P (MAP) 137/55 (82) 133/53 (79) 134/60 (84) Pulse Ox 98 96 93 O2 Delivery Nasal Cannula Nasal Cannula Room Air O2 Flow Rate 2.0 2.0 03/13/17 03/13/17 03/13/17 03/13/17 08:00 08:26 09:02 09:03 Pulse 85 Resp 18 B/P (MAP) 134/60 Pulse Ox 98 98 O2 Delivery Nasal Cannula Nasal Cannula O2 Flow Rate 2.0 2.0 2.0 03/13/17 03/13/17 03/13/17 09:03 09:04 09:04 Pulse 90 85 90 B/P (MAP) 134/60 134/60 134/60 Intake and Output 03/12/17 03/12/17 03/13/17 15:00 23:00 07:00 Intake Total 360 ml 420 ml 300 ml Output Total 600 ml Balance 360 ml 420 ml -300 ml ZENAIDA ROMERO MD Mar 13, 2017 11:34
[2017-03-13] MEDS: ANTI-COAG MONITOR BY PHARMACY. MC PRN (13:10)
[2017-03-13 13:50] LABS: ANISOCYTOSIS SLIGHT; PLT ESTIMATE ADEQUATE (ADEQUATE)
[2017-03-13 13:51] LABS: HYPOCHROMIA SLIGHT
--- NOTE | 2017-03-13 15:06 | PDOC ---
CALVIN ROSALES [employer] 03/13/17 1506: CARDIO Progress Notes Date and Time Date of Service 03/13/2017 Time of Evaluation 1450 Subjective Subjective: No Chest Pain, No Palpitations, No Dizziness, Other (Still has HERNANDEZ but feels better. ) Vitals Vitals Vital Signs Date Time Temp Pulse Resp B/P (MAP) Pulse Ox O2 Delivery O2 Flow Rate FiO2 03/13/17 14:25 82 120/61 03/13/17 11:55 Nasal Cannula 2.0 03/13/17 11:00 98.9 20 99 98.9 Weight Weight [ ] Input and Output Intake and Output Intake and Output 03/13/17 07:00 Intake Total 1080 ml Output Total 1200 ml Balance -120 ml Intake Oral 1080 ml Output Urine Total 1200 ml # Voids 2 # Bowel Movements 1 Laboratory Labs Laboratory Tests Test 03/12/17 16:26 03/12/17 16:40 03/12/17 20:41 03/13/17 07:15 Glucose (Fingerstick) 68 mg/dL (70-99) 182 mg/dL (70-99) White Blood Count 9.9 x10^3/uL (4.0-11.0) 8.9 x10^3/uL (4.0-11.0) Red Blood Count 3.82 x10^6/uL (3.50-5.40) 3.92 x10^6/uL (3.50-5.40) Hemoglobin 9.8 g/dL (12.0-15.5) 9.8 g/dL (12.0-15.5) Hematocrit 33.1 % (36.0-47.0) 33.7 % (36.0-47.0) Mean Corpuscular Volume 87 fL (79-100) 86 fL (79-100) Mean Corpuscular Hemoglobin 26 pg (25-35) 25 pg (25-35) Mean Corpuscular Hemoglobin Concent 30 g/dL (31-37) 29 g/dL (31-37) Red Cell Distribution Width 18.7 % (11.5-14.5) 18.8 % (11.5-14.5) Platelet Count 215 x10^3/uL (140-400) 221 x10^3/uL (140-400) Neutrophils (%) (Auto) 87 % (31-73) Lymphocytes (%) (Auto) 6 % (24-48) Monocytes (%) (Auto) 6 % (0-9) Eosinophils (%) (Auto) 0 % (0-3) Basophils (%) (Auto) 0 % (0-3) Neutrophils # (Auto) 7.8 x10^3uL (1.8-7.7) Lymphocytes # (Auto) 0.6 x10^3/uL (1.0-4.8) Monocytes # (Auto) 0.5 x10^3/uL (0.0-1.1) Eosinophils # (Auto) 0.0 x10^3/uL (0.0-0.7) Basophils # (Auto) 0.0 x10^3/uL (0.0-0.2) Segmented Neutrophils % 93 % (35-66) Lymphocytes % 4 % (24-48) Monocytes % 3 % (0-10) Platelet Estimate Adequate (ADEQUATE) Hypochromasia Slight Anisocytosis Slight Sodium Level 145 mmol/L (136-145) Potassium Level 3.8 mmol/L (3.5-5.1) Chloride Level 104 mmol/L (98-107) Carbon Dioxide Level 35 mmol/L (21-32) Anion Gap 6 (6-14) Blood Urea Nitrogen 23 mg/dL (7-20) Creatinine 1.0 mg/dL (0.6-1.0) Estimated GFR (Cockcroft-Gault) 68.0 Glucose Level 214 mg/dL (70-99) Calcium Level 8.6 mg/dL (8.5-10.1) Test 03/13/17 08:14 03/13/17 11:56 Glucose (Fingerstick) 215 mg/dL (70-99) 134 mg/dL (70-99) Physical Exam HEENT: Neck Supple W Full Motion Chest: Symmetric LUNGS: Clear to Auscultation Heart: S1S2, RRR (SR) Abdomen: Soft N/T Extremities: No Calf Tenderness, Other (2+ bilateral LE pitting edema) Neurology: alert, oriented, follow commands Assessment Assessment 1. Acute on chronic diastolic CHF: suspecting contributing ROBERTO 2. Malignant HTN: controlled 3. PAFIB: remains in SR 4. KORY on CKD: resolved 5. DM2/HLP; BG better 6. Atypical CP: likely GI 7. Hx of myasthenia gravis: on immunosuppressants. 8. Subclinical hypothyroidism: TSH 6s, defer to PCP 9. Anemia of chronic disease 10. 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 Contributing to HERNANDEZ? Recommendations 1. Continue bumex IV will transition to po bumex once close to goal wt 205. Wt 212 despite diurese, likely inaccurate UOP. Discuss with staff to use chair scale. Monitor renal function. 2. Consider outpt sleep study. Consider pulmonary consult. 3. Continue current regimen 4. Eliquis for stroke prevention . BEATRICE TREJO MD 03/13/17 9075: CARDIO Progress Notes Plan Plan Pt. seen and examined. LE edema is stable. She has chronic LLE lymphedema. OT eval pending Denies any chest pain. Fatigued. No palpitations Weight is increasing despite diuresis. Monitor renal function closely. She has an overall poor prognosis. CALVIN ROSALES APRN Mar 13, 2017 15:06 BEATRICE TREJO MD Mar 13, 2017 22:45
--- NOTE | 2017-03-13 15:31 | RAD ---
Chest, 2 views, 03/13/2017: History: Shortness of breath Comparison is made to a study from 03/11/2017. The patient is rotated to the left. There is a vascular stent projected over the right subclavian region. There is a suggestion of an additional stent projected over the left innominate vein region. There has been a previous median sternotomy. The heart is enlarged. There are mild streaky basilar parenchymal opacities compatible with atelectasis and/or scarring. No pleural fluid is seen. There are moderate scattered degenerative changes in the spine. IMPRESSION: Mild streaky bibasilar atelectasis and/or scarring.
[2017-03-13 17:23] VITALS: BP 150/70
[2017-03-13 19:30] VITALS: BP 129/49
[2017-03-13] MEDS: ATORVASTATIN CALCIUM 40 MG TABLET. PO SCH (20:50)
[2017-03-13] MEDS: GABAPENTIN 300 MG CAPSULE. PO SCH (20:51)
[2017-03-13 23:25] VITALS: BP 172/56
[2017-03-14 03:25] VITALS: BP 147/66
[2017-03-14] MEDS: HYDROcodone/APAP 5/325MG 1 TAB TABLET PO PRN ×3 (03:48→19:47)
[2017-03-14 07:15] VITALS: BP 139/74
[2017-03-14] MEDS: ALBUTEROL SULFATE 2.5 MG/3 ML NEBU. NEB SCH ×2 (07:38→13:26)
[2017-03-14] MEDS: MYCOPHENOLATE MOFETIL 250 MG CAPSULE. PO SCH ×2 (08:58→21:15)
[2017-03-14] MEDS: APIXABAN 5 MG TABLET. PO SCH ×2 (08:58→21:15)
[2017-03-14] MEDS: ISOSORBIDE MONONITRATE ER 30 MG TAB.ER.24H PO SCH (08:58)
[2017-03-14] MEDS: PANTOPRAZOLE 40 MG TABLET.DR. PO SCH (08:59)
[2017-03-14] MEDS: LACTOBACILLUS ACIDOPH & BULGAR 1 TABLET. PO SCH ×3 (08:59→17:37)
[2017-03-14] MEDS: ASCORBIC ACID 500 MG TABLET PO SCH ×2 (08:59→21:15)
[2017-03-14] MEDS: TERBUTALINE 2.5 MG PO SCH ×3 (08:59→21:16)
[2017-03-14] MEDS: PYRIDOSTIGMINE BROMIDE 60 MG TABLET PO SCH ×4 (08:59→21:27)
[2017-03-14] MEDS: ASPIRIN ENTERIC COATED 81 MG TABLET.DR. PO SCH (09:00)
[2017-03-14] MEDS: predniSONE 10 MG TABLET PO SCH (09:00)
[2017-03-14] MEDS: METOPROLOL TART IMMED RELEASE 50 MG TABLET. PO SCH ×2 (09:00→21:16)
[2017-03-14] MEDS: hydrALAZINE 10 MG TABLET PO SCH ×3 (09:00→21:17)
[2017-03-14] MEDS: INSULIN ASPART 300 UNITS/3 ML INSULN.PEN SQ SCH ×6 (09:07→17:38)
[2017-03-14] MEDS: INSULIN DETEMIR 300 UNITS/3 ML INSULN.PEN. SQ SCH ×2 (09:08→21:00)
[2017-03-14] MEDS: BUMETANIDE 1 MG/4 ML VIAL. IV SCH (10:41)
[2017-03-14] MEDS: ANTI-COAG MONITOR BY PHARMACY. MC PRN (10:45)
[2017-03-14 11:03] VITALS: BP 122/54
--- NOTE | 2017-03-14 11:46 | PDOC ---
PROGRESS NOTES Chief Complaint Chief Complaint bl leg edema 2/2 chronic lymphedema and venous insufficiency likely Chronic CHF with diastolic dysfunction Elevated troponin with chf hx PAFIB on eliquis, sinus now Restrictive lung disease/ROBERTO hx CAD; CABG in 2000 HTN HLP Hx of CVA/TIA DM2 with retinopathy and hYPOGLYCEMIA Hx of myasthenia gravis: intermittent plasmapheresis last treatment 03/2016. Hx of IgA monoclonal gammopathy leg wound, chronically CKD3 atypical chest pain, gi possibly Allergy to IV dye. morbid obesity h/o diaphram paralyse History of Present Illness History of Present Illness DOing good, no inc in SOA LEgs still swollen but not worse Advised to keep legs up LYtes ok, creat 1,.0, K normal On bumex 2 mgs IV BID UO good HYpoglycemic in the afternoons, twice now - for 2 consecutive days PLAN: COnt bumex Goal weight is 205 lbs then will shift to PO bumex per cards plans MOnitor lytes while on diuresis Dec levemir to 30 qdaily Keep levemir 40 qhs Pt claims her home regimen is 40 qdaily and 25 qhs PT/OT Keep legs elevated Awaiting OT for lymphedema Vitals Vitals Vital Signs Date Time Temp Pulse Resp B/P (MAP) Pulse Ox O2 Delivery O2 Flow Rate FiO2 03/14/17 11:03 98.2 85 18 122/54 (76) 96 Nasal Cannula 2.0 98.2 Physical Exam General: Alert, Oriented X3, Cooperative, mild distress Heart: Regular rate (SR), Normal S1, Normal S2, Other (4/6 ssytolic murmur to NORMA border) Lungs: Clear, Other Abdomen: Normal bowel sounds Extremities: No cyanosis, Other (2+ bilateral LE pitting edema) Skin: Other (RLE venous stasis ulcer to posterior calf) Labs LABS Laboratory Tests Test 03/13/17 11:56 03/13/17 17:08 03/13/17 17:33 03/13/17 20:24 Glucose (Fingerstick) 134 mg/dL (70-99) 65 mg/dL (70-99) 95 mg/dL (70-99) 242 mg/dL (70-99) Test 03/14/17 07:43 03/14/17 11:30 Glucose (Fingerstick) 181 mg/dL (70-99) 237 mg/dL (70-99) Review of Systems Review of Systems denies 14 pt reviewed Assessment and Plan Assessmemt and Plan Problems Medical Problems: (1) Dyspnea Status: Acute (2) Elevated troponin Status: Acute Problems: Comment Review of Relevant I have reviewed the following items omer (where applicable) has been applied. Labs Laboratory Tests Test 03/12/17 16:26 03/12/17 16:40 03/12/17 20:41 03/13/17 07:15 Glucose (Fingerstick) 68 mg/dL (70-99) 182 mg/dL (70-99) White Blood Count 9.9 x10^3/uL (4.0-11.0) 8.9 x10^3/uL (4.0-11.0) Red Blood Count 3.82 x10^6/uL (3.50-5.40) 3.92 x10^6/uL (3.50-5.40) Hemoglobin 9.8 g/dL (12.0-15.5) 9.8 g/dL (12.0-15.5) Hematocrit 33.1 % (36.0-47.0) 33.7 % (36.0-47.0) Mean Corpuscular Volume 87 fL (79-100) 86 fL (79-100) Mean Corpuscular Hemoglobin 26 pg (25-35) 25 pg (25-35) Mean Corpuscular Hemoglobin Concent 30 g/dL (31-37) 29 g/dL (31-37) Red Cell Distribution Width 18.7 % (11.5-14.5) 18.8 % (11.5-14.5) Platelet Count 215 x10^3/uL (140-400) 221 x10^3/uL (140-400) Neutrophils (%) (Auto) 87 % (31-73) Lymphocytes (%) (Auto) 6 % (24-48) Monocytes (%) (Auto) 6 % (0-9) Eosinophils (%) (Auto) 0 % (0-3) Basophils (%) (Auto) 0 % (0-3) Neutrophils # (Auto) 7.8 x10^3uL (1.8-7.7) Lymphocytes # (Auto) 0.6 x10^3/uL (1.0-4.8) Monocytes # (Auto) 0.5 x10^3/uL (0.0-1.1) Eosinophils # (Auto) 0.0 x10^3/uL (0.0-0.7) Basophils # (Auto) 0.0 x10^3/uL (0.0-0.2) Segmented Neutrophils % 93 % (35-66) Lymphocytes % 4 % (24-48) Monocytes % 3 % (0-10) Platelet Estimate Adequate (ADEQUATE) Hypochromasia Slight Anisocytosis Slight Sodium Level 145 mmol/L (136-145) Potassium Level 3.8 mmol/L (3.5-5.1) Chloride Level 104 mmol/L (98-107) Carbon Dioxide Level 35 mmol/L (21-32) Anion Gap 6 (6-14) Blood Urea Nitrogen 23 mg/dL (7-20) Creatinine 1.0 mg/dL (0.6-1.0) Estimated GFR (Cockcroft-Gault) 68.0 Glucose Level 214 mg/dL (70-99) Calcium Level 8.6 mg/dL (8.5-10.1) Test 03/13/17 08:14 03/13/17 11:56 03/13/17 17:08 03/13/17 17:33 Glucose (Fingerstick) 215 mg/dL (70-99) 134 mg/dL (70-99) 65 mg/dL (70-99) 95 mg/dL (70-99) Test 03/13/17 20:24 03/14/17 07:43 03/14/17 11:30 Glucose (Fingerstick) 242 mg/dL (70-99) 181 mg/dL (70-99) 237 mg/dL (70-99) Laboratory Tests Test 03/13/17 11:56 03/13/17 17:08 03/13/17 17:33 03/13/17 20:24 Glucose (Fingerstick) 134 mg/dL (70-99) 65 mg/dL (70-99) 95 mg/dL (70-99) 242 mg/dL (70-99) Test 03/14/17 07:43 03/14/17 11:30 Glucose (Fingerstick) 181 mg/dL (70-99) 237 mg/dL (70-99) Medications Current Medications Aspirin (Liza Aspirin) 325 mg 1X ONCE PO Last administered on 03/11/17 09:01 ; Start 03/11/17 at 08:30; Stop 03/11/17 at 08:31; Status DC Clonidine HCl (Catapres) 0.2 mg 1X ONCE PO Last administered on 03/11/17 11: 55; Start 03/11/17 at 10:15; Stop 03/11/17 at 10:16; Status DC Ondansetron HCl (Zofran) 4 mg PRN Q8HRS PRN IV NAUSEA/VOMITING; Start 03/11/17 at 11:00; Stop 03/11/17 at 18:35; Status DC Morphine Sulfate 2 mg PRN Q2HR PRN IV PAIN Last administered on 03/11/17 17:19 ; Start 03/11/17 at 11:00; Stop 03/11/17 at 18:35; Status DC Nitroglycerin (Nitrostat) 0.4 mg PRN Q5MIN PRN SL CHEST PAIN; Start 03/11/17 at 11:00; Stop 03/11/17 at 18:35; Status DC Labetalol HCl (Normodyne) 10 mg Q6HRS PRN IVP ELEVATED BP, SEE COMMENTS; Start 03/11/17 at 11:00; Stop 03/11/17 at 11:00; Status DC Labetalol HCl (Normodyne) 10 mg PRN Q6HRS PRN IVP ELEVATED BP, SEE COMMENTS; Start 03/11/17 at 11:00 Insulin Human Regular (NovoLIN R VIAL) 8 unit 1X ONCE IV ; Start 03/11/17 at 11 :30; Stop 03/11/17 at 11:31; Status DC Insulin Aspart (NovoLOG) 0-9 UNITS TIDWMEALS SQ Last administered on 03/14/17 09:07; Start 03/11/17 at 17:00 Dextrose (Dextrose 50%-Water Syringe) 12.5 gm PRN Q15MIN PRN IV SEE COMMENTS; Start 03/11/17 at 13:30 Bumetanide (Bumex) 2 mg BID94 IV Last administered on 03/14/17 10:41; Start at 16:00 Isosorbide Mononitrate (Imdur) 30 mg DAILY PO Last administered on 03/14/17 08 :58; Start 03/11/17 at 16:00 Metoprolol Tartrate (Lopressor) 50 mg BID PO Last administered on 03/14/17 09: 00; Start 03/11/17 at 21:00 Labetalol HCl (Normodyne) 20 mg PRN Q2HR PRN IVP HYPERTENSION, SEE COMMENTS; Start 03/11/17 at 15:30; Stop 03/12/17 at 13:36; Status DC Hydralazine HCl (Apresoline) 10 mg PRN Q4HRS PRN IVP ELEVATED BP, SEE COMMENTS ; Start 03/11/17 at 15:30 Aspirin (Ecotrin) 81 mg [id number] PO Last administered on 03/14/17 09:00; Start 03/11/17 at 16:00 Apixaban (Eliquis) 5 mg BID PO Last administered on 03/14/17 08:58; Start at 21:00 Pantoprazole Sodium (Protonix) 40 mg DAILYAC PO Last administered on 03/14/17 08:59; Start 03/11/17 at 16:30 Info (Anti-Coagulation Monitoring By Pharmacy) 1 each PRN DAILY PRN MC SEE COMMENTS Last administered on 03/14/17 10:45; Start 03/11/17 at 16:00 Apixaban (Eliquis) 5 mg BID PO ; Start 03/11/17 at 21:00; Status UNV Ascorbic Acid (Vitamin C) 500 mg BID PO Last administered on 03/14/17 08:59; Start 03/11/17 at 21:00 Furosemide (Lasix) 40 mg DAILY PO ; Start 03/12/17 at 09:00; Status UNV Hydralazine HCl (Apresoline) 10 mg TID PO Last administered on 03/14/17 09:00 ; Start 03/11/17 at 21:00 Acetaminophen/ Hydrocodone Bitart (Lortab 5/325) 1 tab PRN Q6HRS PRN PO PAIN Last administered on 03/14/17 10:42; Start 03/11/17 at 18:30 Insulin Aspart (NovoLOG) 30 units TIDWMEALS SQ Last administered on 03/14/17 09:08; Start 03/11/17 at 19:00 Insulin Detemir (Levemir) 25 units QHS SQ Last administered on 03/11/17 21:37 ; Start 03/11/17 at 21:00; Stop 03/12/17 at 10:34; Status DC Metoprolol Tartrate (Lopressor) 50 mg BID PO ; Start 03/11/17 at 21:00; Status UNV Pantoprazole Sodium (Protonix) 40 mg DAILY PO ; Start 03/12/17 at 09:00; Status UNV Prednisone (Prednisone) 10 mg DAILY PO Last administered on 03/14/17 09:00; Start 03/12/17 at 09:00 Pyridostigmine [place] (Mestinon) 60 mg QID PO Last administered on 03/14/17 08:59; Start 03/11/17 at 21:00 Terbutaline Sulfate (Brethine) 2.5 mg TID PO Last administered on 03/14/17 08: 59; Start 03/11/17 at 21:00 Non-Formulary Medication 2 puff Q4HRS INH ; Start 03/11/17 at 20:00; Status UNV Gabapentin (Neurontin) 300 mg QHS PO Last administered on 03/13/17 20:51; Start 03/11/17 at 21:00 Mycophenolate Mofetil (Cellcept) 1,000 mg DAILY PO Last administered on 08:58; Start 03/12/17 at 09:00 Mycophenolate Mofetil (Cellcept) 1,500 mg QHS PO Last administered on 20:50; Start 03/11/17 at 21:00 Atorvastatin Calcium (Lipitor) 40 mg QHS PO Last administered on 03/13/17 20: 50; Start 03/11/17 at 21:00 Lactobacillus Acidophilus (Bacid, Alyssa-Bid) 1 tab TIDWMEALS PO Last administered on 03/14/17 08:59; Start 03/12/17 at 08:00 Insulin Detemir (Levemir) 40 units DAILYAC SQ Last administered on 03/12/17 09 :53; Start 03/12/17 at 07:30; Stop 03/12/17 at 10:40; Status DC Albuterol Sulfate (Ventolin Neb Soln) 2.5 mg Q4HRS NEB Last administered on 20:14; Start 03/11/17 at 20:00; Stop 03/12/17 at 06:48; Status DC Doxycycline Hyclate (Vibra-Tab) 100 mg BID PO Last administered on 03/12/17 09 :34; Start 03/11/17 at 19:30; Stop 03/12/17 at 13:30; Status DC Heparin Sodium (Porcine) (Heparin Sq) 5,000 unit Q8HRS SQ Last administered on 03/12/17 13:12; Start 03/11/17 at 22:00; Stop 03/12/17 at 13:36; Status DC Pantoprazole Sodium (Protonix) 40 mg DAILYAC PO ; Start 03/12/17 at 07:30; Status UNV Albuterol Sulfate (Ventolin Neb Soln) 2.5 mg RTQID NEB Last administered on 07:38; Start 03/12/17 at 07:00 Insulin Detemir (Levemir) 40 units BID SQ Last administered on 03/14/17 09:08 ; Start 03/12/17 at 21:00; Stop 03/14/17 at 09:53; Status DC Insulin Detemir (Levemir) 40 units QHS SQ ; Start 03/14/17 at 21:00 Insulin Detemir (Levemir) 30 units DAILY SQ ; Start 03/15/17 at 09:00 Active Scripts Active Prednisone 10 Mg Tablet 30 Mg PO DAILY Furosemide 40 Mg Tablet 40 Mg PO DAILY Vitamin C (Ascorbic Acid) 500 Mg Tablet 500 Mg PO BID Reported Terbutaline Sulfate 2.5 Mg Tablet 2.5 Mg PO TID Novolog Flexpen (Insulin Aspart) 100 Unit/1 Ml Insuln.pen 30 Unit SQ TIDWMEALS Cellcept (Mycophenolate Mofetil) 500 Mg Tablet 3 Tab PO HS Cellcept (Mycophenolate Mofetil) 500 Mg Tablet 2 Tab PO DAILY Eliquis (Apixaban) 5 Mg Tablet 5 Mg PO BID Fosamax (Alendronate Sodium) 70 Mg Tablet 1 Tab PO QSU Probiotic (Bacillus Coagulans) 1 Each Capsule.dr 1 Each PO PRN Cellcept (Mycophenolate Mofetil) 500 Mg Tablet 1 Tab PO BID Ventolin Hfa Inhaler (Albuterol Sulfate) 18 Gm Hfa.aer.ad 2 Puff INH Q4HRS Multiple Vitamin (Multivitamin With Minerals) 1 Each Tablet 1 Each PO Rosuvastatin Calcium 10 Mg Tablet 10 Mg PO DAILY Pyridostigmine [place] 60 Mg Tablet 60 Mg PO QID Pantoprazole Sodium 40 Mg Tablet.dr 1 Tab PO DAILY Metoprolol Tartrate 50 Mg Tablet 1 Tab PO BID Levemir Flextouch (Insulin Detemir) 100 Unit/1 Ml Insuln.pen Unit SQ BIDAC 40 units in am, 25 units evening Hydrocodone-Apap 5-325 (Hydrocodone Bit/Acetaminophen) 1 Each Tablet 1 Tab PO PRN Q6HRS PRN Hydralazine Hcl 10 Mg Tablet 1 Tab PO TID Gabapentin 300 Mg Capsule 300 Mg PO QHS Vitals/I & O Vital Sign - Last 24 Hours 03/13/17 03/13/17 03/13/17 03/13/17 11:55 14:24 14:25 15:55 Pulse 82 82 B/P (MAP) 120/61 120/61 Pulse Ox 100 O2 Delivery Nasal Cannula Nasal Cannula O2 Flow Rate 2.0 2.0 03/13/17 03/13/17 03/13/17 03/13/17 17:23 19:30 19:46 20:00 Temp 97.8 97.8 Pulse 82 91 Resp 18 20 B/P (MAP) 150/70 (96) 129/49 (75) Pulse Ox 98 96 99 O2 Delivery Nasal Cannula Nasal Cannula Nasal Cannula Nasal Cannula O2 Flow Rate 2.0 2.0 2.0 2.0 03/13/17 03/13/17 03/13/17 03/13/17 20:50 20:50 20:51 20:51 Pulse 91 91 91 Resp 20 B/P (MAP) 129/49 129/49 129/49 O2 Delivery Nasal Cannula O2 Flow Rate 2.0 03/13/17 03/14/17 03/14/17 03/14/17 23:25 03:25 04:48 07:15 Temp 98.1 97.9 98.6 98.1 97.9 98.6 Pulse 93 81 61 Resp 17 15 20 20 B/P (MAP) 172/56 (94) 147/66 (93) 139/74 (95) Pulse Ox 97 97 95 O2 Delivery Nasal Cannula Nasal Cannula Nasal Cannula Nasal Cannula O2 Flow Rate 2.0 2.0 2.0 2.0 03/14/17 03/14/17 03/14/17 03/14/17 07:38 07:45 08:58 08:59 Pulse 61 61 B/P (MAP) 139/74 139/74 Pulse Ox 96 O2 Delivery Nasal Cannula Nasal Cannula O2 Flow Rate 2.0 2.0 03/14/17 03/14/17 03/14/17 03/14/17 09:00 09:00 10:42 11:03 Temp 98.2 98.2 Pulse 61 61 85 Resp 20 18 B/P (MAP) 139/74 139/74 122/54 (76) Pulse Ox 96 96 O2 Delivery Nasal Cannula Nasal Cannula O2 Flow Rate 2.0 2.0 Intake and Output 03/13/17 03/13/17 03/14/17 15:00 23:00 07:00 Intake Total 500 ml 0 ml Output Total 800 ml 625 ml 650 ml Balance -300 ml -625 ml -650 ml ZENAIDA ROMERO MD Mar 14, 2017 11:46
--- NOTE | 2017-03-14 12:53 | PDOC ---
CALVIN ROSALES BOTTLE WASHER 03/14/17 1253: CARDIO Progress Notes Date and Time Date of Service 03/14/2017 Time of Evaluation 1230 Subjective Subjective: No Chest Pain, No Palpitations, No Dizziness, Other (No SOA but with dyspnea on exrtion requiring more O2. ) Vitals Vitals Vital Signs Date Time Temp Pulse Resp B/P (MAP) Pulse Ox O2 Delivery O2 Flow Rate FiO2 03/14/17 11:03 98.2 85 18 122/54 (76) 96 Nasal Cannula 2.0 98.2 Weight Weight [ ] Input and Output Intake and Output Intake and Output 03/14/17 07:00 Intake Total 500 ml Output Total 2075 ml Balance -1575 ml Intake Oral 500 ml Output Urine Total 2075 ml Laboratory Labs Laboratory Tests Test 03/13/17 17:08 03/13/17 17:33 03/13/17 20:24 03/14/17 07:43 Glucose (Fingerstick) 65 mg/dL (70-99) 95 mg/dL (70-99) 242 mg/dL (70-99) 181 mg/dL (70-99) Test 03/14/17 11:30 Glucose (Fingerstick) 237 mg/dL (70-99) Physical Exam HEENT: Neck Supple W Full Motion Chest: Symmetric LUNGS: Clear to Auscultation Heart: S1S2, RRR (SR) Abdomen: Soft N/T Extremities: No Calf Tenderness, Other (2+ bilateral LE pitting edema) Neurology: alert, oriented, follow commands Assessment Assessment 1. Acute on chronic diastolic CHF 2. Malignant HTN: controlled 3. PAFIB: Burst of AFIB otherwise remains in SR 4. DM2/HLP 5. Hx of myasthenia gravis: on immunosuppressants. 6. Subclinical hypothyroidism: TSH 6s, defer to PCP 7. 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 Contributing to HERNANDEZ? Recommendations 1. Continue bumex IV will transition to po bumex once close to goal wt 205. Wt 212 despite diurese, likely inaccurate wt. Discuss with staff. Strict I & O Monitor renal function. 2. Consider outpt sleep study. Consider pulmonary consult. 3. Continue current regimen 4. Eliquis for stroke prevention 5. Lyphedema following 6. BMP and Mg today . BEATRICE TREJO MD 03/16/171928: CARDIO Progress Notes Plan Plan Late entry for March 14, 2017. Patient seen and examined. Agree with above nurse practitioner note. 61-year-old woman with bilateral lower extremity edema left greater than right which is chronic in nature. She has left lower extremity lymphedema. Right lower extremity venous ulcer without any clear demonstrable venous reflux noted on recent testing. She has no arterial insufficiency. Overall due to multiple comorbidities she has dyspnea but no clear treatable factor is noted. Will continue diuresis as tolerated. We'll be careful given that in the past she's had acute renal insufficiency. May need a right heart catheter to demonstrate euvolemia. We'll follow-up. CLAVIN ROSALES APRN Mar 14, 2017 12:53 BEATRICE TREJO MD Mar 16, 2017 19:29
--- NOTE | 2017-03-14 14:26 | PDOC ---
Provider Note Provider Note [id number] acute/chronic resp fail acute diastolic chf landry/ohs paf asthma ? copd see orders BETINA BENITEZ MD Mar 14, 2017 14:26
[2017-03-14 15:00] VITALS: BP 118/52
--- NOTE | 2017-03-14 15:20 | CONS ---
DATE OF CONSULTATION: 03/14/2017 I was asked to see this 61-year-old lady for shortness of breath, acute respiratory failure. HISTORY OF PRESENT ILLNESS: She does have a history of [id number] smoking, stopped smoking 30 years ago. She has not been diagnosed with COPD or asthma, but she has cough, shortness of breath, and wheezing. She has not been on any inhalers. She has diastolic CHF and has had increased shortness of breath with weight gain and lower extremity edema for the past few days. She has cough. She has had wheezing. She denies fever or chills. She has runny nose and nasal congestion. She denies gastroesophageal reflux symptoms. She did have chest pain. PAST MEDICAL HISTORY: Diastolic CHF; hypertension; paroxysmal atrial fibrillation, on Eliquis; diabetes mellitus; history of left hemidiaphragmatic paralysis after CABG in 2000 at [facility]; history of myasthenia gravis; obstructive sleep apnea-hypopnea syndrome. ALLERGIES: IODINE, ADHESIVE TAPE, INSULIN, LEVOFLOXACIN. MEDICATIONS: Currently, she is on insulin, prednisone, albuterol, Lipitor, gabapentin, Mestinon, hydralazine, vitamin C, Eliquis, metoprolol, Protonix, aspirin, Bumex. SOCIAL HISTORY: History of [id number]-fuxg smoking, quit smoking 30 years ago. FAMILY HISTORY: There is no history of lung disease. REVIEW OF SYSTEMS: As mentioned as above. She had a recent sleep study at [place], which did show obstructive sleep apnea-hypopnea syndrome and she and her primary physician decided to put her on oxygen at night. Other systems are otherwise negative. PHYSICAL EXAMINATION: GENERAL: An obese lady. VITAL SIGNS: Her O2 saturation on 2 liters of oxygen is 94%, respiratory rate 18, heart rate 85, blood pressure 122/54, temperature 98.2. HEENT: Normocephalic, atraumatic. Pupils equal, round, reactive to light. There is shallow oropharynx. Nose: There is inflamed mucosa. NECK: Positive JVD. No lymphadenopathy. CARDIOVASCULAR: Regular rate and rhythm. PMI is nondisplaced. CHEST: Inspection is normal. LUNGS: There are bibasilar crackles, end-expiratory wheezing with forced exhalation. ABDOMEN: Soft. Bowel sounds are good. There is no mass. EXTREMITIES: There is edema. LYMPHATICS: There is no lymphadenopathy. SKIN: Chronic changes. NEUROLOGIC: Alert and oriented. LYMPHATICS: There is no lymphadenopathy. LABORATORY DATA: I reviewed the following lab data: Chest x-ray shows increased vascular marking, atelectasis, status post CABG. WBC 8.9, hemoglobin 9.8, platelets 221. Sodium 145, potassium 3.8, chloride 104, CO2 of 35, glucose 214, BUN 23, creatinine 1. Troponin 0.072. BNP is 3520. Total bilirubin 0.4, AST 19, ALT 24, alkaline phosphatase 90. ABG: pH is 7.4, pCO2 of 47, pO2 of 113, on 2 liters of oxygen. IMPRESSION: 1. Hkgme-gy-wkiznps respiratory failure, multifactorial in etiology including acute diastolic congestive heart failure, asthma, obstructive sleep apnea-hypopnea syndrome, obesity hypoventilation syndrome versus others. 2. Abnormal chest x-ray. 3. Acute diastolic congestive heart failure. 4. Asthma, rule out chronic obstructive pulmonary disease. 5. Obstructive sleep apnea-hypopnea syndrome. 6. Obesity and deconditioning. 7. Paroxysmal atrial fibrillation. 8. Hypertension. 9. Diabetes mellitus. 10. Myasthenia gravis. 11. History of left hemidiaphragmatic paralysis. PLAN AND RECOMMENDATION: 1. Titrate FiO2 to keep O2 saturation 92%. 2. Bronchodilator. 3. Inhaled corticosteroid. 4. Keep intake less than output, agree with IV Bumex. 5. Monitor potassium and creatinine. 6. Continue Eliquis. 7. Protonix for stress ulcer prophylaxis. 8. 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 I do recommend to obtain her sleep study. She would require CPAP titration, if not done, for treatment of her obstructive sleep apnea-hypopnea syndrome. 9. Lose weight. 10. Exercise. 11. Monitor respiratory status very closely. 12. The findings and recommendations were discussed with the patient. She understood and agreed to proceed with the plan. I have answered all of her questions. Thank you very much for allowing me to participate in care of this very nice lady. BETINA BENITEZ M.D. : FRANTZ/jesus JOB#: [id number] / [id number] MTDD
[2017-03-14 15:30] LABS: CALCIUM 7.9 mg/dL (8.5-10.1); CREATININE 1.2 mg/dL (0.6-1.0); GFR 55.1; MAGNESIUM 1.9 mg/dL (1.8-2.4); POTASSIUM 4.3 mmol/L (3.5-5.1)
[2017-03-14] MEDS: IPRATRPIUM/ALBUTEROL 0.5/2.5MG 3 ML NEBU. NEB SCH ×2 (16:24→19:15)
[2017-03-14 19:09] VITALS: BP 123/54
[2017-03-14] MEDS: BUDESONIDE 0.5 MG/2 ML NEBU. NEB SCH (19:15)
[2017-03-14] MEDS: MONTELUKAST SODIUM 10 MG TABLET. PO SCH (21:15)
[2017-03-14] MEDS: GABAPENTIN 300 MG CAPSULE. PO SCH (21:15)
[2017-03-14] MEDS: ATORVASTATIN CALCIUM 40 MG TABLET. PO SCH (21:16)
[2017-03-14 22:45] VITALS: BP 132/57
[2017-03-15 02:00] VITALS: BP 153/65
[2017-03-15] MEDS: HYDROcodone/APAP 5/325MG 1 TAB TABLET PO PRN ×4 (04:13→21:28)
[2017-03-15 07:00] VITALS: BP 159/69
[2017-03-15] MEDS: INSULIN ASPART 300 UNITS/3 ML INSULN.PEN SQ SCH ×6 (08:00→17:00)
[2017-03-15] MEDS: IPRATRPIUM/ALBUTEROL 0.5/2.5MG 3 ML NEBU. NEB SCH ×4 (08:04→19:16)
[2017-03-15] MEDS: BUDESONIDE 0.5 MG/2 ML NEBU. NEB SCH ×2 (08:04→19:17)
--- NOTE | 2017-03-15 08:45 | PDOC ---
PULMONARY PROGRESS NOTES Subjective on 02, has sob, no cough, has leg pain, Vitals Vital Signs Date Time Temp Pulse Resp B/P (MAP) Pulse Ox O2 Delivery O2 Flow Rate FiO2 03/15/17 08:08 97 Nasal Cannula 2.0 03/15/17 05:23 16 03/15/17 02:00 97.6 82 153/65 (94) 97.6 ROS: No Nausea, No Chest Pain General: Alert, Oriented X4 Lungs: Other (deminished) Cardiovascular: S1, S2 Abdomen: Soft, Non-tender Extremities: Other (edema) Skin: Warm Labs Laboratory Tests Test 03/13/17 11:56 03/13/17 17:08 03/13/17 17:33 03/13/17 20:24 Glucose (Fingerstick) 134 mg/dL (70-99) 65 mg/dL (70-99) 95 mg/dL (70-99) 242 mg/dL (70-99) Test 03/14/17 07:43 03/14/17 11:30 03/14/17 14:45 Glucose (Fingerstick) 181 mg/dL (70-99) 237 mg/dL (70-99) Sodium Level 145 mmol/L (136-145) Potassium Level 4.3 mmol/L (3.5-5.1) Chloride Level 107 mmol/L (98-107) Carbon Dioxide Level 33 mmol/L (21-32) Anion Gap 5 (6-14) Blood Urea Nitrogen 23 mg/dL (7-20) Creatinine 1.2 mg/dL (0.6-1.0) Estimated GFR (Cockcroft-Gault) 55.1 Glucose Level 133 mg/dL (70-99) Calcium Level 7.9 mg/dL (8.5-10.1) Magnesium Level 1.9 mg/dL (1.8-2.4) Laboratory Tests Test 03/14/17 11:30 03/14/17 14:45 Glucose (Fingerstick) 237 mg/dL (70-99) Sodium Level 145 mmol/L (136-145) Potassium Level 4.3 mmol/L (3.5-5.1) Chloride Level 107 mmol/L (98-107) Carbon Dioxide Level 33 mmol/L (21-32) Anion Gap 5 (6-14) Blood Urea Nitrogen 23 mg/dL (7-20) Creatinine 1.2 mg/dL (0.6-1.0) Estimated GFR (Cockcroft-Gault) 55.1 Glucose Level 133 mg/dL (70-99) Calcium Level 7.9 mg/dL (8.5-10.1) Magnesium Level 1.9 mg/dL (1.8-2.4) Medications Active Scripts Medications Dose Route/Sig Max Daily Dose Days Date Category Dose Instructions Terbutaline Sulfate 2.5 Mg Tablet 2.5 Mg PO TID 03/11/17 Reported Novolog Flexpen (Insulin Aspart) 100 Unit/1 Ml Insuln.pen 30 Unit SQ TIDWMEALS 03/11/17 Reported Cellcept (Mycophenolate Mofetil) 500 Mg Tablet 3 Tab PO HS 03/11/17 Reported Cellcept (Mycophenolate Mofetil) 500 Mg Tablet 2 Tab PO DAILY 03/11/17 Reported Prednisone 10 Mg Tablet 30 Mg PO DAILY 10/05/16 Rx Furosemide 40 Mg Tablet 40 Mg PO DAILY 10/05/16 Rx Vitamin C (Ascorbic Acid) 500 Mg Tablet 500 Mg PO BID 10/05/16 Rx Eliquis (Apixaban) 5 Mg Tablet 5 Mg PO BID 09/29/16 Reported Fosamax (Alendronate Sodium) 70 Mg Tablet 1 Tab PO QSU 09/29/16 Reported Probiotic (Bacillus Coagulans) 1 Each Capsule.dr 1 Each PO PRN 09/29/16 Reported Cellcept (Mycophenolate Mofetil) 500 Mg Tablet 1 Tab PO BID 09/29/16 Reported Ventolin Hfa Inhaler (Albuterol Sulfate) 18 Gm Hfa.aer.ad 2 Puff INH Q4HRS 04/30/16 Reported Multiple Vitamin (Multivitamin With Minerals) 1 Each Tablet 1 Each PO 04/23/16 Reported Rosuvastatin Calcium 10 Mg Tablet 10 Mg PO DAILY 04/23/16 Reported Pyridostigmine [place] 60 Mg Tablet 60 Mg PO QID 04/23/16 Reported Pantoprazole Sodium 40 Mg Tablet. 1 Tab PO DAILY 04/23/16 Reported Metoprolol Tartrate 50 Mg Tablet 1 Tab PO BID 04/23/16 Reported Levemir Flextouch (Insulin Detemir) 100 Unit/1 Ml Insuln.pen Unit SQ BIDAC 04/23/16 Reported 40 units in am, 25 units evening Hydrocodone-Apap 5-325 (Hydrocodone Bit/Acetaminophen) 1 Each Tablet 1 Tab PO PRN Q6HRS PRN 04/23/16 Reported Hydralazine Hcl 10 Mg Tablet 1 Tab PO TID 04/23/16 Reported Gabapentin 300 Mg Capsule 300 Mg PO QHS 04/23/16 Reported Impression . IMPRESSION: 1. [id number] respiratory failure, multifactorial in etiology including acute diastolic congestive heart failure, asthma, obstructive sleep apnea-hypopnea syndrome, obesity hypoventilation syndrome versus others. 2. Abnormal chest x-ray. 3. Acute diastolic congestive heart failure. 4. Asthma, rule out chronic obstructive pulmonary disease. 5. Obstructive sleep apnea-hypopnea syndrome. 6. Obesity and deconditioning. 7. Paroxysmal atrial fibrillation. 8. Hypertension. 9. Diabetes mellitus. 10. Myasthenia gravis. 11. History of left hemidiaphragmatic paralysis. Plan . PLAN AND RECOMMENDATION: 1. Titrate FiO2 to keep O2 saturation 92%. 2. Bronchodilator. 3. Inhaled corticosteroid. 4. Keep intake less than output, on IV Bumex, ? lasix gtt. 5. Monitor potassium and creatinine. 6. Continue Eliquis, monitor for bleeding. 7. Protonix for stress ulcer prophylaxis. 8. 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 I did recommend to obtain her sleep study. She would require CPAP titration, if not done, for treatment of her obstructive sleep apnea-hypopnea syndrome. 9. Lose weight. 10. Exercise. 11. Monitor respiratory status very closely. 12. The findings and recommendations were discussed with the patient. She understood and agreed to proceed with the plan. I have answered all of her questions. BETINA BENITEZ MD Mar 15, 2017 08:45
[2017-03-15] MEDS: INSULIN DETEMIR 300 UNITS/3 ML INSULN.PEN. SQ SCH ×2 (09:00→21:34)
[2017-03-15] MEDS: PANTOPRAZOLE 40 MG TABLET.DR. PO SCH (09:20)
[2017-03-15] MEDS: METOPROLOL TART IMMED RELEASE 50 MG TABLET. PO SCH ×2 (09:21→21:29)
[2017-03-15] MEDS: ASPIRIN ENTERIC COATED 81 MG TABLET.DR. PO SCH (09:21)
[2017-03-15] MEDS: APIXABAN 5 MG TABLET. PO SCH ×2 (09:21→21:28)
[2017-03-15] MEDS: LACTOBACILLUS ACIDOPH & BULGAR 1 TABLET. PO SCH ×3 (09:21→15:20)
[2017-03-15] MEDS: hydrALAZINE 10 MG TABLET PO SCH ×3 (09:21→21:27)
[2017-03-15] MEDS: ISOSORBIDE MONONITRATE ER 30 MG TAB.ER.24H PO SCH (09:22)
[2017-03-15] MEDS: ASCORBIC ACID 500 MG TABLET PO SCH ×2 (09:22→21:28)
[2017-03-15] MEDS: BUMETANIDE 1 MG/4 ML VIAL. IV SCH (09:25)
[2017-03-15] MEDS: predniSONE 10 MG TABLET PO SCH (09:25)
[2017-03-15] MEDS: MYCOPHENOLATE MOFETIL 250 MG CAPSULE. PO SCH ×2 (10:18→21:25)
[2017-03-15] MEDS: PYRIDOSTIGMINE BROMIDE 60 MG TABLET PO SCH ×4 (10:19→21:28)
[2017-03-15] MEDS: TERBUTALINE 2.5 MG PO SCH ×3 (10:19→21:28)
[2017-03-15] MEDS: ANTI-COAG MONITOR BY PHARMACY. MC PRN (10:40)
[2017-03-15 11:00] VITALS: BP 124/58
--- NOTE | 2017-03-15 12:41 | PDOC ---
PROGRESS NOTES Chief Complaint Chief Complaint bl leg edema 2/2 chronic lymphedema and venous insufficiency likely Chronic CHF with diastolic dysfunction Elevated troponin with chf hx PAFIB on eliquis, sinus now Restrictive lung disease/ROBERTO hx CAD; CABG in 2000 HTN HLP Hx of CVA/TIA DM2 with retinopathy and hYPOGLYCEMIA Hx of myasthenia gravis: intermittent plasmapheresis last treatment 03/2016. Hx of IgA monoclonal gammopathy leg wound, chronically CKD3 atypical chest pain, gi possibly Allergy to IV dye. morbid obesity h/o diaphram paralyse Hypoxic respi failure History of Present Illness History of Present Illness DOing good, no inc in SOA BUtc laims sats drop when goes to bathroom LEgs still swollen but not worse Advised to keep legs up LYtes ok, creat 1.2, K normal On bumex 2 mgs IV BID UO good weight 210 lbs PLAN: COnt bumex Goal weight is 205 lbs then will shift to PO bumex per cards plans MOnitor lytes while on diuresis Dec levemir to 30 qdaily Keep levemir 40 qhs Pt claims her home regimen is 40 qdaily and 25 qhs PT/OT Keep legs elevated Awaiting OT for lymphedema HOme O2 on the works - working with [facility] Primary Dr Davis PCP BUt still can do 6 MW? Vitals Vitals Vital Signs Date Time Temp Pulse Resp B/P (MAP) Pulse Ox O2 Delivery O2 Flow Rate FiO2 03/15/17 12:20 97 Nasal Cannula 2.0 03/15/17 11:00 98.5 80 18 124/58 (80) 98.5 Physical Exam General: Alert, Oriented X3, Cooperative, mild distress Heart: Regular rate (SR), Normal S1, Normal S2, Other (4/6 ssytolic murmur to NORMA border) Lungs: Other (deminished) Abdomen: Normal bowel sounds Extremities: No cyanosis, Other (2+ bilateral LE pitting edema) Skin: Other (RLE venous stasis ulcer to posterior calf) Labs LABS Laboratory Tests Test 03/14/17 14:45 Sodium Level 145 mmol/L (136-145) Potassium Level 4.3 mmol/L (3.5-5.1) Chloride Level 107 mmol/L (98-107) Carbon Dioxide Level 33 mmol/L (21-32) Anion Gap 5 (6-14) Blood Urea Nitrogen 23 mg/dL (7-20) Creatinine 1.2 mg/dL (0.6-1.0) Estimated GFR (Cockcroft-Gault) 55.1 Glucose Level 133 mg/dL (70-99) Calcium Level 7.9 mg/dL (8.5-10.1) Magnesium Level 1.9 mg/dL (1.8-2.4) Review of Systems Review of Systems SOA, legs swollen, all else is neg Assessment and Plan Assessmemt and Plan Problems Medical Problems: (1) Dyspnea Status: Acute (2) Elevated troponin Status: Acute Problems: Comment Review of Relevant I have reviewed the following items omer (where applicable) has been applied. Labs Laboratory Tests Test 03/13/17 17:08 03/13/17 17:33 03/13/17 20:24 03/14/17 07:43 Glucose (Fingerstick) 65 mg/dL (70-99) 95 mg/dL (70-99) 242 mg/dL (70-99) 181 mg/dL (70-99) Test 03/14/17 11:30 03/14/17 14:45 Glucose (Fingerstick) 237 mg/dL (70-99) Sodium Level 145 mmol/L (136-145) Potassium Level 4.3 mmol/L (3.5-5.1) Chloride Level 107 mmol/L (98-107) Carbon Dioxide Level 33 mmol/L (21-32) Anion Gap 5 (6-14) Blood Urea Nitrogen 23 mg/dL (7-20) Creatinine 1.2 mg/dL (0.6-1.0) Estimated GFR (Cockcroft-Gault) 55.1 Glucose Level 133 mg/dL (70-99) Calcium Level 7.9 mg/dL (8.5-10.1) Magnesium Level 1.9 mg/dL (1.8-2.4) Laboratory Tests Test 03/14/17 14:45 Sodium Level 145 mmol/L (136-145) Potassium Level 4.3 mmol/L (3.5-5.1) Chloride Level 107 mmol/L (98-107) Carbon Dioxide Level 33 mmol/L (21-32) Anion Gap 5 (6-14) Blood Urea Nitrogen 23 mg/dL (7-20) Creatinine 1.2 mg/dL (0.6-1.0) Estimated GFR (Cockcroft-Gault) 55.1 Glucose Level 133 mg/dL (70-99) Calcium Level 7.9 mg/dL (8.5-10.1) Magnesium Level 1.9 mg/dL (1.8-2.4) Medications Current Medications Aspirin (Liza Aspirin) 325 mg 1X ONCE PO Last administered on 03/11/17 09:01 ; Start 03/11/17 at 08:30; Stop 03/11/17 at 08:31; Status DC Clonidine HCl (Catapres) 0.2 mg 1X ONCE PO Last administered on 03/11/17 11: 55; Start 03/11/17 at 10:15; Stop 03/11/17 at 10:16; Status DC Ondansetron HCl (Zofran) 4 mg PRN Q8HRS PRN IV NAUSEA/VOMITING; Start 03/11/17 at 11:00; Stop 03/11/17 at 18:35; Status DC Morphine Sulfate 2 mg PRN Q2HR PRN IV PAIN Last administered on 03/11/17 17:19 ; Start 03/11/17 at 11:00; Stop 03/11/17 at 18:35; Status DC Nitroglycerin (Nitrostat) 0.4 mg PRN Q5MIN PRN SL CHEST PAIN; Start 03/11/17 at 11:00; Stop 03/11/17 at 18:35; Status DC Labetalol HCl (Normodyne) 10 mg Q6HRS PRN IVP ELEVATED BP, SEE COMMENTS; Start 03/11/17 at 11:00; Stop 03/11/17 at 11:00; Status DC Labetalol HCl (Normodyne) 10 mg PRN Q6HRS PRN IVP ELEVATED BP, SEE COMMENTS; Start 03/11/17 at 11:00 Insulin Human Regular (NovoLIN R VIAL) 8 unit 1X ONCE IV ; Start 03/11/17 at 11 :30; Stop 03/11/17 at 11:31; Status DC Insulin Aspart (NovoLOG) 0-9 UNITS TIDWMEALS SQ Last administered on 03/14/17 12:55; Start 03/11/17 at 17:00 Dextrose (Dextrose 50%-Water Syringe) 12.5 gm PRN Q15MIN PRN IV SEE COMMENTS; Start 03/11/17 at 13:30 Bumetanide (Bumex) 2 mg BID94 IV Last administered on 03/14/17 10:41; Start at 16:00; Stop 03/14/17 at 15:54; Status DC Isosorbide Mononitrate (Imdur) 30 mg DAILY PO Last administered on 03/15/17 09 :22; Start 03/11/17 at 16:00 Metoprolol Tartrate (Lopressor) 50 mg BID PO Last administered on 03/15/17 09: 21; Start 03/11/17 at 21:00 Labetalol HCl (Normodyne) 20 mg PRN Q2HR PRN IVP HYPERTENSION, SEE COMMENTS; Start 03/11/17 at 15:30; Stop 03/12/17 at 13:36; Status DC Hydralazine HCl (Apresoline) 10 mg PRN Q4HRS PRN IVP ELEVATED BP, SEE COMMENTS ; Start 03/11/17 at 15:30 Aspirin (Ecotrin) 81 mg [id number] PO Last administered on 03/15/17 09:21; Start 03/11/17 at 16:00 Apixaban (Eliquis) 5 mg BID PO Last administered on 03/15/17 09:21; Start at 21:00 Pantoprazole Sodium (Protonix) 40 mg DAILYAC PO Last administered on 03/15/17 09:20; Start 03/11/17 at 16:30 Info (Anti-Coagulation Monitoring By Pharmacy) 1 each PRN DAILY PRN MC SEE COMMENTS Last administered on 03/15/17 10:40; Start 03/11/17 at 16:00 Apixaban (Eliquis) 5 mg BID PO ; Start 03/11/17 at 21:00; Status UNV Ascorbic Acid (Vitamin C) 500 mg BID PO Last administered on 03/15/17 09:22; Start 03/11/17 at 21:00 Furosemide (Lasix) 40 mg DAILY PO ; Start 03/12/17 at 09:00; Status UNV Hydralazine HCl (Apresoline) 10 mg TID PO Last administered on 03/15/17 09:21 ; Start 03/11/17 at 21:00 Acetaminophen/ Hydrocodone Bitart (Lortab 5/325) 1 tab PRN Q6HRS PRN PO PAIN Last administered on 03/15/17 10:27; Start 03/11/17 at 18:30 Insulin Aspart (NovoLOG) 30 units TIDWMEALS SQ Last administered on 03/15/17 08:00; Start 03/11/17 at 19:00 Insulin Detemir (Levemir) 25 units QHS SQ Last administered on 03/11/17 21:37 ; Start 03/11/17 at 21:00; Stop 03/12/17 at 10:34; Status DC Metoprolol Tartrate (Lopressor) 50 mg BID PO ; Start 03/11/17 at 21:00; Status UNV Pantoprazole Sodium (Protonix) 40 mg DAILY PO ; Start 03/12/17 at 09:00; Status UNV Prednisone (Prednisone) 10 mg DAILY PO Last administered on 03/15/17 09:25; Start 03/12/17 at 09:00 Pyridostigmine [place] (Mestinon) 60 mg QID PO Last administered on 03/15/17 10:19; Start 03/11/17 at 21:00 Terbutaline Sulfate (Brethine) 2.5 mg TID PO Last administered on 03/15/17 10: 19; Start 03/11/17 at 21:00 Non-Formulary Medication 2 puff Q4HRS INH ; Start 03/11/17 at 20:00; Status UNV Gabapentin (Neurontin) 300 mg QHS PO Last administered on 03/14/17 21:15; Start 03/11/17 at 21:00 Mycophenolate Mofetil (Cellcept) 1,000 mg DAILY PO Last administered on 10:18; Start 03/12/17 at 09:00 Mycophenolate Mofetil (Cellcept) 1,500 mg QHS PO Last administered on 21:15; Start 03/11/17 at 21:00 Atorvastatin Calcium (Lipitor) 40 mg QHS PO Last administered on 03/14/17 21: 16; Start 03/11/17 at 21:00 Lactobacillus Acidophilus (Bacid, Alyssa-Bid) 1 tab TIDWMEALS PO Last administered on 03/15/17 09:21; Start 03/12/17 at 08:00 Insulin Detemir (Levemir) 40 units DAILYAC SQ Last administered on 03/12/17 09 :53; Start 03/12/17 at 07:30; Stop 03/12/17 at 10:40; Status DC Albuterol Sulfate (Ventolin Neb Soln) 2.5 mg Q4HRS NEB Last administered on 20:14; Start 03/11/17 at 20:00; Stop 03/12/17 at 06:48; Status DC Doxycycline Hyclate (Vibra-Tab) 100 mg BID PO Last administered on 03/12/17 09 :34; Start 03/11/17 at 19:30; Stop 03/12/17 at 13:30; Status DC Heparin Sodium (Porcine) (Heparin Sq) 5,000 unit Q8HRS SQ Last administered on 03/12/17 13:12; Start 03/11/17 at 22:00; Stop 03/12/17 at 13:36; Status DC Pantoprazole Sodium (Protonix) 40 mg DAILYAC PO ; Start 03/12/17 at 07:30; Status UNV Albuterol Sulfate (Ventolin Neb Soln) 2.5 mg RTQID NEB Last administered on 13:26; Start 03/12/17 at 07:00; Stop 03/14/17 at 14:28; Status DC Insulin Detemir (Levemir) 40 units BID SQ Last administered on 03/14/17 09:08 ; Start 03/12/17 at 21:00; Stop 03/14/17 at 09:53; Status DC Insulin Detemir (Levemir) 40 units QHS SQ Last administered on 03/14/17 21:00 ; Start 03/14/17 at 21:00 Insulin Detemir (Levemir) 30 units DAILY SQ Last administered on 03/15/17 09: 00; Start 03/15/17 at 09:00 Albuterol/ Ipratropium (Duoneb) 3 ml RTQID NEB Last administered on 03/15/17 12:18; Start 03/14/17 at 16:00 Budesonide (Pulmicort) 0.5 mg RTBID NEB Last administered on 03/15/17 08:04; Start 03/14/17 at 20:00 Montelukast Sodium (Singulair) 10 mg QHS PO Last administered on 03/14/17 21: 15; Start 03/14/17 at 21:00 Bumetanide (Bumex) 2 mg DAILY IV Last administered on 03/15/17 09:25; Start at 09:00 Active Scripts Active Prednisone 10 Mg Tablet 30 Mg PO DAILY Furosemide 40 Mg Tablet 40 Mg PO DAILY Vitamin C (Ascorbic Acid) 500 Mg Tablet 500 Mg PO BID Reported Terbutaline Sulfate 2.5 Mg Tablet 2.5 Mg PO TID Novolog Flexpen (Insulin Aspart) 100 Unit/1 Ml Insuln.pen 30 Unit SQ TIDWMEALS Cellcept (Mycophenolate Mofetil) 500 Mg Tablet 3 Tab PO HS Cellcept (Mycophenolate Mofetil) 500 Mg Tablet 2 Tab PO DAILY Eliquis (Apixaban) 5 Mg Tablet 5 Mg PO BID Fosamax (Alendronate Sodium) 70 Mg Tablet 1 Tab PO QSU Probiotic (Bacillus Coagulans) 1 Each Capsule.dr 1 Each PO PRN Cellcept (Mycophenolate Mofetil) 500 Mg Tablet 1 Tab PO BID Ventolin Hfa Inhaler (Albuterol Sulfate) 18 Gm Hfa.aer.ad 2 Puff INH Q4HRS Multiple Vitamin (Multivitamin With Minerals) 1 Each Tablet 1 Each PO Rosuvastatin Calcium 10 Mg Tablet 10 Mg PO DAILY Pyridostigmine [place] 60 Mg Tablet 60 Mg PO QID Pantoprazole Sodium 40 Mg Tablet.dr 1 Tab PO DAILY Metoprolol Tartrate 50 Mg Tablet 1 Tab PO BID Levemir Flextouch (Insulin Detemir) 100 Unit/1 Ml Insuln.pen Unit SQ BIDAC 40 units in am, 25 units evening Hydrocodone-Apap 5-325 (Hydrocodone Bit/Acetaminophen) 1 Each Tablet 1 Tab PO PRN Q6HRS PRN Hydralazine Hcl 10 Mg Tablet 1 Tab PO TID Gabapentin 300 Mg Capsule 300 Mg PO QHS Vitals/I & O Vital Sign - Last 24 Hours 03/14/17 03/14/17 03/14/17 03/14/17 12:59 13:00 13:26 15:00 Temp 98.2 98.2 Pulse 85 85 85 B/P (MAP) 122/54 122/54 118/52 (74) Pulse Ox 95 95 O2 Delivery Nasal Cannula Nasal Cannula O2 Flow Rate 2.0 2.0 03/14/17 03/14/17 03/14/17 03/14/17 16:24 19:09 19:16 19:17 Temp 97.6 97.6 Pulse 85 Resp 16 B/P (MAP) 123/54 (77) Pulse Ox 96 99 99 99 O2 Delivery Nasal Cannula Nasal Cannula Nasal Cannula Nasal Cannula O2 Flow Rate 2.0 2.0 2.0 2.0 03/14/17 03/14/17 03/14/17 03/14/17 19:47 19:51 21:16 21:16 Pulse 85 85 Resp 18 B/P (MAP) 123/54 123/54 Pulse Ox 97 O2 Delivery Nasal Cannula Nasal Cannula O2 Flow Rate 2.0 2.0 03/14/17 03/14/17 03/15/17 03/15/17 21:17 22:45 02:00 04:13 Temp 98.4 97.6 98.4 97.6 Pulse 85 82 82 Resp 16 18 16 B/P (MAP) 123/54 132/57 (82) 153/65 (94) Pulse Ox 99 94 O2 Delivery Nasal Cannula Nasal Cannula Nasal Cannula O2 Flow Rate 2.0 2.0 2.0 03/15/17 03/15/17 03/15/17 03/15/17 05:23 07:00 08:00 08:07 Temp 98.2 98.2 Pulse 84 Resp 16 18 B/P (MAP) 159/69 (99) Pulse Ox 100 97 O2 Delivery Nasal Cannula Nasal Cannula Nasal Cannula O2 Flow Rate 2.0 2.0 2.0 03/15/17 03/15/17 03/15/17 03/15/17 08:08 09:21 09:21 09:22 Pulse 82 82 82 B/P (MAP) 153/65 153/65 153/65 Pulse Ox 97 O2 Delivery Nasal Cannula O2 Flow Rate 2.0 03/15/17 03/15/17 03/15/17 03/15/17 10:19 10:27 11:00 11:41 Temp 98.5 98.5 Pulse 82 80 Resp 18 B/P (MAP) 153/65 124/58 (80) Pulse Ox 99 97 O2 Delivery Nasal Cannula Nasal Cannula Nasal Cannula O2 Flow Rate 2.0 2.0 2.0 03/15/17 12:20 Pulse Ox 97 O2 Delivery Nasal Cannula O2 Flow Rate 2.0 Intake and Output 03/14/17 03/14/17 03/15/17 15:00 23:00 07:00 Intake Total 300 ml 240 ml 400 ml Output Total 525 ml 300 ml 225 ml Balance -225 ml -60 ml 175 ml ZENAIDA ROMERO MD Mar 15, 2017 12:41
[2017-03-15 15:00] VITALS: BP 103/52
[2017-03-15 19:47] VITALS: BP 127/58
[2017-03-15] MEDS: GABAPENTIN 300 MG CAPSULE. PO SCH (21:27)
[2017-03-15] MEDS: ATORVASTATIN CALCIUM 40 MG TABLET. PO SCH (21:29)
[2017-03-15] MEDS: MONTELUKAST SODIUM 10 MG TABLET. PO SCH (21:29)
[2017-03-15 23:00] VITALS: BP 135/64
[2017-03-16 03:45] VITALS: BP 160/64
[2017-03-16 07:30] VITALS: BP 153/50
[2017-03-16] MEDS: IPRATRPIUM/ALBUTEROL 0.5/2.5MG 3 ML NEBU. NEB SCH ×4 (07:57→19:50)
[2017-03-16] MEDS: BUDESONIDE 0.5 MG/2 ML NEBU. NEB SCH ×2 (07:57→19:51)
[2017-03-16] MEDS: APIXABAN 5 MG TABLET. PO SCH ×2 (08:41→21:07)
[2017-03-16] MEDS: ASPIRIN ENTERIC COATED 81 MG TABLET.DR. PO SCH (08:41)
[2017-03-16] MEDS: ASCORBIC ACID 500 MG TABLET PO SCH ×2 (08:41→21:04)
[2017-03-16] MEDS: PYRIDOSTIGMINE BROMIDE 60 MG TABLET PO SCH ×4 (08:41→21:07)
[2017-03-16] MEDS: MYCOPHENOLATE MOFETIL 250 MG CAPSULE. PO SCH ×2 (08:42→21:05)
--- NOTE | 2017-03-16 08:42 | PDOC ---
PULMONARY PROGRESS NOTES Subjective on 02, is tired, sob better, no cough, has leg pain, Vitals Vital Signs Date Time Temp Pulse Resp B/P (MAP) Pulse Ox O2 Delivery O2 Flow Rate FiO2 03/16/17 07:58 97 Nasal Cannula 2.0 03/16/17 07:30 98.7 82 20 153/50 (84) 98.7 ROS: No Nausea, No Chest Pain General: Alert, Oriented X4 HEENT: Other (nc at perrl, shallow oropharynx, nose clear) Lungs: Other (deminished) Cardiovascular: S1, S2 Abdomen: Soft, Non-tender Neuro Exam: Alert, Oriented Extremities: Other (edema) Skin: Warm Labs Laboratory Tests Test 03/14/17 11:30 03/14/17 14:45 03/14/17 17:21 03/14/17 20:47 Glucose (Fingerstick) 237 mg/dL (70-99) 99 mg/dL (70-99) 141 mg/dL (70-99) Sodium Level 145 mmol/L (136-145) Potassium Level 4.3 mmol/L (3.5-5.1) Chloride Level 107 mmol/L (98-107) Carbon Dioxide Level 33 mmol/L (21-32) Anion Gap 5 (6-14) Blood Urea Nitrogen 23 mg/dL (7-20) Creatinine 1.2 mg/dL (0.6-1.0) Estimated GFR (Cockcroft-Gault) 55.1 Glucose Level 133 mg/dL (70-99) Calcium Level 7.9 mg/dL (8.5-10.1) Magnesium Level 1.9 mg/dL (1.8-2.4) Test 03/15/17 00:02 03/15/17 08:44 03/15/17 11:52 03/15/17 15:59 Glucose (Fingerstick) 138 mg/dL (70-99) 125 mg/dL (70-99) 307 mg/dL (70-99) 347 mg/dL (70-99) Test 03/15/17 20:57 Glucose (Fingerstick) 381 mg/dL (70-99) Laboratory Tests Test 03/15/17 08:44 03/15/17 11:52 03/15/17 15:59 03/15/17 20:57 Glucose (Fingerstick) 125 mg/dL (70-99) 307 mg/dL (70-99) 347 mg/dL (70-99) 381 mg/dL (70-99) Medications Active Scripts Medications Dose Route/Sig Max Daily Dose Days Date Category Dose Instructions Terbutaline Sulfate 2.5 Mg Tablet 2.5 Mg PO TID 03/11/17 Reported Novolog Flexpen (Insulin Aspart) 100 Unit/1 Ml Insuln.pen 30 Unit SQ TIDWMEALS 03/11/17 Reported Cellcept (Mycophenolate Mofetil) 500 Mg Tablet 3 Tab PO HS 03/11/17 Reported Cellcept (Mycophenolate Mofetil) 500 Mg Tablet 2 Tab PO DAILY 03/11/17 Reported Prednisone 10 Mg Tablet 30 Mg PO DAILY 10/05/16 Rx Furosemide 40 Mg Tablet 40 Mg PO DAILY 10/05/16 Rx Vitamin C (Ascorbic Acid) 500 Mg Tablet 500 Mg PO BID 10/05/16 Rx Eliquis (Apixaban) 5 Mg Tablet 5 Mg PO BID 09/29/16 Reported Fosamax (Alendronate Sodium) 70 Mg Tablet 1 Tab PO QSU 09/29/16 Reported Probiotic (Bacillus Coagulans) 1 Each Capsule.dr 1 Each PO PRN 09/29/16 Reported Cellcept (Mycophenolate Mofetil) 500 Mg Tablet 1 Tab PO BID 09/29/16 Reported Ventolin Hfa Inhaler (Albuterol Sulfate) 18 Gm Hfa.aer.ad 2 Puff INH Q4HRS 04/30/16 Reported Multiple Vitamin (Multivitamin With Minerals) 1 Each Tablet 1 Each PO 04/23/16 Reported Rosuvastatin Calcium 10 Mg Tablet 10 Mg PO DAILY 04/23/16 Reported Pyridostigmine [place] 60 Mg Tablet 60 Mg PO QID 04/23/16 Reported Pantoprazole Sodium 40 Mg Tablet. 1 Tab PO DAILY 04/23/16 Reported Metoprolol Tartrate 50 Mg Tablet 1 Tab PO BID 04/23/16 Reported Levemir Flextouch (Insulin Detemir) 100 Unit/1 Ml Insuln.pen Unit SQ BIDAC 04/23/16 Reported 40 units in am, 25 units evening Hydrocodone-Apap 5-325 (Hydrocodone Bit/Acetaminophen) 1 Each Tablet 1 Tab PO PRN Q6HRS PRN 04/23/16 Reported Hydralazine Hcl 10 Mg Tablet 1 Tab PO TID 04/23/16 Reported Gabapentin 300 Mg Capsule 300 Mg PO QHS 04/23/16 Reported Impression . IMPRESSION: 1. [id number] respiratory failure, multifactorial in etiology including acute diastolic congestive heart failure, asthma, obstructive sleep apnea-hypopnea syndrome, obesity hypoventilation syndrome versus others. 2. Abnormal chest x-ray. 3. Acute diastolic congestive heart failure. 4. Asthma, rule out chronic obstructive pulmonary disease. 5. Obstructive sleep apnea-hypopnea syndrome. 6. Obesity and deconditioning. 7. Paroxysmal atrial fibrillation. 8. Hypertension. 9. Diabetes mellitus. 10. Myasthenia gravis. 11. History of left hemidiaphragmatic paralysis. Plan . PLAN AND RECOMMENDATION: 1. Titrate FiO2 to keep O2 saturation 92%. 2. Bronchodilator. 3. Inhaled corticosteroid. 4. Keep intake less than output, on IV Bumex, 5. Monitor potassium and creatinine. 6. Continue Eliquis, monitor for bleeding. 7. Protonix for stress ulcer prophylaxis. 8. 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 I do recommend to obtain her sleep study. She would require CPAP titration, if not done, for treatment of her obstructive sleep apnea-hypopnea syndrome. 9. Lose weight. 10. Exercise. 11. Monitor respiratory status very closely. 12. pfts The findings and recommendations were discussed with the patient. She understood and agreed to proceed with the plan. I have answered all of her questions. BETINA BENITEZ MD Mar 16, 2017 08:42
[2017-03-16] MEDS: PANTOPRAZOLE 40 MG TABLET.DR. PO SCH (08:43)
[2017-03-16] MEDS: TERBUTALINE 2.5 MG PO SCH ×3 (08:43→21:06)
[2017-03-16] MEDS: HYDROcodone/APAP 5/325MG 1 TAB TABLET PO PRN ×3 (08:43→21:04)
[2017-03-16] MEDS: hydrALAZINE 10 MG TABLET PO SCH ×3 (08:44→21:06)
[2017-03-16] MEDS: METOPROLOL TART IMMED RELEASE 50 MG TABLET. PO SCH ×2 (08:44→21:07)
[2017-03-16] MEDS: LACTOBACILLUS ACIDOPH & BULGAR 1 TABLET. PO SCH ×3 (08:44→17:00)
[2017-03-16] MEDS: predniSONE 10 MG TABLET PO SCH (08:45)
[2017-03-16] MEDS: ISOSORBIDE MONONITRATE ER 30 MG TAB.ER.24H PO SCH (08:45)
[2017-03-16] MEDS: INSULIN ASPART 300 UNITS/3 ML INSULN.PEN SQ SCH ×6 (08:54→17:00)
[2017-03-16] MEDS: INSULIN DETEMIR 300 UNITS/3 ML INSULN.PEN. SQ SCH ×2 (08:55→21:13)
[2017-03-16] MEDS: BUMETANIDE 1 MG/4 ML VIAL. IV SCH (09:07)
[2017-03-16] MEDS: ANTI-COAG MONITOR BY PHARMACY. MC PRN (09:15)
[2017-03-16 11:00] VITALS: BP 133/58
--- NOTE | 2017-03-16 11:59 | PDOC ---
PROGRESS NOTES Chief Complaint Chief Complaint bl leg edema 2/2 chronic lymphedema and venous insufficiency likely Chronic CHF with diastolic dysfunction Elevated troponin with chf hx PAFIB on eliquis, sinus now Restrictive lung disease/ROBERTO hx CAD; CABG in 2000 HTN HLP Hx of CVA/TIA DM2 with retinopathy and hYPOGLYCEMIA Hx of myasthenia gravis: intermittent plasmapheresis last treatment 03/2016. Hx of IgA monoclonal gammopathy leg wound, chronically CKD3 atypical chest pain, gi possibly Allergy to IV dye. morbid obesity h/o diaphram paralyse Hypoxic respi failure History of Present Illness History of Present Illness I saw the venous stasis ulcer, painful during dressing changes Weight today 213, on IV bumex 2gms BID PEr cards, shift to PO bumex once goal weight is achieved 205. HAs Home O2 etc already being set up by her [facility] primary Dr Holland. Desats when walks? Pulmo has no other further recs than what we are doing PLAN: COnt bumex Goal weight is 205 lbs then will shift to PO bumex per cards plans MOnitor lytes while on diuresis PT/OT Keep legs elevated Lidoderm cream prior to dressing changes HOme O2 on the works - working with [facility] Primary Dr Holland PCP Add wound care consult Vitals Vitals Vital Signs Date Time Temp Pulse Resp B/P (MAP) Pulse Ox O2 Delivery O2 Flow Rate FiO2 03/16/17 11:00 97.9 79 18 133/58 (83) 99 Nasal Cannula 2.0 97.9 Physical Exam General: Alert, Oriented X3, Cooperative, mild distress Heart: Regular rate (SR), Normal S1, Normal S2, Other (4/6 ssytolic murmur to NORMA border) Lungs: Other (deminished) Abdomen: Normal bowel sounds Extremities: No cyanosis, Other (2+ bilateral LE pitting edema) Skin: Other (RLE venous stasis ulcer to posterior calf) Labs LABS Laboratory Tests Test 03/15/17 15:59 03/15/17 20:57 Glucose (Fingerstick) 347 mg/dL (70-99) 381 mg/dL (70-99) Review of Systems Review of Systems SOA, leg pain on wound site, all else is neg Assessment and Plan Assessmemt and Plan Problems Medical Problems: (1) Dyspnea Status: Acute (2) Elevated troponin Status: Acute Problems: Comment Review of Relevant I have reviewed the following items omer (where applicable) has been applied. Labs Laboratory Tests Test 03/14/17 14:45 03/14/17 17:21 03/14/17 20:47 03/15/17 00:02 Sodium Level 145 mmol/L (136-145) Potassium Level 4.3 mmol/L (3.5-5.1) Chloride Level 107 mmol/L (98-107) Carbon Dioxide Level 33 mmol/L (21-32) Anion Gap 5 (6-14) Blood Urea Nitrogen 23 mg/dL (7-20) Creatinine 1.2 mg/dL (0.6-1.0) Estimated GFR (Cockcroft-Gault) 55.1 Glucose Level 133 mg/dL (70-99) Calcium Level 7.9 mg/dL (8.5-10.1) Magnesium Level 1.9 mg/dL (1.8-2.4) Glucose (Fingerstick) 99 mg/dL (70-99) 141 mg/dL (70-99) 138 mg/dL (70-99) Test 03/15/17 08:44 03/15/17 11:52 03/15/17 15:59 03/15/17 20:57 Glucose (Fingerstick) 125 mg/dL (70-99) 307 mg/dL (70-99) 347 mg/dL (70-99) 381 mg/dL (70-99) Laboratory Tests Test 03/15/17 15:59 03/15/17 20:57 Glucose (Fingerstick) 347 mg/dL (70-99) 381 mg/dL (70-99) Medications Current Medications Aspirin (Liza Aspirin) 325 mg 1X ONCE PO Last administered on 03/11/17 09:01 ; Start 03/11/17 at 08:30; Stop 03/11/17 at 08:31; Status DC Clonidine HCl (Catapres) 0.2 mg 1X ONCE PO Last administered on 03/11/17 11: 55; Start 03/11/17 at 10:15; Stop 03/11/17 at 10:16; Status DC Ondansetron HCl (Zofran) 4 mg PRN Q8HRS PRN IV NAUSEA/VOMITING; Start 03/11/17 at 11:00; Stop 03/11/17 at 18:35; Status DC Morphine Sulfate 2 mg PRN Q2HR PRN IV PAIN Last administered on 03/11/17 17:19 ; Start 03/11/17 at 11:00; Stop 03/11/17 at 18:35; Status DC Nitroglycerin (Nitrostat) 0.4 mg PRN Q5MIN PRN SL CHEST PAIN; Start 03/11/17 at 11:00; Stop 03/11/17 at 18:35; Status DC Labetalol HCl (Normodyne) 10 mg Q6HRS PRN IVP ELEVATED BP, SEE COMMENTS; Start 03/11/17 at 11:00; Stop 03/11/17 at 11:00; Status DC Labetalol HCl (Normodyne) 10 mg PRN Q6HRS PRN IVP ELEVATED BP, SEE COMMENTS; Start 03/11/17 at 11:00 Insulin Human Regular (NovoLIN R VIAL) 8 unit 1X ONCE IV ; Start 03/11/17 at 11 :30; Stop 03/11/17 at 11:31; Status DC Insulin Aspart (NovoLOG) 0-9 UNITS TIDWMEALS SQ Last administered on 03/16/17 08:54; Start 03/11/17 at 17:00 Dextrose (Dextrose 50%-Water Syringe) 12.5 gm PRN Q15MIN PRN IV SEE COMMENTS; Start 03/11/17 at 13:30 Bumetanide (Bumex) 2 mg BID94 IV Last administered on 03/14/17 10:41; Start at 16:00; Stop 03/14/17 at 15:54; Status DC Isosorbide Mononitrate (Imdur) 30 mg DAILY PO Last administered on 03/16/17 08 :45; Start 03/11/17 at 16:00 Metoprolol Tartrate (Lopressor) 50 mg BID PO Last administered on 03/16/17 08: 44; Start 03/11/17 at 21:00 Labetalol HCl (Normodyne) 20 mg PRN Q2HR PRN IVP HYPERTENSION, SEE COMMENTS; Start 03/11/17 at 15:30; Stop 03/12/17 at 13:36; Status DC Hydralazine HCl (Apresoline) 10 mg PRN Q4HRS PRN IVP ELEVATED BP, SEE COMMENTS ; Start 03/11/17 at 15:30 Aspirin (Ecotrin) 81 mg [id number] PO Last administered on 03/16/17 08:41; Start 03/11/17 at 16:00 Apixaban (Eliquis) 5 mg BID PO Last administered on 03/16/17 08:41; Start at 21:00 Pantoprazole Sodium (Protonix) 40 mg DAILYAC PO Last administered on 03/16/17 08:43; Start 03/11/17 at 16:30 Info (Anti-Coagulation Monitoring By Pharmacy) 1 each PRN DAILY PRN MC SEE COMMENTS Last administered on 03/16/17 09:15; Start 03/11/17 at 16:00 Apixaban (Eliquis) 5 mg BID PO ; Start 03/11/17 at 21:00; Status UNV Ascorbic Acid (Vitamin C) 500 mg BID PO Last administered on 03/16/17 08:41; Start 03/11/17 at 21:00 Furosemide (Lasix) 40 mg DAILY PO ; Start 03/12/17 at 09:00; Status UNV Hydralazine HCl (Apresoline) 10 mg TID PO Last administered on 03/16/17 08:44 ; Start 03/11/17 at 21:00 Acetaminophen/ Hydrocodone Bitart (Lortab 5/325) 1 tab PRN Q6HRS PRN PO PAIN Last administered on 03/16/17 08:43; Start 03/11/17 at 18:30 Insulin Aspart (NovoLOG) 30 units TIDWMEALS SQ Last administered on 03/16/17 08:55; Start 03/11/17 at 19:00 Insulin Detemir (Levemir) 25 units QHS SQ Last administered on 03/11/17 21:37 ; Start 03/11/17 at 21:00; Stop 03/12/17 at 10:34; Status DC Metoprolol Tartrate (Lopressor) 50 mg BID PO ; Start 03/11/17 at 21:00; Status UNV Pantoprazole Sodium (Protonix) 40 mg DAILY PO ; Start 03/12/17 at 09:00; Status UNV Prednisone (Prednisone) 10 mg DAILY PO Last administered on 03/16/17 08:45; Start 03/12/17 at 09:00 Pyridostigmine [place] (Mestinon) 60 mg QID PO Last administered on 03/16/17 08:41; Start 03/11/17 at 21:00 Terbutaline Sulfate (Brethine) 2.5 mg TID PO Last administered on 03/16/17 08: 43; Start 03/11/17 at 21:00 Non-Formulary Medication 2 puff Q4HRS INH ; Start 03/11/17 at 20:00; Status UNV Gabapentin (Neurontin) 300 mg QHS PO Last administered on 03/15/17 21:27; Start 03/11/17 at 21:00 Mycophenolate Mofetil (Cellcept) 1,000 mg DAILY PO Last administered on 08:42; Start 03/12/17 at 09:00 Mycophenolate Mofetil (Cellcept) 1,500 mg QHS PO Last administered on 21:25; Start 03/11/17 at 21:00 Atorvastatin Calcium (Lipitor) 40 mg QHS PO Last administered on 03/15/17 21: 29; Start 03/11/17 at 21:00 Lactobacillus Acidophilus (Bacid, Alyssa-Bid) 1 tab TIDWMEALS PO Last administered on 03/16/17 08:44; Start 03/12/17 at 08:00 Insulin Detemir (Levemir) 40 units DAILYAC SQ Last administered on 03/12/17 09 :53; Start 03/12/17 at 07:30; Stop 03/12/17 at 10:40; Status DC Albuterol Sulfate (Ventolin Neb Soln) 2.5 mg Q4HRS NEB Last administered on 20:14; Start 03/11/17 at 20:00; Stop 03/12/17 at 06:48; Status DC Doxycycline Hyclate (Vibra-Tab) 100 mg BID PO Last administered on 03/12/17 09 :34; Start 03/11/17 at 19:30; Stop 03/12/17 at 13:30; Status DC Heparin Sodium (Porcine) (Heparin Sq) 5,000 unit Q8HRS SQ Last administered on 03/12/17 13:12; Start 03/11/17 at 22:00; Stop 03/12/17 at 13:36; Status DC Pantoprazole Sodium (Protonix) 40 mg DAILYAC PO ; Start 03/12/17 at 07:30; Status UNV Albuterol Sulfate (Ventolin Neb Soln) 2.5 mg RTQID NEB Last administered on 13:26; Start 03/12/17 at 07:00; Stop 03/14/17 at 14:28; Status DC Insulin Detemir (Levemir) 40 units BID SQ Last administered on 03/14/17 09:08 ; Start 03/12/17 at 21:00; Stop 03/14/17 at 09:53; Status DC Insulin Detemir (Levemir) 40 units QHS SQ Last administered on 03/15/17 21:34 ; Start 03/14/17 at 21:00 Insulin Detemir (Levemir) 30 units DAILY SQ Last administered on 03/16/17 08: 55; Start 03/15/17 at 09:00 Albuterol/ Ipratropium (Duoneb) 3 ml RTQID NEB Last administered on 03/16/17 10:53; Start 03/14/17 at 16:00 Budesonide (Pulmicort) 0.5 mg RTBID NEB Last administered on 03/16/17 07:57; Start 03/14/17 at 20:00 Montelukast Sodium (Singulair) 10 mg QHS PO Last administered on 03/15/17 21: 29; Start 03/14/17 at 21:00 Bumetanide (Bumex) 2 mg DAILY IV Last administered on 03/16/17 09:07; Start at 09:00 Active Scripts Active Prednisone 10 Mg Tablet 30 Mg PO DAILY Furosemide 40 Mg Tablet 40 Mg PO DAILY Vitamin C (Ascorbic Acid) 500 Mg Tablet 500 Mg PO BID Reported Terbutaline Sulfate 2.5 Mg Tablet 2.5 Mg PO TID Novolog Flexpen (Insulin Aspart) 100 Unit/1 Ml Insuln.pen 30 Unit SQ TIDWMEALS Cellcept (Mycophenolate Mofetil) 500 Mg Tablet 3 Tab PO HS Cellcept (Mycophenolate Mofetil) 500 Mg Tablet 2 Tab PO DAILY Eliquis (Apixaban) 5 Mg Tablet 5 Mg PO BID Fosamax (Alendronate Sodium) 70 Mg Tablet 1 Tab PO QSU Probiotic (Bacillus Coagulans) 1 Each Capsule.dr 1 Each PO PRN Cellcept (Mycophenolate Mofetil) 500 Mg Tablet 1 Tab PO BID Ventolin Hfa Inhaler (Albuterol Sulfate) 18 Gm Hfa.aer.ad 2 Puff INH Q4HRS Multiple Vitamin (Multivitamin With Minerals) 1 Each Tablet 1 Each PO Rosuvastatin Calcium 10 Mg Tablet 10 Mg PO DAILY Pyridostigmine [place] 60 Mg Tablet 60 Mg PO QID Pantoprazole Sodium 40 Mg Tablet. 1 Tab PO DAILY Metoprolol Tartrate 50 Mg Tablet 1 Tab PO BID Levemir Flextouch (Insulin Detemir) 100 Unit/1 Ml Insuln.pen Unit SQ BIDAC 40 units in am, 25 units evening Hydrocodone-Apap 5-325 (Hydrocodone Bit/Acetaminophen) 1 Each Tablet 1 Tab PO PRN Q6HRS PRN Hydralazine Hcl 10 Mg Tablet 1 Tab PO TID Gabapentin 300 Mg Capsule 300 Mg PO QHS Vitals/I & O Vital Sign - Last 24 Hours 03/15/17 03/15/17 03/15/17 03/15/17 12:20 15:00 15:19 15:20 Temp 98.8 98.8 Pulse 90 80 80 Resp 18 B/P (MAP) 103/52 (69) 124/58 124/58 Pulse Ox 97 97 O2 Delivery Nasal Cannula Nasal Cannula O2 Flow Rate 2.0 2.0 03/15/17 03/15/17 03/15/17 03/15/17 15:21 15:42 19:17 19:18 Pulse Ox 97 97 O2 Delivery Nasal Cannula Nasal Cannula Nasal Cannula Nasal Cannula O2 Flow Rate 2.0 2.0 2.0 2.0 03/15/17 03/15/17 03/15/17 03/15/17 19:19 19:47 21:27 21:28 Temp 98.1 98.1 Pulse 86 86 Resp 18 16 B/P (MAP) 127/58 (81) 127/58 Pulse Ox 95 O2 Delivery Nasal Cannula Nasal Cannula Nasal Cannula O2 Flow Rate 2.0 2.0 2.0 03/15/17 03/15/17 03/15/17 03/16/17 21:28 21:29 23:00 03:45 Temp 98.0 98.2 98.0 98.2 Pulse 86 86 77 75 Resp 18 20 B/P (MAP) 127/58 127/58 135/64 (87) 160/64 (96) Pulse Ox 96 98 O2 Delivery Nasal Cannula Nasal Cannula O2 Flow Rate 2.0 2.0 03/16/17 03/16/17 03/16/17 03/16/17 07:30 07:55 07:58 08:43 Temp 98.7 98.7 Pulse 82 Resp 20 18 B/P (MAP) 153/50 (84) Pulse Ox 98 97 97 O2 Delivery Nasal Cannula Nasal Cannula Nasal Cannula Nasal Cannula O2 Flow Rate 2.0 2.0 2.0 2.0 03/16/17 03/16/17 03/16/17 03/16/17 08:43 08:44 08:44 08:45 Pulse 82 82 82 82 B/P (MAP) 153/50 153/50 153/50 153/50 03/16/17 03/16/17 03/16/17 09:44 10:54 11:00 Temp 97.9 97.9 Pulse 79 Resp 18 18 B/P (MAP) 133/58 (83) Pulse Ox 97 99 O2 Delivery Nasal Cannula Nasal Cannula Nasal Cannula O2 Flow Rate 2.0 2.0 2.0 Intake and Output 03/15/17 03/15/17 03/16/17 15:00 23:00 07:00 Intake Total 440 ml 200 ml 750 ml Output Total 600 ml 450 ml Balance 440 ml -400 ml 300 ml ZENAIDA ROMERO MD Mar 16, 2017 11:59
[2017-03-16] MEDS ORDERED: LIDOCAINE (700MG/PATCH) PATCH. TD SCH (12:30)
[2017-03-16] MEDS ORDERED: LIDOCAINE 2% TOPICAL JELLY 5GM TUBE. TP PRN (14:00)
[2017-03-16 14:38] VITALS: BP 155/78
[2017-03-16 19:35] VITALS: BP 131/51
[2017-03-16] MEDS: GABAPENTIN 300 MG CAPSULE. PO SCH (21:04)
[2017-03-16] MEDS: MONTELUKAST SODIUM 10 MG TABLET. PO SCH (21:05)
[2017-03-16] MEDS: ATORVASTATIN CALCIUM 40 MG TABLET. PO SCH (21:06)
[2017-03-16 22:25] VITALS: BP 201/79
[2017-03-17 03:15] VITALS: BP 141/53
[2017-03-17] MEDS: BUDESONIDE 0.5 MG/2 ML NEBU. NEB SCH ×2 (07:22→19:17)
[2017-03-17] MEDS: IPRATRPIUM/ALBUTEROL 0.5/2.5MG 3 ML NEBU. NEB SCH ×4 (07:22→19:17)
[2017-03-17 07:43] VITALS: BP 151/77
[2017-03-17] MEDS: TERBUTALINE 2.5 MG PO SCH ×3 (08:01→21:44)
[2017-03-17] MEDS: PYRIDOSTIGMINE BROMIDE 60 MG TABLET PO SCH ×4 (08:02→21:45)
[2017-03-17] MEDS: APIXABAN 5 MG TABLET. PO SCH ×2 (08:02→21:44)
[2017-03-17] MEDS: ASCORBIC ACID 500 MG TABLET PO SCH ×2 (08:02→21:44)
[2017-03-17] MEDS: predniSONE 10 MG TABLET PO SCH (08:02)
[2017-03-17] MEDS: LACTOBACILLUS ACIDOPH & BULGAR 1 TABLET. PO SCH ×3 (08:02→17:17)
[2017-03-17] MEDS: ASPIRIN ENTERIC COATED 81 MG TABLET.DR. PO SCH (08:02)
[2017-03-17] MEDS: MYCOPHENOLATE MOFETIL 250 MG CAPSULE. PO SCH ×2 (08:02→21:44)
[2017-03-17] MEDS: HYDROcodone/APAP 5/325MG 1 TAB TABLET PO PRN ×2 (08:02→17:17)
[2017-03-17] MEDS: PANTOPRAZOLE 40 MG TABLET.DR. PO SCH (08:02)
[2017-03-17] MEDS: hydrALAZINE 10 MG TABLET PO SCH ×3 (08:03→21:44)
[2017-03-17] MEDS: METOPROLOL TART IMMED RELEASE 50 MG TABLET. PO SCH ×2 (08:04→21:45)
[2017-03-17] MEDS: ISOSORBIDE MONONITRATE ER 30 MG TAB.ER.24H PO SCH (08:04)
[2017-03-17] MEDS: BUMETANIDE 1 MG/4 ML VIAL. IV SCH (08:05)
[2017-03-17] MEDS: INSULIN DETEMIR 300 UNITS/3 ML INSULN.PEN. SQ SCH ×2 (08:22→21:50)
[2017-03-17] MEDS: INSULIN ASPART 300 UNITS/3 ML INSULN.PEN SQ SCH ×6 (08:23→17:00)
--- NOTE | 2017-03-17 10:16 | PDOC ---
PULMONARY PROGRESS NOTES Subjective pt still soa at times Vitals Vital Signs Date Time Temp Pulse Resp B/P (MAP) Pulse Ox O2 Delivery O2 Flow Rate FiO2 03/17/17 09:02 Nasal Cannula 2.0 03/17/17 08:04 88 151/77 03/17/17 07:43 98.0 21 96 98.0 ROS: No Nausea, No Chest Pain, No Abdominal Pain, No Increase Cough General: Alert, Oriented X4 HEENT: Other (nc at perrl, shallow oropharynx, nose clear) Lungs: Other (deminished) Cardiovascular: S1, S2 Abdomen: Soft, Non-tender Neuro Exam: Alert, Oriented Extremities: Other (edema) Skin: Warm Labs Laboratory Tests Test 03/15/17 11:52 03/15/17 15:59 03/15/17 20:57 03/16/17 07:33 Glucose (Fingerstick) 307 mg/dL (70-99) 347 mg/dL (70-99) 381 mg/dL (70-99) 254 mg/dL (70-99) Test 03/16/17 11:43 03/16/17 17:04 03/16/17 17:35 03/16/17 20:54 Glucose (Fingerstick) 120 mg/dL (70-99) 66 mg/dL (70-99) 81 mg/dL (70-99) 196 mg/dL (70-99) Laboratory Tests Test 03/16/17 11:43 03/16/17 17:04 03/16/17 17:35 03/16/17 20:54 Glucose (Fingerstick) 120 mg/dL (70-99) 66 mg/dL (70-99) 81 mg/dL (70-99) 196 mg/dL (70-99) Medications Active Scripts Medications Dose Route/Sig Max Daily Dose Days Date Category Dose Instructions Terbutaline Sulfate 2.5 Mg Tablet 2.5 Mg PO TID 03/11/17 Reported Novolog Flexpen (Insulin Aspart) 100 Unit/1 Ml Insuln.pen 30 Unit SQ TIDWMEALS 03/11/17 Reported Cellcept (Mycophenolate Mofetil) 500 Mg Tablet 3 Tab PO HS 03/11/17 Reported Cellcept (Mycophenolate Mofetil) 500 Mg Tablet 2 Tab PO DAILY 03/11/17 Reported Prednisone 10 Mg Tablet 30 Mg PO DAILY 10/05/16 Rx Furosemide 40 Mg Tablet 40 Mg PO DAILY 10/05/16 Rx Vitamin C (Ascorbic Acid) 500 Mg Tablet 500 Mg PO BID 10/05/16 Rx Eliquis (Apixaban) 5 Mg Tablet 5 Mg PO BID 09/29/16 Reported Fosamax (Alendronate Sodium) 70 Mg Tablet 1 Tab PO QSU 09/29/16 Reported Probiotic (Bacillus Coagulans) 1 Each Capsule.dr 1 Each PO PRN 09/29/16 Reported Cellcept (Mycophenolate Mofetil) 500 Mg Tablet 1 Tab PO BID 09/29/16 Reported Ventolin Hfa Inhaler (Albuterol Sulfate) 18 Gm Hfa.aer.ad 2 Puff INH Q4HRS 04/30/16 Reported Multiple Vitamin (Multivitamin With Minerals) 1 Each Tablet 1 Each PO 04/23/16 Reported Rosuvastatin Calcium 10 Mg Tablet 10 Mg PO DAILY 04/23/16 Reported Pyridostigmine [place] 60 Mg Tablet 60 Mg PO QID 04/23/16 Reported Pantoprazole Sodium 40 Mg Tablet.dr 1 Tab PO DAILY 04/23/16 Reported Metoprolol Tartrate 50 Mg Tablet 1 Tab PO BID 04/23/16 Reported Levemir Flextouch (Insulin Detemir) 100 Unit/1 Ml Insuln.pen Unit SQ BIDAC 04/23/16 Reported 40 units in am, 25 units evening Hydrocodone-Apap 5-325 (Hydrocodone Bit/Acetaminophen) 1 Each Tablet 1 Tab PO PRN Q6HRS PRN 04/23/16 Reported Hydralazine Hcl 10 Mg Tablet 1 Tab PO TID 04/23/16 Reported Gabapentin 300 Mg Capsule 300 Mg PO QHS 04/23/16 Reported Impression . IMPRESSION: 1. [id number]-hqkhjlm respiratory failure, multifactorial in etiology including acute diastolic congestive heart failure 2. Abnormal chest x-ray. 3. Acute diastolic congestive heart failure. 4. Asthma 5. Obstructive sleep apnea-hypopnea syndrome. 6. Obesity and deconditioning. 7. Paroxysmal atrial fibrillation. 8. Hypertension. 9. Diabetes mellitus. 10. Myasthenia gravis. 11. History of left hemidiaphragmatic paralysis. Plan . CONTINUE TO DIURESE 6 MIN WALK PRIOR TO D/C 1. Titrate FiO2 to keep O2 saturation 92%. 2. Bronchodilator. 3. Inhaled corticosteroid. 4. Keep intake less than output, on IV Bumex, 5. Monitor potassium and creatinine. 6. Continue Eliquis, monitor for bleeding. 7. Protonix for stress ulcer prophylaxis. 8. outpt sleep study 9. Lose weight. 10. Exercise. NABILA ALONSO MD Mar 17, 2017 10:16
[2017-03-17 10:33] LABS: CALCIUM 8.7 mg/dL (8.5-10.1); MAGNESIUM 1.9 mg/dL (1.8-2.4); POTASSIUM 4.2 mmol/L (3.5-5.1)
[2017-03-17 11:09] VITALS: BP 149/69
--- NOTE | 2017-03-17 11:13 | PDOC ---
CALVIN ROSALES PRE BILLING SPECIALIST 03/17/17 1113: CARDIO Progress Notes Date and Time Date of Service 03/17/2017 Time of Evaluation 1100 Subjective Subjective: No Chest Pain, No Palpitations, No Dizziness, Other (still has HERNANDEZ) Vitals Vitals Vital Signs Date Time Temp Pulse Resp B/P (MAP) Pulse Ox O2 Delivery O2 Flow Rate FiO2 03/17/17 09:02 Nasal Cannula 2.0 03/17/17 08:04 88 151/77 03/17/17 07:43 98.0 21 96 98.0 Weight Weight [ ] Input and Output Intake and Output Intake and Output 03/17/17 07:00 Intake Total 820 ml Output Total 1375 ml Balance -555 ml Intake Oral 820 ml Output Urine Total 1375 ml Laboratory Labs Laboratory Tests Test 03/16/17 11:43 03/16/17 17:04 03/16/17 17:35 03/16/17 20:54 Glucose (Fingerstick) 120 mg/dL (70-99) 66 mg/dL (70-99) 81 mg/dL (70-99) 196 mg/dL (70-99) Test 03/17/17 10:10 Sodium Level 142 mmol/L (136-145) Potassium Level 4.2 mmol/L (3.5-5.1) Chloride Level 103 mmol/L (98-107) Carbon Dioxide Level 35 mmol/L (21-32) Anion Gap 4 (6-14) Blood Urea Nitrogen 20 mg/dL (7-20) Creatinine 1.0 mg/dL (0.6-1.0) Estimated GFR (Cockcroft-Gault) 68.0 Glucose Level 231 mg/dL (70-99) Calcium Level 8.7 mg/dL (8.5-10.1) Magnesium Level 1.9 mg/dL (1.8-2.4) Physical Exam HEENT: Neck Supple W Full Motion Chest: Symmetric LUNGS: Clear to Auscultation Heart: S1S2, RRR (SR) Abdomen: Soft N/T Extremities: No Calf Tenderness, Other (2+ bilateral LE pitting edema; leg wraps in place) Neurology: alert, oriented, follow commands Assessment Assessment 1. Acute on chronic diastolic CHF: remains with HERNANDEZ. Multifactorial 2. Malignant HTN: better 3. PAFIB: remains in SR 4. Chronic lymphedema 5 Hx of left hemidiaphragm paralysis: Pulmonary following. Recommendations 1. Convert to PO bumex. 2. PFTs pending today. Repeat 6 minute walk 3. Limited TTE and will note ASD/PFO and PAP. Will consider RHC pending diagnostics. 4. Continue current regimen. Eliquis for stroke prevention 5. Compression hose per lymphedema specialist 6. BMP and Mg today 7. Follow pulmonary recommendations BEATRICE TREJO MD 03/17/17 2156: CARDIO Progress Notes Plan Plan Pt. seen and examined. Agree with above APPRENTICESHIP REPRESENTATIVE note. Weight has been stable over the weekend. She has chronic LLE lymphedema. No significant chest pain. Persistent hypoxic resp failure Do not feel that she is volume overloaded. Convert to p.o bumex. CXR are clear of any fluid. She has no right to left shunt. Awaiting PFT's. Mild to moderate pulm HTN - secondary Will follow along. CALVIN ROSALES APRN Mar 17, 2017 11:13 BEATRICE TREJO MD Mar 17, 2017 21:56
[2017-03-17] MEDS ORDERED: MORPHINE ER 15 MG TABLET.ER PO ONE (11:30)
--- NOTE | 2017-03-17 12:30 | PDOC ---
PROGRESS NOTES Chief Complaint Chief Complaint bl leg edema 2/2 chronic lymphedema and venous insufficiency likely Chronic CHF with diastolic dysfunction Elevated troponin with chf hx PAFIB on eliquis, sinus now Restrictive lung disease/ROBERTO hx CAD; CABG in 2000 HTN HLP Hx of CVA/TIA DM2 with retinopathy and Hx of myasthenia gravis: intermittent plasmapheresis last treatment 03/2016. Hx of IgA monoclonal gammopathy leg wound, chronically CKD3 atypical chest pain, gi possibly obesity, BMI 37 Hypoxic respi failure History of Present Illness History of Present Illness complains of pain from venous stasis ulcer, painful during dressing changes Weight today 212, down 1 pound since yesterday,s/p IV bumex plan PO bumex for DC Desats when walks, will need 6 min walk for DC, cannot walk far now, plan SNU? Keep legs elevated, lymphedema cosnult Lidoderm cream prior to dressing changes Add wound care consult Vitals Vitals Vital Signs Date Time Temp Pulse Resp B/P (MAP) Pulse Ox O2 Delivery O2 Flow Rate FiO2 03/17/17 11:49 Nasal Cannula 2.0 03/17/17 11:23 96 03/17/17 11:09 98.0 80 22 149/69 (95) 98.0 Physical Exam General: Alert, Oriented X3, Cooperative, mild distress Heart: Regular rate (SR), Normal S1, Normal S2, Other (4/6 ssytolic murmur to NORMA border) Lungs: Other (deminished) Abdomen: Normal bowel sounds Extremities: No cyanosis, Other (2+ bilateral LE pitting edema) Skin: Other (RLE venous stasis ulcer to posterior calf) Labs LABS Laboratory Tests Test 03/16/17 17:04 03/16/17 17:35 03/16/17 20:54 03/17/17 10:10 Glucose (Fingerstick) 66 mg/dL (70-99) 81 mg/dL (70-99) 196 mg/dL (70-99) Sodium Level 142 mmol/L (136-145) Potassium Level 4.2 mmol/L (3.5-5.1) Chloride Level 103 mmol/L (98-107) Carbon Dioxide Level 35 mmol/L (21-32) Anion Gap 4 (6-14) Blood Urea Nitrogen 20 mg/dL (7-20) Creatinine 1.0 mg/dL (0.6-1.0) Estimated GFR (Cockcroft-Gault) 68.0 Glucose Level 231 mg/dL (70-99) Calcium Level 8.7 mg/dL (8.5-10.1) Magnesium Level 1.9 mg/dL (1.8-2.4) Review of Systems Review of Systems pain 7 or 9/10 unable to do PT due to pain, will try MS contin x1 now normal stool, no n/v Assessment and Plan Assessmemt and Plan Problems Medical Problems: (1) Dyspnea Status: Acute (2) Elevated troponin Status: Acute Problems: Comment Review of Relevant I have reviewed the following items omer (where applicable) has been applied. Labs Laboratory Tests Test 03/15/17 15:59 03/15/17 20:57 03/16/17 07:33 03/16/17 11:43 Glucose (Fingerstick) 347 mg/dL (70-99) 381 mg/dL (70-99) 254 mg/dL (70-99) 120 mg/dL (70-99) Test 03/16/17 17:04 03/16/17 17:35 03/16/17 20:54 03/17/17 10:10 Glucose (Fingerstick) 66 mg/dL (70-99) 81 mg/dL (70-99) 196 mg/dL (70-99) Sodium Level 142 mmol/L (136-145) Potassium Level 4.2 mmol/L (3.5-5.1) Chloride Level 103 mmol/L (98-107) Carbon Dioxide Level 35 mmol/L (21-32) Anion Gap 4 (6-14) Blood Urea Nitrogen 20 mg/dL (7-20) Creatinine 1.0 mg/dL (0.6-1.0) Estimated GFR (Cockcroft-Gault) 68.0 Glucose Level 231 mg/dL (70-99) Calcium Level 8.7 mg/dL (8.5-10.1) Magnesium Level 1.9 mg/dL (1.8-2.4) Laboratory Tests Test 03/16/17 17:04 03/16/17 17:35 03/16/17 20:54 03/17/17 10:10 Glucose (Fingerstick) 66 mg/dL (70-99) 81 mg/dL (70-99) 196 mg/dL (70-99) Sodium Level 142 mmol/L (136-145) Potassium Level 4.2 mmol/L (3.5-5.1) Chloride Level 103 mmol/L (98-107) Carbon Dioxide Level 35 mmol/L (21-32) Anion Gap 4 (6-14) Blood Urea Nitrogen 20 mg/dL (7-20) Creatinine 1.0 mg/dL (0.6-1.0) Estimated GFR (Cockcroft-Gault) 68.0 Glucose Level 231 mg/dL (70-99) Calcium Level 8.7 mg/dL (8.5-10.1) Magnesium Level 1.9 mg/dL (1.8-2.4) Medications Current Medications Aspirin (Simmery Aspirin) 325 mg 1X ONCE PO Last administered on 03/11/17 09:01 ; Start 03/11/17 at 08:30; Stop 03/11/17 at 08:31; Status DC Clonidine HCl (Catapres) 0.2 mg 1X ONCE PO Last administered on 03/11/17 11: 55; Start 03/11/17 at 10:15; Stop 03/11/17 at 10:16; Status DC Ondansetron HCl (Zofran) 4 mg PRN Q8HRS PRN IV NAUSEA/VOMITING; Start 03/11/17 at 11:00; Stop 03/11/17 at 18:35; Status DC Morphine Sulfate 2 mg PRN Q2HR PRN IV PAIN Last administered on 03/11/17 17:19 ; Start 03/11/17 at 11:00; Stop 03/11/17 at 18:35; Status DC Nitroglycerin (Nitrostat) 0.4 mg PRN Q5MIN PRN SL CHEST PAIN; Start 03/11/17 at 11:00; Stop 03/11/17 at 18:35; Status DC Labetalol HCl (Normodyne) 10 mg Q6HRS PRN IVP ELEVATED BP, SEE COMMENTS; Start 03/11/17 at 11:00; Stop 03/11/17 at 11:00; Status DC Labetalol HCl (Normodyne) 10 mg PRN Q6HRS PRN IVP ELEVATED BP, SEE COMMENTS; Start 03/11/17 at 11:00 Insulin Human Regular (NovoLIN R VIAL) 8 unit 1X ONCE IV ; Start 03/11/17 at 11 :30; Stop 03/11/17 at 11:31; Status DC Insulin Aspart (NovoLOG) 0-9 UNITS TIDWMEALS SQ Last administered on 03/17/17 11:54; Start 03/11/17 at 17:00 Dextrose (Dextrose 50%-Water Syringe) 12.5 gm PRN Q15MIN PRN IV SEE COMMENTS; Start 03/11/17 at 13:30 Bumetanide (Bumex) 2 mg BID94 IV Last administered on 03/14/17 10:41; Start at 16:00; Stop 03/14/17 at 15:54; Status DC Isosorbide Mononitrate (Imdur) 30 mg DAILY PO Last administered on 03/17/17 08 :04; Start 03/11/17 at 16:00 Metoprolol Tartrate (Lopressor) 50 mg BID PO Last administered on 03/17/17 08: 04; Start 03/11/17 at 21:00 Labetalol HCl (Normodyne) 20 mg PRN Q2HR PRN IVP HYPERTENSION, SEE COMMENTS; Start 03/11/17 at 15:30; Stop 03/12/17 at 13:36; Status DC Hydralazine HCl (Apresoline) 10 mg PRN Q4HRS PRN IVP ELEVATED BP, SEE COMMENTS Last administered on 03/16/17 22:40; Start 03/11/17 at 15:30 Aspirin (Ecotrin) 81 mg [id number] PO Last administered on 03/17/17 08:02; Start 03/11/17 at 16:00 Apixaban (Eliquis) 5 mg BID PO Last administered on 03/17/17 08:02; Start at 21:00 Pantoprazole Sodium (Protonix) 40 mg DAILYAC PO Last administered on 03/17/17 08:02; Start 03/11/17 at 16:30 Info (Anti-Coagulation Monitoring By Pharmacy) 1 each PRN DAILY PRN MC SEE COMMENTS Last administered on 03/16/17 09:15; Start 03/11/17 at 16:00 Apixaban (Eliquis) 5 mg BID PO ; Start 03/11/17 at 21:00; Status UNV Ascorbic Acid (Vitamin C) 500 mg BID PO Last administered on 03/17/17 08:02; Start 03/11/17 at 21:00 Furosemide (Lasix) 40 mg DAILY PO ; Start 03/12/17 at 09:00; Status UNV Hydralazine HCl (Apresoline) 10 mg TID PO Last administered on 03/17/17 08:03 ; Start 03/11/17 at 21:00 Acetaminophen/ Hydrocodone Bitart (Lortab 5/325) 1 tab PRN Q6HRS PRN PO PAIN Last administered on 03/17/17 08:02; Start 03/11/17 at 18:30 Insulin Aspart (NovoLOG) 30 units TIDWMEALS SQ Last administered on 03/17/17 11:54; Start 03/11/17 at 19:00 Insulin Detemir (Levemir) 25 units QHS SQ Last administered on 03/11/17 21:37 ; Start 03/11/17 at 21:00; Stop 03/12/17 at 10:34; Status DC Metoprolol Tartrate (Lopressor) 50 mg BID PO ; Start 03/11/17 at 21:00; Status UNV Pantoprazole Sodium (Protonix) 40 mg DAILY PO ; Start 03/12/17 at 09:00; Status UNV Prednisone (Prednisone) 10 mg DAILY PO Last administered on 03/17/17 08:02; Start 03/12/17 at 09:00 Pyridostigmine [place] (Mestinon) 60 mg QID PO Last administered on 03/17/17 08:02; Start 03/11/17 at 21:00 Terbutaline Sulfate (Brethine) 2.5 mg TID PO Last administered on 03/17/17 08: 01; Start 03/11/17 at 21:00 Non-Formulary Medication 2 puff Q4HRS INH ; Start 03/11/17 at 20:00; Status UNV Gabapentin (Neurontin) 300 mg QHS PO Last administered on 03/16/17 21:04; Start 03/11/17 at 21:00 Mycophenolate Mofetil (Cellcept) 1,000 mg DAILY PO Last administered on 08:02; Start 03/12/17 at 09:00 Mycophenolate Mofetil (Cellcept) 1,500 mg QHS PO Last administered on 21:05; Start 03/11/17 at 21:00 Atorvastatin Calcium (Lipitor) 40 mg QHS PO Last administered on 03/16/17 21: 06; Start 03/11/17 at 21:00 Lactobacillus Acidophilus (Bacid, Alyssa-Bid) 1 tab TIDWMEALS PO Last administered on 03/17/17 11:49; Start 03/12/17 at 08:00 Insulin Detemir (Levemir) 40 units DAILYAC SQ Last administered on 03/12/17 09 :53; Start 03/12/17 at 07:30; Stop 03/12/17 at 10:40; Status DC Albuterol Sulfate (Ventolin Neb Soln) 2.5 mg Q4HRS NEB Last administered on 20:14; Start 03/11/17 at 20:00; Stop 03/12/17 at 06:48; Status DC Doxycycline Hyclate (Vibra-Tab) 100 mg BID PO Last administered on 03/12/17 09 :34; Start 03/11/17 at 19:30; Stop 03/12/17 at 13:30; Status DC Heparin Sodium (Porcine) (Heparin Sq) 5,000 unit Q8HRS SQ Last administered on 03/12/17 13:12; Start 03/11/17 at 22:00; Stop 03/12/17 at 13:36; Status DC Pantoprazole Sodium (Protonix) 40 mg DAILYAC PO ; Start 03/12/17 at 07:30; Status UNV Albuterol Sulfate (Ventolin Neb Soln) 2.5 mg RTQID NEB Last administered on 13:26; Start 03/12/17 at 07:00; Stop 03/14/17 at 14:28; Status DC Insulin Detemir (Levemir) 40 units BID SQ Last administered on 03/14/17 09:08 ; Start 03/12/17 at 21:00; Stop 03/14/17 at 09:53; Status DC Insulin Detemir (Levemir) 40 units QHS SQ Last administered on 03/16/17 21:13 ; Start 03/14/17 at 21:00 Insulin Detemir (Levemir) 30 units DAILY SQ Last administered on 03/17/17 08: 22; Start 03/15/17 at 09:00 Albuterol/ Ipratropium (Duoneb) 3 ml RTQID NEB Last administered on 03/17/17 11:23; Start 03/14/17 at 16:00 Budesonide (Pulmicort) 0.5 mg RTBID NEB Last administered on 03/17/17 07:22; Start 03/14/17 at 20:00 Montelukast Sodium (Singulair) 10 mg QHS PO Last administered on 03/16/17 21: 05; Start 03/14/17 at 21:00 Bumetanide (Bumex) 2 mg DAILY IV Last administered on 03/17/17 08:05; Start at 09:00; Stop 03/17/17 at 11:01; Status DC Lidocaine (Lidoderm) 1 patch DAILY TD ; Start 03/16/17 at 12:30; Stop 03/16/17 at 14:04; Status DC Lidocaine HCl (Xylocaine 2% Topical 5gm Tube) 1 tristan PRN DAILY PRN TP PAIN Last administered on 03/16/17 14:38; Start 03/16/17 at 14:00 Bumetanide (Bumex) 2 mg DAILY PO ; Start 03/18/17 at 09:00 Morphine Sulfate (Ms Contin) 15 mg 1X ONCE PO Last administered on 03/17/17 11:49; Start 03/17/17 at 11:30; Stop 03/17/17 at 11:31; Status DC Active Scripts Active Prednisone 10 Mg Tablet 30 Mg PO DAILY Furosemide 40 Mg Tablet 40 Mg PO DAILY Vitamin C (Ascorbic Acid) 500 Mg Tablet 500 Mg PO BID Reported Terbutaline Sulfate 2.5 Mg Tablet 2.5 Mg PO TID Novolog Flexpen (Insulin Aspart) 100 Unit/1 Ml Insuln.pen 30 Unit SQ TIDWMEALS Cellcept (Mycophenolate Mofetil) 500 Mg Tablet 3 Tab PO HS Cellcept (Mycophenolate Mofetil) 500 Mg Tablet 2 Tab PO DAILY Eliquis (Apixaban) 5 Mg Tablet 5 Mg PO BID Fosamax (Alendronate Sodium) 70 Mg Tablet 1 Tab PO QSU Probiotic (Bacillus Coagulans) 1 Each Capsule.dr 1 Each PO PRN Cellcept (Mycophenolate Mofetil) 500 Mg Tablet 1 Tab PO BID Ventolin Hfa Inhaler (Albuterol Sulfate) 18 Gm Hfa.aer.ad 2 Puff INH Q4HRS Multiple Vitamin (Multivitamin With Minerals) 1 Each Tablet 1 Each PO Rosuvastatin Calcium 10 Mg Tablet 10 Mg PO DAILY Pyridostigmine [place] 60 Mg Tablet 60 Mg PO QID Pantoprazole Sodium 40 Mg Tablet. 1 Tab PO DAILY Metoprolol Tartrate 50 Mg Tablet 1 Tab PO BID Levemir Flextouch (Insulin Detemir) 100 Unit/1 Ml Insuln.pen Unit SQ BIDAC 40 units in am, 25 units evening Hydrocodone-Apap 5-325 (Hydrocodone Bit/Acetaminophen) 1 Each Tablet 1 Tab PO PRN Q6HRS PRN Hydralazine Hcl 10 Mg Tablet 1 Tab PO TID Gabapentin 300 Mg Capsule 300 Mg PO QHS Vitals/I & O Vital Sign - Last 24 Hours 03/16/17 03/16/17 03/16/17 03/16/17 12:48 12:48 14:37 14:38 Temp 98.8 98.8 Pulse 79 79 80 Resp 18 18 B/P (MAP) 133/58 133/58 155/78 (103) Pulse Ox 99 99 O2 Delivery Nasal Cannula Nasal Cannula O2 Flow Rate 2.0 2.0 03/16/17 03/16/17 03/16/17 03/16/17 14:53 15:38 19:35 19:51 Temp 98.0 98.0 Pulse 86 Resp 18 20 B/P (MAP) 131/51 (77) Pulse Ox 99 96 99 O2 Delivery Nasal Cannula Nasal Cannula Nasal Cannula O2 Flow Rate 2.0 2.0 2.0 03/16/17 03/16/17 03/16/17 03/16/17 20:10 21:04 21:06 21:06 Pulse 86 86 Resp 20 B/P (MAP) 131/51 131/51 O2 Delivery Nasal Cannula Room Air O2 Flow Rate 2.0 03/16/17 03/16/17 03/16/17 03/17/17 21:07 22:25 22:40 03:15 Temp 98.2 97.9 98.2 97.9 Pulse 86 89 78 Resp 18 20 B/P (MAP) 131/51 201/79 (119) 205/77 141/53 (82) Pulse Ox 98 77 O2 Delivery Nasal Cannula Room Air O2 Flow Rate 2.0 03/17/17 03/17/17 03/17/17 03/17/17 03:30 07:22 07:30 07:43 Temp 98.0 98.0 Pulse 81 Resp 21 B/P (MAP) 151/77 (101) Pulse Ox 97 98 96 O2 Delivery Nasal Cannula Nasal Cannula Nasal Cannula Nasal Cannula O2 Flow Rate 2.0 2.0 2.0 2.0 03/17/17 03/17/17 03/17/17 03/17/17 08:01 08:02 08:03 08:04 Pulse 81 89 90 B/P (MAP) 151/77 151/77 151/77 O2 Delivery Nasal Cannula O2 Flow Rate 2.0 03/17/17 03/17/17 03/17/17 03/17/17 08:04 09:02 11:09 11:23 Temp 98.0 98.0 Pulse 88 80 Resp 22 B/P (MAP) 151/77 149/69 (95) Pulse Ox 94 96 O2 Delivery Nasal Cannula Nasal Cannula Nasal Cannula O2 Flow Rate 2.0 2.0 2.0 03/17/17 11:49 O2 Delivery Nasal Cannula O2 Flow Rate 2.0 Intake and Output 03/16/17 03/16/17 03/17/17 15:00 23:00 07:00 Intake Total 360 ml 460 ml Output Total 625 ml 400 ml 350 ml Balance -265 ml -400 ml 110 ml SCARLET SAVAGE MD Mar 17, 2017 12:30
[2017-03-17 14:47] VITALS: BP 157/70
--- NOTE | 2017-03-17 16:58 | CARD ---
APPROVED REPORT EXAM: LIMITED Two-dimensional and M-mode echocardiogram with Doppler, color Doppler with contrast. Other Information Quality : Average Rhythm : NSR INDICATION Dyspnea Rule out ASD/PFO Echo Enhancing Agent Indication: Rule Out Septal Defect Agent/Amount Used: Agitated Saline 8mL Tricuspid Valve TR P. [id number] TR Peak [id number] LEFT VENTRICLE The left ventricle is normal size. There is normal left ventricular wall thickness. Left ventricle sy stolic function is normal. The Ejection Fraction is 55-60%. There is normal LV segmental wall motion. ATRIA Bubble study is normal with no evidence of an interatrial shunt. TRICUSPID VALVE The tricuspid valve is normal in structure and function. Doppler and Color Flow revealed mild to mode rate tricuspid regurgitation. The PA pressure was estimated at 52 mmHg. GREAT VESSELS not imaged PERICARDIAL EFFUSION There is no evidence of significant pericardial effusion. Critical Notification Critical Value: No <Conclusion> Limited study. The left ventricle is normal size. Left ventricle systolic function is normal. The Ejection Fraction is 55-60%. Bubble study is normal with no evidence of an interatrial shunt.
[2017-03-17 19:45] VITALS: BP 112/52
[2017-03-17] MEDS: GABAPENTIN 300 MG CAPSULE. PO SCH (21:45)
[2017-03-17] MEDS: MONTELUKAST SODIUM 10 MG TABLET. PO SCH (21:45)
[2017-03-17] MEDS: ATORVASTATIN CALCIUM 40 MG TABLET. PO SCH (21:45)
[2017-03-17 23:30] VITALS: BP 155/51
[2017-03-18 02:25] VITALS: BP 121/48
[2017-03-18] MEDS: HYDROcodone/APAP 5/325MG 1 TAB TABLET PO PRN ×2 (06:38→14:01)
[2017-03-18 07:00] VITALS: BP 144/58
[2017-03-18] MEDS: INSULIN ASPART 300 UNITS/3 ML INSULN.PEN SQ SCH ×6 (08:00→17:49)
[2017-03-18] MEDS: IPRATRPIUM/ALBUTEROL 0.5/2.5MG 3 ML NEBU. NEB SCH ×4 (08:09→19:33)
[2017-03-18] MEDS: BUDESONIDE 0.5 MG/2 ML NEBU. NEB SCH ×2 (08:09→19:33)
[2017-03-18] MEDS ORDERED: BUMETANIDE 1 MG TABLET. PO SCH (09:00)
[2017-03-18] MEDS: ASCORBIC ACID 500 MG TABLET PO SCH ×2 (09:06→21:34)
[2017-03-18] MEDS: predniSONE 10 MG TABLET PO SCH (09:06)
[2017-03-18] MEDS: APIXABAN 5 MG TABLET. PO SCH ×2 (09:06→21:34)
[2017-03-18] MEDS: PANTOPRAZOLE 40 MG TABLET.DR. PO SCH (09:06)
[2017-03-18] MEDS: ASPIRIN ENTERIC COATED 81 MG TABLET.DR. PO SCH (09:06)
[2017-03-18] MEDS: ISOSORBIDE MONONITRATE ER 30 MG TAB.ER.24H PO SCH (09:07)
[2017-03-18] MEDS: METOPROLOL TART IMMED RELEASE 50 MG TABLET. PO SCH ×2 (09:07→21:33)
[2017-03-18] MEDS: hydrALAZINE 10 MG TABLET PO SCH ×3 (09:07→21:34)
[2017-03-18] MEDS: LACTOBACILLUS ACIDOPH & BULGAR 1 TABLET. PO SCH ×3 (09:07→17:36)
[2017-03-18] MEDS: TERBUTALINE 2.5 MG PO SCH ×3 (09:08→21:33)
[2017-03-18] MEDS: PYRIDOSTIGMINE BROMIDE 60 MG TABLET PO SCH ×4 (09:08→21:34)
[2017-03-18] MEDS: MYCOPHENOLATE MOFETIL 250 MG CAPSULE. PO SCH ×2 (09:08→21:32)
[2017-03-18] MEDS: INSULIN DETEMIR 300 UNITS/3 ML INSULN.PEN. SQ SCH ×2 (09:17→21:40)
[2017-03-18] MEDS: ANTI-COAG MONITOR BY PHARMACY. MC PRN (10:59)
[2017-03-18 11:00] VITALS: BP 124/70
[2017-03-18 11:09] LABS: CALCIUM 9.2 mg/dL (8.5-10.1); CREATININE 1.2 mg/dL (0.6-1.0); GFR 55.1; POTASSIUM 4.5 mmol/L (3.5-5.1)
--- NOTE | 2017-03-18 11:40 | PDOC ---
PROGRESS NOTES Chief Complaint Chief Complaint bl leg edema 2/2 chronic lymphedema and venous insufficiency likely Chronic CHF with diastolic dysfunction Elevated troponin with chf hx PAFIB on eliquis, sinus now Restrictive lung disease/ROBERTO hx CAD; CABG in 2000 HTN HLP Hx of CVA/TIA DM2 with retinopathy and Hx of myasthenia gravis: w/ ongoing weakness, s/p intermittent plasmapheresis last treatment 03/2016. Hx of IgA monoclonal gammopathy leg wound, chronically CKD3 atypical chest pain, gi possibly obesity, BMI 37 Hypoxic respi failure History of Present Illness History of Present Illness some pain from venous stasis ulcer, better Weight stable 3 days plan PO bumex for DC Desats when walks, marked exercise intol, plan SNU Keep legs elevated, lymphedema Lidoderm cream prior to dressing changes Vitals Vitals Vital Signs Date Time Temp Pulse Resp B/P (MAP) Pulse Ox O2 Delivery O2 Flow Rate FiO2 03/18/17 09:08 80 03/18/17 09:07 144/54 03/18/17 08:09 90 Room Air 03/18/17 08:00 2.0 03/18/17 07:00 98.2 20 98.2 Physical Exam General: Alert, Oriented X3, Cooperative, mild distress Heart: Regular rate (SR), Normal S1, Normal S2, Other (4/6 ssytolic murmur to NORMA border) Lungs: Other (deminished) Abdomen: Normal bowel sounds Extremities: No cyanosis, Other (2+ bilateral LE pitting edema) Skin: Other (RLE venous stasis ulcer to posterior calf) Labs LABS Laboratory Tests Test 03/17/17 17:07 03/17/17 17:35 03/17/17 18:53 03/17/17 21:18 Glucose (Fingerstick) 45 mg/dL (70-99) 60 mg/dL (70-99) 112 mg/dL (70-99) 148 mg/dL (70-99) Test 03/18/17 08:27 03/18/17 10:45 Glucose (Fingerstick) 237 mg/dL (70-99) Sodium Level 141 mmol/L (136-145) Potassium Level 4.5 mmol/L (3.5-5.1) Chloride Level 100 mmol/L (98-107) Carbon Dioxide Level 36 mmol/L (21-32) Anion Gap 5 (6-14) Blood Urea Nitrogen 24 mg/dL (7-20) Creatinine 1.2 mg/dL (0.6-1.0) Estimated GFR (Cockcroft-Gault) 55.1 Glucose Level 351 mg/dL (70-99) Calcium Level 9.2 mg/dL (8.5-10.1) Review of Systems Review of Systems less pain, more active very tired from activity, Assessment and Plan Assessmemt and Plan Problems Medical Problems: (1) Dyspnea Status: Acute (2) Elevated troponin Status: Acute Problems: Comment Review of Relevant I have reviewed the following items omer (where applicable) has been applied. Labs Laboratory Tests Test 03/16/17 11:43 03/16/17 17:04 03/16/17 17:35 03/16/17 20:54 Glucose (Fingerstick) 120 mg/dL (70-99) 66 mg/dL (70-99) 81 mg/dL (70-99) 196 mg/dL (70-99) Test 03/17/17 07:18 03/17/17 10:10 03/17/17 10:35 03/17/17 17:07 Glucose (Fingerstick) 196 mg/dL (70-99) 185 mg/dL (70-99) 45 mg/dL (70-99) Sodium Level 142 mmol/L (136-145) Potassium Level 4.2 mmol/L (3.5-5.1) Chloride Level 103 mmol/L (98-107) Carbon Dioxide Level 35 mmol/L (21-32) Anion Gap 4 (6-14) Blood Urea Nitrogen 20 mg/dL (7-20) Creatinine 1.0 mg/dL (0.6-1.0) Estimated GFR (Cockcroft-Gault) 68.0 Glucose Level 231 mg/dL (70-99) Calcium Level 8.7 mg/dL (8.5-10.1) Magnesium Level 1.9 mg/dL (1.8-2.4) Test 03/17/17 17:35 03/17/17 18:53 03/17/17 21:18 03/18/17 08:27 Glucose (Fingerstick) 60 mg/dL (70-99) 112 mg/dL (70-99) 148 mg/dL (70-99) 237 mg/dL (70-99) Test 03/18/17 10:45 Sodium Level 141 mmol/L (136-145) Potassium Level 4.5 mmol/L (3.5-5.1) Chloride Level 100 mmol/L (98-107) Carbon Dioxide Level 36 mmol/L (21-32) Anion Gap 5 (6-14) Blood Urea Nitrogen 24 mg/dL (7-20) Creatinine 1.2 mg/dL (0.6-1.0) Estimated GFR (Cockcroft-Gault) 55.1 Glucose Level 351 mg/dL (70-99) Calcium Level 9.2 mg/dL (8.5-10.1) Laboratory Tests Test 03/17/17 17:07 03/17/17 17:35 03/17/17 18:53 03/17/17 21:18 Glucose (Fingerstick) 45 mg/dL (70-99) 60 mg/dL (70-99) 112 mg/dL (70-99) 148 mg/dL (70-99) Test 03/18/17 08:27 03/18/17 10:45 Glucose (Fingerstick) 237 mg/dL (70-99) Sodium Level 141 mmol/L (136-145) Potassium Level 4.5 mmol/L (3.5-5.1) Chloride Level 100 mmol/L (98-107) Carbon Dioxide Level 36 mmol/L (21-32) Anion Gap 5 (6-14) Blood Urea Nitrogen 24 mg/dL (7-20) Creatinine 1.2 mg/dL (0.6-1.0) Estimated GFR (Cockcroft-Gault) 55.1 Glucose Level 351 mg/dL (70-99) Calcium Level 9.2 mg/dL (8.5-10.1) Medications Current Medications Aspirin (Liza Aspirin) 325 mg 1X ONCE PO Last administered on 03/11/17 09:01 ; Start 03/11/17 at 08:30; Stop 03/11/17 at 08:31; Status DC Clonidine HCl (Catapres) 0.2 mg 1X ONCE PO Last administered on 03/11/17 11: 55; Start 03/11/17 at 10:15; Stop 03/11/17 at 10:16; Status DC Ondansetron HCl (Zofran) 4 mg PRN Q8HRS PRN IV NAUSEA/VOMITING; Start 03/11/17 at 11:00; Stop 03/11/17 at 18:35; Status DC Morphine Sulfate 2 mg PRN Q2HR PRN IV PAIN Last administered on 03/11/17 17:19 ; Start 03/11/17 at 11:00; Stop 03/11/17 at 18:35; Status DC Nitroglycerin (Nitrostat) 0.4 mg PRN Q5MIN PRN SL CHEST PAIN; Start 03/11/17 at 11:00; Stop 03/11/17 at 18:35; Status DC Labetalol HCl (Normodyne) 10 mg Q6HRS PRN IVP ELEVATED BP, SEE COMMENTS; Start 03/11/17 at 11:00; Stop 03/11/17 at 11:00; Status DC Labetalol HCl (Normodyne) 10 mg PRN Q6HRS PRN IVP ELEVATED BP, SEE COMMENTS; Start 03/11/17 at 11:00 Insulin Human Regular (NovoLIN R VIAL) 8 unit 1X ONCE IV ; Start 03/11/17 at 11 :30; Stop 03/11/17 at 11:31; Status DC Insulin Aspart (NovoLOG) 0-9 UNITS TIDWMEALS SQ Last administered on 03/17/17 11:54; Start 03/11/17 at 17:00 Dextrose (Dextrose 50%-Water Syringe) 12.5 gm PRN Q15MIN PRN IV SEE COMMENTS; Start 03/11/17 at 13:30 Bumetanide (Bumex) 2 mg BID94 IV Last administered on 03/14/17 10:41; Start at 16:00; Stop 03/14/17 at 15:54; Status DC Isosorbide Mononitrate (Imdur) 30 mg DAILY PO Last administered on 03/18/17 09: 07; Start 03/11/17 at 16:00 Metoprolol Tartrate (Lopressor) 50 mg BID PO Last administered on 03/18/17 09: 07; Start 03/11/17 at 21:00 Labetalol HCl (Normodyne) 20 mg PRN Q2HR PRN IVP HYPERTENSION, SEE COMMENTS; Start 03/11/17 at 15:30; Stop 03/12/17 at 13:36; Status DC Hydralazine HCl (Apresoline) 10 mg PRN Q4HRS PRN IVP ELEVATED BP, SEE COMMENTS Last administered on 03/16/17 22:40; Start 03/11/17 at 15:30 Aspirin (Ecotrin) 81 mg [id number] PO Last administered on 03/18/17 09:06; Start 03/11/17 at 16:00 Apixaban (Eliquis) 5 mg BID PO Last administered on 03/18/17 09:06; Start 03/11 at 21:00 Pantoprazole Sodium (Protonix) 40 mg DAILYAC PO Last administered on 03/18/17 09:06; Start 03/11/17 at 16:30 Info (Anti-Coagulation Monitoring By Pharmacy) 1 each PRN DAILY PRN MC SEE COMMENTS Last administered on 03/18/17 10:59; Start 03/11/17 at 16:00 Apixaban (Eliquis) 5 mg BID PO ; Start 03/11/17 at 21:00; Status UNV Ascorbic Acid (Vitamin C) 500 mg BID PO Last administered on 03/18/17 09:06; Start 03/11/17 at 21:00 Furosemide (Lasix) 40 mg DAILY PO ; Start 03/12/17 at 09:00; Status UNV Hydralazine HCl (Apresoline) 10 mg TID PO Last administered on 03/18/17 09:07; Start 03/11/17 at 21:00 Acetaminophen/ Hydrocodone Bitart (Lortab 5/325) 1 tab PRN Q6HRS PRN PO PAIN Last administered on 03/18/17 06:38; Start 03/11/17 at 18:30 Insulin Aspart (NovoLOG) 30 units TIDWMEALS SQ Last administered on 03/18/17 09 :16; Start 03/11/17 at 19:00 Insulin Detemir (Levemir) 25 units QHS SQ Last administered on 03/11/17 21:37 ; Start 03/11/17 at 21:00; Stop 03/12/17 at 10:34; Status DC Metoprolol Tartrate (Lopressor) 50 mg BID PO ; Start 03/11/17 at 21:00; Status UNV Pantoprazole Sodium (Protonix) 40 mg DAILY PO ; Start 03/12/17 at 09:00; Status UNV Prednisone (Prednisone) 10 mg DAILY PO Last administered on 03/18/17 09:06; Start 03/12/17 at 09:00 Pyridostigmine [place] (Mestinon) 60 mg QID PO Last administered on 03/18/17 09 :08; Start 03/11/17 at 21:00 Terbutaline Sulfate (Brethine) 2.5 mg TID PO Last administered on 03/18/17 09: 08; Start 03/11/17 at 21:00 Non-Formulary Medication 2 puff Q4HRS INH ; Start 03/11/17 at 20:00; Status UNV Gabapentin (Neurontin) 300 mg QHS PO Last administered on 03/17/17 21:45; Start 03/11/17 at 21:00 Mycophenolate Mofetil (Cellcept) 1,000 mg DAILY PO Last administered on 09:08; Start 03/12/17 at 09:00 Mycophenolate Mofetil (Cellcept) 1,500 mg QHS PO Last administered on 21:44; Start 03/11/17 at 21:00 Atorvastatin Calcium (Lipitor) 40 mg QHS PO Last administered on 03/17/17 21: 45; Start 03/11/17 at 21:00 Lactobacillus Acidophilus (Bacid, Alyssa-Bid) 1 tab TIDWMEALS PO Last administered on 03/18/17 09:07; Start 03/12/17 at 08:00 Insulin Detemir (Levemir) 40 units DAILYAC SQ Last administered on 03/12/17 09 :53; Start 03/12/17 at 07:30; Stop 03/12/17 at 10:40; Status DC Albuterol Sulfate (Ventolin Neb Soln) 2.5 mg Q4HRS NEB Last administered on 20:14; Start 03/11/17 at 20:00; Stop 03/12/17 at 06:48; Status DC Doxycycline Hyclate (Vibra-Tab) 100 mg BID PO Last administered on 03/12/17 09 :34; Start 03/11/17 at 19:30; Stop 03/12/17 at 13:30; Status DC Heparin Sodium (Porcine) (Heparin Sq) 5,000 unit Q8HRS SQ Last administered on 03/12/17 13:12; Start 03/11/17 at 22:00; Stop 03/12/17 at 13:36; Status DC Pantoprazole Sodium (Protonix) 40 mg DAILYAC PO ; Start 03/12/17 at 07:30; Status UNV Albuterol Sulfate (Ventolin Neb Soln) 2.5 mg RTQID NEB Last administered on 13:26; Start 03/12/17 at 07:00; Stop 03/14/17 at 14:28; Status DC Insulin Detemir (Levemir) 40 units BID SQ Last administered on 03/14/17 09:08 ; Start 03/12/17 at 21:00; Stop 03/14/17 at 09:53; Status DC Insulin Detemir (Levemir) 40 units QHS SQ Last administered on 03/17/17 21:50 ; Start 03/14/17 at 21:00 Insulin Detemir (Levemir) 30 units DAILY SQ Last administered on 03/18/17 09:17 ; Start 03/15/17 at 09:00 Albuterol/ Ipratropium (Duoneb) 3 ml RTQID NEB Last administered on 03/18/17 08 :09; Start 03/14/17 at 16:00 Budesonide (Pulmicort) 0.5 mg RTBID NEB Last administered on 03/18/17 08:09; Start 03/14/17 at 20:00 Montelukast Sodium (Singulair) 10 mg QHS PO Last administered on 03/17/17 21: 45; Start 03/14/17 at 21:00 Bumetanide (Bumex) 2 mg DAILY IV Last administered on 03/17/17 08:05; Start at 09:00; Stop 03/17/17 at 11:01; Status DC Lidocaine (Lidoderm) 1 patch DAILY TD ; Start 03/16/17 at 12:30; Stop 03/16/17 at 14:04; Status DC Lidocaine HCl (Xylocaine 2% Topical 5gm Tube) 1 tristan PRN DAILY PRN TP PAIN Last administered on 03/16/17 14:38; Start 03/16/17 at 14:00 Bumetanide (Bumex) 2 mg DAILY PO Last administered on 03/18/17 09:06; Start 03/18/17 at 09:00 Morphine Sulfate (Ms Contin) 15 mg 1X ONCE PO Last administered on 03/17/17 11:49; Start 03/17/17 at 11:30; Stop 03/17/17 at 11:31; Status DC Active Scripts Active Prednisone 10 Mg Tablet 30 Mg PO DAILY Furosemide 40 Mg Tablet 40 Mg PO DAILY Vitamin C (Ascorbic Acid) 500 Mg Tablet 500 Mg PO BID Reported Terbutaline Sulfate 2.5 Mg Tablet 2.5 Mg PO TID Novolog Flexpen (Insulin Aspart) 100 Unit/1 Ml Insuln.pen 30 Unit SQ TIDWMEALS Cellcept (Mycophenolate Mofetil) 500 Mg Tablet 3 Tab PO HS Cellcept (Mycophenolate Mofetil) 500 Mg Tablet 2 Tab PO DAILY Eliquis (Apixaban) 5 Mg Tablet 5 Mg PO BID Fosamax (Alendronate Sodium) 70 Mg Tablet 1 Tab PO QSU Probiotic (Bacillus Coagulans) 1 Each Capsule.dr 1 Each PO PRN Cellcept (Mycophenolate Mofetil) 500 Mg Tablet 1 Tab PO BID Ventolin Hfa Inhaler (Albuterol Sulfate) 18 Gm Hfa.aer.ad 2 Puff INH Q4HRS Multiple Vitamin (Multivitamin With Minerals) 1 Each Tablet 1 Each PO Rosuvastatin Calcium 10 Mg Tablet 10 Mg PO DAILY Pyridostigmine [place] 60 Mg Tablet 60 Mg PO QID Pantoprazole Sodium 40 Mg Tablet.dr 1 Tab PO DAILY Metoprolol Tartrate 50 Mg Tablet 1 Tab PO BID Levemir Flextouch (Insulin Detemir) 100 Unit/1 Ml Insuln.pen Unit SQ BIDAC 40 units in am, 25 units evening Hydrocodone-Apap 5-325 (Hydrocodone Bit/Acetaminophen) 1 Each Tablet 1 Tab PO PRN Q6HRS PRN Hydralazine Hcl 10 Mg Tablet 1 Tab PO TID Gabapentin 300 Mg Capsule 300 Mg PO QHS Vitals/I & O Vital Sign - Last 24 Hours 03/17/17 03/17/17 03/17/17 03/17/17 11:49 13:25 14:47 15:54 Temp 98.1 98.1 Pulse 82 87 Resp 21 B/P (MAP) 125/65 157/70 (99) Pulse Ox 96 96 O2 Delivery Nasal Cannula Nasal Cannula Nasal Cannula O2 Flow Rate 2.0 2.0 2.0 03/17/17 03/17/17 03/17/17 03/17/17 16:36 17:17 19:18 19:18 Pulse Ox 96 96 O2 Delivery Nasal Cannula Nasal Cannula Nasal Cannula Nasal Cannula O2 Flow Rate 2.0 2.0 2.0 2.0 03/17/17 03/17/17 03/17/17 03/17/17 19:42 19:45 21:44 21:44 Temp 98.1 98.1 Pulse 90 90 90 Resp 18 B/P (MAP) 112/52 (72) 112/52 112/52 Pulse Ox 94 O2 Delivery Nasal Cannula Nasal Cannula O2 Flow Rate 2.0 2.0 03/17/17 03/17/17 03/18/17 03/18/17 21:45 23:30 02:25 06:38 Temp 98.3 98.0 98.3 98.0 Pulse 90 96 85 Resp 20 20 22 B/P (MAP) 112/52 155/51 (85) 121/48 (72) Pulse Ox 98 94 O2 Delivery Nasal Cannula Nasal Cannula Nasal Cannula O2 Flow Rate 2.0 2.0 2.0 03/18/17 03/18/17 03/18/17 03/18/17 07:00 07:38 08:00 08:09 Temp 98.2 98.2 Pulse 83 Resp 20 B/P (MAP) 144/58 (86) Pulse Ox 93 90 O2 Delivery Room Air Nasal Cannula Nasal Cannula Room Air O2 Flow Rate 2.0 2.0 03/18/17 03/18/17 03/18/17 03/18/17 09:07 09:07 09:07 09:08 Pulse 85 80 B/P (MAP) 144/58 144/54 Intake and Output 03/17/17 03/17/17 03/18/17 15:00 23:00 07:00 Intake Total 1240 ml 360 ml 540 ml Output Total 750 ml 500 ml 200 ml Balance 490 ml -140 ml 340 ml SCARLET SAVAGE MD Mar 18, 2017 11:40
--- NOTE | 2017-03-18 12:17 | PDOC ---
CALVIN ROSALES TIE HACKER 03/18/17 1217: CARDIO Progress Notes Date and Time Date of Service 03/18/2017 Time of Evaluation 0945 Subjective Subjective: No Chest Pain, No Palpitations, No Dizziness, Other (still has HERNANDEZ) Vitals Vitals Vital Signs Date Time Temp Pulse Resp B/P (MAP) Pulse Ox O2 Delivery O2 Flow Rate FiO2 03/18/17 09:08 80 03/18/17 09:07 144/54 03/18/17 08:09 90 Room Air 03/18/17 08:00 2.0 03/18/17 07:00 98.2 20 98.2 Weight Weight [ ] Input and Output Intake and Output Intake and Output 03/18/17 07:00 Intake Total 2140 ml Output Total 1450 ml Balance 690 ml Intake Oral 2140 ml Output Urine Total 1450 ml # Voids 1 Laboratory Labs Laboratory Tests Test 03/17/17 17:07 03/17/17 17:35 03/17/17 18:53 03/17/17 21:18 Glucose (Fingerstick) 45 mg/dL (70-99) 60 mg/dL (70-99) 112 mg/dL (70-99) 148 mg/dL (70-99) Test 03/18/17 08:27 03/18/17 10:45 Glucose (Fingerstick) 237 mg/dL (70-99) Sodium Level 141 mmol/L (136-145) Potassium Level 4.5 mmol/L (3.5-5.1) Chloride Level 100 mmol/L (98-107) Carbon Dioxide Level 36 mmol/L (21-32) Anion Gap 5 (6-14) Blood Urea Nitrogen 24 mg/dL (7-20) Creatinine 1.2 mg/dL (0.6-1.0) Estimated GFR (Cockcroft-Gault) 55.1 Glucose Level 351 mg/dL (70-99) Calcium Level 9.2 mg/dL (8.5-10.1) Physical Exam HEENT: Neck Supple W Full Motion Chest: Symmetric LUNGS: Clear to Auscultation Heart: S1S2, RRR (SR) Abdomen: Soft N/T Extremities: No Calf Tenderness, Other (2+ bilateral LE pitting edema) Neurology: alert, oriented, follow commands Assessment Assessment 1. Acute on chronic diastolic CHF: remains with HERNANDEZ. Multifactorial 2. Malignant HTN: controlled 3. PAFIB: remains in SR. On eliquis. 4. Chronic lymphedema: no increase actually better per pt. 5 Hx of left hemidiaphragm paralysis: Pulmonary following. 6. Hx of myasthenia gravis with use of cellcept (contributing?) Recommendations 1. Despite adequate diurese, goal wt has not been achieved. Having said that, presently her CHF appears compensated and her renal function is adequate but remains to have HERNANDEZ requiring more O2 during ambulation and no CP. There is no ASD/PFO on her TTE and with normal EF and LV systolic function. She is significant for moderate pulmonary HTN and chronic respiratory failure. At this time no further adjustment on her diuretic. Continue on po bumex daily at lower dose and continue with daily weight, home BP monitoring. Recommend home health if not on it. Likely element of pulmonary fibrosis. Awaiting PFTs 2. O2/CPAP requirement per pulmonary 3. Requested lymphedema to reevaluate. BEATRICE TREJO MD 03/18/17 1624: CARDIO Progress Notes Plan Plan Agree with above excellent ERP PROJECT MANAGER note. Pt. seen and examined. No further cardiac recs. Supportive care. Will follow along. CALVIN ROSALES APRN Mar 18, 2017 12:17 BEATRICE TREJO MD Mar 18, 2017 16:24
[2017-03-18 12:50] LABS: FREE T4 1.04 ng/dL (0.76-1.46)
--- NOTE | 2017-03-18 13:03 | PDOC ---
PULMONARY PROGRESS NOTES Subjective pt still soa at times Vitals Vital Signs Date Time Temp Pulse Resp B/P (MAP) Pulse Ox O2 Delivery O2 Flow Rate FiO2 03/18/17 11:53 98 Nasal Cannula 2.0 03/18/17 11:00 87 18 124/70 (88) 03/18/17 07:00 98.2 98.2 ROS: No Nausea, No Chest Pain, No Abdominal Pain, No Increase Cough General: Alert, Oriented X4 HEENT: Other (nc at perrl, shallow oropharynx, nose clear) Lungs: Other (deminished) Cardiovascular: S1, S2 Abdomen: Soft, Non-tender Neuro Exam: Alert, Oriented Extremities: Other (edema) Skin: Warm Labs Laboratory Tests Test 03/16/17 17:04 03/16/17 17:35 03/16/17 20:54 03/17/17 07:18 Glucose (Fingerstick) 66 mg/dL (70-99) 81 mg/dL (70-99) 196 mg/dL (70-99) 196 mg/dL (70-99) Test 03/17/17 10:10 03/17/17 10:35 03/17/17 17:07 03/17/17 17:35 Sodium Level 142 mmol/L (136-145) Potassium Level 4.2 mmol/L (3.5-5.1) Chloride Level 103 mmol/L (98-107) Carbon Dioxide Level 35 mmol/L (21-32) Anion Gap 4 (6-14) Blood Urea Nitrogen 20 mg/dL (7-20) Creatinine 1.0 mg/dL (0.6-1.0) Estimated GFR (Cockcroft-Gault) 68.0 Glucose Level 231 mg/dL (70-99) Calcium Level 8.7 mg/dL (8.5-10.1) Magnesium Level 1.9 mg/dL (1.8-2.4) Glucose (Fingerstick) 185 mg/dL (70-99) 45 mg/dL (70-99) 60 mg/dL (70-99) Test 03/17/17 18:53 03/17/17 21:18 03/18/17 08:27 03/18/17 10:45 Glucose (Fingerstick) 112 mg/dL (70-99) 148 mg/dL (70-99) 237 mg/dL (70-99) Sodium Level 141 mmol/L (136-145) Potassium Level 4.5 mmol/L (3.5-5.1) Chloride Level 100 mmol/L (98-107) Carbon Dioxide Level 36 mmol/L (21-32) Anion Gap 5 (6-14) Blood Urea Nitrogen 24 mg/dL (7-20) Creatinine 1.2 mg/dL (0.6-1.0) Estimated GFR (Cockcroft-Gault) 55.1 Glucose Level 351 mg/dL (70-99) Calcium Level 9.2 mg/dL (8.5-10.1) Free Thyroxine 1.04 ng/dL (0.76-1.46) Free Triiodothyronine (T3) pg/mL 2.38 pg/mL (2.18-3.98) Laboratory Tests Test 03/17/17 17:07 03/17/17 17:35 03/17/17 18:53 03/17/17 21:18 Glucose (Fingerstick) 45 mg/dL (70-99) 60 mg/dL (70-99) 112 mg/dL (70-99) 148 mg/dL (70-99) Test 03/18/17 08:27 03/18/17 10:45 Glucose (Fingerstick) 237 mg/dL (70-99) Sodium Level 141 mmol/L (136-145) Potassium Level 4.5 mmol/L (3.5-5.1) Chloride Level 100 mmol/L (98-107) Carbon Dioxide Level 36 mmol/L (21-32) Anion Gap 5 (6-14) Blood Urea Nitrogen 24 mg/dL (7-20) Creatinine 1.2 mg/dL (0.6-1.0) Estimated GFR (Cockcroft-Gault) 55.1 Glucose Level 351 mg/dL (70-99) Calcium Level 9.2 mg/dL (8.5-10.1) Free Thyroxine 1.04 ng/dL (0.76-1.46) Free Triiodothyronine (T3) pg/mL 2.38 pg/mL (2.18-3.98) Medications Active Scripts Medications Dose Route/Sig Max Daily Dose Days Date Category Dose Instructions Terbutaline Sulfate 2.5 Mg Tablet 2.5 Mg PO TID 03/11/17 Reported Novolog Flexpen (Insulin Aspart) 100 Unit/1 Ml Insuln.pen 30 Unit SQ TIDWMEALS 03/11/17 Reported Cellcept (Mycophenolate Mofetil) 500 Mg Tablet 3 Tab PO HS 03/11/17 Reported Cellcept (Mycophenolate Mofetil) 500 Mg Tablet 2 Tab PO DAILY 03/11/17 Reported Prednisone 10 Mg Tablet 30 Mg PO DAILY 10/05/16 Rx Furosemide 40 Mg Tablet 40 Mg PO DAILY 10/05/16 Rx Vitamin C (Ascorbic Acid) 500 Mg Tablet 500 Mg PO BID 10/05/16 Rx Eliquis (Apixaban) 5 Mg Tablet 5 Mg PO BID 09/29/16 Reported Fosamax (Alendronate Sodium) 70 Mg Tablet 1 Tab PO QSU 09/29/16 Reported Probiotic (Bacillus Coagulans) 1 Each Capsule.dr 1 Each PO PRN 09/29/16 Reported Cellcept (Mycophenolate Mofetil) 500 Mg Tablet 1 Tab PO BID 09/29/16 Reported Ventolin Hfa Inhaler (Albuterol Sulfate) 18 Gm Hfa.aer.ad 2 Puff INH Q4HRS 04/30/16 Reported Multiple Vitamin (Multivitamin With Minerals) 1 Each Tablet 1 Each PO 04/23/16 Reported Rosuvastatin Calcium 10 Mg Tablet 10 Mg PO DAILY 04/23/16 Reported Pyridostigmine [place] 60 Mg Tablet 60 Mg PO QID 04/23/16 Reported Pantoprazole Sodium 40 Mg Tablet. 1 Tab PO DAILY 04/23/16 Reported Metoprolol Tartrate 50 Mg Tablet 1 Tab PO BID 04/23/16 Reported Levemir Flextouch (Insulin Detemir) 100 Unit/1 Ml Insuln.pen Unit SQ BIDAC 04/23/16 Reported 40 units in am, 25 units evening Hydrocodone-Apap 5-325 (Hydrocodone Bit/Acetaminophen) 1 Each Tablet 1 Tab PO PRN Q6HRS PRN 04/23/16 Reported Hydralazine Hcl 10 Mg Tablet 1 Tab PO TID 04/23/16 Reported Gabapentin 300 Mg Capsule 300 Mg PO QHS 04/23/16 Reported Impression . IMPRESSION: 1. [id number] respiratory failure, multifactorial in etiology including acute diastolic congestive heart failure 2. Abnormal chest x-ray. 3. Acute diastolic congestive heart failure. 4. Asthma 5. Obstructive sleep apnea-hypopnea syndrome. 6. Obesity and deconditioning. 7. Paroxysmal atrial fibrillation. 8. Hypertension. 9. Diabetes mellitus. 10. Myasthenia gravis. 11. History of left hemidiaphragmatic paralysis. Plan . CONTINUE TO DIURESE 6 MIN WALK PRIOR TO D/C follow up outpt for sleep study NABILA ALONSO MD Mar 18, 2017 13:03
--- NOTE | 2017-03-18 14:54 | PDOC2 ---
CONSULT Date of Consult Date of Consult DATE: 03/18/17 TIME: 14:38 Reason for Consult Reason for Consult: Right leg wound Referring Physician Referring Physician: Dr. Squires Identification/Chief Complaint Chief Complaint Right leg wound of several weeks' duration in a patient well-known to the wound care clinic. Patient was followed and treated with Santyl to the affected area. It presented as necrotic gangrenous site. Prior arterial Doppler in April demonstrated adequate blood flow and patient has recently resolved a large ulcer just distal to the current site. Patient was not aware of inciting trauma. It may well have been the result of prolonged pressure and accompanying venous insufficiency. At this time she is aware of minimal local discomfort. She is not aware of increased redness, drainage or odor. Problems: Source Source: Chart review, Patient History of Present Illness Reason for Visit: Patient recently admitted to the hospital with increasing dyspnea and diagnosed with acute on chronic congestive failure. Doing better at this time with an opportunity now to attend to right lower extremity ulceration of several weeks' duration. See history of chief complaint. We're currently utilizing medical honey alginate dressings to the site. Patient generally tolerates modest slip on compression. Prior vascular workup was unremarkable. Patient is demonstrated pathergy to prior wounds and debridements have been undertaken with care in the past. Past Medical History Cardiovascular: CAD, CHF, HTN Pulmonary: Other CENTRAL NERVOUS SYSTEM: CVA, TIA, Other GI: Diverticulosis, GERD, Irritable bowel disease Heme/Onc: Cancer Hepatobiliary: No pertinent hx Psych: No pertinent hx Rheumatologic: No pertinent hx Infectious disease: No pertinent hx Renal/: Chronic renal insuff Endocrine: Diabetes Past Surgical History Past Surgical History: CABG Family History Family History: Asthma Social History ALCOHOL: none Drugs: None Lives: Alone Domestic Violence: Neg Current Problem List Problem List Problems Medical Problems: (1) Dyspnea Status: Acute (2) Elevated troponin Status: Acute Current Medications Current Medications Current Medications Aspirin (Liza Aspirin) 325 mg 1X ONCE PO Last administered on 03/11/17 09:01 ; Start 03/11/17 at 08:30; Stop 03/11/17 at 08:31; Status DC Clonidine HCl (Catapres) 0.2 mg 1X ONCE PO Last administered on 03/11/17 11: 55; Start 03/11/17 at 10:15; Stop 03/11/17 at 10:16; Status DC Ondansetron HCl (Zofran) 4 mg PRN Q8HRS PRN IV NAUSEA/VOMITING; Start 03/11/17 at 11:00; Stop 03/11/17 at 18:35; Status DC Morphine Sulfate 2 mg PRN Q2HR PRN IV PAIN Last administered on 03/11/17 17:19 ; Start 03/11/17 at 11:00; Stop 03/11/17 at 18:35; Status DC Nitroglycerin (Nitrostat) 0.4 mg PRN Q5MIN PRN SL CHEST PAIN; Start 03/11/17 at 11:00; Stop 03/11/17 at 18:35; Status DC Labetalol HCl (Normodyne) 10 mg Q6HRS PRN IVP ELEVATED BP, SEE COMMENTS; Start 03/11/17 at 11:00; Stop 03/11/17 at 11:00; Status DC Labetalol HCl (Normodyne) 10 mg PRN Q6HRS PRN IVP ELEVATED BP, SEE COMMENTS; Start 03/11/17 at 11:00 Insulin Human Regular (NovoLIN R VIAL) 8 unit 1X ONCE IV ; Start 03/11/17 at 11 :30; Stop 03/11/17 at 11:31; Status DC Insulin Aspart (NovoLOG) 0-9 UNITS TIDWMEALS SQ Last administered on 03/18/17 12:42; Start 03/11/17 at 17:00 Dextrose (Dextrose 50%-Water Syringe) 12.5 gm PRN Q15MIN PRN IV SEE COMMENTS; Start 03/11/17 at 13:30 Bumetanide (Bumex) 2 mg BID94 IV Last administered on 03/14/17 10:41; Start at 16:00; Stop 03/14/17 at 15:54; Status DC Isosorbide Mononitrate (Imdur) 30 mg DAILY PO Last administered on 03/18/17 09: 07; Start 03/11/17 at 16:00 Metoprolol Tartrate (Lopressor) 50 mg BID PO Last administered on 03/18/17 09: 07; Start 03/11/17 at 21:00 Labetalol HCl (Normodyne) 20 mg PRN Q2HR PRN IVP HYPERTENSION, SEE COMMENTS; Start 03/11/17 at 15:30; Stop 03/12/17 at 13:36; Status DC Hydralazine HCl (Apresoline) 10 mg PRN Q4HRS PRN IVP ELEVATED BP, SEE COMMENTS Last administered on 03/16/17 22:40; Start 03/11/17 at 15:30 Aspirin (Ecotrin) 81 mg DAILYWBKFT PO Last administered on 03/18/17 09:06; Start 03/11/17 at 16:00 Apixaban (Eliquis) 5 mg BID PO Last administered on 03/18/17 09:06; Start 03/11 at 21:00 Pantoprazole Sodium (Protonix) 40 mg DAILYAC PO Last administered on 03/18/17 09:06; Start 03/11/17 at 16:30 Info (Anti-Coagulation Monitoring By Pharmacy) 1 each PRN DAILY PRN MC SEE COMMENTS Last administered on 03/18/17 10:59; Start 03/11/17 at 16:00 Apixaban (Eliquis) 5 mg BID PO ; Start 03/11/17 at 21:00; Status UNV Ascorbic Acid (Vitamin C) 500 mg BID PO Last administered on 03/18/17 09:06; Start 03/11/17 at 21:00 Furosemide (Lasix) 40 mg DAILY PO ; Start 03/12/17 at 09:00; Status UNV Hydralazine HCl (Apresoline) 10 mg TID PO Last administered on 03/18/17 14:01; Start 03/11/17 at 21:00 Acetaminophen/ Hydrocodone Bitart (Lortab 5/325) 1 tab PRN Q6HRS PRN PO PAIN Last administered on 03/18/17 14:01; Start 03/11/17 at 18:30 Insulin Aspart (NovoLOG) 30 units TIDWMEALS SQ Last administered on 03/18/17 12 :41; Start 03/11/17 at 19:00 Insulin Detemir (Levemir) 25 units QHS SQ Last administered on 03/11/17 21:37 ; Start 03/11/17 at 21:00; Stop 03/12/17 at 10:34; Status DC Metoprolol Tartrate (Lopressor) 50 mg BID PO ; Start 03/11/17 at 21:00; Status UNV Pantoprazole Sodium (Protonix) 40 mg DAILY PO ; Start 03/12/17 at 09:00; Status UNV Prednisone (Prednisone) 10 mg DAILY PO Last administered on 03/18/17 09:06; Start 03/12/17 at 09:00 Pyridostigmine [place] (Mestinon) 60 mg QID PO Last administered on 03/18/17 14 :02; Start 03/11/17 at 21:00 Terbutaline Sulfate (Brethine) 2.5 mg TID PO Last administered on 03/18/17 14: 01; Start 03/11/17 at 21:00 Non-Formulary Medication 2 puff Q4HRS INH ; Start 03/11/17 at 20:00; Status UNV Gabapentin (Neurontin) 300 mg QHS PO Last administered on 03/17/17 21:45; Start 03/11/17 at 21:00 Mycophenolate Mofetil (Cellcept) 1,000 mg DAILY PO Last administered on 09:08; Start 03/12/17 at 09:00 Mycophenolate Mofetil (Cellcept) 1,500 mg QHS PO Last administered on 21:44; Start 03/11/17 at 21:00 Atorvastatin Calcium (Lipitor) 40 mg QHS PO Last administered on 03/17/17 21: 45; Start 03/11/17 at 21:00 Lactobacillus Acidophilus (Bacid, Alyssa-Bid) 1 tab TIDWMEALS PO Last administered on 03/18/17 09:07; Start 03/12/17 at 08:00 Insulin Detemir (Levemir) 40 units DAILYAC SQ Last administered on 03/12/17 09 :53; Start 03/12/17 at 07:30; Stop 03/12/17 at 10:40; Status DC Albuterol Sulfate (Ventolin Neb Soln) 2.5 mg Q4HRS NEB Last administered on 20:14; Start 03/11/17 at 20:00; Stop 03/12/17 at 06:48; Status DC Doxycycline Hyclate (Vibra-Tab) 100 mg BID PO Last administered on 03/12/17 09 :34; Start 03/11/17 at 19:30; Stop 03/12/17 at 13:30; Status DC Heparin Sodium (Porcine) (Heparin Sq) 5,000 unit Q8HRS SQ Last administered on 03/12/17 13:12; Start 03/11/17 at 22:00; Stop 03/12/17 at 13:36; Status DC Pantoprazole Sodium (Protonix) 40 mg DAILYAC PO ; Start 03/12/17 at 07:30; Status UNV Albuterol Sulfate (Ventolin Neb Soln) 2.5 mg RTQID NEB Last administered on 13:26; Start 03/12/17 at 07:00; Stop 03/14/17 at 14:28; Status DC Insulin Detemir (Levemir) 40 units BID SQ Last administered on 03/14/17 09:08 ; Start 03/12/17 at 21:00; Stop 03/14/17 at 09:53; Status DC Insulin Detemir (Levemir) 40 units QHS SQ Last administered on 03/17/17 21:50 ; Start 03/14/17 at 21:00 Insulin Detemir (Levemir) 30 units DAILY SQ Last administered on 03/18/17 09:17 ; Start 03/15/17 at 09:00 Albuterol/ Ipratropium (Duoneb) 3 ml RTQID NEB Last administered on 03/18/17 11 :53; Start 03/14/17 at 16:00 Budesonide (Pulmicort) 0.5 mg RTBID NEB Last administered on 03/18/17 08:09; Start 03/14/17 at 20:00 Montelukast Sodium (Singulair) 10 mg QHS PO Last administered on 03/17/17 21: 45; Start 03/14/17 at 21:00 Bumetanide (Bumex) 2 mg DAILY IV Last administered on 03/17/17 08:05; Start at 09:00; Stop 03/17/17 at 11:01; Status DC Lidocaine (Lidoderm) 1 patch DAILY TD ; Start 03/16/17 at 12:30; Stop 03/16/17 at 14:04; Status DC Lidocaine HCl (Xylocaine 2% Topical 5gm Tube) 1 tristan PRN DAILY PRN TP PAIN Last administered on 03/16/17 14:38; Start 03/16/17 at 14:00 Bumetanide (Bumex) 2 mg DAILY PO Last administered on 03/18/17 09:06; Start 03/18/17 at 09:00; Stop 03/18/17 at 11:58; Status DC Morphine Sulfate (Ms Contin) 15 mg 1X ONCE PO Last administered on 03/17/17 11:49; Start 03/17/17 at 11:30; Stop 03/17/17 at 11:31; Status DC Bumetanide (Bumex) 1 mg DAILY PO ; Start 03/19/17 at 09:00 Active Scripts Active Prednisone 10 Mg Tablet 30 Mg PO DAILY Furosemide 40 Mg Tablet 40 Mg PO DAILY Vitamin C (Ascorbic Acid) 500 Mg Tablet 500 Mg PO BID Reported Terbutaline Sulfate 2.5 Mg Tablet 2.5 Mg PO TID Novolog Flexpen (Insulin Aspart) 100 Unit/1 Ml Insuln.pen 30 Unit SQ TIDWMEALS Cellcept (Mycophenolate Mofetil) 500 Mg Tablet 3 Tab PO HS Cellcept (Mycophenolate Mofetil) 500 Mg Tablet 2 Tab PO DAILY Eliquis (Apixaban) 5 Mg Tablet 5 Mg PO BID Fosamax (Alendronate Sodium) 70 Mg Tablet 1 Tab PO QSU Probiotic (Bacillus Coagulans) 1 Each Capsule.dr 1 Each PO PRN Cellcept (Mycophenolate Mofetil) 500 Mg Tablet 1 Tab PO BID Ventolin Hfa Inhaler (Albuterol Sulfate) 18 Gm Hfa.aer.ad 2 Puff INH Q4HRS Multiple Vitamin (Multivitamin With Minerals) 1 Each Tablet 1 Each PO Rosuvastatin Calcium 10 Mg Tablet 10 Mg PO DAILY Pyridostigmine [place] 60 Mg Tablet 60 Mg PO QID Pantoprazole Sodium 40 Mg Tablet.dr 1 Tab PO DAILY Metoprolol Tartrate 50 Mg Tablet 1 Tab PO BID Levemir Flextouch (Insulin Detemir) 100 Unit/1 Ml Insuln.pen Unit SQ BIDAC 40 units in am, 25 units evening Hydrocodone-Apap 5-325 (Hydrocodone Bit/Acetaminophen) 1 Each Tablet 1 Tab PO PRN Q6HRS PRN Hydralazine Hcl 10 Mg Tablet 1 Tab PO TID Gabapentin 300 Mg Capsule 300 Mg PO QHS Allergies Allergies: Coded Allergies: Iodinated Contrast- Oral and IV Dye (Verified Allergy, Intermediate, ) adhesive tape (Verified Allergy, Intermediate, 04/23/16) insulin glargine (Verified Allergy, Intermediate, 04/23/16) levofloxacin (Verified Allergy, Intermediate, 04/23/16) ROS General: YES: Fatigue Respiratory: YES: Orthopnea, Shortness of breath, SOB with excertion Cardiovascular: yes Edema Musculoskeletal: Yes Muscular Weakness Neurological: Yes Gait Disturbance, Yes Weakness Physical Exam General: Alert, Oriented X3, Cooperative HEENT: EOMI, Mucous membr. moist/pink Lungs: Other (clear anteriorly) Heart: Regular rate Abdomen: Soft, No tenderness Extremities: No clubbing, No cyanosis, Other (recent [place] flow measurement within normal limits to the right lower extremity.) Skin: Other (patch of necrotic tissue roughly 7 cm at its greatest diameter intermixed with new dermis is noted to the posterior aspect of the right calf. This is an improvement from most recent examination in the clinic on 03/04/17.) Neuro: Normal speech Psych/Mental Status: Mental status NL, Mood NL Vitals VITALS Vital Signs Date Time Temp Pulse Resp B/P (MAP) Pulse Ox O2 Delivery O2 Flow Rate FiO2 03/18/17 14:01 124/70 03/18/17 14:01 Nasal Cannula 03/18/17 11:53 98 2.0 03/18/17 11:00 87 18 03/18/17 07:00 98.2 98.2 Labs Labs Laboratory Tests Test 03/16/17 17:04 03/16/17 17:35 03/16/17 20:54 03/17/17 07:18 Glucose (Fingerstick) 66 mg/dL (70-99) 81 mg/dL (70-99) 196 mg/dL (70-99) 196 mg/dL (70-99) Test 03/17/17 10:10 03/17/17 10:35 03/17/17 17:07 03/17/17 17:35 Sodium Level 142 mmol/L (136-145) Potassium Level 4.2 mmol/L (3.5-5.1) Chloride Level 103 mmol/L (98-107) Carbon Dioxide Level 35 mmol/L (21-32) Anion Gap 4 (6-14) Blood Urea Nitrogen 20 mg/dL (7-20) Creatinine 1.0 mg/dL (0.6-1.0) Estimated GFR (Cockcroft-Gault) 68.0 Glucose Level 231 mg/dL (70-99) Calcium Level 8.7 mg/dL (8.5-10.1) Magnesium Level 1.9 mg/dL (1.8-2.4) Glucose (Fingerstick) 185 mg/dL (70-99) 45 mg/dL (70-99) 60 mg/dL (70-99) Test 03/17/17 18:53 03/17/17 21:18 03/18/17 08:27 03/18/17 10:45 Glucose (Fingerstick) 112 mg/dL (70-99) 148 mg/dL (70-99) 237 mg/dL (70-99) Sodium Level 141 mmol/L (136-145) Potassium Level 4.5 mmol/L (3.5-5.1) Chloride Level 100 mmol/L (98-107) Carbon Dioxide Level 36 mmol/L (21-32) Anion Gap 5 (6-14) Blood Urea Nitrogen 24 mg/dL (7-20) Creatinine 1.2 mg/dL (0.6-1.0) Estimated GFR (Cockcroft-Gault) 55.1 Glucose Level 351 mg/dL (70-99) Calcium Level 9.2 mg/dL (8.5-10.1) Free Thyroxine 1.04 ng/dL (0.76-1.46) Free Triiodothyronine (T3) pg/mL 2.38 pg/mL (2.18-3.98) Laboratory Tests Test 03/17/17 17:07 03/17/17 17:35 03/17/17 18:53 03/17/17 21:18 Glucose (Fingerstick) 45 mg/dL (70-99) 60 mg/dL (70-99) 112 mg/dL (70-99) 148 mg/dL (70-99) Test 03/18/17 08:27 03/18/17 10:45 Glucose (Fingerstick) 237 mg/dL (70-99) Sodium Level 141 mmol/L (136-145) Potassium Level 4.5 mmol/L (3.5-5.1) Chloride Level 100 mmol/L (98-107) Carbon Dioxide Level 36 mmol/L (21-32) Anion Gap 5 (6-14) Blood Urea Nitrogen 24 mg/dL (7-20) Creatinine 1.2 mg/dL (0.6-1.0) Estimated GFR (Cockcroft-Gault) 55.1 Glucose Level 351 mg/dL (70-99) Calcium Level 9.2 mg/dL (8.5-10.1) Free Thyroxine 1.04 ng/dL (0.76-1.46) Free Triiodothyronine (T3) pg/mL 2.38 pg/mL (2.18-3.98) Assessment/Plan Assessment/Plan Venous insufficiency ulceration right posterior calf in a patient previously demonsting pathergy. Would recommend medical honey alginate dressings on it 2-3 time weekly basis. Continue slip-on compression. Anticipate careful debridement on a weekly basis. We will be happy to follow along as outpatient. If patient is discharged to home she has Santyl and can continue that in the home setting. ALINE JONES DO Mar 18, 2017 14:54
[2017-03-18 15:00] VITALS: BP 133/56
[2017-03-18 19:30] VITALS: BP 124/57
[2017-03-18] MEDS: MONTELUKAST SODIUM 10 MG TABLET. PO SCH (21:33)
[2017-03-18] MEDS: GABAPENTIN 300 MG CAPSULE. PO SCH (21:33)
[2017-03-18] MEDS: ATORVASTATIN CALCIUM 40 MG TABLET. PO SCH (21:34)
[2017-03-18 22:35] VITALS: BP 108/50
[2017-03-19 03:10] VITALS: BP 98/46
[2017-03-19 07:40] VITALS: BP 141/63
[2017-03-19] MEDS: BUDESONIDE 0.5 MG/2 ML NEBU. NEB SCH (08:03)
[2017-03-19] MEDS: IPRATRPIUM/ALBUTEROL 0.5/2.5MG 3 ML NEBU. NEB SCH ×3 (08:03→16:13)
[2017-03-19] MEDS: ISOSORBIDE MONONITRATE ER 30 MG TAB.ER.24H PO SCH (08:23)
[2017-03-19] MEDS: APIXABAN 5 MG TABLET. PO SCH (08:23)
[2017-03-19] MEDS: LACTOBACILLUS ACIDOPH & BULGAR 1 TABLET. PO SCH ×3 (08:23→17:16)
[2017-03-19] MEDS: MYCOPHENOLATE MOFETIL 250 MG CAPSULE. PO SCH (08:24)
[2017-03-19] MEDS: TERBUTALINE 2.5 MG PO SCH ×3 (08:24→17:17)
[2017-03-19] MEDS: HYDROcodone/APAP 5/325MG 1 TAB TABLET PO PRN ×2 (08:24→14:44)
[2017-03-19] MEDS: PYRIDOSTIGMINE BROMIDE 60 MG TABLET PO SCH ×3 (08:24→17:17)
[2017-03-19] MEDS: ASCORBIC ACID 500 MG TABLET PO SCH (08:25)
[2017-03-19] MEDS: METOPROLOL TART IMMED RELEASE 50 MG TABLET. PO SCH (08:25)
[2017-03-19] MEDS: ASPIRIN ENTERIC COATED 81 MG TABLET.DR. PO SCH (08:25)
[2017-03-19] MEDS: predniSONE 10 MG TABLET PO SCH (08:25)
[2017-03-19] MEDS: PANTOPRAZOLE 40 MG TABLET.DR. PO SCH (08:25)
[2017-03-19] MEDS: INSULIN ASPART 300 UNITS/3 ML INSULN.PEN SQ SCH ×6 (08:31→17:21)
[2017-03-19] MEDS: INSULIN DETEMIR 300 UNITS/3 ML INSULN.PEN. SQ SCH (08:40)
[2017-03-19] MEDS ORDERED: BUMETANIDE 1 MG TABLET. PO SCH (09:00)
[2017-03-19] MEDS: hydrALAZINE 10 MG TABLET PO SCH ×2 (09:00→14:43)
[2017-03-19] MEDS ORDERED: HYDR-2758 PO (09:15)
--- NOTE | 2017-03-19 10:14 | PDOC ---
PULMONARY PROGRESS NOTES Subjective pt still soa at times Vitals Vital Signs Date Time Temp Pulse Resp B/P (MAP) Pulse Ox O2 Delivery O2 Flow Rate FiO2 03/19/17 09:24 97 Nasal Cannula 1.0 03/19/17 09:00 87 141/63 03/19/17 07:40 98.0 20 98.0 ROS: No Nausea, No Chest Pain, No Abdominal Pain, No Increase Cough General: Alert, Oriented X4 HEENT: Other (nc at perrl, shallow oropharynx, nose clear) Lungs: Other (deminished) Cardiovascular: S1, S2 Abdomen: Soft, Non-tender Neuro Exam: Alert, Oriented Extremities: Other (edema) Skin: Warm Labs Laboratory Tests Test 03/17/17 10:35 03/17/17 17:07 03/17/17 17:35 03/17/17 18:53 Glucose (Fingerstick) 185 mg/dL (70-99) 45 mg/dL (70-99) 60 mg/dL (70-99) 112 mg/dL (70-99) Test 03/17/17 21:18 03/18/17 08:27 03/18/17 10:45 03/18/17 11:44 Glucose (Fingerstick) 148 mg/dL (70-99) 237 mg/dL (70-99) 316 mg/dL (70-99) Sodium Level 141 mmol/L (136-145) Potassium Level 4.5 mmol/L (3.5-5.1) Chloride Level 100 mmol/L (98-107) Carbon Dioxide Level 36 mmol/L (21-32) Anion Gap 5 (6-14) Blood Urea Nitrogen 24 mg/dL (7-20) Creatinine 1.2 mg/dL (0.6-1.0) Estimated GFR (Cockcroft-Gault) 55.1 Glucose Level 351 mg/dL (70-99) Calcium Level 9.2 mg/dL (8.5-10.1) Free Thyroxine 1.04 ng/dL (0.76-1.46) Free Triiodothyronine (T3) pg/mL 2.38 pg/mL (2.18-3.98) Test 03/18/17 20:55 Glucose (Fingerstick) 177 mg/dL (70-99) Laboratory Tests Test 03/18/17 10:45 03/18/17 11:44 03/18/17 20:55 Sodium Level 141 mmol/L (136-145) Potassium Level 4.5 mmol/L (3.5-5.1) Chloride Level 100 mmol/L (98-107) Carbon Dioxide Level 36 mmol/L (21-32) Anion Gap 5 (6-14) Blood Urea Nitrogen 24 mg/dL (7-20) Creatinine 1.2 mg/dL (0.6-1.0) Estimated GFR (Cockcroft-Gault) 55.1 Glucose Level 351 mg/dL (70-99) Calcium Level 9.2 mg/dL (8.5-10.1) Free Thyroxine 1.04 ng/dL (0.76-1.46) Free Triiodothyronine (T3) pg/mL 2.38 pg/mL (2.18-3.98) Glucose (Fingerstick) 316 mg/dL (70-99) 177 mg/dL (70-99) Medications Active Scripts Medications Dose Route/Sig Max Daily Dose Days Date Category Dose Instructions Terbutaline Sulfate 2.5 Mg Tablet 2.5 Mg PO TID 03/11/17 Reported Novolog Flexpen (Insulin Aspart) 100 Unit/1 Ml Insuln.pen 30 Unit SQ TIDWMEALS 03/11/17 Reported Cellcept (Mycophenolate Mofetil) 500 Mg Tablet 3 Tab PO HS 03/11/17 Reported Cellcept (Mycophenolate Mofetil) 500 Mg Tablet 2 Tab PO DAILY 03/11/17 Reported Prednisone 10 Mg Tablet 30 Mg PO DAILY 10/05/16 Rx Furosemide 40 Mg Tablet 40 Mg PO DAILY 10/05/16 Rx Vitamin C (Ascorbic Acid) 500 Mg Tablet 500 Mg PO BID 10/05/16 Rx Eliquis (Apixaban) 5 Mg Tablet 5 Mg PO BID 09/29/16 Reported Fosamax (Alendronate Sodium) 70 Mg Tablet 1 Tab PO QSU 09/29/16 Reported Probiotic (Bacillus Coagulans) 1 Each Capsule. 1 Each PO PRN 09/29/16 Reported Cellcept (Mycophenolate Mofetil) 500 Mg Tablet 1 Tab PO BID 09/29/16 Reported Ventolin Hfa Inhaler (Albuterol Sulfate) 18 Gm Hfa.aer.ad 2 Puff INH Q4HRS 04/30/16 Reported Multiple Vitamin (Multivitamin With Minerals) 1 Each Tablet 1 Each PO 04/23/16 Reported Rosuvastatin Calcium 10 Mg Tablet 10 Mg PO DAILY 04/23/16 Reported Pyridostigmine [place] 60 Mg Tablet 60 Mg PO QID 04/23/16 Reported Pantoprazole Sodium 40 Mg Tablet.dr 1 Tab PO DAILY 04/23/16 Reported Metoprolol Tartrate 50 Mg Tablet 1 Tab PO BID 04/23/16 Reported Levemir Flextouch (Insulin Detemir) 100 Unit/1 Ml Insuln.pen Unit SQ BIDAC 04/23/16 Reported 40 units in am, 25 units evening Hydrocodone-Apap 5-325 (Hydrocodone Bit/Acetaminophen) 1 Each Tablet 1 Tab PO PRN Q6HRS PRN 04/23/16 Reported Hydralazine Hcl 10 Mg Tablet 1 Tab PO TID 04/23/16 Reported Gabapentin 300 Mg Capsule 300 Mg PO QHS 04/23/16 Reported Impression . IMPRESSION: 1. Yenca-dy-bdemlos respiratory failure, multifactorial in etiology including acute diastolic congestive heart failure 2. Abnormal chest x-ray. 3. Acute diastolic congestive heart failure. 4. Asthma 5. Obstructive sleep apnea-hypopnea syndrome. 6. Obesity and deconditioning. 7. Paroxysmal atrial fibrillation. 8. Hypertension. 9. Diabetes mellitus. 10. Myasthenia gravis. 11. History of left hemidiaphragmatic paralysis. Plan . CONTINUE TO DILOPEZE NEEDS 02 FOLLOW UP IN APR follow up outpt for sleep study NABILA ALONSO MD Mar 19, 2017 10:14
[2017-03-19 11:00] VITALS: BP 131/57
--- NOTE | 2017-03-19 13:27 | PDOC ---
CARDIO Progress Notes Date and Time Date of Service 03/19/2017 Time of Evaluation 1020 Subjective Subjective: No Chest Pain, No Palpitations, No Dizziness, Other (remains to have HERNANDEZ but no significnat changes from her baseline) Vitals Vitals Vital Signs Date Time Temp Pulse Resp B/P (MAP) Pulse Ox O2 Delivery O2 Flow Rate FiO2 03/19/17 12:17 Nasal Cannula 1.0 03/19/17 12:00 89 131/57 03/19/17 11:00 99.2 20 94 99.2 Weight Weight [ ] Input and Output Intake and Output Intake and Output 03/19/17 07:00 Intake Total 1960 ml Output Total 2450 ml Balance -490 ml Intake Oral 1960 ml Output Urine Total 2450 ml Laboratory Labs Laboratory Tests Test 03/18/17 20:55 Glucose (Fingerstick) 177 mg/dL (70-99) Physical Exam HEENT: Neck Supple W Full Motion Chest: Symmetric LUNGS: Other (faint basilar cracles) Heart: S1S2, RRR (SR) Abdomen: Soft N/T Extremities: No Calf Tenderness, Other (2+ bilateral LE pitting edema) Neurology: alert, oriented, follow commands Assessment Assessment 1. Acute on chronic diastolic CHF: remains with HERNANDEZ but no changes from her baseline. Multifactorial 2. Malignant HTN: controlled 3. PAFIB: remains in SR. On eliquis. 4. Chronic lymphedema 5 Hx of left hemidiaphragm paralysis: Pulmonary following. 6. Hx of myasthenia gravis with use of cellcept Recommendations 1. Good diurese overnight. Difficult to achieve her previous wt goal of 205. Has been sustaining 212-213 lbs, remains with HERNANDEZ but no significant changes to her baseline. Will maintain current Bumex po dose and monitor renal function closely as an outpt. At this time, her HERNANDEZ is multifactorial with left hemidiaphragmatic paralysis, Myasthenia gravis, CHF, ROBERTO, obesity and possible pulmonary fibrosis with noted use of cellcept. Will continue with current regimen and agree with initial SNU. Will follow closely as an outpt. To see in our office in 2 weeks. 2. Daily weight per parameters for treatment adjustment 3. O2/CPAP requirement per pulmonary 4. If TOVA pumps or SCD pumpms is available at [facility], would recommend utilizing this in addition to sufficient leg compression. 5. Await PFT completion done today. 6. Continue with metoprolol and eliquis CALVIN ROSALES [employer] Mar 19, 2017 13:27
[2017-03-19] MEDS ORDERED: HYDR-2762 PO (13:41)
--- NOTE | 2017-03-19 14:38 | PDOC3 ---
Discharge Summary Visit Information Date of Admission: Mar 11, 2017 Date of Discharge: Mar 19, 2017 Admitting Diagnosis: leg pain Final Diagnosis bilateral leg edema 2/2 chronic lymphedema and venous insufficiency likely acute on Chronic CHF with diastolic dysfunction w. transient chest pain Elevated troponin with chf hx PAFIB on eliquis, sinus now Restrictive lung disease/ROBERTO hx CAD; CABG in 2000 HTN HLP Hx of CVA/TIA DM2 with retinopathy Hx of myasthenia gravis: w/ ongoing weakness, s/p intermittent plasmapheresis last treatment 03/2016. Hx of IgA monoclonal gammopathy leg wound, chronically CKD3 obesity, BMI 37 Hypoxic respiratory failure from CHF Problems Medical Problems: (1) Dyspnea Status: Acute (2) Elevated troponin Status: Acute Brief Hospital Course Allergies Allergies Coded Allergies Type Severity Reaction Last Updated Verified Iodinated Contrast- Oral and IV Dye Allergy Intermediate 04/23/16 Yes adhesive tape Allergy Intermediate 04/23/16 Yes insulin glargine Allergy Intermediate 04/23/16 Yes levofloxacin Allergy Intermediate 04/23/16 Yes Vital Signs Vital Signs Date Time Temp Pulse Resp B/P (MAP) Pulse Ox O2 Delivery O2 Flow Rate FiO2 03/19/17 12:17 Nasal Cannula 1.0 03/19/17 12:00 89 131/57 03/19/17 11:00 99.2 20 94 99.2 Lab Results Laboratory Tests Test 03/17/17 17:07 03/17/17 17:35 03/17/17 18:53 03/17/17 21:18 Glucose (Fingerstick) 45 mg/dL (70-99) 60 mg/dL (70-99) 112 mg/dL (70-99) 148 mg/dL (70-99) Test 03/18/17 08:27 03/18/17 10:45 03/18/17 11:44 03/18/17 20:55 Glucose (Fingerstick) 237 mg/dL (70-99) 316 mg/dL (70-99) 177 mg/dL (70-99) Sodium Level 141 mmol/L (136-145) Potassium Level 4.5 mmol/L (3.5-5.1) Chloride Level 100 mmol/L (98-107) Carbon Dioxide Level 36 mmol/L (21-32) Anion Gap 5 (6-14) Blood Urea Nitrogen 24 mg/dL (7-20) Creatinine 1.2 mg/dL (0.6-1.0) Estimated GFR (Cockcroft-Gault) 55.1 Glucose Level 351 mg/dL (70-99) Calcium Level 9.2 mg/dL (8.5-10.1) Free Thyroxine 1.04 ng/dL (0.76-1.46) Free Triiodothyronine (T3) pg/mL 2.38 pg/mL (2.18-3.98) Laboratory Tests Test 03/18/17 20:55 Glucose (Fingerstick) 177 mg/dL (70-99) Brief Hospital Course Ms. Narvaez is a 61 old with CAD, CHF and frequent admissions for exacerbations, admit with acute shortness of breath and chest pain. CHF, edema, leg ulcers, diuresed, wound care, CV consult, malignant htn, med management, then pt improved over days, dry weight 212 or 213, on PO bumex, better with rehab, needs better pain control, PFT's done before dc hypoxia when walks, marked exercise intol, plan SNU Keep legs elevated, lymphedema Lidoderm cream prior to dressing changes Discharge Information Condition at Discharge: Improved Follow Up: Weeks Disposition/Orders: D/C to Another Facility (skilled) Scheduled Albuterol Sulfate (Ventolin Hfa Inhaler), 2 PUFF INH Q4HRS, (Reported) Alendronate Sodium (Fosamax), 1 TAB PO QSU, (Reported) Apixaban (Eliquis), 5 MG PO BID, (Reported) Ascorbic Acid (Vitamin C), 500 MG PO BID Furosemide (Furosemide), 40 MG PO DAILY Gabapentin (Gabapentin), 300 MG PO QHS, (Reported) Hydralazine Hcl (Hydralazine Hcl), 1 TAB PO TID, (Reported) Insulin Aspart (Novolog Flexpen), 30 UNIT SQ TIDWMEALS, (Reported) Insulin Detemir (Levemir Flextouch), UNIT SQ BIDAC, (Reported) Metoprolol Tartrate (Metoprolol Tartrate), 1 TAB PO BID, (Reported) Mycophenolate Mofetil (Cellcept), 1 TAB PO BID, (Reported) Mycophenolate Mofetil (Cellcept), 2 TAB PO DAILY, (Reported) Mycophenolate Mofetil (Cellcept), 3 TAB PO HS, (Reported) Pantoprazole Sodium (Pantoprazole Sodium), 1 TAB PO DAILY, (Reported) Prednisone (Prednisone), 30 MG PO DAILY Pyridostigmine Lacarne (Pyridostigmine Lacarne), 60 MG PO QID, (Reported) Rosuvastatin Calcium (Rosuvastatin Calcium), 10 MG PO DAILY, (Reported) Terbutaline Sulfate (Terbutaline Sulfate), 2.5 MG PO TID, (Reported) Scheduled PRN Bacillus Coagulans (Probiotic), 1 EACH PO for prn, (Reported) Hydrocodone Bit/Acetaminophen (Hydrocodone-Apap 5-325 ), 1 TAB PO PRN Q6HRS PRN for PAIN Hydrocodone Bit/Acetaminophen (Hydrocodone-Apap 7.5-325 ), 1 TAB PO PRN Q4HRS PRN for PAIN Miscellaneous Medications Multivitamin With Minerals (Multiple Vitamin), 1 EACH PO, (Reported) Patient Instructions Patient Instructions changed pain med from 5 to 7.5 at her insistent needs rehab, her myasthenia is limiting, > 35 minutes, 2 visits SCARLET SAVAGE MD Mar 19, 2017 14:38
[2017-03-19 15:00] VITALS: BP 151/67
[2017-03-19 17:17] VITALS: BP 151/67
== END 2017-03-19 18:15 | DRG 291 ==
LOC: ER 07:50 → 2 SOUTH 10:10 → 2 NORTH 03-14 16:44
PROVIDERS: ADMIT Internal Medicine Hematology & Oncology; ATTEND Internal Medicine Hematology & Oncology
DX: I50.33 Acute on chronic diastolic (congestive) heart failure (principal); J96.21 Acute and chronic respiratory failure with hypoxia; N17.9 Acute kidney failure, unspecified; I13.0 Hypertensive heart and chronic kidney disease with heart failure and stage 1 through stage 4 chronic kidney disease, or unspecified chronic kidney disease; L97.919 Non-pressure chronic ulcer of unspecified part of right lower leg with unspecified severity; E66.2 Morbid (severe) obesity with alveolar hypoventilation; D63.8 Anemia in other chronic diseases classified elsewhere; E03.9 Hypothyroidism, unspecified; E11.22 Type 2 diabetes mellitus with diabetic chronic kidney disease; E11.65 Type 2 diabetes mellitus with hyperglycemia; E78.5 Hyperlipidemia, unspecified; G47.33 Obstructive sleep apnea (adult) (pediatric); G70.00 Myasthenia gravis without (acute) exacerbation; I25.10 Atherosclerotic heart disease of native coronary artery without angina pectoris; I48.0 Paroxysmal atrial fibrillation; I87.2 Venous insufficiency (chronic) (peripheral); I89.0 Lymphedema, not elsewhere classified; J45.909 Unspecified asthma, uncomplicated; K21.9 Gastro-esophageal reflux disease without esophagitis; K58.9 Irritable bowel syndrome, unspecified; E11.319 Type 2 diabetes mellitus with unspecified diabetic retinopathy without macular edema; E11.622 Type 2 diabetes mellitus with other skin ulcer; J98.6 Disorders of diaphragm; N18.3 Chronic kidney disease, stage 3 (moderate); D47.2 Monoclonal gammopathy; R07.89 Other chest pain; Z68.37 Body mass index [BMI] 37.0-37.9, adult; Z82.49 Family history of ischemic heart disease and other diseases of the circulatory system; Z82.5 Family history of asthma and other chronic lower respiratory diseases; Z86.73 Personal history of transient ischemic attack (TIA), and cerebral infarction without residual deficits; Z87.891 Personal history of nicotine dependence; Z91.041 Radiographic dye allergy status; Z95.1 Presence of aortocoronary bypass graft; Z99.81 Dependence on supplemental oxygen; Z98.891 History of uterine scar from previous surgery; Z90.710 Acquired absence of both cervix and uterus; Z88.8 Allergy status to other drugs, medicaments and biological substances; Z88.1 Allergy status to other antibiotic agents; Z79.01 Long term (current) use of anticoagulants
CPT/HCPCS: 99285; C8924; 36415; 36600; 71010; 71020; 80048; 80053; 81001; 82553; 82805; 82962; 83605; 83690; 83735; 83880; 84439; 84443; 84481; 84484; 85007; 85027; 85610; 85730; 93005; 93306; 94060; 94250; 94620; 94640; 94729; 94760; J0360; J1815; J2270; J3490; J7512; J7517; J7613; J7620; J7626; 97110; 97116; 97530; 97535

== ENCOUNTER → 2017-03-24 | Outpatient (CLI) | payer OTHER ==
[2017-03-19 17:17] VITALS: BP 151/67
[~2017-03-24] MED LIST changes: +HYDR-2762 PO; +[UNRECOGNIZED DRUG - CODE] PO
== END | disposition home or self-care (01) ==
LOC: PMGWOUND 10:48
PROVIDERS: ATTEND Emergency Medicine Undersea and Hyperbaric Medicine
DX: I87.311 Chronic venous hypertension (idiopathic) with ulcer of right lower extremity (principal); E11.622 Type 2 diabetes mellitus with other skin ulcer; L97.212 Non-pressure chronic ulcer of right calf with fat layer exposed; E11.22 Type 2 diabetes mellitus with diabetic chronic kidney disease; I13.0 Hypertensive heart and chronic kidney disease with heart failure and stage 1 through stage 4 chronic kidney disease, or unspecified chronic kidney disease; N18.3 Chronic kidney disease, stage 3 (moderate); I50.33 Acute on chronic diastolic (congestive) heart failure; I25.10 Atherosclerotic heart disease of native coronary artery without angina pectoris; K21.9 Gastro-esophageal reflux disease without esophagitis; E78.5 Hyperlipidemia, unspecified; E03.9 Hypothyroidism, unspecified; I89.0 Lymphedema, not elsewhere classified; I48.0 Paroxysmal atrial fibrillation; J45.909 Unspecified asthma, uncomplicated; E11.319 Type 2 diabetes mellitus with unspecified diabetic retinopathy without macular edema; E78.00 Pure hypercholesterolemia, unspecified; E66.2 Morbid (severe) obesity with alveolar hypoventilation; Z86.73 Personal history of transient ischemic attack (TIA), and cerebral infarction without residual deficits; Z90.710 Acquired absence of both cervix and uterus; Z88.8 Allergy status to other drugs, medicaments and biological substances; Z88.1 Allergy status to other antibiotic agents; Z79.01 Long term (current) use of anticoagulants; Z87.891 Personal history of nicotine dependence; Z68.37 Body mass index [BMI] 37.0-37.9, adult
CPT/HCPCS: 97597; 97598

== ENCOUNTER → 2017-04-01 | Outpatient (CLI) | payer OTHER ==
[2017-03-19 17:17] VITALS: BP 151/67
== END | disposition home or self-care (01) ==
LOC: PMGWOUND 10:31
PROVIDERS: ATTEND Emergency Medicine Undersea and Hyperbaric Medicine
DX: I87.311 Chronic venous hypertension (idiopathic) with ulcer of right lower extremity (principal); E11.622 Type 2 diabetes mellitus with other skin ulcer; L97.212 Non-pressure chronic ulcer of right calf with fat layer exposed; E78.00 Pure hypercholesterolemia, unspecified; Z90.710 Acquired absence of both cervix and uterus; E78.5 Hyperlipidemia, unspecified; E11.22 Type 2 diabetes mellitus with diabetic chronic kidney disease; I13.0 Hypertensive heart and chronic kidney disease with heart failure and stage 1 through stage 4 chronic kidney disease, or unspecified chronic kidney disease; N18.3 Chronic kidney disease, stage 3 (moderate); I50.9 Heart failure, unspecified; K21.9 Gastro-esophageal reflux disease without esophagitis; E03.9 Hypothyroidism, unspecified; I89.0 Lymphedema, not elsewhere classified; E66.2 Morbid (severe) obesity with alveolar hypoventilation; Z68.37 Body mass index [BMI] 37.0-37.9, adult; Z95.1 Presence of aortocoronary bypass graft
CPT/HCPCS: 97597; 97598

== ENCOUNTER → 2017-04-08 | Outpatient (CLI) | payer OTHER ==
[2017-03-19 17:17] VITALS: BP 151/67
== END | disposition home or self-care (01) ==
LOC: PMGWOUND 09:55
PROVIDERS: ATTEND Emergency Medicine Undersea and Hyperbaric Medicine
DX: I87.311 Chronic venous hypertension (idiopathic) with ulcer of right lower extremity (principal); L97.212 Non-pressure chronic ulcer of right calf with fat layer exposed; K21.9 Gastro-esophageal reflux disease without esophagitis; E78.5 Hyperlipidemia, unspecified; E03.9 Hypothyroidism, unspecified; E11.22 Type 2 diabetes mellitus with diabetic chronic kidney disease; I13.0 Hypertensive heart and chronic kidney disease with heart failure and stage 1 through stage 4 chronic kidney disease, or unspecified chronic kidney disease; N18.3 Chronic kidney disease, stage 3 (moderate); I50.33 Acute on chronic diastolic (congestive) heart failure; E11.319 Type 2 diabetes mellitus with unspecified diabetic retinopathy without macular edema; I89.0 Lymphedema, not elsewhere classified; E66.2 Morbid (severe) obesity with alveolar hypoventilation; I25.10 Atherosclerotic heart disease of native coronary artery without angina pectoris; I48.0 Paroxysmal atrial fibrillation; J45.909 Unspecified asthma, uncomplicated; Z68.37 Body mass index [BMI] 37.0-37.9, adult; Z95.1 Presence of aortocoronary bypass graft; Z79.01 Long term (current) use of anticoagulants; Z87.891 Personal history of nicotine dependence; Z86.73 Personal history of transient ischemic attack (TIA), and cerebral infarction without residual deficits; Z90.710 Acquired absence of both cervix and uterus; Z88.8 Allergy status to other drugs, medicaments and biological substances; Z88.1 Allergy status to other antibiotic agents
CPT/HCPCS: 97597; 97598

== ENCOUNTER → 2017-04-24 | Outpatient (CLI) | payer OTHER ==
--- NOTE | 2017-04-16 19:06 | CONS ---
DATE OF CONSULTATION: 04/16/2017 INFECTIOUS DISEASE CONSULTATION PATIENT'S ROOM: 669 REQUESTING PHYSICIAN: Dr. Negron REASON FOR CONSULTATION: Positive blood culture. HISTORY OF PRESENT ILLNESS: The patient is a pleasant 61-year-old, female with history of myasthenia gravis and diabetes who states on Friday she was in normal state of health, but then began to have a cramp on her left hand. She states she took some extra potassium at that time, but then began to have significant rigors and sweats as well as chills, fatigue. She had decreased urine output, but denies any change in color of her urine. No odor, no bleeding. She also does have a history of urinary tract infection, but it has been many years. Because of progressive weakness and nausea, she presented to [facility] Emergency Room on the , where she is found to have a white blood cell count of 34.4 and cultures were obtained. Urine was also obtained and appeared to be consistent with urinary tract infection. Additionally, she was found to have acute renal failure with the creatinine of 2.6 with creatinine just on the of 1.2. She was placed on vancomycin and Zosyn. Cultures yesterday returned positive for gram-negative echo and I was consulted. I discontinued any further vancomycin and continued the Zosyn. Of note, Ms. Narvaez has also been evaluated in the [facility] for a venous stasis ulcer that has been appearing clean. Currently, she is standing with OT. Still feels lousy, but some better than when she was previously admitted. She denies any headaches or sinus drainage, but she is having a mild increased cough with thick purulent sputum with little chest discomfort with the coughing. She denies any falls or any traumas. PAST MEDICAL HISTORY: Positive for coronary artery disease, congestive heart failure, hypertension, hyperlipidemia, CVA, TIA, myasthenia gravis, diverticulosis, gastroesophageal reflux disease, irritable bowel, chronic renal insufficiency, diabetes and venous insufficiency with the right lower extremity wound. PAST SURGICAL HISTORY: Positive for CABG, history, hysterectomy as well as the previous fistula placement. She also suffered a diaphragmatic injury during her CABG. REVIEW OF SYSTEMS: Otherwise negative except for mentioned above. ALLERGIES: LISTED TO LEVOFLOXACIN. SHE STATES IT INTERFERES WITH HER MYASTHENIA TREATMENTS. ADHESIVE, ORAL AND IV DYE, INSULIN GLARGINE ARE ALSO LISTED. SOCIAL HISTORY: No alcohol or tobacco. FAMILY HISTORY: Positive for coronary artery disease. CURRENT MEDICATIONS: Include Zosyn, ____, Eliquis, vitamin C, Children's Aspirin, Lipitor, Bumex, ferrous sulfate, Neurontin, NovoLog, Levemir, Zaroxolyn, Singulair, CellCept, prednisone, Mestinon and terbutaline. PHYSICAL EXAMINATION: VITAL SIGNS: Temperature was as high as 102.8, currently is 98.1; pulse 97 and blood pressure 122/46. She is on 2 liters nasal cannula, satting 97% with the respiratory rate of 20. CONSTITUTIONAL: She is pleasant. She is cooperative. She is in no acute distress. She does have some cushingoid features about her and she is standing at the side of the bed with OT. HEENT: Pupils are equal and reactive. Oral cavity and pharynx is clear. NECK: Supple without JVD. LUNGS: Clear to auscultation. HEART: S1 and S2 with a 2/6 murmur. ABDOMEN: Obese, soft, nontender and nondistended. Positive bowel sounds. EXTREMITIES: Without clubbing or cyanosis. She has a Tubigrip dressing over her right lower extremity. She has trace edema. SKIN: Warm to touch without signs of rash. NEUROLOGIC: She was appropriate. Moved all extremities. PSYCHIATRIC: Affect was pleasant during the exam. She did cough up brown purulent looking sputum. LABORATORY VALUES: White count is 24.7, hemoglobin 9.5, platelets of 112, neutrophils of 92. Creatinine today of 1.9. Glucose of 263. Creatine kinase was 317, down from 495. She had normal liver function study tests. Urinalysis concerning for urinary tract infection. Cultures are currently pending. Chest x-ray did not show any acute process. Ultrasound showed nonobstructing left nephrolithiasis. IMPRESSION: 1. Gram-negative sepsis present on admission on 14 of April. 2. Escherichia coli urinary tract infection present on admission. Discussed with microbiology this morning. It is resistant to ampicillin, piperacillin, Bactrim and tetracycline. 3. LEVOFLOXACIN ALLERGY. INTERACTS WITH HER MYASTHENIA GRAVIS. 4. Immunosuppression. 5. Questionable bronchitis, now with thick brown purulent sputum. 6. Acute kidney injury. 7. Venous stasis ulcer. Appears to be clean in reviewing the picture. RECOMMENDATIONS: I stopped the vancomycin on the . Given the gram-negative rods in her urine and blood, we will change to Rocephin today. Follow up labs and cultures. Obtain sputum culture and continue local wound care. Thank you for asking me to participate in this patient's care. Should you have any further questions, please do not hesitate to contact me. MAGALY LOZA MD DR: JENISE/jesus JOB#: [id number] / [id number]
[2017-04-20 17:32] VITALS: BP 128/57
[~2017-04-24] MED LIST changes: +ASPI-630 PO; +BUME2TAB PO; +CALC-98 PO; +CEFP100T PO; +FOLI1TAB16 PO; +INSU100V13 SQ; +ISOS60TA2 PO; +METO2.5T PO; +MONT10TA9 PO; +NITR0.4T SL; +POTA20TA82 PO; +SENN-37 PO
== END | disposition home or self-care (01) ==
LOC: PMGWOUND 10:19
PROVIDERS: ATTEND Emergency Medicine Undersea and Hyperbaric Medicine
DX: I87.311 Chronic venous hypertension (idiopathic) with ulcer of right lower extremity (principal); E11.622 Type 2 diabetes mellitus with other skin ulcer; L97.212 Non-pressure chronic ulcer of right calf with fat layer exposed; I25.10 Atherosclerotic heart disease of native coronary artery without angina pectoris; K21.9 Gastro-esophageal reflux disease without esophagitis; E11.22 Type 2 diabetes mellitus with diabetic chronic kidney disease; I13.0 Hypertensive heart and chronic kidney disease with heart failure and stage 1 through stage 4 chronic kidney disease, or unspecified chronic kidney disease; N18.3 Chronic kidney disease, stage 3 (moderate); I50.33 Acute on chronic diastolic (congestive) heart failure; E78.5 Hyperlipidemia, unspecified; E11.319 Type 2 diabetes mellitus with unspecified diabetic retinopathy without macular edema; E03.9 Hypothyroidism, unspecified; E66.2 Morbid (severe) obesity with alveolar hypoventilation; I48.0 Paroxysmal atrial fibrillation; J45.909 Unspecified asthma, uncomplicated; Z79.4 Long term (current) use of insulin; Z68.37 Body mass index [BMI] 37.0-37.9, adult; Z90.710 Acquired absence of both cervix and uterus; Z95.1 Presence of aortocoronary bypass graft; Z86.73 Personal history of transient ischemic attack (TIA), and cerebral infarction without residual deficits; Z79.01 Long term (current) use of anticoagulants; Z87.891 Personal history of nicotine dependence
CPT/HCPCS: 97597

== ENCOUNTER → 2017-05-06 | Outpatient (CLI) | payer OTHER ==
[2017-04-20 17:32] VITALS: BP 128/57
== END | disposition home or self-care (01) ==
LOC: PMGWOUND 10:09
PROVIDERS: ATTEND Emergency Medicine Undersea and Hyperbaric Medicine
DX: I87.311 Chronic venous hypertension (idiopathic) with ulcer of right lower extremity (principal); L97.212 Non-pressure chronic ulcer of right calf with fat layer exposed; I25.10 Atherosclerotic heart disease of native coronary artery without angina pectoris; K21.9 Gastro-esophageal reflux disease without esophagitis; E11.22 Type 2 diabetes mellitus with diabetic chronic kidney disease; I13.0 Hypertensive heart and chronic kidney disease with heart failure and stage 1 through stage 4 chronic kidney disease, or unspecified chronic kidney disease; N18.3 Chronic kidney disease, stage 3 (moderate); I50.33 Acute on chronic diastolic (congestive) heart failure; E78.5 Hyperlipidemia, unspecified; E03.9 Hypothyroidism, unspecified; E66.2 Morbid (severe) obesity with alveolar hypoventilation; E11.319 Type 2 diabetes mellitus with unspecified diabetic retinopathy without macular edema; I48.0 Paroxysmal atrial fibrillation; J45.909 Unspecified asthma, uncomplicated; M19.90 Unspecified osteoarthritis, unspecified site; Z68.37 Body mass index [BMI] 37.0-37.9, adult; Z87.891 Personal history of nicotine dependence; Z90.710 Acquired absence of both cervix and uterus; Z79.01 Long term (current) use of anticoagulants; Z79.4 Long term (current) use of insulin; Z86.73 Personal history of transient ischemic attack (TIA), and cerebral infarction without residual deficits; Z95.1 Presence of aortocoronary bypass graft
CPT/HCPCS: 97597; 97598

== ENCOUNTER → 2017-05-20 | Outpatient (CLI) | payer OTHER ==
[2017-04-20 17:32] VITALS: BP 128/57
[~2017-05-20] MED LIST changes: +ACET325T9 PO; +ASPI325T8 PO; +CLOT12CR2 TP; +COLL30OI TP; +LATA2.5D2 EACHEYE; +LORA10TA68 PO; -METO50TA2 PO; +METO50TA6 PO; +OXYC10TA PO; +POLY17PO29 PO; +PRED20TA PO
== END | disposition home or self-care (01) ==
LOC: PMGWOUND 10:08
PROVIDERS: ATTEND Emergency Medicine Undersea and Hyperbaric Medicine
DX: I87.311 Chronic venous hypertension (idiopathic) with ulcer of right lower extremity (principal); L97.212 Non-pressure chronic ulcer of right calf with fat layer exposed; I25.10 Atherosclerotic heart disease of native coronary artery without angina pectoris; E11.22 Type 2 diabetes mellitus with diabetic chronic kidney disease; I13.0 Hypertensive heart and chronic kidney disease with heart failure and stage 1 through stage 4 chronic kidney disease, or unspecified chronic kidney disease; N18.3 Chronic kidney disease, stage 3 (moderate); I50.33 Acute on chronic diastolic (congestive) heart failure; K21.9 Gastro-esophageal reflux disease without esophagitis; E78.5 Hyperlipidemia, unspecified; E03.9 Hypothyroidism, unspecified; E66.2 Morbid (severe) obesity with alveolar hypoventilation; E11.319 Type 2 diabetes mellitus with unspecified diabetic retinopathy without macular edema; J45.909 Unspecified asthma, uncomplicated; I48.0 Paroxysmal atrial fibrillation; M19.90 Unspecified osteoarthritis, unspecified site; Z87.891 Personal history of nicotine dependence; Z95.1 Presence of aortocoronary bypass graft; Z86.73 Personal history of transient ischemic attack (TIA), and cerebral infarction without residual deficits; Z68.37 Body mass index [BMI] 37.0-37.9, adult; Z90.710 Acquired absence of both cervix and uterus; Z79.01 Long term (current) use of anticoagulants; Z79.4 Long term (current) use of insulin
CPT/HCPCS: 82962; 97597; 97598

== ENCOUNTER → 2017-06-03 | Outpatient (CLI) | payer OTHER ==
[2017-04-20 17:32] VITALS: BP 128/57
[~2017-06-03] MED LIST changes: -ACET325T9 PO; -ASPI325T8 PO; -CLOT12CR2 TP; -COLL30OI TP; -LATA2.5D2 EACHEYE; -LORA10TA68 PO; +METO50TA2 PO; -METO50TA6 PO; -POLY17PO29 PO
== END | disposition home or self-care (01) ==
LOC: PMGWOUND 10:24
PROVIDERS: ATTEND Emergency Medicine Undersea and Hyperbaric Medicine
DX: I87.311 Chronic venous hypertension (idiopathic) with ulcer of right lower extremity (principal); E11.622 Type 2 diabetes mellitus with other skin ulcer; L97.212 Non-pressure chronic ulcer of right calf with fat layer exposed; I25.10 Atherosclerotic heart disease of native coronary artery without angina pectoris; K21.9 Gastro-esophageal reflux disease without esophagitis; E11.22 Type 2 diabetes mellitus with diabetic chronic kidney disease; I13.0 Hypertensive heart and chronic kidney disease with heart failure and stage 1 through stage 4 chronic kidney disease, or unspecified chronic kidney disease; N18.3 Chronic kidney disease, stage 3 (moderate); I50.33 Acute on chronic diastolic (congestive) heart failure; E11.319 Type 2 diabetes mellitus with unspecified diabetic retinopathy without macular edema; E78.5 Hyperlipidemia, unspecified; E03.9 Hypothyroidism, unspecified; E66.2 Morbid (severe) obesity with alveolar hypoventilation; I48.0 Paroxysmal atrial fibrillation; J45.909 Unspecified asthma, uncomplicated; M19.90 Unspecified osteoarthritis, unspecified site; Z87.891 Personal history of nicotine dependence; Z95.1 Presence of aortocoronary bypass graft; Z86.73 Personal history of transient ischemic attack (TIA), and cerebral infarction without residual deficits; Z90.710 Acquired absence of both cervix and uterus; Z79.4 Long term (current) use of insulin; Z79.01 Long term (current) use of anticoagulants; Z68.37 Body mass index [BMI] 37.0-37.9, adult
CPT/HCPCS: 99214

== ENCOUNTER 2017-06-10 09:45 | Observation (INO) | payer OTHER ==
[~2017-06-10] VITALS: Ht 160 cm; Wt 93.0 kg
[2017-06-10] VITALS (10 sets, daily range): BP systolic 105–157; BP diastolic 52–70
[~2017-06-10 09:45] MED LIST changes: +BUPIVAC MPF-EPI 0.5%-1:200000 30 ML VIAL. ONE; +IV RINGERS,LACTATED 1000ML 1,000 ML IV SCH; +LIDOCAINE 1% PF 2 ML VIAL. ID PRN; +MINERAL OIL 10 ML VIAL MC ONE; +ONDANSETRON PF 4 MG/2 ML VIAL. IV PRN; +PROCHLORPERAZINE 10 MG/2 ML VIAL. IV PRN; +fentaNYL PF VIAL 100 MCG/2 ML VIAL IV PRN
[2017-06-10] MEDS: IV NORMAL SALINE 1000ML BAG 1,000 ML IV SCH ×2 (10:43→10:45)
[2017-06-10] MEDS ORDERED: ONDANSETRON PF 4 MG/2 ML VIAL. ONE (11:28)
[2017-06-10] MEDS ORDERED: fentaNYL PF VIAL 100 MCG/2 ML VIAL ONE (11:28)
[2017-06-10] MEDS ORDERED: MIDAZOLAM HCL/PF 2 MG/2 ML VIAL. ONE (11:28)
[2017-06-10] MEDS ORDERED: LIDOCAINE 2% PF Vial for OR 5 ML VIAL. ONE (11:29)
[2017-06-10] MEDS ORDERED: DEXAMETHASONE SOD PHOS 20 MG/5 ML VIAL. ONE (11:29)
[2017-06-10] MEDS ORDERED: PROPOFOL 20 ML IV ONE (11:29)
[2017-06-10] MEDS ORDERED: SEVOFLURANE 31 TO 60 MINUTES. IH ONE (13:03)
[2017-06-10] MEDS ORDERED: LABETALOL 20 MG/4 ML DISP.SYRIN. ONE (13:09)
[2017-06-10] MEDS ORDERED: INSULIN ASPART 100 UNIT/ML 10ML VIAL. SQ ONE ×2 (13:21→13:30)
[2017-06-10] MEDS: HYDROmorphone 2 MG/ML VIAL IV PRN ×4 (13:25→14:08)
--- NOTE | 2017-06-10 13:26 | PDOC4 ---
OPERATIVE NOTE Date: Date: Jun 10, 2017 Pre-Op Diagnosis: right posterior lateral venous stasis ulcer Post-Op Diagnosis: same Procedure Performed: Split thickness skin graft to right leg 7x 4 cm Surgeon: Luc Gale Anesthesia Type: GETA plus 0.5% marcaine Blood Loss: minimal Specimans Obtained: none Findings: clean ulcer to right leg Complications: none Operative Note: After obtaining informed consent, patient was taken to the OR, induced under GETA, and prepped in the usual fashion. Skin graft was harvested from right anterior thigh using dermatome. Aquacel and op site placed over this. Graft mesh 1:1.5 and then tacked in place using multiple interrupted 4 0 monocryl to right posterior leg ulcer. Graft site with good granulation tissue, good bleeding. Xeroform gauze and compression dressing placed over this. Patient tolerated procedure well and sent to PACU in stable condition. All counts correct. No immediate complications. LUC GALE MD Jun 10, 2017 13:26
[2017-06-10] MEDS ORDERED: LABETALOL 20 MG/4 ML DISP.SYRIN. IVP ONE ×3 (13:45→15:15)
[2017-06-10] MEDS: MORPHINE SULFATE 2 MG/ML DISP.SYRIN. IV PRN ×2 (14:26→14:55)
[2017-06-10] MEDS ORDERED: LATA2.5D2 EACHEYE (16:38)
[2017-06-10] MEDS ORDERED: IV NORMAL SALINE 1000ML BAG 1,000 ML IV SCH (17:08)
[2017-06-10] MEDS ORDERED: 0.9 % SODIUM CHLORIDE 10 ML DISP.SYRIN. IV PRN (17:15)
[2017-06-10] MEDS ORDERED: SENNOSIDES/DOCUSATE 8.6/50MG TABLET. PO PRN (17:15)
[2017-06-10] MEDS ORDERED: DEXTROSE 50% 25 GM / 50ML DISP.SYRIN. IV PRN (17:15)
[2017-06-10] MEDS ORDERED: ANTI-COAG MONITOR BY PHARMACY. MC PRN (17:30)
[2017-06-10] MEDS: INSULIN ASPART 300 UNITS/3 ML INSULN.PEN SQ SCH (18:18)
[2017-06-10] MEDS: MORPHINE SULFATE 4 MG/ML DISP.SYRIN. IV PRN (19:01)
[2017-06-10] MEDS: APIXABAN 5 MG TABLET. PO SCH (20:01)
--- NOTE | 2017-06-10 20:02 | HP ---
ADMIT DATE: 06/10/2017 CHIEF COMPLAINT: Status post split thickness skin graft. HISTORY OF PRESENT ILLNESS: The patient is a 61-year-old woman with multiple medical problems including diabetes mellitus, peripheral vascular disease, CHF, CKD as well as myasthenia gravis who presented for elective covering of chronic leg ulcers with split thickness skin graft today. She was taken to the OR by Dr. Steward. The procedure was performed without any immediate complications and the patient is now admitted for postop care and observation for 23 hours. The patient relates that she is doing fairly well. The donor site is more painful than the lower extremity, not unexpected. PAST MEDICAL HISTORY: CAD, CHF, peripheral vascular disease, hypertension, hyperlipidemia, myasthenia gravis, status post recent plasmapheresis in April, anemia, GERD, irritable bowel, diabetes mellitus, chronic renal insufficiency. PAST SURGICAL HISTORY: She is status post CABG, , hysterectomy, and a fistula placement for dialysis. FAMILY HISTORY: Positive for CAD. SOCIAL HISTORY: No toxic habits, lives with family. ALLERGIES: ADHESIVE TAPE, INSULIN GLARGINE AND LEVOFLOXACIN. MEDICATIONS: MAR reconciled with home medications. REVIEW OF SYSTEMS: Positive only for pain in right anterior thigh from donor site. Rest of organ system review is negative. PHYSICAL EXAMINATION: VITAL SIGNS: From today show a blood pressure of 127/56, heart rate of 86, respiratory rate at 16. She is afebrile. GENERAL: This is an obese 61-year-old woman, alert and oriented, in no acute distress, very pleasant. HEENT: Shows no scleral icterus. NECK: Supple. LUNGS: Clear anteriorly. HEART: Regular rate and rhythm. ABDOMEN: Obese, positive bowel sounds. EXTREMITIES: Show no edema. The donor site covered with Aquacel. Lower extremity on the left covered with gauze and Doyle wrap. LABORATORY DATA: Pending. ASSESSMENT AND PLAN: The patient is a 61-year-old woman with multiple medical issues who now has been admitted for observation after a procedure to cover her lower extremity chronic lesions. She is actually recovering well from a skin graft. Current issues are diabetes. She will be restarted on insulin, although slightly lower dose than before as she has been n.p.o. all day and is not eating full meals yet. We will add insulin sliding scale to this. Hopefully by tomorrow, regular insulin dosage can be resumed. She will be continued on her medications for high blood pressure as well. Blood pressures currently are well controlled. We will continue all secondary prevention medications for peripheral vascular disease and coronary artery disease as well. She remains on pyridostigmine q.i.d. Hopefully, with good recovery from surgery tomorrow, she will be able to return home. Wound care as per Surgery. SANIA MOYER MD DR: UR/nts JOB#: [id number] / [id number] JANEY Askew MD MTDD
[2017-06-10] MEDS: LACTOBACILLUS RHAMNOSUS GG 1 CAPSULE. PO SCH (20:53)
[2017-06-10] MEDS: PYRIDOSTIGMINE BROMIDE 60 MG TABLET PO SCH (20:53)
[2017-06-10] MEDS: ASCORBIC ACID 500 MG TABLET PO SCH (20:53)
[2017-06-10] MEDS: METOPROLOL TART IMMED RELEASE 50 MG TABLET. PO SCH (20:54)
[2017-06-10] MEDS ORDERED: INSULIN DETEMIR 300 UNITS/3 ML INSULN.PEN. SQ SCH (21:00)
[2017-06-10] MEDS ORDERED: MYCOPHENOLATE MOFETIL 250 MG CAPSULE. PO SCH (21:00)
[2017-06-10] MEDS ORDERED: LATANOPROST 0.005% OPHTH SOLUTION 2.5ML BOTTLE. OU SCH (21:00)
[2017-06-10] MEDS ORDERED: ATORVASTATIN CALCIUM 40 MG TABLET. PO SCH (21:00)
[2017-06-10] MEDS ORDERED: GABAPENTIN 300 MG CAPSULE. PO SCH (21:00)
[2017-06-10] MEDS: oxyCODONE IR 5 MG TABLET PO PRN (22:27)
[2017-06-10] MEDS ORDERED: INSULIN ASPART 300 UNITS/3 ML INSULN.PEN SQ SCH (22:45)
[2017-06-10] MEDS ORDERED: INSULIN ASPART 300 UNITS/3 ML INSULN.PEN SQ ONE (23:00)
[2017-06-11] MEDS: MORPHINE SULFATE 4 MG/ML DISP.SYRIN. IV PRN (00:35)
[2017-06-11] MEDS: oxyCODONE IR 5 MG TABLET PO PRN ×5 (02:23→17:21)
[2017-06-11 03:18] VITALS: BP 144/72
[2017-06-11 05:16] LABS: BASO % 0 % (0-3); EOS % 0 % (0-3); HEMATOCRIT 32.6 % (36.0-47.0); HEMOGLOBIN 9.8 g/dL (12.0-15.5); LYMPH # 0.7 x10^3/uL (1.0-4.8); LYMPH % 7 % (24-48); MEAN CORPUSCULAR HEMOGLOBIN 26 pg (25-35); MEAN CORPUSCULAR HGB CONC 30 g/dL (31-37); MEAN CORPUSCULAR VOLUME 87 fL (79-100); MONO % 8 % (0-9); NEUT % 85 % (31-73); PLATELET COUNT 220 x10^3/uL (140-400); RED BLOOD COUNT 3.73 x10^6/uL (3.50-5.40); RED CELL DISTRIBUTION WIDTH 16.1 % (11.5-14.5)
[2017-06-11 05:22] LABS: ALBUMIN 2.6 g/dL (3.4-5.0); ALBUMIN/GLOBULIN RATIO 0.8 (1.0-1.7); CALCIUM 8.2 mg/dL (8.5-10.1); POTASSIUM 4.8 mmol/L (3.5-5.1); TOTAL BILIRUBIN 0.2 mg/dL (0.2-1.0)
[2017-06-11 07:00] VITALS: BP 165/77
[2017-06-11] MEDS: ASCORBIC ACID 500 MG TABLET PO SCH (07:56)
[2017-06-11] MEDS: PYRIDOSTIGMINE BROMIDE 60 MG TABLET PO SCH ×3 (07:56→17:21)
[2017-06-11] MEDS: METOPROLOL TART IMMED RELEASE 50 MG TABLET. PO SCH (07:57)
[2017-06-11] MEDS: LACTOBACILLUS RHAMNOSUS GG 1 CAPSULE. PO SCH (07:57)
[2017-06-11] MEDS: APIXABAN 5 MG TABLET. PO SCH (07:58)
[2017-06-11] MEDS ORDERED: POTASSIUM CHLORIDE 20 MEQ TABLET.ER. PO SCH (08:00)
[2017-06-11] MEDS: INSULIN ASPART 300 UNITS/3 ML INSULN.PEN SQ SCH ×6 (08:07→17:00)
[2017-06-11] MEDS ORDERED: BUMETANIDE 1 MG TABLET. PO SCH (09:00)
[2017-06-11] MEDS ORDERED: ASPIRIN CHEWABLE 81 MG TABLET. PO SCH (09:00)
[2017-06-11] MEDS ORDERED: MYCOPHENOLATE MOFETIL 250 MG CAPSULE. PO SCH (09:00)
[2017-06-11] MEDS ORDERED: INSULIN DETEMIR 300 UNITS/3 ML INSULN.PEN. SQ SCH (09:00)
[2017-06-11] MEDS ORDERED: predniSONE 20 MG TABLET PO SCH (09:00)
[2017-06-11] MEDS ORDERED: predniSONE 5 MG TABLET PO SCH (09:00)
[2017-06-11] MEDS ORDERED: FOLIC ACID 1 MG TABLET. PO SCH (09:00)
[2017-06-11] MEDS: IV NORMAL SALINE 1000ML BAG 1,000 ML IV SCH (10:45)
[2017-06-11 11:00] VITALS: BP 143/66
--- NOTE | 2017-06-11 12:48 | PDOC ---
SURGICAL PROGRESS NOTE Subjective Pt reports mild pain at thigh, noted some bleeding from donor site, overnight, but none now Vital Signs Vital Signs Date Time Temp Pulse Resp B/P (MAP) Pulse Ox O2 Delivery O2 Flow Rate FiO2 06/11/17 07:57 88 144/72 06/11/17 07:00 98.6 18 94 Room Air 98.6 06/10/17 18:00 2.0 General: Alert, Oriented X3, Cooperative, No acute distress Abdomen: Soft Skin: Other (donor site dressing c/d/i, right ankle dressing intact) Labs Laboratory Tests Test 06/10/17 13:18 06/10/17 17:23 06/10/17 22:23 06/11/17 04:00 Glucose (Fingerstick) 292 mg/dL (70-99) 266 mg/dL (70-99) 315 mg/dL (70-99) White Blood Count 10.0 x10^3/uL (4.0-11.0) Red Blood Count 3.73 x10^6/uL (3.50-5.40) Hemoglobin 9.8 g/dL (12.0-15.5) Hematocrit 32.6 % (36.0-47.0) Mean Corpuscular Volume 87 fL (79-100) Mean Corpuscular Hemoglobin 26 pg (25-35) Mean Corpuscular Hemoglobin Concent 30 g/dL (31-37) Red Cell Distribution Width 16.1 % (11.5-14.5) Platelet Count 220 x10^3/uL (140-400) Neutrophils (%) (Auto) 85 % (31-73) Lymphocytes (%) (Auto) 7 % (24-48) Monocytes (%) (Auto) 8 % (0-9) Eosinophils (%) (Auto) 0 % (0-3) Basophils (%) (Auto) 0 % (0-3) Neutrophils # (Auto) 8.5 x10^3uL (1.8-7.7) Lymphocytes # (Auto) 0.7 x10^3/uL (1.0-4.8) Monocytes # (Auto) 0.8 x10^3/uL (0.0-1.1) Eosinophils # (Auto) 0.0 x10^3/uL (0.0-0.7) Basophils # (Auto) 0.0 x10^3/uL (0.0-0.2) Sodium Level 141 mmol/L (136-145) Potassium Level 4.8 mmol/L (3.5-5.1) Chloride Level 104 mmol/L (98-107) Carbon Dioxide Level 31 mmol/L (21-32) Anion Gap 6 (6-14) Blood Urea Nitrogen 21 mg/dL (7-20) Creatinine 1.0 mg/dL (0.6-1.0) Estimated GFR (Cockcroft-Gault) 68.0 BUN/Creatinine Ratio 21 (6-20) Glucose Level 209 mg/dL (70-99) Calcium Level 8.2 mg/dL (8.5-10.1) Total Bilirubin 0.2 mg/dL (0.2-1.0) Aspartate Amino Transf (AST/SGOT) 16 U/L (15-37) Alanine Aminotransferase (ALT/SGPT) 27 U/L (14-59) Alkaline Phosphatase 66 U/L (46-116) Total Protein 6.0 g/dL (6.4-8.2) Albumin 2.6 g/dL (3.4-5.0) Albumin/Globulin Ratio 0.8 (1.0-1.7) Test 06/11/17 07:18 06/11/17 11:49 Glucose (Fingerstick) 188 mg/dL (70-99) 104 mg/dL (70-99) Laboratory Tests Test 06/10/17 13:18 06/10/17 17:23 06/10/17 22:23 06/11/17 04:00 Glucose (Fingerstick) 292 mg/dL (70-99) 266 mg/dL (70-99) 315 mg/dL (70-99) White Blood Count 10.0 x10^3/uL (4.0-11.0) Red Blood Count 3.73 x10^6/uL (3.50-5.40) Hemoglobin 9.8 g/dL (12.0-15.5) Hematocrit 32.6 % (36.0-47.0) Mean Corpuscular Volume 87 fL (79-100) Mean Corpuscular Hemoglobin 26 pg (25-35) Mean Corpuscular Hemoglobin Concent 30 g/dL (31-37) Red Cell Distribution Width 16.1 % (11.5-14.5) Platelet Count 220 x10^3/uL (140-400) Neutrophils (%) (Auto) 85 % (31-73) Lymphocytes (%) (Auto) 7 % (24-48) Monocytes (%) (Auto) 8 % (0-9) Eosinophils (%) (Auto) 0 % (0-3) Basophils (%) (Auto) 0 % (0-3) Neutrophils # (Auto) 8.5 x10^3uL (1.8-7.7) Lymphocytes # (Auto) 0.7 x10^3/uL (1.0-4.8) Monocytes # (Auto) 0.8 x10^3/uL (0.0-1.1) Eosinophils # (Auto) 0.0 x10^3/uL (0.0-0.7) Basophils # (Auto) 0.0 x10^3/uL (0.0-0.2) Sodium Level 141 mmol/L (136-145) Potassium Level 4.8 mmol/L (3.5-5.1) Chloride Level 104 mmol/L (98-107) Carbon Dioxide Level 31 mmol/L (21-32) Anion Gap 6 (6-14) Blood Urea Nitrogen 21 mg/dL (7-20) Creatinine 1.0 mg/dL (0.6-1.0) Estimated GFR (Cockcroft-Gault) 68.0 BUN/Creatinine Ratio 21 (6-20) Glucose Level 209 mg/dL (70-99) Calcium Level 8.2 mg/dL (8.5-10.1) Total Bilirubin 0.2 mg/dL (0.2-1.0) Aspartate Amino Transf (AST/SGOT) 16 U/L (15-37) Alanine Aminotransferase (ALT/SGPT) 27 U/L (14-59) Alkaline Phosphatase 66 U/L (46-116) Total Protein 6.0 g/dL (6.4-8.2) Albumin 2.6 g/dL (3.4-5.0) Albumin/Globulin Ratio 0.8 (1.0-1.7) Test 06/11/17 07:18 06/11/17 11:49 Glucose (Fingerstick) 188 mg/dL (70-99) 104 mg/dL (70-99) Problem List s/p STSG to right ankle d/c home maintain dressing f/u in one week Problems: TRAV GALE MD Jun 11, 2017 12:48
--- NOTE | 2017-06-11 13:12 | PDOC3 ---
Discharge Summary [facility] Date of Admission: Jun 10, 2017 Discharge Date: Jun 11, 2017 Admitting Diagnosis right leg skin graft sx for right leg chronic wound recent SEpsis with + bacteremia UTI CKD 3 bilateral leg edema 2/2 chronic lymphedema and venous insufficiency likely stable Chronic CHF with diastolic dysfunction w. transient chest pain hx PAFIB on eliquis Restrictive lung disease/ROBERTO hx CAD; CABG in 2000 HTN HLP Hx of CVA/TIA DM2 with retinopathy Hx of myasthenia gravis: w/ ongoing weakness on prednisone daily, s/p intermittent plasmapheresis last treatment 03/2016. Hx of IgA monoclonal gammopathy obesity, BMI 37 Hypoxic respiratory failure from CHF Problems: CONSULTS sx Procedures split thickness skin graft for rt leg 7x4cm Brief Hospital Course Ms. Narvaez is a 61 old F, pleasant, with multiple commobidities, was admitted last night for elective skin graft sx for right leg chronic ulcer, donate site is right thigh, Pt feels ok except some bleeding from the donate site last night. eliquis held. ok to dc as per sx. dc time 35min. GENERAL: This is an obese 61-year-old woman, alert and oriented, in no acute distress, very pleasant. HEENT: Shows no scleral icterus. NECK: Supple. LUNGS: Clear anteriorly. HEART: Regular rate and rhythm. ABDOMEN: Obese, positive bowel sounds. EXTREMITIES: Show no edema. The donor site covered with Aquacel. Lower extremity on the right covered with gauze and Doyle wrap. Patient History: Family history: Cardiovascular disease (situation) 32 MOTHER Family history: Diabetes mellitus (situation) G8 BROTHER 32 MOTHER Family history: Hypertension (situation) 32 MOTHER Problems: Disposition home CONDITION AT DISCHARGE: Improved Diet cardiac Scheduled Alendronate Sodium (Fosamax), 1 TAB PO QSU, (Reported) Apixaban (Eliquis), 5 MG PO BID, (Reported) Ascorbic Acid (Vitamin C), 500 MG PO BID Aspirin (Aspirin), 1 TAB PO DAILY, (Reported) Bumetanide (Bumetanide), 2 MG PO DAILY, (Reported) Calcium Carbonate/Vitamin D3 (Calcium + Vitamin D Tablet), 1 EACH PO DAILY, ( Reported) Ferrous Sulfate (Ferrous Sulfate), 1 TAB PO QODAY, (Reported) Folic Acid (Folic Acid), 1 TAB PO DAILY, (Reported) Gabapentin (Gabapentin), 300 MG PO QHS, (Reported) Insulin Aspart (Novolog Flexpen), 35 UNIT SQ TIDWMEALS, (Reported) Insulin Detemir (Levemir), 40 UNIT SQ DAILYWBKFT, (Reported) Insulin Detemir (Levemir), 25 UNIT SQ DAILYWSUP, (Reported) Latanoprost (Xalatan), 1 DROP EACHEYE QHS, (Reported) Metoprolol Tartrate (Metoprolol Tartrate), 1 TAB PO BID, (Reported) Mycophenolate Mofetil (Cellcept), 2 TAB PO DAILY, (Reported) Mycophenolate Mofetil (Cellcept), 3 TAB PO QHS, (Reported) Potassium Chloride (Potassium Chloride), 20 MEQ PO DAILY, (Reported) Prednisone (Prednisone), 25 MG PO DAILY, (Reported) Pyridostigmine Drummond (Pyridostigmine Drummond), 60 MG PO QID, (Reported) Rosuvastatin Calcium (Rosuvastatin Calcium), 10 MG PO DAILY, (Reported) Scheduled PRN Bacillus Coagulans (Probiotic), 1 EACH PO for prn, (Reported) Oxycodone Hcl (Oxycodone Hcl), 10 MG PO PRN Q4-6HRS PRN for PAIN, (Reported) Sennosides/Docusate Sodium (Senokot-S Tablet), 1 TAB PO PRN DAILY PRN for CONSTIPATION, (Reported) Miscellaneous Medications Multivitamin With Minerals (Multiple Vitamin), 1 EACH PO, (Reported) Discontinued Medications Albuterol Sulfate (Ventolin Hfa Inhaler), 2 PUFF INH Q4HRS, (Reported) Isosorbide Mononitrate (Isosorbide Mononitrate Er), 1 TAB PO DAILY, (Reported) Metolazone (Metolazone), 2.5 MG PO 3X/WEEK, (Reported) Montelukast Sodium (Montelukast Sodium Tablet), 1 TAB PO QHS, (Reported) Nitroglycerin (Nitrostat), 1 TAB SL UD, (Reported) Terbutaline Sulfate (Terbutaline Sulfate), 2.5 MG PO TID, (Reported) Follow Up sx next week AMANDEEP ASTORGA MD Jun 11, 2017 13:12
[2017-06-11 15:00] VITALS: BP 146/65
[2017-06-12] MEDS ORDERED: FERROUS SULFATE 325 MG TABLET. PO SCH (09:00)
== END 2017-06-11 20:15 | disposition home or self-care (01) ==
LOC: SURG 09:45 → 4 NORTH 14:52
PROVIDERS: ADMIT Internal Medicine; ATTEND Surgery
DX: E11.622 Type 2 diabetes mellitus with other skin ulcer (principal); I83.019 Varicose veins of right lower extremity with ulcer of unspecified site; L97.919 Non-pressure chronic ulcer of unspecified part of right lower leg with unspecified severity; E11.22 Type 2 diabetes mellitus with diabetic chronic kidney disease; E11.51 Type 2 diabetes mellitus with diabetic peripheral angiopathy without gangrene; I13.0 Hypertensive heart and chronic kidney disease with heart failure and stage 1 through stage 4 chronic kidney disease, or unspecified chronic kidney disease; N18.3 Chronic kidney disease, stage 3 (moderate); I50.9 Heart failure, unspecified; G70.00 Myasthenia gravis without (acute) exacerbation; E78.5 Hyperlipidemia, unspecified; K21.9 Gastro-esophageal reflux disease without esophagitis; N39.0 Urinary tract infection, site not specified; I48.0 Paroxysmal atrial fibrillation; I25.10 Atherosclerotic heart disease of native coronary artery without angina pectoris; E11.319 Type 2 diabetes mellitus with unspecified diabetic retinopathy without macular edema; E66.9 Obesity, unspecified; J96.91 Respiratory failure, unspecified with hypoxia; Z79.01 Long term (current) use of anticoagulants; Z95.1 Presence of aortocoronary bypass graft; Z68.37 Body mass index [BMI] 37.0-37.9, adult; Z86.73 Personal history of transient ischemic attack (TIA), and cerebral infarction without residual deficits
CPT/HCPCS: 15100; 36415; 80053; 82962; 85025; 96372; 96374; 96376; C1768; G0378; G0379; J1100; J1170; J1815; J2250; J2270; J2405; J2704; J3010; J3490; J7030; J7512; J7517; J2001

== ENCOUNTER → 2017-06-17 | Outpatient (CLI) | payer OTHER ==
[2017-06-11 15:00] VITALS: BP 146/65
[~2017-06-17] MED LIST changes: -BUPIVAC MPF-EPI 0.5%-1:200000 30 ML VIAL. ONE; -IV RINGERS,LACTATED 1000ML 1,000 ML IV SCH; +LATA2.5D2 EACHEYE; -LIDOCAINE 1% PF 2 ML VIAL. ID PRN; -MINERAL OIL 10 ML VIAL MC ONE; -ONDANSETRON PF 4 MG/2 ML VIAL. IV PRN; -PROCHLORPERAZINE 10 MG/2 ML VIAL. IV PRN; -fentaNYL PF VIAL 100 MCG/2 ML VIAL IV PRN
== END | disposition home or self-care (01) ==
LOC: PMGWOUND 10:22
PROVIDERS: ATTEND Emergency Medicine Undersea and Hyperbaric Medicine
DX: T86.828 Other complications of skin graft (allograft) (autograft) (principal); I87.311 Chronic venous hypertension (idiopathic) with ulcer of right lower extremity; E11.622 Type 2 diabetes mellitus with other skin ulcer; L97.212 Non-pressure chronic ulcer of right calf with fat layer exposed; I25.10 Atherosclerotic heart disease of native coronary artery without angina pectoris; K21.9 Gastro-esophageal reflux disease without esophagitis; E78.5 Hyperlipidemia, unspecified; E11.22 Type 2 diabetes mellitus with diabetic chronic kidney disease; I13.0 Hypertensive heart and chronic kidney disease with heart failure and stage 1 through stage 4 chronic kidney disease, or unspecified chronic kidney disease; I50.33 Acute on chronic diastolic (congestive) heart failure; N18.3 Chronic kidney disease, stage 3 (moderate); I48.0 Paroxysmal atrial fibrillation; E11.319 Type 2 diabetes mellitus with unspecified diabetic retinopathy without macular edema; E03.9 Hypothyroidism, unspecified; E66.2 Morbid (severe) obesity with alveolar hypoventilation; J45.909 Unspecified asthma, uncomplicated; M19.90 Unspecified osteoarthritis, unspecified site; Z68.37 Body mass index [BMI] 37.0-37.9, adult; Z95.1 Presence of aortocoronary bypass graft; Z87.891 Personal history of nicotine dependence; Z79.4 Long term (current) use of insulin; Z86.73 Personal history of transient ischemic attack (TIA), and cerebral infarction without residual deficits; Z90.710 Acquired absence of both cervix and uterus; Y83.2 Surgical operation with anastomosis, bypass or graft as the cause of abnormal reaction of the patient, or of later complication, without mention of misadventure at the time of the procedure
CPT/HCPCS: 99215

== ENCOUNTER → 2017-07-17 | Outpatient (CLI) | payer OTHER ==
[~2017-07-17] MED LIST changes: -METO50TA2 PO; +METO50TA6 PO
== END | disposition home or self-care (01) ==
LOC: PMGWOUND 10:25
PROVIDERS: ATTEND Emergency Medicine Undersea and Hyperbaric Medicine
DX: I87.311 Chronic venous hypertension (idiopathic) with ulcer of right lower extremity (principal); L97.212 Non-pressure chronic ulcer of right calf with fat layer exposed; E11.622 Type 2 diabetes mellitus with other skin ulcer; E66.2 Morbid (severe) obesity with alveolar hypoventilation; E03.9 Hypothyroidism, unspecified; E11.22 Type 2 diabetes mellitus with diabetic chronic kidney disease; I13.0 Hypertensive heart and chronic kidney disease with heart failure and stage 1 through stage 4 chronic kidney disease, or unspecified chronic kidney disease; N18.3 Chronic kidney disease, stage 3 (moderate); I50.9 Heart failure, unspecified; E78.00 Pure hypercholesterolemia, unspecified; K21.9 Gastro-esophageal reflux disease without esophagitis; I48.0 Paroxysmal atrial fibrillation; Z87.891 Personal history of nicotine dependence; E11.319 Type 2 diabetes mellitus with unspecified diabetic retinopathy without macular edema; E11.51 Type 2 diabetes mellitus with diabetic peripheral angiopathy without gangrene; Z79.4 Long term (current) use of insulin; Z90.710 Acquired absence of both cervix and uterus; Z86.73 Personal history of transient ischemic attack (TIA), and cerebral infarction without residual deficits; Z68.37 Body mass index [BMI] 37.0-37.9, adult; Z79.01 Long term (current) use of anticoagulants
CPT/HCPCS: 97597

== ENCOUNTER 2017-07-29 05:45 | Inpatient (IN) | payer OTHER ==
[~2017-07-29] VITALS: Ht 160 cm; Wt 87.2 kg
--- NOTE | 2017-07-29 06:57 | EKG ---
[facility] [address] [place] [address] Test Date: 2017-07-29 Test Time: 06:47:38 Pat Name: SAMUEL FONTENOT Department: Room: Gender: F Incoming Freight Clerk: : [id number] Requested By: MORENA CABEZAS Order Number: [id number] Reading MD: Talat Cheng MD Measurements Intervals [place] Rate: 101 P: 13 UT: 126 QRS: 4 QRSD: 90 T: 27 QT: 320 QTc: 421 Interpretive Statements SINUS TACHYCARDIA LIKELY INFERIOR INFARCT Electronically Signed On 08-05-2017 13:59:12 KNOWLEDGE ENGINEER by Talat Cheng MD
[2017-07-29] MEDS: IV NORMAL SALINE 1000ML BAG 1,000 ML IV SCH ×3 (07:05→19:18)
--- NOTE | 2017-07-29 07:08 | PHYS DOC ---
Past Medical History Past Medical History: CAD, CHF, CVA, Diabetes-Type II, High Cholesterol, Heart Disease, Hypertension, Other Additional Past Medical Histor: Myasthenia Gravis, Respiratory compromised r/t MG, L. Paralyzed diaphragm Past Surgical History: Coronary Bypass Surgery, , Hysterectomy, Tonsillectomy, Other Additional Past Surgical Histo: Fistula placed "Several",L)arm fx w/repair, Alcohol Use: None Drug Use: None Adult General Chief Complaint Chief Complaint: FEVER HPI HPI Patient is a 61 year old female who presents with complaint of fever and chills. Patient states that she awoke with her symptoms this morning. Patient also states that she has had cough over the past 2-3 days prior to onset of symptoms. Patient has history of myasthenia gravis, type 2 diabetes mellitus, and congestive heart failure. The patient denies any abdominal pain or diarrhea but does state that she has had nausea. Patient states that her cough has not been productive. The patient states that she took Tylenol approximately 2 hours prior to arrival for her fever. Patient states that she is having generalized fatigue and does not feel well which is why she came to the emergency department for evaluation. Review of Systems Review of Systems Constitutional: Fever, chills[] Eyes: Denies change in visual acuity, redness, or eye pain [] HENT: Denies nasal congestion or sore throat [] Respiratory: Cough, shortness of breath[] Cardiovascular: Denies chest pain[] GI: Denies abdominal pain, nausea, vomiting, bloody stools or diarrhea [] : Denies dysuria or hematuria [] Musculoskeletal: Denies back pain or joint pain [] Integument: Denies rash or skin lesions [] Neurologic: Denies headache, focal weakness or sensory changes [] All other systems were reviewed and found to be within normal limits, except as documented in this note. Current Medications Current Medications Current Medications Medications (Trade) Dose Ordered Sig/Oksana Start Time Stop Time Status Last Admin Dose Admin Acetaminophen (Tylenol) 650 mg PRN Q4HRS PRN 07/29/17 07:30 07/30/17 07:29 Fentanyl Citrate (Fentanyl 2ml Vial) 50 mcg PRN Q2HR PRN 07/29/17 07:30 07/30/17 07:29 Ondansetron HCl (Zofran) 4 mg PRN Q8HRS PRN 07/29/17 07:30 07/30/17 07:29 Piperacillin Sod/ Tazobactam Sod (Zosyn Per Pharmacy) 1 each PRN DAILY PRN 07/29/17 07:30 UNV Piperacillin Sod/ Tazobactam Sod (Zosyn) 4.5 gm 1X ONCE 07/29/17 07:30 07/29/17 07:31 DC Sodium Chloride 1,000 ml @ 100 mls/hr Q10H 07/29/17 07:28 07/30/17 07:27 Vancomycin HCl (Vanco Per Pharmacy) 1 each PRN DAILY PRN 07/29/17 07:30 UNV Allergies Allergies Allergies Coded Allergies Type Severity Reaction Last Updated Verified Iodinated Contrast- Oral and IV Dye Allergy Intermediate 06/09/17 Yes adhesive tape Allergy Intermediate 06/09/17 Yes insulin glargine Allergy Intermediate 06/09/17 Yes levofloxacin Allergy Intermediate 06/09/17 Yes Physical Exam Physical Exam Constitutional: Alert, febrile, appears ill. [] HENT: Normocephalic, atraumatic, bilateral external ears normal, oropharynx moist, no oral exudates, nose normal. [] Eyes: PERRLA, EOMI, conjunctiva normal, no discharge. [] Neck: Normal range of motion, no tenderness, supple, no stridor. [] Cardiovascular: Tachycardia, regular rhythm, no murmur [] Lungs & Thorax: Moderately restricted air movement bilaterally, faint extremity wheezes, rales in left lower lobe[] Abdomen: Bowel sounds normal, soft, no tenderness, no masses, no pulsatile masses. [] Skin: Warm, dry, no erythema, no rash. [] Back: No tenderness, no CVA tenderness. [] Extremities: No tenderness, no cyanosis, no clubbing, ROM intact, 1+ edema in the bilateral lower extremities. [] Neurologic: Alert and oriented X 3, normal motor function, normal sensory function, no focal deficits noted. [] Current Patient Data Vital Signs Vital Signs Date Time Temp Pulse Resp B/P (MAP) Pulse Ox O2 Delivery O2 Flow Rate FiO2 07/29/17 05:45 102.4 109 20 128/58 (81) 96 Room Air 102.4 Lab Values Laboratory Tests Test 07/29/17 06:55 07/29/17 07:00 White Blood Count 9.8 x10^3/uL (4.0-11.0) Red Blood Count 2.86 x10^6/uL (3.50-5.40) L Hemoglobin 7.5 g/dL (12.0-15.5) L Hematocrit 25.3 % (36.0-47.0) L Mean Corpuscular Volume 88 fL (79-100) Mean Corpuscular Hemoglobin 26 pg (25-35) Mean Corpuscular Hemoglobin Concent 30 g/dL (31-37) L Red Cell Distribution Width 17.5 % (11.5-14.5) H Platelet Count 202 x10^3/uL (140-400) Neutrophils (%) (Auto) 95 % (31-73) H Lymphocytes (%) (Auto) 2 % (24-48) L Monocytes (%) (Auto) 3 % (0-9) Eosinophils (%) (Auto) 0 % (0-3) Basophils (%) (Auto) 0 % (0-3) Neutrophils # (Auto) 9.3 x10^3uL (1.8-7.7) H Lymphocytes # (Auto) 0.2 x10^3/uL (1.0-4.8) L Monocytes # (Auto) 0.3 x10^3/uL (0.0-1.1) Eosinophils # (Auto) 0.0 x10^3/uL (0.0-0.7) Basophils # (Auto) 0.0 x10^3/uL (0.0-0.2) Platelet Estimate Pending Sodium Level 145 mmol/L (136-145) Potassium Level 3.1 mmol/L (3.5-5.1) L Chloride Level 103 mmol/L (98-107) Carbon Dioxide Level 30 mmol/L (21-32) Anion Gap 12 (6-14) Blood Urea Nitrogen 20 mg/dL (7-20) Creatinine 1.0 mg/dL (0.6-1.0) Estimated GFR (Cockcroft-Gault) 68.0 BUN/Creatinine Ratio 20 (6-20) Glucose Level 100 mg/dL (70-99) H Lactic Acid Level 3.1 mmol/L (0.4-2.0) H Calcium Level 8.9 mg/dL (8.5-10.1) Total Bilirubin 0.5 mg/dL (0.2-1.0) Aspartate Amino Transferase (AST) 16 U/L (15-37) Alanine Aminotransferase (ALT) 19 U/L (14-59) Alkaline Phosphatase 64 U/L (46-116) Total Protein 6.1 g/dL (6.4-8.2) L Albumin 2.9 g/dL (3.4-5.0) L Albumin/Globulin Ratio 0.9 (1.0-1.7) L Influenza Type A Antigen Negative (NEGATIVE) Influenza Type B Antigen Negative (NEGATIVE) Laboratory Tests 07/29/17 06:55 Laboratory Tests 07/29/17 06:55 EKG EKG Interpreted by me: Heart rate of 101, sinus tachycardia, normal intervals, normal axis, no acute ST/T-wave abnormalities present[] Radiology/Procedures Radiology/Procedures [facility] [address] [place] [address] IMAGING REPORT Signed PATIENT: SAMUEL FONTENOT ACCOUNT: [id number] : 1955 LOCATION: ER AGE: 61 SEX: F EXAM STATUS: PRE ER ORD. PHYSICIAN: MORENA CABEZAS MD REASON: fever PROCEDURE: PORTABLE CHEST 1V Portable chest, 07/29/2017: History: Fever Comparison is made to a study from 04/14/2017. There has been a previous median sternotomy. Vascular stents are projected over the left innominate vein and right subclavian regions. The heart size and pulmonary vascularity are normal. There is mild streaky atelectasis or scarring in the left base. The lungs are otherwise clear. There is no evidence of pleural fluid. IMPRESSION: Mild left basilar atelectasis or scarring. DICTATED and SIGNED BY: BRIANA TALBOT MD DATE: 07/29/17 0705 CC: MORENA CABEZAS MD; JANEY JONES MD ~ [] Course & Med Decision Making Course & Med Decision Making Pertinent Labs and Imaging studies reviewed. (See chart for details) The patient's clinical assessment is consistent with pneumonia. Given the patient has had recent admission to the hospital less than 90 days from today, the patient will be started on antibiotics for treatment of possible healthcare associated pneumonia. The patient was given a 30 mL per kilo bolus of IV fluids based off of her ideal body weight. Patient will be admitted for further care. I spoke with Dr. Love who accepted care patient in hospital. Dragon Disclaimer Dragon Disclaimer This electronic medical record was generated, in whole or in part, using a voice recognition dictation system. Departure Departure Impression: Primary Impression: Healthcare-associated pneumonia Additional Impressions: Severe sepsis Normocytic anemia Congestive heart failure Type 2 diabetes mellitus Moderate protein malnutrition Disposition: ADMITTED INPATIENT Admitting Physician: Ciera Love Condition: STABLE Referrals: JANEY JONES MD (PCP) Problem Qualifiers Additional Impressions: Congestive heart failure Congestive heart failure type: unspecified congestive heart failure type Congestive heart failure chronicity: chronic Qualified Codes: I50.9 - Heart failure, unspecified Type 2 diabetes mellitus Diabetes mellitus complication status: without complication Diabetes mellitus care home insulin use: unspecified care home insulin use status Qualified Codes: E11.9 - Type 2 diabetes mellitus without complications MORENA CABEZAS MD Jul 29, 2017 07:08
[2017-07-29 07:25] LABS: BASO % 0 % (0-3); EOS % 0 % (0-3); HEMATOCRIT 25.3 % (36.0-47.0); HEMOGLOBIN 7.5 g/dL (12.0-15.5); LYMPH # 0.2 x10^3/uL (1.0-4.8); LYMPH % 2 % (24-48); MEAN CORPUSCULAR HEMOGLOBIN 26 pg (25-35); MEAN CORPUSCULAR HGB CONC 30 g/dL (31-37); MEAN CORPUSCULAR VOLUME 88 fL (79-100); MONO % 3 % (0-9); NEUT % 95 % (31-73); PLATELET COUNT 202 x10^3/uL (140-400); RED BLOOD COUNT 2.86 x10^6/uL (3.50-5.40); RED CELL DISTRIBUTION WIDTH 17.5 % (11.5-14.5); WHITE BLOOD COUNT 9.8 x10^3/uL (4.0-11.0)
[2017-07-29 07:27] LABS: CALCIUM 8.9 mg/dL (8.5-10.1); POTASSIUM 3.1 mmol/L (3.5-5.1)
[2017-07-29] MEDS ORDERED: ONDANSETRON PF 4 MG/2 ML VIAL. IV PRN (07:30)
[2017-07-29] MEDS ORDERED: PIP/TAZO PER PHARMACY MC PRN (07:30)
[2017-07-29] MEDS ORDERED: VANCOMYCIN PER PHARMACY MC PRN (07:30)
[2017-07-29] MEDS ORDERED: fentaNYL PF VIAL 100 MCG/2 ML VIAL IV PRN (07:30)
[2017-07-29] MEDS ORDERED: PIPERACILLIN/TAZO IV Push 4.5 GM VIAL. IVP ONE (07:30)
[2017-07-29] MEDS ORDERED: ACETAMINOPHEN 325 MG TABLET. PO PRN (07:30)
[2017-07-29 07:33] LABS: ALBUMIN 2.9 g/dL (3.4-5.0); ALBUMIN/GLOBULIN RATIO 0.9 (1.0-1.7); TOTAL BILIRUBIN 0.5 mg/dL (0.2-1.0); TOTAL PROTEIN 6.1 g/dL (6.4-8.2)
[2017-07-29 07:38] LABS: OBC FLU VALID
[2017-07-29] MEDS ORDERED: VANCOMYCIN 2 GM in IV NORMAL SALINE 500ML BAG 500 ML IV ONE (08:00)
[2017-07-29 08:48] VITALS: BP 120/50
[2017-07-29 08:50] VITALS: BP 120/50
[2017-07-29 09:59] LABS: ANISOCYTOSIS MOD; PLT ESTIMATE ADEQUATE (ADEQUATE)
[2017-07-29 10:00] LABS: POIKILOCYTOSIS SLIGHT; POLYCHROMASIA SLIGHT
--- NOTE | 2017-07-29 11:51 | PDOC ---
Infectious Disease Note Vital Sign Vital Signs Vital Signs Date Time Temp Pulse Resp B/P (MAP) Pulse Ox O2 Delivery O2 Flow Rate FiO2 07/29/17 08:50 98.7 94 20 120/50 (73) 95 Room Air 98.7 Labs Lab Laboratory Tests Test 07/29/17 06:55 07/29/17 07:00 07/29/17 08:10 White Blood Count 9.8 x10^3/uL (4.0-11.0) Red Blood Count 2.86 x10^6/uL (3.50-5.40) Hemoglobin 7.5 g/dL (12.0-15.5) Hematocrit 25.3 % (36.0-47.0) Mean Corpuscular Volume 88 fL (79-100) Mean Corpuscular Hemoglobin 26 pg (25-35) Mean Corpuscular Hemoglobin Concent 30 g/dL (31-37) Red Cell Distribution Width 17.5 % (11.5-14.5) Platelet Count 202 x10^3/uL (140-400) Neutrophils (%) (Auto) 95 % (31-73) Lymphocytes (%) (Auto) 2 % (24-48) Monocytes (%) (Auto) 3 % (0-9) Eosinophils (%) (Auto) 0 % (0-3) Basophils (%) (Auto) 0 % (0-3) Neutrophils # (Auto) 9.3 x10^3uL (1.8-7.7) Lymphocytes # (Auto) 0.2 x10^3/uL (1.0-4.8) Monocytes # (Auto) 0.3 x10^3/uL (0.0-1.1) Eosinophils # (Auto) 0.0 x10^3/uL (0.0-0.7) Basophils # (Auto) 0.0 x10^3/uL (0.0-0.2) Segmented Neutrophils % 85 % (35-66) Band Neutrophils % 7 % (0-9) Lymphocytes % 3 % (24-48) Monocytes % 5 % (0-10) Platelet Estimate Adequate (ADEQUATE) Polychromasia Slight Poikilocytosis Slight Anisocytosis Mod Sodium Level 145 mmol/L (136-145) Potassium Level 3.1 mmol/L (3.5-5.1) Chloride Level 103 mmol/L (98-107) Carbon Dioxide Level 30 mmol/L (21-32) Anion Gap 12 (6-14) Blood Urea Nitrogen 20 mg/dL (7-20) Creatinine 1.0 mg/dL (0.6-1.0) Estimated GFR (Cockcroft-Gault) 68.0 BUN/Creatinine Ratio 20 (6-20) Glucose Level 100 mg/dL (70-99) Lactic Acid Level 3.1 mmol/L (0.4-2.0) 2.2 mmol/L (0.4-2.0) Calcium Level 8.9 mg/dL (8.5-10.1) Total Bilirubin 0.5 mg/dL (0.2-1.0) Aspartate Amino Transf (AST/SGOT) 16 U/L (15-37) Alanine Aminotransferase (ALT/SGPT) 19 U/L (14-59) Alkaline Phosphatase 64 U/L (46-116) Total Protein 6.1 g/dL (6.4-8.2) Albumin 2.9 g/dL (3.4-5.0) Albumin/Globulin Ratio 0.9 (1.0-1.7) Influenza Type A Antigen Negative (NEGATIVE) Influenza Type B Antigen Negative (NEGATIVE) Objective Assessment Fever and chills Myasthenia gravis, on immunosuppression PAD s/p recent angioplasty CAD Obesity Plan Plan of Care cont vanc and zosyn for now ct chest, abd and pelvis supportive care CHRISTI MELENDEZ MD Jul 29, 2017 11:51
[2017-07-29 12:00] VITALS: BP 118/46
[2017-07-29] MEDS: IPRATRPIUM/ALBUTEROL 0.5/2.5MG 3 ML NEBU. NEB SCH ×3 (12:05→19:19)
--- NOTE | 2017-07-29 12:30 | CONS ---
DATE OF CONSULTATION: 07/29/2017 REQUESTING PHYSICIAN: Dr. Negron. REASON FOR CONSULTATION: Fever. HISTORY OF PRESENT ILLNESS: This is a 61-year-old female with myasthenia gravis who woke up this morning with fever and chills she says. About 3-4 days ago, she had undergone angiography of the leg and stenting done on the right leg. The patient has some cough. Denies any shortness of breath. Did have left sided abdominal pain. Denies any nausea, vomiting, diarrhea, chest pain, headache or visual symptoms. The patient was noted to have 102.4 fever here, tachycardic. Blood pressure is though stable. PAST MEDICAL HISTORY: Positive for myasthenia gravis. The patient is on CellCept, prednisone and every 4-6 months plasmapheresis, also has coronary artery disease status post coronary artery bypass grafting, peripheral arterial disease status post stenting done, congestive heart failure, CVA, diabetes, hyperlipidemia, hypertension. SOCIAL HISTORY: Negative for smoking, alcohol use or drug use. ALLERGIES: SHE IS LISTED ALLERGIC TO LEVOFLOXACIN SHE SAYS NOTHING HAS HAPPENED WITH LEVOFLOXACIN, BUT SHE WAS TOLD BY HER NEUROLOGIST TO NOT TAKE LEVAQUIN. CURRENT MEDICATIONS: Reviewed. The patient is on vancomycin and Zosyn started. I believe blood culture and urine culture done. REVIEW OF SYSTEMS: As per HPI, all other systems reviewed are negative. PHYSICAL EXAMINATION: GENERAL: Alert, oriented female, not in any distress. VITAL SIGNS: Stable, currently afebrile, the patient had 102.4. HEENT: Anicteric. NECK: Supple, no JVP, no lymphadenopathy. LUNGS: Clear. HEART: S1, S2 regular. ABDOMEN: Benign. SKIN: The patient's right lower extremity has a chronic wound. Rest of the skin examination is unremarkable. NEUROLOGIC: The patient is neurologically intact. LABORATORY DATA: White count is 9.8, hemoglobin 7.5, platelets are normal. BUN and creatinine are 20 and 1. Lactic acid 3.1. Urinalysis is pending. Influenza screen was negative. Chest x-ray is unremarkable. IMPRESSION: 1. Fever and chills in an immunosuppressed patient. 2. Lactic acidosis/sepsis. 3. Myasthenia gravis, on immunosuppression. 4. Diabetes. 5. Hypertension. 6. Coronary artery disease. 7. Peripheral arterial disease with recent procedure done. RECOMMENDATIONS: We will check the blood culture, urinalysis and culture if indicated. Continue vancomycin and Zosyn. We will adjust as more culture data is available. Supportive care and also, I will get CT chest, abdomen and pelvis. Thank you very much, Dr. Negron, for giving me the opportunity to participate in this patient's care. CHRISTI MELENDEZ MD DR: RYANN/jesus JOB#: [id number] / [id number] REYNALDO
[2017-07-29] MEDS ORDERED: PANT40TA3 PO (13:07)
[2017-07-29] MEDS ORDERED: LORA10TA68 PO (13:07)
[2017-07-29] MEDS ORDERED: HYDR-2867 PO (13:07)
[2017-07-29] MEDS ORDERED: ASPI325T8 PO (13:07)
[2017-07-29] MEDS ORDERED: GABA-586 PO (13:07)
[2017-07-29] MEDS ORDERED: COLL30OI TP (13:07)
[2017-07-29] MEDS ORDERED: POLY17PO29 PO (13:07)
[2017-07-29] MEDS ORDERED: CLOT12CR2 TP (13:07)
[2017-07-29] MEDS ORDERED: ACET325T9 PO (13:07)
[2017-07-29] MEDS ORDERED: SENNOSIDES/DOCUSATE 8.6/50MG TABLET. PO PRN (13:45)
[2017-07-29] MEDS ORDERED: DEXTROSE 50% 25 GM / 50ML DISP.SYRIN. IV PRN (13:45)
[2017-07-29] MEDS: hydrALAZINE 10 MG TABLET PO SCH ×2 (14:00→21:00)
[2017-07-29] MEDS ORDERED: oxyCODONE IR 5 MG TABLET PO PRN (14:15)
[2017-07-29] MEDS: oxyCODONE IR 5 MG TABLET PO PRN ×2 (14:18→19:37)
[2017-07-29] MEDS: GABAPENTIN 300 MG CAPSULE. PO SCH ×2 (15:00→21:08)
[2017-07-29 15:10] VITALS: BP 119/32
[2017-07-29] MEDS: predniSONE 20 MG TABLET PO SCH (15:30)
[2017-07-29] MEDS ORDERED: IV NORMAL SALINE 1000ML BAG 1,000 ML IV ONE (15:45)
--- NOTE | 2017-07-29 15:49 | RAD ---
Indication: Fever Technique: Axial images and coronal and sagittal reformatted images are provided. Oral contrast was administered. No comparison is available. One or more of the following individualized dose reduction techniques were utilized for this examination: 1. Automated exposure control 2. Adjustment of the mA and/or kV according to patient size 3. Use of iterative reconstruction technique Findings: Chest: There is granulomatous disease. There is dependent atelectasis. There is no consolidation. There is no pleural effusion. Central airways are patent. There is atheromatous disease in the thoracic aorta without aneurysm. There are coronary artery calcifications. There is no hilar or mediastinal adenopathy. Median sternotomy wires are noted. There are degenerative changes in the spine with mild wedging of a mid thoracic vertebral body. Abdomen: Solid organ evaluation is limited without contrast. Liver is grossly unremarkable. Gallbladder is normal in appearance. Spleen is not enlarged. Pancreas and adrenals are unremarkable. Nonobstructing right renal calculus measures 6 mm. There are 2 hyperdense lesions within the right kidney which are most likely subcentimeter hemorrhagic cysts. There are several nonobstructing calculi in the left kidney, largest 7 mm. Subcentimeter probable hemorrhagic cyst in the left kidney is noted as well. There is atheromatous disease in the abdominal aorta without aneurysm. There is no dilated small bowel loop or air-fluid level. There are diverticula in the colon. There is a short segment of distal descending/proximal sigmoid colon which demonstrates mural thickening and adjacent mild stranding. This is better apparent on coronal reformats. There is no abscess or free air. There is a normal appendix. There is a fat-containing periumbilical hernia. Pelvis: Bladder is unremarkable. Uterus is presumed absent. There is no adnexal mass. There are degenerative changes in the spine with scoliosis. There are old right superior and inferior pubic rami fractures. Impression: Chest: 1. Granulomatous disease. 2. Coronary artery calcifications. Abdomen/pelvis: 1. Findings compatible with acute diverticulitis of the distal descending/proximal sigmoid colon. No abscess or free air. 2. Nonobstructing renal calculi. 3. Subcentimeter lytic lesions in the kidneys are too small to characterize but most likely hemorrhagic cysts.
--- NOTE | 2017-07-29 15:51 | HP ---
ADMIT DATE: 07/29/2017 CHIEF COMPLAINT: Cough and fevers. HISTORY OF PRESENT ILLNESS: The patient is a 61-year-old morbidly obese woman who presented to the Emergency Room with fevers and chills. She relates that she noticed this upon getting up and states that her fever was 108.5. On further questioning, she affirms that she had a cough for the last 4 days or so. She had been at for an arteriogram of the lower extremities last and ever since has been feeling ill. She denies any chest pain, any palpitations, any upper respiratory symptoms. Denies any nausea, vomiting or diarrhea. She does have generalized aches and pains and new to be concerned about her fever due to her multiple immunosuppressant agents. PAST MEDICAL HISTORY: Myasthenia gravis, on multiple immunosuppressants; CAD status post CABG, CHF; peripheral vascular disease including CVA and lower extremity stent placement; diabetes mellitus; hypercholesterolemia; paralyzed diaphragm. PAST SURGICAL HISTORY: She is status post , hysterectomy, tonsillectomy as well as fistula placement in left arm for kidney disease. FAMILY HISTORY: Positive for CAD. SOCIAL HISTORY: Lives with family. No toxic habits. ALLERGIES: INSULIN, GLARGINE, LEVOFLOXACIN, AND ADHESIVE TAPE. MEDICATIONS: Extensive, home medication list was reconciled with MAR. REVIEW OF SYSTEMS: Positive as per HPI. She did have an episode of diarrhea here after receiving p.o. contrast for CT. Denies any abdominal pain; however, rest of organ system review were answered negatively by her. PHYSICAL EXAMINATION: VITAL SIGNS: From today show a blood pressure of 119/32, heart rate of 117, respiratory rate at 20, temperature currently 99, in the ER 100.2. GENERAL: This is a morbidly obese 61-year-old woman, alert and oriented, in no acute distress, ill appearing. HEENT: Shows no scleral icterus. NECK: Short and thick. LUNGS: Fairly clear. HEART: Tachycardic. ABDOMEN: Obese, positive bowel sounds. EXTREMITIES: Show no edema. SKIN: Warm, soft and dry without any rash. NEUROLOGIC: She appears currently intact. LABORATORY DATA: CBC with a WBC of 9.8, hemoglobin 7.5, which is below her usual baseline of in the 9s, platelet count at 202. Differential with 95% neutrophils. Chemistries with a BUN and creatinine of 20 and 1. Electrolytes with potassium of 3.0. Lactate at 3.1, 2.2 on repeat. Albumin at 2.9. Normal LFTs. Urine with 11-20 wbc's, many bacteria. Serologies negative for influenza A and B. IMAGING: Chest x-ray in the Emergency Room shows mild left basilar atelectasis or scarring. ASSESSMENT AND PLAN: The patient is a 61-year-old woman with myasthenia gravis, heart disease as well as kidney disease, who presents with a septic picture. She has been seen by Dr. Chan from Infectious Disease already in the Emergency Room. Blood cultures and urine cultures are pending. She has been placed on empiric Zosyn and vancomycin, although IV access is currently difficult. A CT of the chest, abdomen and pelvis is pending. Given worsening sepsis, she will receive IV fluids as well as a dose of steroids above her baseline of 25 mg. We will continue her home medications including for heart disease and kidney disease for the time being. Caution with blood pressure medications as her pressure seems to be starting to dip. IV fluid boluses have to be slowed considering her history of CHF. Monitor cautiously. Low threshold for transferring the patient to ICU. SANIA MOYER MD DR: FORREST/nts JOB#: [id number] / [id number] JANEY Askew MD MTDD
[2017-07-29] MEDS ORDERED: LIDOCAINE 1% / SOD BICARB 8.4% 20 ML VIAL. IJ ONE ×2 (16:50→17:30)
[2017-07-29] MEDS: PYRIDOSTIGMINE BROMIDE 60 MG TABLET PO SCH ×2 (17:00→21:07)
[2017-07-29] MEDS ORDERED: INSULIN DETEMIR 300 UNITS/3 ML INSULN.PEN. SQ SCH (17:00)
[2017-07-29] MEDS: INSULIN ASPART 300 UNITS/3 ML INSULN.PEN SQ SCH ×2 (17:00)
[2017-07-29] MEDS: CALCIUM CARB/VIT D3 500/200 TABLET. PO SCH (17:00)
[2017-07-29 18:20] VITALS: BP 99/51
[2017-07-29] MEDS ORDERED: INSULIN ASPART 300 UNITS/3 ML INSULN.PEN SQ ONE (20:45)
[2017-07-29] MEDS: METOPROLOL TART IMMED RELEASE 50 MG TABLET. PO SCH (21:00)
[2017-07-29] MEDS: APIXABAN 5 MG TABLET. PO SCH (21:07)
[2017-07-29] MEDS: MYCOPHENOLATE MOFETIL 250 MG CAPSULE. PO SCH (21:07)
[2017-07-29] MEDS: POLYETHYLENE GLYCOL 3350 17 GM PACKET. PO SCH (21:07)
[2017-07-29] MEDS: LACTOBACILLUS RHAMNOSUS GG 1 CAPSULE. PO SCH (21:07)
[2017-07-29] MEDS: ASCORBIC ACID 500 MG TABLET PO SCH (21:08)
[2017-07-29] MEDS: ATORVASTATIN CALCIUM 40 MG TABLET. PO SCH (21:08)
[2017-07-29] MEDS: CLOTRIMAZOLE 1% TOPICAL CREAM 15GM TUBE. TP SCH (21:10)
[2017-07-29] MEDS: LATANOPROST 0.005% OPHTH SOLUTION 2.5ML BOTTLE. OU SCH (21:10)
[2017-07-29 21:11] LABS: BILIRUBIN,URINE NEGATIVE (NEG); GLUCOSE,URINE 100 mg/dL (NEG); NITRITE,URINE NEGATIVE (NEG); PH,URINE 5.5; PROTEIN,URINE 100 mg/dL (NEG-TRACE); UROBILINOGEN,URINE 0.2 mg/dL (0.2 mg/dL)
[2017-07-29 21:25] LABS: BACTERIA,URINE FEW /HPF (0-FEW); SQUAMOUS EPITHELIAL CELL,UR OCC /LPF; WBC,URINE TNTC /HPF (0-4)
[2017-07-29] MEDS: INSULIN DETEMIR 300 UNITS/3 ML INSULN.PEN. SQ SCH (21:26)
[2017-07-29 23:48] VITALS: BP 128/48
[2017-07-30] VITALS (12 sets, daily range): BP systolic 102–140; BP diastolic 41–67
[2017-07-30] MEDS: PIPERACILLIN/TAZO IV Push 3.375 GM VIAL. IVP SCH ×4 (00:41→17:41)
[2017-07-30] MEDS: IV NORMAL SALINE 1000ML BAG 1,000 ML IV SCH ×2 (00:41→07:59)
[2017-07-30] MEDS ORDERED: VANCOMYCIN 1.25 GM in IV DEXTROSE 5 %-0.2 % NACL 250 ML IV SCH (07:00)
[2017-07-30] MEDS: IPRATRPIUM/ALBUTEROL 0.5/2.5MG 3 ML NEBU. NEB SCH (07:24)
[2017-07-30] MEDS: LACTOBACILLUS RHAMNOSUS GG 1 CAPSULE. PO SCH ×2 (07:55→21:32)
[2017-07-30] MEDS: PYRIDOSTIGMINE BROMIDE 60 MG TABLET PO SCH ×4 (07:55→21:32)
[2017-07-30] MEDS: METOPROLOL TART IMMED RELEASE 50 MG TABLET. PO SCH ×3 (07:56→21:00)
[2017-07-30] MEDS: CALCIUM CARB/VIT D3 500/200 TABLET. PO SCH (07:56)
[2017-07-30] MEDS: ASCORBIC ACID 500 MG TABLET PO SCH ×2 (07:56→21:32)
[2017-07-30] MEDS: BUMETANIDE 1 MG TABLET. PO SCH (07:57)
[2017-07-30] MEDS: GABAPENTIN 300 MG CAPSULE. PO SCH ×3 (07:57→21:32)
[2017-07-30] MEDS: APIXABAN 5 MG TABLET. PO SCH ×2 (07:57→21:32)
[2017-07-30] MEDS: PANTOPRAZOLE 40 MG TABLET.DR. PO SCH (07:57)
[2017-07-30] MEDS: POTASSIUM CHLORIDE 20 MEQ TABLET.ER. PO SCH (07:57)
[2017-07-30] MEDS: predniSONE 20 MG TABLET PO SCH (07:58)
[2017-07-30] MEDS: MYCOPHENOLATE MOFETIL 250 MG CAPSULE. PO SCH ×2 (07:58→21:31)
[2017-07-30] MEDS: FOLIC ACID 1 MG TABLET. PO SCH (07:58)
[2017-07-30] MEDS: POLYETHYLENE GLYCOL 3350 17 GM PACKET. PO SCH ×2 (07:58→21:00)
[2017-07-30] MEDS: ASPIRIN 325 MG TABLET PO SCH (07:58)
[2017-07-30] MEDS: hydrALAZINE 10 MG TABLET PO SCH ×3 (08:00→21:33)
[2017-07-30] MEDS: CLOTRIMAZOLE 1% TOPICAL CREAM 15GM TUBE. TP SCH ×2 (08:01→21:35)
[2017-07-30] MEDS: INSULIN DETEMIR 300 UNITS/3 ML INSULN.PEN. SQ SCH ×2 (08:10→21:38)
[2017-07-30] MEDS: INSULIN ASPART 300 UNITS/3 ML INSULN.PEN SQ SCH ×6 (08:11→17:00)
[2017-07-30] MEDS ORDERED: predniSONE 5 MG TABLET PO SCH (09:00)
[2017-07-30] MEDS ORDERED: MYCOPHENOLATE MOFETIL PO SCH (09:00)
[2017-07-30] MEDS ORDERED: COLLAGENASE 250 UNIT/GM TOPICAL OINTMENT 30GM TUBE. TP SCH (09:00)
[2017-07-30] MEDS ORDERED: CETIRIZINE HCL 10 MG TABLET. PO PRN (09:00)
--- NOTE | 2017-07-30 09:09 | RAD ---
Exam: Fluoroscopic and ultrasound guided left percutaneous inserted central venous catheter placement 07/30/2017 9:05 AM .Indication: unsuccessful PICC placement, needing to meet SEPSIS protocol Technique: Informed oral and written consent were obtained. The left upper extremity was prepped and draped using sterile barrier technique. All elements of maximal sterile barrier technique including the use of a cap, mask, sterile gown, sterile gloves, large sterile sheet, appropriate hand hygiene, and 2% chlorhexidine for cutaneous antisepsis (or acceptable alternative antiseptic per current guidelines) were followed for this procedure.. Real-time ultrasound demonstrated a patent left basilic vein which was prepped and draped in usual sterile fashion. 1% lidocaine used for local anesthesia. Using real-time ultrasound guidance the access needle percutaneously punctured the selected left basilic vein. Reference ultrasound images were saved to the medical record. A guidewire was advanced through the needle to the cavoatrial junction, and a peel-away sheath placed. The catheter was cut to length and inserted through the peel-away sheath such that its tip is at the cavoatrial junction. The wire and sheath were removed, and the catheter secured in place, and a sterile dressing was applied. Catheter was found to flush and aspirate normally. No immediate complications are identified. Fluoroscopy time: 0.9 min Dose area product: 2 Gycm2 Impression: Ultrasound and fluoroscopically guided placement of a left upper extremity PICC line.
--- NOTE | 2017-07-30 09:35 | PDOC ---
Infectious Disease Note Subjective Subjective feeling better ROS ROS GEN: Denies fevers, chills, sweats HEENT: Denies blurred vision, sore throat CV: Denies chest pain RESP: Denies shortness of air, cough GI: Denies n/v/d NEURO: Denies confusion, dizziness MSK: Denies weakness, joint pain/swelling Vital Sign Vital Signs Vital Signs Date Time Temp Pulse Resp B/P (MAP) Pulse Ox O2 Delivery O2 Flow Rate FiO2 07/30/17 08:00 115 130/47 07/30/17 07:24 Room Air 07/30/17 06:55 99.5 18 93 99.5 Physical Exam PHYSICAL EXAM GENERAL: NAD, Alert HEENT: PERRL, OC/OP NECK: Supple, no JVD, no LN LUNGS: Clear HEART: S1S2, no gallop, no murmur ABD: Soft, NT, no organomegaly, no rebound EXT: No edema, no cyanosis TIPPLE GREASER: Alert, 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, no focal neurologic deficit SKIN: No rash IV: ok Labs Lab Laboratory Tests Test 07/29/17 20:00 07/29/17 20:32 07/29/17 22:59 07/30/17 07:11 Urine Color Stephania Urine Clarity Cloudy Urine pH 5.5 Urine Specific [place] 1.025 Urine Protein 100 mg/dL (NEG-TRACE) Urine Glucose (UA) 100 mg/dL (NEG) Urine Ketones (Stick) Negative mg/dL (NEG) Urine Blood Moderate (NEG) Urine Nitrite Negative (NEG) Urine Bilirubin Negative (NEG) Urine Urobilinogen Dipstick 0.2 mg/dL (0.2 mg/dL) Urine Leukocyte Esterase Large (NEG) Urine RBC 3-5 /HPF (0-2) Urine WBC Tntc /HPF (0-4) Urine Squamous Epithelial Cells Occ /LPF Urine Bacteria Few /HPF (0-FEW) Glucose (Fingerstick) 406 mg/dL (70-99) 416 mg/dL (70-99) 357 mg/dL (70-99) Micro BC neg urine pending Objective Assessment Fever and chills Diverticulitis UTI Myasthenia gravis, on immunosuppression PAD s/p recent angioplasty CAD Obesity Plan Plan of Care cont zosyn , d/c vanc check cultures supportive care CHRISTI MELENDEZ MD Jul 30, 2017 09:35
--- NOTE | 2017-07-30 09:42 | PDOC ---
PROGRESS NOTES Chief Complaint Chief Complaint Sepsis ASSESSMENT AND PLAN: 1. Sepsis: severe in immunocompromised pt. BP recovered, but remains tachycardic with lactic acidosis. fevers resolving. stress dose steroids 2. Diverticulitis: no ongoing diarrhea, but abd pain and + CT findings. blood cult pending. on empiric Abx, ID following 3. Myasthenia gravis: cont home meds 4. CAD/CHF (chronic diastolic): no acute issues. cont home meds 5. CKD3: at baseline. monitor 6. DM2: poorly controlled in setting of infection and stress steroids. adjust insulin 7. Anemia: severe. transfuse PRPC x1. obtain anemia labs 8. OAC: apixaban for cardiac issues (as per Dr Cheng) History of Present Illness History of Present Illness feels better. + LLQ pain. Vitals Vitals Vital Signs Date Time Temp Pulse Resp B/P (MAP) Pulse Ox O2 Delivery O2 Flow Rate FiO2 07/30/17 08:00 115 130/47 07/30/17 07:24 Room Air 07/30/17 06:55 99.5 18 93 99.5 Physical Exam General: Alert, Oriented X3, Cooperative, No acute distress Heart: Other (tachycardic) Lungs: Clear, Other Abdomen: Other (oeractive BS) Extremities: No edema Skin: No rashes Labs LABS Laboratory Tests Test 07/29/17 20:00 07/29/17 20:32 07/29/17 22:59 07/30/17 07:11 Urine Color Stephania Urine Clarity Cloudy Urine pH 5.5 Urine Specific Tolley 1.025 Urine Protein 100 mg/dL (NEG-TRACE) Urine Glucose (UA) 100 mg/dL (NEG) Urine Ketones (Stick) Negative mg/dL (NEG) Urine Blood Moderate (NEG) Urine Nitrite Negative (NEG) Urine Bilirubin Negative (NEG) Urine Urobilinogen Dipstick 0.2 mg/dL (0.2 mg/dL) Urine Leukocyte Esterase Large (NEG) Urine RBC 3-5 /HPF (0-2) Urine WBC Tntc /HPF (0-4) Urine Squamous Epithelial Cells Occ /LPF Urine Bacteria Few /HPF (0-FEW) Glucose (Fingerstick) 406 mg/dL (70-99) 416 mg/dL (70-99) 357 mg/dL (70-99) SANIA MOYER MD Jul 30, 2017 09:42
[2017-07-30 10:17] LABS: BASO % 0 % (0-3); EOS % 0 % (0-3); HEMATOCRIT 21.9 % (36.0-47.0); LYMPH # 0.5 x10^3/uL (1.0-4.8); LYMPH % 4 % (24-48); MEAN CORPUSCULAR HEMOGLOBIN 26 pg (25-35); MEAN CORPUSCULAR HGB CONC 28 g/dL (31-37); MEAN CORPUSCULAR VOLUME 93 fL (79-100); MONO % 4 % (0-9); NEUT % 92 % (31-73); PLATELET COUNT 161 x10^3/uL (140-400); RED BLOOD COUNT 2.35 x10^6/uL (3.50-5.40); RED CELL DISTRIBUTION WIDTH 19.5 % (11.5-14.5); WHITE BLOOD COUNT 12.9 x10^3/uL (4.0-11.0)
[2017-07-30 10:19] LABS: HEMOGLOBIN 6.2 g/dL (12.0-15.5)
[2017-07-30 10:47] LABS: ALBUMIN 2.2 g/dL (3.4-5.0); CALCIUM 7.3 mg/dL (8.5-10.1); CREATININE 1.6 mg/dL (0.6-1.0); DIRECT BILIRUBIN 0.4 mg/dL (0.0-0.2); GFR 39.5; POTASSIUM 3.2 mmol/L (3.5-5.1); TOTAL BILIRUBIN 1.1 mg/dL (0.2-1.0); TOTAL PROTEIN 5.4 g/dL (6.4-8.2)
[2017-07-30] MEDS: ACETAMINOPHEN 500 MG TABLET PO PRN ×2 (10:54→21:31)
[2017-07-30 13:20] LABS: % SAT IRON 3 % (15-34); IRON,SERUM 5 ug/dL (50-170)
[2017-07-30 13:36] LABS: FERRITIN 114 ng/mL (8-252); LACTATE DEHYDROGENASE 249 U/L (81-234)
[2017-07-30] MEDS: ATORVASTATIN CALCIUM 40 MG TABLET. PO SCH (21:32)
[2017-07-30] MEDS: LATANOPROST 0.005% OPHTH SOLUTION 2.5ML BOTTLE. OU SCH (21:35)
[2017-07-31] MEDS: PIPERACILLIN/TAZO IV Push 3.375 GM VIAL. IVP SCH ×4 (00:43→17:44)
[2017-07-31 03:54] VITALS: BP 119/38
[2017-07-31 06:36] LABS: BASO # 0.1 x10^3/uL (0.0-0.2); BASO % 0 % (0-3); EOS % 0 % (0-3); HEMATOCRIT 25.1 % (36.0-47.0); HEMOGLOBIN 7.8 g/dL (12.0-15.5); LYMPH # 0.5 x10^3/uL (1.0-4.8); LYMPH % 3 % (24-48); MEAN CORPUSCULAR HEMOGLOBIN 27 pg (25-35); MEAN CORPUSCULAR HGB CONC 31 g/dL (31-37); MEAN CORPUSCULAR VOLUME 87 fL (79-100); MONO % 9 % (0-9); NEUT % 88 % (31-73); PLATELET COUNT 169 x10^3/uL (140-400); RED CELL DISTRIBUTION WIDTH 18.3 % (11.5-14.5)
[2017-07-31 06:54] LABS: ALBUMIN 2.3 g/dL (3.4-5.0); ALBUMIN/GLOBULIN RATIO 0.6 (1.0-1.7); POTASSIUM 3.6 mmol/L (3.5-5.1); TOTAL BILIRUBIN 0.6 mg/dL (0.2-1.0); TOTAL PROTEIN 5.9 g/dL (6.4-8.2)
[2017-07-31 06:55] VITALS: BP 147/54
[2017-07-31] MEDS: INSULIN ASPART 300 UNITS/3 ML INSULN.PEN SQ SCH ×6 (07:54→17:50)
[2017-07-31] MEDS: GABAPENTIN 300 MG CAPSULE. PO SCH ×3 (08:33→20:38)
[2017-07-31] MEDS: ASPIRIN 325 MG TABLET PO SCH (08:34)
[2017-07-31] MEDS: MYCOPHENOLATE MOFETIL 250 MG CAPSULE. PO SCH ×2 (08:34→20:38)
[2017-07-31] MEDS: predniSONE 10 MG TABLET PO SCH (08:35)
[2017-07-31] MEDS: BUMETANIDE 1 MG TABLET. PO SCH (08:35)
[2017-07-31] MEDS: APIXABAN 5 MG TABLET. PO SCH ×2 (08:35→20:40)
[2017-07-31] MEDS: ASCORBIC ACID 500 MG TABLET PO SCH ×2 (08:36→20:40)
[2017-07-31] MEDS: CALCIUM CARB/VIT D3 500/200 TABLET. PO SCH (08:36)
[2017-07-31] MEDS: PANTOPRAZOLE 40 MG TABLET.DR. PO SCH (08:36)
[2017-07-31] MEDS: POTASSIUM CHLORIDE 20 MEQ TABLET.ER. PO SCH (08:36)
[2017-07-31] MEDS: FERROUS SULFATE 325 MG TABLET. PO SCH (08:36)
[2017-07-31] MEDS: hydrALAZINE 10 MG TABLET PO SCH ×3 (08:36→20:39)
[2017-07-31] MEDS: PYRIDOSTIGMINE BROMIDE 60 MG TABLET PO SCH ×4 (08:36→20:38)
[2017-07-31] MEDS: FOLIC ACID 1 MG TABLET. PO SCH (08:37)
[2017-07-31] MEDS: METOPROLOL TART IMMED RELEASE 50 MG TABLET. PO SCH ×2 (08:37→20:39)
[2017-07-31] MEDS: POLYETHYLENE GLYCOL 3350 17 GM PACKET. PO SCH ×2 (08:37→20:43)
[2017-07-31] MEDS: LACTOBACILLUS RHAMNOSUS GG 1 CAPSULE. PO SCH ×2 (08:38→20:38)
[2017-07-31] MEDS: INSULIN DETEMIR 300 UNITS/3 ML INSULN.PEN. SQ SCH ×2 (08:49→21:38)
[2017-07-31] MEDS: CLOTRIMAZOLE 1% TOPICAL CREAM 15GM TUBE. TP SCH ×2 (09:00→20:40)
[2017-07-31 10:28] VITALS: BP 152/66
--- NOTE | 2017-07-31 11:33 | PDOC ---
Infectious Disease Note Subjective Subjective feeling better ROS ROS GEN: Denies fevers, chills, sweats HEENT: Denies blurred vision, sore throat CV: Denies chest pain RESP: Denies shortness of air, cough GI: Denies n/v/d NEURO: Denies confusion, dizziness MSK: Denies weakness, joint pain/swelling Vital Sign Vital Signs Vital Signs Date Time Temp Pulse Resp B/P (MAP) Pulse Ox O2 Delivery O2 Flow Rate FiO2 07/31/17 10:28 98.0 85 18 152/66 (94) 95 Room Air 98.0 Physical Exam PHYSICAL EXAM GENERAL: NAD, Alert HEENT: PERRL, OC/OP NECK: Supple, no JVD, no LN LUNGS: Clear HEART: S1S2, no gallop, no murmur ABD: Soft, NT, no organomegaly, no rebound EXT: No edema, no cyanosis EXAMINING OFFICER: Alert, 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, no focal neurologic deficit SKIN: No rash IV: ok Labs Lab Laboratory Tests Test 07/30/17 12:20 07/30/17 16:34 07/30/17 21:02 07/30/17 22:00 Iron Level 5 ug/dL (50-170) Total Iron Binding Capacity 180 ug/dL (250-450) Iron Saturation 3 % (15-34) Ferritin 114 ng/mL (8-252) Lactate Dehydrogenase 249 U/L (81-234) Glucose (Fingerstick) 112 mg/dL (70-99) 94 mg/dL (70-99) Hemoglobin 7.8 g/dL (12.0-15.5) Test 07/31/17 06:15 07/31/17 07:11 White Blood Count 14.0 x10^3/uL (4.0-11.0) Red Blood Count 2.90 x10^6/uL (3.50-5.40) Hemoglobin 7.8 g/dL (12.0-15.5) Hematocrit 25.1 % (36.0-47.0) Mean Corpuscular Volume 87 fL (79-100) Mean Corpuscular Hemoglobin 27 pg (25-35) Mean Corpuscular Hemoglobin Concent 31 g/dL (31-37) Red Cell Distribution Width 18.3 % (11.5-14.5) Platelet Count 169 x10^3/uL (140-400) Neutrophils (%) (Auto) 88 % (31-73) Lymphocytes (%) (Auto) 3 % (24-48) Monocytes (%) (Auto) 9 % (0-9) Eosinophils (%) (Auto) 0 % (0-3) Basophils (%) (Auto) 0 % (0-3) Neutrophils # (Auto) 12.2 x10^3uL (1.8-7.7) Lymphocytes # (Auto) 0.5 x10^3/uL (1.0-4.8) Monocytes # (Auto) 1.2 x10^3/uL (0.0-1.1) Eosinophils # (Auto) 0.0 x10^3/uL (0.0-0.7) Basophils # (Auto) 0.1 x10^3/uL (0.0-0.2) Sodium Level 144 mmol/L (136-145) Potassium Level 3.6 mmol/L (3.5-5.1) Chloride Level 106 mmol/L (98-107) Carbon Dioxide Level 28 mmol/L (21-32) Anion Gap 10 (6-14) Blood Urea Nitrogen 16 mg/dL (7-20) Creatinine 1.0 mg/dL (0.6-1.0) Estimated GFR (Cockcroft-Gault) 68.0 BUN/Creatinine Ratio 16 (6-20) Glucose Level 122 mg/dL (70-99) Calcium Level 8.0 mg/dL (8.5-10.1) Total Bilirubin 0.6 mg/dL (0.2-1.0) Aspartate Amino Transf (AST/SGOT) 25 U/L (15-37) Alanine Aminotransferase (ALT/SGPT) 28 U/L (14-59) Alkaline Phosphatase 89 U/L (46-116) Total Protein 5.9 g/dL (6.4-8.2) Albumin 2.3 g/dL (3.4-5.0) Albumin/Globulin Ratio 0.6 (1.0-1.7) Glucose (Fingerstick) 121 mg/dL (70-99) Micro BC neg urine pending Objective Assessment Fever and chills Diverticulitis UTI Myasthenia gravis, on immunosuppression PAD s/p recent angioplasty CAD Obesity Plan Plan of Care cont zosyn , d/c vanc check cultures supportive care CHRISTI MELENDEZ MD Jul 31, 2017 11:33
--- NOTE | 2017-07-31 11:37 | PDOC ---
PROGRESS NOTES Chief Complaint Chief Complaint Sepsis ASSESSMENT AND PLAN: 1. Sepsis: severe POA in immunocompromised pt. resolved stop stress dose steroids 2. Diverticulitis: no ongoing diarrhea, but abd pain and + CT findings. blood cult NGTD. on empiric Abx, ID following 3. Myasthenia gravis: cont home meds, incl immunosuppressives. very aggressive dz requiring mult meds, plasma exchanges. has MG related diplopia currently 4. CAD/CHF (chronic diastolic): no acute issues. cont home meds 5. CKD3: at baseline. monitor 6. DM2: poorly controlled in setting of infection and stress steroids. adjust insulin 7. Anemia: severe. transfuse PRPC x1. obtain anemia labs 8. OAC: apixaban for cardiac issues (as per Dr Cheng) History of Present Illness History of Present Illness much better. + LLQ pain persisting. + nonbloody diarrhea Vitals Vitals Vital Signs Date Time Temp Pulse Resp B/P (MAP) Pulse Ox O2 Delivery O2 Flow Rate FiO2 07/31/17 10:28 98.0 85 18 152/66 (94) 95 Room Air 98.0 Physical Exam General: Alert, Oriented X3, Cooperative, No acute distress Heart: Regular rate Lungs: Clear, Other Abdomen: Normal bowel sounds, Other (TTP LLQ, mild in LUQ as well) Extremities: No edema Skin: No rashes Labs LABS Laboratory Tests Test 07/30/17 12:20 07/30/17 16:34 07/30/17 21:02 07/30/17 22:00 Iron Level 5 ug/dL (50-170) Total Iron Binding Capacity 180 ug/dL (250-450) Iron Saturation 3 % (15-34) Ferritin 114 ng/mL (8-252) Lactate Dehydrogenase 249 U/L (81-234) Glucose (Fingerstick) 112 mg/dL (70-99) 94 mg/dL (70-99) Hemoglobin 7.8 g/dL (12.0-15.5) Test 07/31/17 06:15 07/31/17 07:11 White Blood Count 14.0 x10^3/uL (4.0-11.0) Red Blood Count 2.90 x10^6/uL (3.50-5.40) Hemoglobin 7.8 g/dL (12.0-15.5) Hematocrit 25.1 % (36.0-47.0) Mean Corpuscular Volume 87 fL (79-100) Mean Corpuscular Hemoglobin 27 pg (25-35) Mean Corpuscular Hemoglobin Concent 31 g/dL (31-37) Red Cell Distribution Width 18.3 % (11.5-14.5) Platelet Count 169 x10^3/uL (140-400) Neutrophils (%) (Auto) 88 % (31-73) Lymphocytes (%) (Auto) 3 % (24-48) Monocytes (%) (Auto) 9 % (0-9) Eosinophils (%) (Auto) 0 % (0-3) Basophils (%) (Auto) 0 % (0-3) Neutrophils # (Auto) 12.2 x10^3uL (1.8-7.7) Lymphocytes # (Auto) 0.5 x10^3/uL (1.0-4.8) Monocytes # (Auto) 1.2 x10^3/uL (0.0-1.1) Eosinophils # (Auto) 0.0 x10^3/uL (0.0-0.7) Basophils # (Auto) 0.1 x10^3/uL (0.0-0.2) Sodium Level 144 mmol/L (136-145) Potassium Level 3.6 mmol/L (3.5-5.1) Chloride Level 106 mmol/L (98-107) Carbon Dioxide Level 28 mmol/L (21-32) Anion Gap 10 (6-14) Blood Urea Nitrogen 16 mg/dL (7-20) Creatinine 1.0 mg/dL (0.6-1.0) Estimated GFR (Cockcroft-Gault) 68.0 BUN/Creatinine Ratio 16 (6-20) Glucose Level 122 mg/dL (70-99) Calcium Level 8.0 mg/dL (8.5-10.1) Total Bilirubin 0.6 mg/dL (0.2-1.0) Aspartate Amino Transf (AST/SGOT) 25 U/L (15-37) Alanine Aminotransferase (ALT/SGPT) 28 U/L (14-59) Alkaline Phosphatase 89 U/L (46-116) Total Protein 5.9 g/dL (6.4-8.2) Albumin 2.3 g/dL (3.4-5.0) Albumin/Globulin Ratio 0.6 (1.0-1.7) Glucose (Fingerstick) 121 mg/dL (70-99) SANIA MOYER MD Jul 31, 2017 11:37
[2017-07-31] MEDS: ACETAMINOPHEN 500 MG TABLET PO PRN ×2 (11:45→21:55)
--- NOTE | 2017-07-31 11:50 | PDOC ---
Infectious Disease Note Subjective Subjective feeling better, still some abd pain ROS ROS GEN: Denies fevers, chills, sweats HEENT: Denies blurred vision, sore throat CV: Denies chest pain RESP: Denies shortness of air, cough GI: Denies n/v/d NEURO: Denies confusion, dizziness MSK: Denies weakness, joint pain/swelling Vital Sign Vital Signs Vital Signs Date Time Temp Pulse Resp B/P (MAP) Pulse Ox O2 Delivery O2 Flow Rate FiO2 07/31/17 10:28 98.0 85 18 152/66 (94) 95 Room Air 98.0 Physical Exam PHYSICAL EXAM GENERAL: NAD, Alert HEENT: PERRL, OC/OP NECK: Supple, no JVD, no LN LUNGS: Clear HEART: S1S2, no gallop, no murmur ABD: Soft, NT, no organomegaly, no rebound EXT: No edema, no cyanosis REGULATORY ADMINISTRATOR: Alert, 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, no focal neurologic deficit SKIN: No rash IV: ok Labs Lab Laboratory Tests Test 07/30/17 12:20 07/30/17 16:34 07/30/17 21:02 07/30/17 22:00 Iron Level 5 ug/dL (50-170) Total Iron Binding Capacity 180 ug/dL (250-450) Iron Saturation 3 % (15-34) Ferritin 114 ng/mL (8-252) Lactate Dehydrogenase 249 U/L (81-234) Glucose (Fingerstick) 112 mg/dL (70-99) 94 mg/dL (70-99) Hemoglobin 7.8 g/dL (12.0-15.5) Test 07/31/17 06:15 07/31/17 07:11 07/31/17 11:23 White Blood Count 14.0 x10^3/uL (4.0-11.0) Red Blood Count 2.90 x10^6/uL (3.50-5.40) Hemoglobin 7.8 g/dL (12.0-15.5) Hematocrit 25.1 % (36.0-47.0) Mean Corpuscular Volume 87 fL (79-100) Mean Corpuscular Hemoglobin 27 pg (25-35) Mean Corpuscular Hemoglobin Concent 31 g/dL (31-37) Red Cell Distribution Width 18.3 % (11.5-14.5) Platelet Count 169 x10^3/uL (140-400) Neutrophils (%) (Auto) 88 % (31-73) Lymphocytes (%) (Auto) 3 % (24-48) Monocytes (%) (Auto) 9 % (0-9) Eosinophils (%) (Auto) 0 % (0-3) Basophils (%) (Auto) 0 % (0-3) Neutrophils # (Auto) 12.2 x10^3uL (1.8-7.7) Lymphocytes # (Auto) 0.5 x10^3/uL (1.0-4.8) Monocytes # (Auto) 1.2 x10^3/uL (0.0-1.1) Eosinophils # (Auto) 0.0 x10^3/uL (0.0-0.7) Basophils # (Auto) 0.1 x10^3/uL (0.0-0.2) Sodium Level 144 mmol/L (136-145) Potassium Level 3.6 mmol/L (3.5-5.1) Chloride Level 106 mmol/L (98-107) Carbon Dioxide Level 28 mmol/L (21-32) Anion Gap 10 (6-14) Blood Urea Nitrogen 16 mg/dL (7-20) Creatinine 1.0 mg/dL (0.6-1.0) Estimated GFR (Cockcroft-Gault) 68.0 BUN/Creatinine Ratio 16 (6-20) Glucose Level 122 mg/dL (70-99) Calcium Level 8.0 mg/dL (8.5-10.1) Total Bilirubin 0.6 mg/dL (0.2-1.0) Aspartate Amino Transf (AST/SGOT) 25 U/L (15-37) Alanine Aminotransferase (ALT/SGPT) 28 U/L (14-59) Alkaline Phosphatase 89 U/L (46-116) Total Protein 5.9 g/dL (6.4-8.2) Albumin 2.3 g/dL (3.4-5.0) Albumin/Globulin Ratio 0.6 (1.0-1.7) Glucose (Fingerstick) 121 mg/dL (70-99) 81 mg/dL (70-99) Micro BC neg urine pending Objective Assessment Fever and chills Diverticulitis UTI Myasthenia gravis, on immunosuppression PAD s/p recent angioplasty CAD Obesity Plan Plan of Care cont zosyn check cultures supportive care watch wbc, up sec to steroids vs diverticulitis with possible perforation, will monitor CHRISTI MELENDEZ MD Jul 31, 2017 11:50
[2017-07-31 14:38] VITALS: BP 93/45
[2017-07-31 15:09] VITALS: BP 137/74
[2017-07-31 19:00] VITALS: BP 126/60
[2017-07-31] MEDS: ATORVASTATIN CALCIUM 40 MG TABLET. PO SCH (20:38)
[2017-07-31] MEDS: LATANOPROST 0.005% OPHTH SOLUTION 2.5ML BOTTLE. OU SCH (20:40)
[2017-07-31] MEDS: oxyCODONE IR 5 MG TABLET PO PRN (20:50)
[2017-08-01] MEDS: PIPERACILLIN/TAZO IV Push 3.375 GM VIAL. IVP SCH ×4 (00:03→17:46)
[2017-08-01] MEDS: oxyCODONE IR 5 MG TABLET PO PRN (01:51)
[2017-08-01 03:00] VITALS: BP 123/57
[2017-08-01 03:41] LABS: ALBUMIN 2.5 g/dL (3.4-5.0); ALBUMIN/GLOBULIN RATIO 0.7 (1.0-1.7); CALCIUM 8.1 mg/dL (8.5-10.1); CREATININE 1.5 mg/dL (0.6-1.0); GFR 42.6; POTASSIUM 3.7 mmol/L (3.5-5.1); TOTAL BILIRUBIN 0.5 mg/dL (0.2-1.0); TOTAL PROTEIN 6.2 g/dL (6.4-8.2)
[2017-08-01 03:54] LABS: BASO % 0 % (0-3); EOS % 0 % (0-3); HEMATOCRIT 28.2 % (36.0-47.0); HEMOGLOBIN 8.3 g/dL (12.0-15.5); LYMPH # 0.7 x10^3/uL (1.0-4.8); LYMPH % 5 % (24-48); MEAN CORPUSCULAR HEMOGLOBIN 26 pg (25-35); MEAN CORPUSCULAR HGB CONC 30 g/dL (31-37); MEAN CORPUSCULAR VOLUME 90 fL (79-100); MONO % 9 % (0-9); NEUT % 86 % (31-73); PLATELET COUNT 196 x10^3/uL (140-400); RED BLOOD COUNT 3.15 x10^6/uL (3.50-5.40); RED CELL DISTRIBUTION WIDTH 18.7 % (11.5-14.5); WHITE BLOOD COUNT 14.2 x10^3/uL (4.0-11.0)
[2017-08-01] MEDS: ACETAMINOPHEN 500 MG TABLET PO PRN (05:53)
[2017-08-01 07:00] VITALS: BP 137/72
[2017-08-01] MEDS: INSULIN ASPART 300 UNITS/3 ML INSULN.PEN SQ SCH ×6 (08:00→18:20)
[2017-08-01] MEDS: POLYETHYLENE GLYCOL 3350 17 GM PACKET. PO SCH ×2 (09:22→21:00)
[2017-08-01] MEDS: BUMETANIDE 1 MG TABLET. PO SCH (09:23)
[2017-08-01] MEDS: LACTOBACILLUS RHAMNOSUS GG 1 CAPSULE. PO SCH ×2 (09:23→21:21)
[2017-08-01] MEDS: predniSONE 10 MG TABLET PO SCH (09:24)
[2017-08-01] MEDS: PYRIDOSTIGMINE BROMIDE 60 MG TABLET PO SCH ×4 (09:26→21:20)
[2017-08-01] MEDS: CALCIUM CARB/VIT D3 500/200 TABLET. PO SCH (09:26)
[2017-08-01] MEDS: ASPIRIN 325 MG TABLET PO SCH (09:26)
[2017-08-01] MEDS: PANTOPRAZOLE 40 MG TABLET.DR. PO SCH (09:26)
[2017-08-01] MEDS: FOLIC ACID 1 MG TABLET. PO SCH (09:27)
[2017-08-01] MEDS: ASCORBIC ACID 500 MG TABLET PO SCH ×2 (09:27→21:20)
[2017-08-01] MEDS: GABAPENTIN 300 MG CAPSULE. PO SCH ×3 (09:27→21:23)
[2017-08-01] MEDS: POTASSIUM CHLORIDE 20 MEQ TABLET.ER. PO SCH (09:27)
[2017-08-01] MEDS: MYCOPHENOLATE MOFETIL 250 MG CAPSULE. PO SCH ×2 (09:28→21:20)
[2017-08-01] MEDS: METOPROLOL TART IMMED RELEASE 50 MG TABLET. PO SCH ×2 (09:30→21:00)
[2017-08-01] MEDS: APIXABAN 5 MG TABLET. PO SCH ×2 (09:30→21:23)
[2017-08-01] MEDS: hydrALAZINE 10 MG TABLET PO SCH ×3 (09:30→21:00)
[2017-08-01] MEDS: CLOTRIMAZOLE 1% TOPICAL CREAM 15GM TUBE. TP SCH ×2 (09:31→21:24)
[2017-08-01] MEDS: INSULIN DETEMIR 300 UNITS/3 ML INSULN.PEN. SQ SCH ×2 (10:15→21:32)
--- NOTE | 2017-08-01 10:25 | PDOC ---
Infectious Disease Note Subjective Subjective feeling better, still some abd pain ROS ROS GEN: Denies fevers, chills, sweats HEENT: Denies blurred vision, sore throat CV: Denies chest pain RESP: Denies shortness of air, cough GI: Denies n/v/d NEURO: Denies confusion, dizziness MSK: Denies weakness, joint pain/swelling Vital Sign Vital Signs Vital Signs Date Time Temp Pulse Resp B/P (MAP) Pulse Ox O2 Delivery O2 Flow Rate FiO2 08/01/17 09:30 92 137/72 08/01/17 08:00 Room Air 08/01/17 07:00 97.9 20 89 97.9 Physical Exam PHYSICAL EXAM GENERAL: NAD, Alert HEENT: PERRL, OC/OP NECK: Supple, no JVD, no LN LUNGS: Clear HEART: S1S2, no gallop, no murmur ABD: Soft, NT, no organomegaly, no rebound EXT: No edema, no cyanosis MOBILE HOME MECHANIC: Alert, 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, no focal neurologic deficit SKIN: No rash IV: ok Labs Lab Laboratory Tests Test 07/31/17 11:23 07/31/17 16:30 07/31/17 21:29 08/01/17 02:45 Glucose (Fingerstick) 81 mg/dL (70-99) 140 mg/dL (70-99) 175 mg/dL (70-99) White Blood Count 14.2 x10^3/uL (4.0-11.0) Red Blood Count 3.15 x10^6/uL (3.50-5.40) Hemoglobin 8.3 g/dL (12.0-15.5) Hematocrit 28.2 % (36.0-47.0) Mean Corpuscular Volume 90 fL (79-100) Mean Corpuscular Hemoglobin 26 pg (25-35) Mean Corpuscular Hemoglobin Concent 30 g/dL (31-37) Red Cell Distribution Width 18.7 % (11.5-14.5) Platelet Count 196 x10^3/uL (140-400) Neutrophils (%) (Auto) 86 % (31-73) Lymphocytes (%) (Auto) 5 % (24-48) Monocytes (%) (Auto) 9 % (0-9) Eosinophils (%) (Auto) 0 % (0-3) Basophils (%) (Auto) 0 % (0-3) Neutrophils # (Auto) 12.2 x10^3uL (1.8-7.7) Lymphocytes # (Auto) 0.7 x10^3/uL (1.0-4.8) Monocytes # (Auto) 1.2 x10^3/uL (0.0-1.1) Eosinophils # (Auto) 0.1 x10^3/uL (0.0-0.7) Basophils # (Auto) 0.0 x10^3/uL (0.0-0.2) Sodium Level 146 mmol/L (136-145) Potassium Level 3.7 mmol/L (3.5-5.1) Chloride Level 105 mmol/L (98-107) Carbon Dioxide Level 29 mmol/L (21-32) Anion Gap 12 (6-14) Blood Urea Nitrogen 23 mg/dL (7-20) Creatinine 1.5 mg/dL (0.6-1.0) Estimated GFR (Cockcroft-Gault) 42.6 BUN/Creatinine Ratio 15 (6-20) Glucose Level 71 mg/dL (70-99) Calcium Level 8.1 mg/dL (8.5-10.1) Total Bilirubin 0.5 mg/dL (0.2-1.0) Aspartate Amino Transf (AST/SGOT) 21 U/L (15-37) Alanine Aminotransferase (ALT/SGPT) 25 U/L (14-59) Alkaline Phosphatase 90 U/L (46-116) Total Protein 6.2 g/dL (6.4-8.2) Albumin 2.5 g/dL (3.4-5.0) Albumin/Globulin Ratio 0.7 (1.0-1.7) Test 08/01/17 07:54 08/01/17 08:26 08/01/17 09:50 Glucose (Fingerstick) 48 mg/dL (70-99) 52 mg/dL (70-99) 141 mg/dL (70-99) Micro BC neg urine pending Objective Assessment Fever and chills Diverticulitis UTI Myasthenia gravis, on immunosuppression PAD s/p recent angioplasty CAD Obesity Plan Plan of Care cont zosyn check cultures supportive care watch wbc, up sec to steroids vs diverticulitis with possible perforation, will monitor CHRISTI MELENDEZ MD Aug 01, 2017 10:25
[2017-08-01 10:52] VITALS: BP 125/62
--- NOTE | 2017-08-01 13:33 | PDOC ---
PROGRESS NOTES Chief Complaint Chief Complaint Sepsis ASSESSMENT AND PLAN: 1. Sepsis: severe POA in immunocompromised pt. resolved - stop stress dose steroids 2. Diverticulitis: poss perf. no ongoing diarrhea, but abd pain and + CT findings. blood cult NGTD. on empiric Abx, ID following 3. Myasthenia gravis: cont home meds, incl immunosuppressives. very aggressive dz requiring mult meds, plasma exchanges. has MG related diplopia currently 4. CAD/CHF (chronic diastolic): no acute issues. cont home meds 5. CKD3: at baseline. monitor 6. DM2: hypoglycemia last night, good levels today, monitor with ISS, adjust insulin PRN 7. Anemia: stable-improved s/p transfuse PRPC x1. anemia labs c/w severe inflammation (suppressed TIBC), but ferritin normal (should be high in inflam anemia), i.e some component of iron deficiency as well. give venofer x1, cont on PO iron then 8. OAC: apixaban for cardiac issues (as per Dr Cheng) History of Present Illness History of Present Illness tired after sitting in chair for a couple of hours. mild persistent LLQ pain. needs Miralax for BM Vitals Vitals Vital Signs Date Time Temp Pulse Resp B/P (MAP) Pulse Ox O2 Delivery O2 Flow Rate FiO2 08/01/17 10:52 98.0 84 20 125/62 (83) 93 Room Air 98.0 Physical Exam General: Alert, Oriented X3, Cooperative, No acute distress Heart: Regular rate Lungs: Clear, Other Abdomen: Normal bowel sounds, Other (TTP LLQ, mild in LUQ as well) Extremities: No edema Skin: No rashes Labs LABS Laboratory Tests Test 07/31/17 16:30 07/31/17 21:29 08/01/17 02:45 08/01/17 07:54 Glucose (Fingerstick) 140 mg/dL (70-99) 175 mg/dL (70-99) 48 mg/dL (70-99) White Blood Count 14.2 x10^3/uL (4.0-11.0) Red Blood Count 3.15 x10^6/uL (3.50-5.40) Hemoglobin 8.3 g/dL (12.0-15.5) Hematocrit 28.2 % (36.0-47.0) Mean Corpuscular Volume 90 fL (79-100) Mean Corpuscular Hemoglobin 26 pg (25-35) Mean Corpuscular Hemoglobin Concent 30 g/dL (31-37) Red Cell Distribution Width 18.7 % (11.5-14.5) Platelet Count 196 x10^3/uL (140-400) Neutrophils (%) (Auto) 86 % (31-73) Lymphocytes (%) (Auto) 5 % (24-48) Monocytes (%) (Auto) 9 % (0-9) Eosinophils (%) (Auto) 0 % (0-3) Basophils (%) (Auto) 0 % (0-3) Neutrophils # (Auto) 12.2 x10^3uL (1.8-7.7) Lymphocytes # (Auto) 0.7 x10^3/uL (1.0-4.8) Monocytes # (Auto) 1.2 x10^3/uL (0.0-1.1) Eosinophils # (Auto) 0.1 x10^3/uL (0.0-0.7) Basophils # (Auto) 0.0 x10^3/uL (0.0-0.2) Sodium Level 146 mmol/L (136-145) Potassium Level 3.7 mmol/L (3.5-5.1) Chloride Level 105 mmol/L (98-107) Carbon Dioxide Level 29 mmol/L (21-32) Anion Gap 12 (6-14) Blood Urea Nitrogen 23 mg/dL (7-20) Creatinine 1.5 mg/dL (0.6-1.0) Estimated GFR (Cockcroft-Gault) 42.6 BUN/Creatinine Ratio 15 (6-20) Glucose Level 71 mg/dL (70-99) Calcium Level 8.1 mg/dL (8.5-10.1) Total Bilirubin 0.5 mg/dL (0.2-1.0) Aspartate Amino Transf (AST/SGOT) 21 U/L (15-37) Alanine Aminotransferase (ALT/SGPT) 25 U/L (14-59) Alkaline Phosphatase 90 U/L (46-116) Total Protein 6.2 g/dL (6.4-8.2) Albumin 2.5 g/dL (3.4-5.0) Albumin/Globulin Ratio 0.7 (1.0-1.7) Test 08/01/17 08:26 08/01/17 09:50 08/01/17 11:42 Glucose (Fingerstick) 52 mg/dL (70-99) 141 mg/dL (70-99) 157 mg/dL (70-99) SANIA MOYER MD Aug 01, 2017 13:33
[2017-08-01 15:00] VITALS: BP 149/74
[2017-08-01] MEDS ORDERED: 1/2 NORMAL SALINE IV ONE (16:30)
[2017-08-01] MEDS ORDERED: IRON SUCROSE COMPLEX IV ONE (16:30)
[2017-08-01 19:00] VITALS: BP 116/67
[2017-08-01] MEDS: FERROUS SULFATE ORAL 300 MG/5 ML SOLUTION. PO SCH (21:00)
[2017-08-01] MEDS: ATORVASTATIN CALCIUM 40 MG TABLET. PO SCH (21:23)
[2017-08-01] MEDS: LATANOPROST 0.005% OPHTH SOLUTION 2.5ML BOTTLE. OU SCH (21:24)
[2017-08-01 23:00] VITALS: BP 165/83
[2017-08-02] MEDS: PIPERACILLIN/TAZO IV Push 3.375 GM VIAL. IVP SCH ×4 (00:07→17:57)
[2017-08-02 03:00] VITALS: BP 145/73
[2017-08-02 06:50] LABS: BASO # 0.1 x10^3/uL (0.0-0.2); BASO % 1 % (0-3); EOS % 1 % (0-3); HEMATOCRIT 25.5 % (36.0-47.0); HEMOGLOBIN 7.7 g/dL (12.0-15.5); LYMPH # 0.5 x10^3/uL (1.0-4.8); LYMPH % 5 % (24-48); MEAN CORPUSCULAR HEMOGLOBIN 27 pg (25-35); MEAN CORPUSCULAR HGB CONC 30 g/dL (31-37); MEAN CORPUSCULAR VOLUME 88 fL (79-100); MONO % 10 % (0-9); NEUT % 84 % (31-73); PLATELET COUNT 189 x10^3/uL (140-400); RED CELL DISTRIBUTION WIDTH 17.9 % (11.5-14.5); WHITE BLOOD COUNT 9.6 x10^3/uL (4.0-11.0)
[2017-08-02 07:00] VITALS: BP 142/58
[2017-08-02 07:27] LABS: ALBUMIN 2.3 g/dL (3.4-5.0); ALBUMIN/GLOBULIN RATIO 0.7 (1.0-1.7); CREATININE 1.1 mg/dL (0.6-1.0); GFR 60.9; POTASSIUM 3.5 mmol/L (3.5-5.1); TOTAL BILIRUBIN 0.4 mg/dL (0.2-1.0); TOTAL PROTEIN 5.5 g/dL (6.4-8.2)
[2017-08-02] MEDS: INSULIN ASPART 300 UNITS/3 ML INSULN.PEN SQ SCH ×6 (07:55→18:07)
[2017-08-02] MEDS: INSULIN DETEMIR 300 UNITS/3 ML INSULN.PEN. SQ SCH ×2 (08:00→20:58)
[2017-08-02] MEDS: GABAPENTIN 300 MG CAPSULE. PO SCH ×3 (08:34→21:00)
[2017-08-02] MEDS: CLOTRIMAZOLE 1% TOPICAL CREAM 15GM TUBE. TP SCH ×2 (08:35→20:53)
[2017-08-02] MEDS: predniSONE 10 MG TABLET PO SCH (08:41)
[2017-08-02] MEDS: FOLIC ACID 1 MG TABLET. PO SCH (08:42)
[2017-08-02] MEDS: ASPIRIN 325 MG TABLET PO SCH (08:42)
[2017-08-02] MEDS: ASCORBIC ACID 500 MG TABLET PO SCH ×2 (08:42→21:00)
[2017-08-02] MEDS: MYCOPHENOLATE MOFETIL 250 MG CAPSULE. PO SCH ×2 (08:42→20:54)
[2017-08-02] MEDS: BUMETANIDE 1 MG TABLET. PO SCH (08:42)
[2017-08-02] MEDS: LACTOBACILLUS RHAMNOSUS GG 1 CAPSULE. PO SCH ×2 (08:42→21:00)
[2017-08-02] MEDS: PANTOPRAZOLE 40 MG TABLET.DR. PO SCH (08:43)
[2017-08-02] MEDS: PYRIDOSTIGMINE BROMIDE 60 MG TABLET PO SCH ×4 (08:43→20:54)
[2017-08-02] MEDS: FERROUS SULFATE 325 MG TABLET. PO SCH (08:43)
[2017-08-02] MEDS: CALCIUM CARB/VIT D3 500/200 TABLET. PO SCH (08:43)
[2017-08-02] MEDS: METOPROLOL TART IMMED RELEASE 50 MG TABLET. PO SCH ×2 (08:44→20:54)
[2017-08-02] MEDS: APIXABAN 5 MG TABLET. PO SCH ×2 (08:44→20:54)
[2017-08-02] MEDS: POTASSIUM CHLORIDE 20 MEQ TABLET.ER. PO SCH (08:44)
[2017-08-02] MEDS: hydrALAZINE 10 MG TABLET PO SCH ×3 (08:45→20:55)
[2017-08-02] MEDS: POLYETHYLENE GLYCOL 3350 17 GM PACKET. PO SCH ×2 (08:52→21:00)
[2017-08-02 11:00] VITALS: BP 135/63
--- NOTE | 2017-08-02 13:30 | PDOC ---
PROGRESS NOTES Chief Complaint Chief Complaint Sepsis, improving 1. Sepsis: severe POA in immunocompromised pt. improved 2. Diverticulitis: . no ongoing diarrhea, but abd pain and + CT findings. pain now improved, 3. Myasthenia gravis: cont home meds, incl immunosuppressives. very aggressive dz requiring mult meds, scheduled plasma exchanges. has MG related diplopia currently 4. CAD/CHF (chronic diastolic): no acute issues. cont home meds 5. CKD3: at baseline. monitor 6. DM2: hypoglycemia last night, good levels today, monitor with ISS, adjust insulin PRN 7. Anemia: stable-improved s/p transfuse 1 PRPC anemia labs c/w severe inflammation. given venofer x1, 8. OAC: apixaban for cardiac issues History of Present Illness History of Present Illness tired after sitting in chair for a couple of hours. mild persistent LLQ pain. needs Miralax for BM Vitals Vitals Vital Signs Date Time Temp Pulse Resp B/P (MAP) Pulse Ox O2 Delivery O2 Flow Rate FiO2 08/02/17 11:00 98.7 82 18 135/63 (87) 97 Nasal Cannula 2.0 98.7 Physical Exam General: Alert, Oriented X3, Cooperative, No acute distress Heart: Regular rate Lungs: Clear, Other Abdomen: Normal bowel sounds, Other (TTP LLQ, mild in LUQ as well) Extremities: No edema Skin: No rashes Labs LABS Laboratory Tests Test 08/01/17 17:23 08/01/17 21:17 08/02/17 06:30 08/02/17 07:52 Glucose (Fingerstick) 200 mg/dL (70-99) 137 mg/dL (70-99) 32 mg/dL (70-99) White Blood Count 9.6 x10^3/uL (4.0-11.0) Red Blood Count 2.90 x10^6/uL (3.50-5.40) Hemoglobin 7.7 g/dL (12.0-15.5) Hematocrit 25.5 % (36.0-47.0) Mean Corpuscular Volume 88 fL (79-100) Mean Corpuscular Hemoglobin 27 pg (25-35) Mean Corpuscular Hemoglobin Concent 30 g/dL (31-37) Red Cell Distribution Width 17.9 % (11.5-14.5) Platelet Count 189 x10^3/uL (140-400) Neutrophils (%) (Auto) 84 % (31-73) Lymphocytes (%) (Auto) 5 % (24-48) Monocytes (%) (Auto) 10 % (0-9) Eosinophils (%) (Auto) 1 % (0-3) Basophils (%) (Auto) 1 % (0-3) Neutrophils # (Auto) 8.0 x10^3uL (1.8-7.7) Lymphocytes # (Auto) 0.5 x10^3/uL (1.0-4.8) Monocytes # (Auto) 1.0 x10^3/uL (0.0-1.1) Eosinophils # (Auto) 0.0 x10^3/uL (0.0-0.7) Basophils # (Auto) 0.1 x10^3/uL (0.0-0.2) Sodium Level 145 mmol/L (136-145) Potassium Level 3.5 mmol/L (3.5-5.1) Chloride Level 107 mmol/L (98-107) Carbon Dioxide Level 33 mmol/L (21-32) Anion Gap 5 (6-14) Blood Urea Nitrogen 20 mg/dL (7-20) Creatinine 1.1 mg/dL (0.6-1.0) Estimated GFR (Cockcroft-Gault) 60.9 BUN/Creatinine Ratio 18 (6-20) Glucose Level 43 mg/dL (70-99) Calcium Level 8.0 mg/dL (8.5-10.1) Total Bilirubin 0.4 mg/dL (0.2-1.0) Aspartate Amino Transf (AST/SGOT) 23 U/L (15-37) Alanine Aminotransferase (ALT/SGPT) 30 U/L (14-59) Alkaline Phosphatase 82 U/L (46-116) Total Protein 5.5 g/dL (6.4-8.2) Albumin 2.3 g/dL (3.4-5.0) Albumin/Globulin Ratio 0.7 (1.0-1.7) Test 08/02/17 08:14 08/02/17 11:12 Glucose (Fingerstick) 48 mg/dL (70-99) 169 mg/dL (70-99) Review of Systems Review of Systems some nausea and pain Assessment and Plan Assessmemt and Plan Problems Medical Problems: (1) Congestive heart failure Status: Acute (2) Congestive heart failure (CHF) Status: Acute (3) Healthcare-associated pneumonia Status: Acute (4) Moderate protein malnutrition Status: Acute (5) Normocytic anemia Status: Acute (6) Severe sepsis Status: Acute (7) Type 2 diabetes mellitus Status: Acute Problems: Comment Review of Relevant I have reviewed the following items omer (where applicable) has been applied. Labs Laboratory Tests Test 07/31/17 16:30 07/31/17 21:29 08/01/17 02:45 08/01/17 07:54 Glucose (Fingerstick) 140 mg/dL (70-99) 175 mg/dL (70-99) 48 mg/dL (70-99) White Blood Count 14.2 x10^3/uL (4.0-11.0) Red Blood Count 3.15 x10^6/uL (3.50-5.40) Hemoglobin 8.3 g/dL (12.0-15.5) Hematocrit 28.2 % (36.0-47.0) Mean Corpuscular Volume 90 fL (79-100) Mean Corpuscular Hemoglobin 26 pg (25-35) Mean Corpuscular Hemoglobin Concent 30 g/dL (31-37) Red Cell Distribution Width 18.7 % (11.5-14.5) Platelet Count 196 x10^3/uL (140-400) Neutrophils (%) (Auto) 86 % (31-73) Lymphocytes (%) (Auto) 5 % (24-48) Monocytes (%) (Auto) 9 % (0-9) Eosinophils (%) (Auto) 0 % (0-3) Basophils (%) (Auto) 0 % (0-3) Neutrophils # (Auto) 12.2 x10^3uL (1.8-7.7) Lymphocytes # (Auto) 0.7 x10^3/uL (1.0-4.8) Monocytes # (Auto) 1.2 x10^3/uL (0.0-1.1) Eosinophils # (Auto) 0.1 x10^3/uL (0.0-0.7) Basophils # (Auto) 0.0 x10^3/uL (0.0-0.2) Sodium Level 146 mmol/L (136-145) Potassium Level 3.7 mmol/L (3.5-5.1) Chloride Level 105 mmol/L (98-107) Carbon Dioxide Level 29 mmol/L (21-32) Anion Gap 12 (6-14) Blood Urea Nitrogen 23 mg/dL (7-20) Creatinine 1.5 mg/dL (0.6-1.0) Estimated GFR (Cockcroft-Gault) 42.6 BUN/Creatinine Ratio 15 (6-20) Glucose Level 71 mg/dL (70-99) Calcium Level 8.1 mg/dL (8.5-10.1) Total Bilirubin 0.5 mg/dL (0.2-1.0) Aspartate Amino Transf (AST/SGOT) 21 U/L (15-37) Alanine Aminotransferase (ALT/SGPT) 25 U/L (14-59) Alkaline Phosphatase 90 U/L (46-116) Total Protein 6.2 g/dL (6.4-8.2) Albumin 2.5 g/dL (3.4-5.0) Albumin/Globulin Ratio 0.7 (1.0-1.7) Test 08/01/17 08:26 08/01/17 09:50 08/01/17 11:42 08/01/17 17:23 Glucose (Fingerstick) 52 mg/dL (70-99) 141 mg/dL (70-99) 157 mg/dL (70-99) 200 mg/dL (70-99) Test 08/01/17 21:17 08/02/17 06:30 08/02/17 07:52 08/02/17 08:14 Glucose (Fingerstick) 137 mg/dL (70-99) 32 mg/dL (70-99) 48 mg/dL (70-99) White Blood Count 9.6 x10^3/uL (4.0-11.0) Red Blood Count 2.90 x10^6/uL (3.50-5.40) Hemoglobin 7.7 g/dL (12.0-15.5) Hematocrit 25.5 % (36.0-47.0) Mean Corpuscular Volume 88 fL (79-100) Mean Corpuscular Hemoglobin 27 pg (25-35) Mean Corpuscular Hemoglobin Concent 30 g/dL (31-37) Red Cell Distribution Width 17.9 % (11.5-14.5) Platelet Count 189 x10^3/uL (140-400) Neutrophils (%) (Auto) 84 % (31-73) Lymphocytes (%) (Auto) 5 % (24-48) Monocytes (%) (Auto) 10 % (0-9) Eosinophils (%) (Auto) 1 % (0-3) Basophils (%) (Auto) 1 % (0-3) Neutrophils # (Auto) 8.0 x10^3uL (1.8-7.7) Lymphocytes # (Auto) 0.5 x10^3/uL (1.0-4.8) Monocytes # (Auto) 1.0 x10^3/uL (0.0-1.1) Eosinophils # (Auto) 0.0 x10^3/uL (0.0-0.7) Basophils # (Auto) 0.1 x10^3/uL (0.0-0.2) Sodium Level 145 mmol/L (136-145) Potassium Level 3.5 mmol/L (3.5-5.1) Chloride Level 107 mmol/L (98-107) Carbon Dioxide Level 33 mmol/L (21-32) Anion Gap 5 (6-14) Blood Urea Nitrogen 20 mg/dL (7-20) Creatinine 1.1 mg/dL (0.6-1.0) Estimated GFR (Cockcroft-Gault) 60.9 BUN/Creatinine Ratio 18 (6-20) Glucose Level 43 mg/dL (70-99) Calcium Level 8.0 mg/dL (8.5-10.1) Total Bilirubin 0.4 mg/dL (0.2-1.0) Aspartate Amino Transf (AST/SGOT) 23 U/L (15-37) Alanine Aminotransferase (ALT/SGPT) 30 U/L (14-59) Alkaline Phosphatase 82 U/L (46-116) Total Protein 5.5 g/dL (6.4-8.2) Albumin 2.3 g/dL (3.4-5.0) Albumin/Globulin Ratio 0.7 (1.0-1.7) Test 08/02/17 11:12 Glucose (Fingerstick) 169 mg/dL (70-99) Laboratory Tests Test 08/01/17 17:23 08/01/17 21:17 08/02/17 06:30 08/02/17 07:52 Glucose (Fingerstick) 200 mg/dL (70-99) 137 mg/dL (70-99) 32 mg/dL (70-99) White Blood Count 9.6 x10^3/uL (4.0-11.0) Red Blood Count 2.90 x10^6/uL (3.50-5.40) Hemoglobin 7.7 g/dL (12.0-15.5) Hematocrit 25.5 % (36.0-47.0) Mean Corpuscular Volume 88 fL (79-100) Mean Corpuscular Hemoglobin 27 pg (25-35) Mean Corpuscular Hemoglobin Concent 30 g/dL (31-37) Red Cell Distribution Width 17.9 % (11.5-14.5) Platelet Count 189 x10^3/uL (140-400) Neutrophils (%) (Auto) 84 % (31-73) Lymphocytes (%) (Auto) 5 % (24-48) Monocytes (%) (Auto) 10 % (0-9) Eosinophils (%) (Auto) 1 % (0-3) Basophils (%) (Auto) 1 % (0-3) Neutrophils # (Auto) 8.0 x10^3uL (1.8-7.7) Lymphocytes # (Auto) 0.5 x10^3/uL (1.0-4.8) Monocytes # (Auto) 1.0 x10^3/uL (0.0-1.1) Eosinophils # (Auto) 0.0 x10^3/uL (0.0-0.7) Basophils # (Auto) 0.1 x10^3/uL (0.0-0.2) Sodium Level 145 mmol/L (136-145) Potassium Level 3.5 mmol/L (3.5-5.1) Chloride Level 107 mmol/L (98-107) Carbon Dioxide Level 33 mmol/L (21-32) Anion Gap 5 (6-14) Blood Urea Nitrogen 20 mg/dL (7-20) Creatinine 1.1 mg/dL (0.6-1.0) Estimated GFR (Cockcroft-Gault) 60.9 BUN/Creatinine Ratio 18 (6-20) Glucose Level 43 mg/dL (70-99) Calcium Level 8.0 mg/dL (8.5-10.1) Total Bilirubin 0.4 mg/dL (0.2-1.0) Aspartate Amino Transf (AST/SGOT) 23 U/L (15-37) Alanine Aminotransferase (ALT/SGPT) 30 U/L (14-59) Alkaline Phosphatase 82 U/L (46-116) Total Protein 5.5 g/dL (6.4-8.2) Albumin 2.3 g/dL (3.4-5.0) Albumin/Globulin Ratio 0.7 (1.0-1.7) Test 08/02/17 08:14 08/02/17 11:12 Glucose (Fingerstick) 48 mg/dL (70-99) 169 mg/dL (70-99) Microbiology 07/29/17 Blood Culture - Preliminary, Resulted NO GROWTH AFTER 4 DAYS 07/29/17 Urine Culture - Final, Complete 07/29/17 Urine Culture Result 1 (FREDDIE) - Final, Complete 07/29/17 Antimicrobic Susceptibility - Final, Complete Medications Current Medications Sodium Chloride 1,000 ml @ 780 mls/hr Q1H17M IV Last administered on 07:05; Start 07/29/17 at 06:14; Stop 07/29/17 at 08:14; Status DC Vancomycin HCl (Vanco Per Pharmacy) 1 each PRN DAILY PRN MC SEE COMMENTS Last administered on 07/29/17 19:28; Start 07/29/17 at 07:30; Stop 07/30/17 at 09 :35; Status DC Piperacillin Sod/ Tazobactam Sod (Zosyn Per Pharmacy) 1 each PRN DAILY PRN MC SEE COMMENTS; Start 07/29/17 at 07:30 Piperacillin Sod/ Tazobactam Sod (Zosyn) 4.5 gm 1X ONCE IVP Last administered on 07/29/17 19:14; Start 07/29/17 at 07:30; Stop 07/29/17 at 07:31; Status DC Vancomycin HCl 2 gm/Sodium Chloride 500 ml @ 250 mls/hr 1X ONCE IV Last administered on 07/29/17 19:17; Start 07/29/17 at 08:00; Stop 07/29/17 at 09 :59; Status DC Ondansetron HCl (Zofran) 4 mg PRN Q8HRS PRN IV NAUSEA/VOMITING; Start at 07:30; Stop 07/30/17 at 07:29; Status DC Fentanyl Citrate (Fentanyl 2ml Vial) 50 mcg PRN Q2HR PRN IV PAIN; Start at 07:30; Stop 07/30/17 at 07:29; Status DC Sodium Chloride 1,000 ml @ 100 mls/hr Q10H IV Last administered on 07/30/17 07:59; Start 07/29/17 at 07:28; Stop 07/30/17 at 07:27; Status DC Acetaminophen (Tylenol) 650 mg PRN Q4HRS PRN PO FEVER Last administered on 13:15; Start 07/29/17 at 07:30; Stop 07/30/17 at 07:29; Status DC Albuterol/ Ipratropium (Duoneb) 3 ml RTQID NEB Last administered on 07/30/17 07:24; Start 07/29/17 at 08:00; Stop 07/30/17 at 07:59; Status DC Acetaminophen (Tylenol) 500 mg PRN Q6HRS PRN PO PAIN Last administered on 08/01 05:53; Start 07/29/17 at 14:00 Ascorbic Acid (Vitamin C) 500 mg BID PO Last administered on 08/02/17 08:42; Start 07/29/17 at 21:00 Aspirin (Liza Aspirin) 325 mg DAILY PO Last administered on 08/02/17 08:42; Start 07/30/17 at 09:00 Clotrimazole (Lotrimin) 1 hema BID TP Last administered on 08/01/17 21:24; Start 07/29/17 at 21:00 Collagenase (Santyl) 250 hema DAILY TP ; Start 07/30/17 at 09:00; Status Cancel Ferrous Sulfate (Feosol) 325 mg QODAY PO Last administered on 08/02/17 08:43 ; Start 07/31/17 at 09:00 Folic Acid (Folic Acid) 1 mg DAILY PO Last administered on 08/02/17 08:42; Start 07/30/17 at 09:00 Hydralazine HCl (Apresoline) 10 mg TID PO Last administered on 08/02/17 08:45 ; Start 07/29/17 at 14:00 Latanoprost (Xalatan) 1 drop QHS OU Last administered on 08/01/17 21:24; Start 07/29/17 at 21:00 Metoprolol Tartrate (Lopressor) 50 mg BID PO Last administered on 08/02/17 08 :44; Start 07/29/17 at 21:00 Pantoprazole Sodium (Protonix) 40 mg DAILY PO Last administered on 08/02/17 08:43; Start 07/30/17 at 09:00 Polyethylene Glycol (miraLAX PACKET) 17 gm BID PO Last administered on 09:22; Start 07/29/17 at 21:00 Prednisone (Prednisone) 25 mg DAILY PO ; Start 07/30/17 at 09:00; Stop at 09:00; Status DC Pyridostigmine Od[place] (Mestinon) 60 mg QID PO Last administered on 08/02/17 08:43; Start 07/29/17 at 17:00 Senna/Docusate Sodium (Senna Plus) 1 tab PRN DAILY PRN PO CONSTIPATION; Start 07/29/17 at 13:45 Bumetanide (Bumex) 2 mg DAILY PO Last administered on 08/02/17 08:42; Start 07/30/17 at 09:00 Calcium/Vitamin D (Oscal D 500mg/ 200uts) 1 tab DAILYWBKFT PO Last administered on 08/02/17 08:43; Start 07/29/17 at 17:00 Gabapentin (Neurontin) 300 mg TID PO Last administered on 08/01/17 21:23; Start 07/29/17 at 15:00 Cetirizine HCl (ZyrTEC) 10 mg PRN DAILY PRN PO ALLERGIES; Start 07/30/17 at 09 :00 Non-Formulary Medication 2 tab DAILY PO ; Start 07/30/17 at 09:00; Stop at 09:00; Status DC Mycophenolate Mofetil (Cellcept) 1,500 mg HS PO Last administered on 21:20; Start 07/29/17 at 21:00 Oxycodone HCl (Roxicodone) 10 mg PRN Q4HRS PRN PO PAIN Last administered on 01:51; Start 07/29/17 at 14:15 Potassium Chloride (Klor-Con) 20 meq DAILYWBKFT PO Last administered on 08:44; Start 07/30/17 at 08:00 Atorvastatin Calcium (Lipitor) 40 mg QHS PO Last administered on 08/01/17 21: 23; Start 07/29/17 at 21:00 Lactobacillus Rhamnosus (Culturelle) 1 cap BID PO Last administered on 08:42; Start 07/29/17 at 21:00 Apixaban (Eliquis) 5 mg BID PO Last administered on 08/02/17 08:44; Start at 21:00 Insulin Aspart (NovoLOG) 28 units TIDWMEALS SQ Last administered on 07/30/17 08:11; Start 07/29/17 at 17:00; Stop 07/30/17 at 11:55; Status DC Insulin Detemir (Levemir) 25 units DAILYBFRSUP SQ ; Start 07/29/17 at 17:00; Stop 07/29/17 at 19:09; Status DC Insulin Detemir (Levemir) 40 units DAILYWBKFT SQ Last administered on 10:15; Start 07/30/17 at 08:00; Stop 08/02/17 at 10:58; Status DC Insulin Aspart (NovoLOG) CUSTOM SCALE TIDWMEALS SQ Last administered on 12:22; Start 07/29/17 at 17:00 Dextrose (Dextrose 50%-Water Syringe) 12.5 gm PRN Q15MIN PRN IV SEE COMMENTS Last administered on 08/02/17 08:41; Start 07/29/17 at 13:45 Oxycodone HCl (Roxicodone) 10 mg PRN Q6HRS PRN PO PAIN; Start 07/29/17 at 14: 15; Stop 08/01/17 at 12:48; Status DC Mycophenolate Mofetil (Cellcept) 1,000 mg DAILY PO Last administered on 08:42; Start 07/30/17 at 09:00 Prednisone (Prednisone) 50 mg DAILY PO Last administered on 07/30/17 07:58; Start 07/29/17 at 15:30; Stop 07/30/17 at 11:57; Status DC Sodium Chloride 1,000 ml @ 125 mls/hr 1X ONCE IV ; Start 07/29/17 at 15:45; Stop 07/29/17 at 23:44; Status DC Lidocaine/Sodium Bicarbonate (Buffered Lidocaine 1%) 20 ml STK-MED ONCE IJ ; Start 07/29/17 at 16:50; Stop 07/29/17 at 16:51; Status DC Lidocaine/Sodium Bicarbonate (Buffered Lidocaine 1%) 3 ml 1X ONCE IJ Last administered on 07/29/17 17:40; Start 07/29/17 at 17:30; Stop 07/29/17 at 17 :31; Status DC Insulin Detemir (Levemir) 25 units QHS SQ Last administered on 08/01/17 21:32 ; Start 07/29/17 at 21:00 Piperacillin Sod/ Tazobactam Sod (Zosyn) 3.375 gm Q6HRS IVP Last administered on 08/02/17 05:59; Start 07/30/17 at 00:00 Vancomycin HCl 1.25 gm/Dextrose/ Sodium Chloride 250 ml @ 167.007 mls/hr Q12H IV Last administered on 07/30/17 07:59; Start 07/30/17 at 07:00; Stop 07/30 at 09:35; Status DC Vancomycin HCl 1 each 1X ONCE MC ; Start 07/31/17 at 06:30; Stop 07/31/17 at 06:30; Status DC Insulin Aspart (NovoLOG) 10 units 1X ONCE SQ Last administered on 07/29/17 21:27; Start 07/29/17 at 20:45; Stop 07/29/17 at 20:46; Status DC Insulin Aspart (NovoLOG) 35 units TIDWMEALS SQ Last administered on 07/31/17 08:50; Start 07/30/17 at 12:00; Stop 07/31/17 at 11:37; Status DC Prednisone (Prednisone) 25 mg DAILY PO Last administered on 08/02/17 08:41; Start 07/31/17 at 09:00 Insulin Aspart (NovoLOG) 28 units TIDWMEALS SQ Last administered on 08/01/17 18:20; Start 07/31/17 at 12:00; Stop 08/02/17 at 10:58; Status DC Iron Sucrose 500 mg/Sodium Chloride 275 ml @ 78.571 mls/ hr 1X ONCE IV Last administered on 08/01/17 18:11; Start 08/01/17 at 16:30; Stop 08/01/17 at 19 :59; Status DC Ferrous Sulfate 300 mg HS PO ; Start 08/01/17 at 21:00 Insulin Aspart (NovoLOG) 18 units TIDWMEALS SQ ; Start 08/02/17 at 12:00 Insulin Detemir (Levemir) 20 units DAILYWBKFT SQ ; Start 08/03/17 at 08:00 Info (Anti-Coagulation Monitoring By Pharmacy) 1 each PRN DAILY PRN MC SEE COMMENTS; Start 08/02/17 at 12:15 Active Scripts Active Vitamin C (Ascorbic Acid) 500 Mg Tablet 500 Mg PO BID Reported Miralax (Polyethylene Glycol 3350) 17 Gm Powd.pack 1 Packet PO BID Protonix (Pantoprazole Sodium) 40 Mg Tablet.dr 1 Tab PO DAILY Claritin (Loratadine) 10 Mg Tablet 1 Tab PO DAILY PRN Hydralazine Hcl 10 Mg Tablet 1 Tab PO TID Gabapentin 300 Mg Capsule 300 Mg PO TID Santyl Ointment (Collagenase) 30 Gm Oint...g. 250 Hema TP DAILY DIRECTED BY PHYSICIAN Lotludy Af (Clotrimazole) 12 Gm Cream..g. 1 Hema TP BID Aspirin 325 Mg Tablet 1 Tab PO DAILY Tylenol (Acetaminophen) 325 Mg Tablet 500 Mg PO Q6HRS PRN Xalatan (Latanoprost) 2.5 Ml Drops 1 Drop EACHEYE QHS Prednisone 20 Mg Tablet 25 Mg PO DAILY Bumetanide 2 Mg Tablet 2 Mg PO DAILY Oxycodone Hcl 10 Mg Tablet 10 Mg PO PRN Q4-6HRS PRN Cellcept (Mycophenolate Mofetil) 500 Mg Tablet 3 Tab PO QHS Senokot-S Tablet (Sennosides/Docusate Sodium) 1 Each Tablet 1 Tab PO PRN DAILY PRN Calcium + Vitamin D Tablet (Calcium Carbonate/Vitamin D3) 1 Each Tablet 1 Each PO DAILY Ferrous Sulfate 325 Mg Tablet 1 Tab PO QODAY Levemir (Insulin Detemir) 100 Unit/1 Ml Vial 25 Unit SQ DAILYWSUP Levemir (Insulin Detemir) 100 Unit/1 Ml Vial 40 Unit SQ DAILYWBKFT Folic Acid 1 Mg Tablet 1 Tab PO DAILY Potassium Chloride 20 Meq Tablet.er 20 Meq PO DAILY Novolog Flexpen (Insulin Aspart) 100 Unit/1 Ml Insuln.pen 35 Unit SQ TIDWMEALS Cellcept (Mycophenolate Mofetil) 500 Mg Tablet 2 Tab PO DAILY Eliquis (Apixaban) 5 Mg Tablet 5 Mg PO BID Fosamax (Alendronate Sodium) 70 Mg Tablet 1 Tab PO QSU Probiotic (Bacillus Coagulans) 1 Each Capsule.dr 1 Each PO PRN Multiple Vitamin (Multivitamin With Minerals) 1 Each Tablet 1 Each PO Rosuvastatin Calcium 10 Mg Tablet 10 Mg PO DAILY Pyridostigmine Odessa 60 Mg Tablet 60 Mg PO QID Metoprolol Tartrate 50 Mg Tablet 1 Tab PO BID Vitals/I & O Vital Sign - Last 24 Hours 08/01/17 08/01/17 08/01/17 08/01/17 14:16 15:00 15:01 19:00 Temp 97.9 98.5 97.9 98.5 Pulse 84 91 77 Resp 20 20 B/P (MAP) 125/62 149/74 (99) 116/67 (83) Pulse Ox 86 98 97 O2 Delivery Room Air Nasal Cannula Nasal Cannula O2 Flow Rate 2.0 2.0 08/01/17 08/01/17 08/01/17 08/01/17 20:00 21:00 21:00 23:00 Temp 98.1 98.1 Pulse 77 77 75 Resp 20 B/P (MAP) 116/67 116/67 165/83 (110) Pulse Ox 96 O2 Delivery Nasal Cannula Nasal Cannula O2 Flow Rate 2.0 2.0 08/02/17 08/02/17 08/02/17 08/02/17 03:00 07:00 08:44 08:45 Temp 98.7 98.5 98.7 98.5 Pulse 88 72 72 72 Resp 20 16 B/P (MAP) 145/73 (97) 142/58 (86) 142/58 142/58 Pulse Ox 97 99 O2 Delivery Nasal Cannula Nasal Cannula O2 Flow Rate 2.0 2.0 08/02/17 11:00 Temp 98.7 98.7 Pulse 82 Resp 18 B/P (MAP) 135/63 (87) Pulse Ox 97 O2 Delivery Nasal Cannula O2 Flow Rate 2.0 Intake and Output 08/01/17 08/01/17 08/02/17 15:00 23:00 07:00 Intake Total 300 ml 300 ml Output Total 800 ml Balance 300 ml -500 ml SCARLET SAVAGE MD Aug 02, 2017 13:30
[2017-08-02] MEDS: ANTI-COAG MONITOR BY PHARMACY. MC PRN (14:26)
[2017-08-02 15:00] VITALS: BP 130/64
[2017-08-02 19:00] VITALS: BP 171/70
--- NOTE | 2017-08-02 19:01 | PDOC ---
Infectious Disease Note Subjective Subjective Stomach feeling little queazy, denies N/V/D Appetite ok c/o chest discomfort w/ deep breathing, cough ROS ROS GEN: Denies fevers, chills, sweats RESP: Denies shortness of air Vital Sign Vital Signs Vital Signs Date Time Temp Pulse Resp B/P (MAP) Pulse Ox O2 Delivery O2 Flow Rate FiO2 08/02/17 15:00 97.5 78 16 130/64 (86) 98 Nasal Cannula 2.0 97.5 Physical Exam PHYSICAL EXAM GENERAL: Sitting in the chair, smiling, eating LUNGS: Clear HEART: S1S2, no gallop, no murmur ABD: Soft, NT, BS active EXT: BLE edema, RLE wound bandaged [employer]: Alert, 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, no focal neurologic deficit SKIN: No rash LUE-PICC. clean Labs Lab Laboratory Tests Test 08/01/17 21:17 08/02/17 06:30 08/02/17 07:52 08/02/17 08:14 Glucose (Fingerstick) 137 mg/dL (70-99) 32 mg/dL (70-99) 48 mg/dL (70-99) White Blood Count 9.6 x10^3/uL (4.0-11.0) Red Blood Count 2.90 x10^6/uL (3.50-5.40) Hemoglobin 7.7 g/dL (12.0-15.5) Hematocrit 25.5 % (36.0-47.0) Mean Corpuscular Volume 88 fL (79-100) Mean Corpuscular Hemoglobin 27 pg (25-35) Mean Corpuscular Hemoglobin Concent 30 g/dL (31-37) Red Cell Distribution Width 17.9 % (11.5-14.5) Platelet Count 189 x10^3/uL (140-400) Neutrophils (%) (Auto) 84 % (31-73) Lymphocytes (%) (Auto) 5 % (24-48) Monocytes (%) (Auto) 10 % (0-9) Eosinophils (%) (Auto) 1 % (0-3) Basophils (%) (Auto) 1 % (0-3) Neutrophils # (Auto) 8.0 x10^3uL (1.8-7.7) Lymphocytes # (Auto) 0.5 x10^3/uL (1.0-4.8) Monocytes # (Auto) 1.0 x10^3/uL (0.0-1.1) Eosinophils # (Auto) 0.0 x10^3/uL (0.0-0.7) Basophils # (Auto) 0.1 x10^3/uL (0.0-0.2) Sodium Level 145 mmol/L (136-145) Potassium Level 3.5 mmol/L (3.5-5.1) Chloride Level 107 mmol/L (98-107) Carbon Dioxide Level 33 mmol/L (21-32) Anion Gap 5 (6-14) Blood Urea Nitrogen 20 mg/dL (7-20) Creatinine 1.1 mg/dL (0.6-1.0) Estimated GFR (Cockcroft-Gault) 60.9 BUN/Creatinine Ratio 18 (6-20) Glucose Level 43 mg/dL (70-99) Calcium Level 8.0 mg/dL (8.5-10.1) Total Bilirubin 0.4 mg/dL (0.2-1.0) Aspartate Amino Transf (AST/SGOT) 23 U/L (15-37) Alanine Aminotransferase (ALT/SGPT) 30 U/L (14-59) Alkaline Phosphatase 82 U/L (46-116) Total Protein 5.5 g/dL (6.4-8.2) Albumin 2.3 g/dL (3.4-5.0) Albumin/Globulin Ratio 0.7 (1.0-1.7) Test 08/02/17 11:12 08/02/17 17:50 Glucose (Fingerstick) 169 mg/dL (70-99) 335 mg/dL (70-99) Micro BLOOD CULTURE Preliminary NO GROWTH AFTER 4 DAYS URINE CULTURE RES 1 Final Escherichia coli Antibiotic RSLT#1 Amoxicillin/Clavulanic Acid S Ampicillin R Cefepime S Ceftriaxone S Cefuroxime S Cephalothin S Ciprofloxacin S Ertapenem S Gentamicin S Imipenem S Levofloxacin S Nitrofurantoin S Piperacillin R Tetracycline R Tobramycin S Trimethoprim/Sulfa R Objective Assessment Fever and chills, better Diverticulitis UTI. E. 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
[2017-08-02] MEDS: LATANOPROST 0.005% OPHTH SOLUTION 2.5ML BOTTLE. OU SCH (20:53)
[2017-08-02] MEDS: ATORVASTATIN CALCIUM 40 MG TABLET. PO SCH (21:00)
[2017-08-02] MEDS: FERROUS SULFATE ORAL 300 MG/5 ML SOLUTION. PO SCH (21:00)
[2017-08-02] MEDS: oxyCODONE IR 5 MG TABLET PO PRN (21:03)
[2017-08-02 23:42] VITALS: BP 158/72
[2017-08-03] VITALS (7 sets, daily range): BP systolic 157–196; BP diastolic 58–84
[2017-08-03] MEDS: PIPERACILLIN/TAZO IV Push 3.375 GM VIAL. IVP SCH ×5 (00:26→23:29)
[2017-08-03] MEDS: oxyCODONE IR 5 MG TABLET PO PRN ×2 (04:38→20:52)
[2017-08-03 05:54] LABS: BASO % 0 % (0-3); EOS % 0 % (0-3); HEMATOCRIT 26.2 % (36.0-47.0); HEMOGLOBIN 7.8 g/dL (12.0-15.5); LYMPH # 0.8 x10^3/uL (1.0-4.8); LYMPH % 7 % (24-48); MEAN CORPUSCULAR HEMOGLOBIN 27 pg (25-35); MEAN CORPUSCULAR HGB CONC 30 g/dL (31-37); MEAN CORPUSCULAR VOLUME 89 fL (79-100); MONO % 9 % (0-9); NEUT % 83 % (31-73); PLATELET COUNT 227 x10^3/uL (140-400); RED BLOOD COUNT 2.94 x10^6/uL (3.50-5.40); RED CELL DISTRIBUTION WIDTH 17.8 % (11.5-14.5); WHITE BLOOD COUNT 11.5 x10^3/uL (4.0-11.0)
[2017-08-03 06:17] LABS: ALBUMIN 2.4 g/dL (3.4-5.0); ALBUMIN/GLOBULIN RATIO 0.7 (1.0-1.7); CALCIUM 8.3 mg/dL (8.5-10.1); TOTAL BILIRUBIN 0.4 mg/dL (0.2-1.0); TOTAL PROTEIN 5.9 g/dL (6.4-8.2)
[2017-08-03] MEDS: POTASSIUM CHLORIDE 20 MEQ TABLET.ER. PO SCH (10:20)
[2017-08-03] MEDS: LACTOBACILLUS RHAMNOSUS GG 1 CAPSULE. PO SCH ×2 (10:21→20:53)
[2017-08-03] MEDS: hydrALAZINE 10 MG TABLET PO SCH ×3 (10:21→20:53)
[2017-08-03] MEDS: ASPIRIN 325 MG TABLET PO SCH (10:21)
[2017-08-03] MEDS: predniSONE 10 MG TABLET PO SCH (10:21)
[2017-08-03] MEDS: PYRIDOSTIGMINE BROMIDE 60 MG TABLET PO SCH ×4 (10:21→21:00)
[2017-08-03] MEDS: GABAPENTIN 300 MG CAPSULE. PO SCH ×3 (10:24→21:00)
[2017-08-03] MEDS: POLYETHYLENE GLYCOL 3350 17 GM PACKET. PO SCH ×2 (10:24→21:00)
[2017-08-03] MEDS: APIXABAN 5 MG TABLET. PO SCH ×2 (10:25→20:53)
[2017-08-03] MEDS: METOPROLOL TART IMMED RELEASE 50 MG TABLET. PO SCH ×2 (10:25→20:52)
[2017-08-03] MEDS: BUMETANIDE 1 MG TABLET. PO SCH (10:25)
[2017-08-03] MEDS: ASCORBIC ACID 500 MG TABLET PO SCH ×2 (10:26→20:53)
[2017-08-03] MEDS: PANTOPRAZOLE 40 MG TABLET.DR. PO SCH (10:26)
[2017-08-03] MEDS: CALCIUM CARB/VIT D3 500/200 TABLET. PO SCH (10:26)
[2017-08-03] MEDS: FOLIC ACID 1 MG TABLET. PO SCH (10:26)
[2017-08-03] MEDS: INSULIN ASPART 300 UNITS/3 ML INSULN.PEN SQ SCH ×6 (10:55→18:18)
[2017-08-03] MEDS: INSULIN DETEMIR 300 UNITS/3 ML INSULN.PEN. SQ SCH ×2 (10:56→21:59)
[2017-08-03] MEDS: CLOTRIMAZOLE 1% TOPICAL CREAM 15GM TUBE. TP SCH ×2 (10:57→21:00)
[2017-08-03] MEDS: ACETAMINOPHEN 500 MG TABLET PO PRN (10:58)
[2017-08-03] MEDS: MYCOPHENOLATE MOFETIL 250 MG CAPSULE. PO SCH ×2 (10:59→20:52)
--- NOTE | 2017-08-03 12:53 | PDOC ---
Infectious Disease Note Subjective Subjective Clear productive cough Denies SOA or CP c/o abdominal pain with varying intensity at times + gas and loose stools. 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 Labs Lab Laboratory Tests Test 08/02/17 17:50 08/02/17 20:52 08/03/17 05:40 08/03/17 12:01 Glucose (Fingerstick) 335 mg/dL (70-99) 211 mg/dL (70-99) 275 mg/dL (70-99) White Blood Count 11.5 x10^3/uL (4.0-11.0) Red Blood Count 2.94 x10^6/uL (3.50-5.40) Hemoglobin 7.8 g/dL (12.0-15.5) Hematocrit 26.2 % (36.0-47.0) Mean Corpuscular Volume 89 fL (79-100) Mean Corpuscular Hemoglobin 27 pg (25-35) Mean Corpuscular Hemoglobin Concent 30 g/dL (31-37) Red Cell Distribution Width 17.8 % (11.5-14.5) Platelet Count 227 x10^3/uL (140-400) Neutrophils (%) (Auto) 83 % (31-73) Lymphocytes (%) (Auto) 7 % (24-48) Monocytes (%) (Auto) 9 % (0-9) Eosinophils (%) (Auto) 0 % (0-3) Basophils (%) (Auto) 0 % (0-3) Neutrophils # (Auto) 9.6 x10^3uL (1.8-7.7) Lymphocytes # (Auto) 0.8 x10^3/uL (1.0-4.8) Monocytes # (Auto) 1.1 x10^3/uL (0.0-1.1) Eosinophils # (Auto) 0.0 x10^3/uL (0.0-0.7) Basophils # (Auto) 0.0 x10^3/uL (0.0-0.2) Sodium Level 147 mmol/L (136-145) Potassium Level 4.0 mmol/L (3.5-5.1) Chloride Level 108 mmol/L (98-107) Carbon Dioxide Level 32 mmol/L (21-32) Anion Gap 7 (6-14) Blood Urea Nitrogen 20 mg/dL (7-20) Creatinine 1.0 mg/dL (0.6-1.0) Estimated GFR (Cockcroft-Gault) 68.0 BUN/Creatinine Ratio 20 (6-20) Glucose Level 226 mg/dL (70-99) Calcium Level 8.3 mg/dL (8.5-10.1) Total Bilirubin 0.4 mg/dL (0.2-1.0) Aspartate Amino Transf (AST/SGOT) 16 U/L (15-37) Alanine Aminotransferase (ALT/SGPT) 23 U/L (14-59) Alkaline Phosphatase 86 U/L (46-116) Total Protein 5.9 g/dL (6.4-8.2) Albumin 2.4 g/dL (3.4-5.0) Albumin/Globulin Ratio 0.7 (1.0-1.7) Micro BLOOD CULTURE Preliminary NO GROWTH AFTER 4 DAYS URINE CULTURE RES 1 Final Escherichia coli Antibiotic RSLT#1 Amoxicillin/Clavulanic Acid S Ampicillin R Cefepime S Ceftriaxone S Cefuroxime S Cephalothin S Ciprofloxacin S Ertapenem S Gentamicin S Imipenem S Levofloxacin S Nitrofurantoin S Piperacillin R Tetracycline R Tobramycin S Trimethoprim/Sulfa R Objective Assessment Fever and chills, better Diverticulitis UTI. E. 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
[2017-08-03] MEDS: ANTI-COAG MONITOR BY PHARMACY. MC PRN (13:34)
--- NOTE | 2017-08-03 16:35 | PDOC ---
PROGRESS NOTES Chief Complaint Chief Complaint Sepsis, improving 1. Sepsis: severe POA in immunocompromised pt. improved 2. Diverticulitis: . no ongoing diarrhea, but abd pain and + CT findings. pain now improved, 3. Myasthenia gravis: cont home meds, incl immunosuppressives. very aggressive dz requiring mult meds, scheduled plasma exchanges. has MG related diplopia currently 4. CAD/CHF (chronic diastolic): no acute issues. cont home meds 5. CKD3: at baseline. monitor 6. DM2: hypoglycemia last night, good levels today, monitor with ISS, adjust insulin PRN 7. Anemia: stable-improved s/p transfuse 1 PRPC anemia labs c/w severe inflammation. given venofer x1, 8. OAC: apixaban for cardiac issues History of Present Illness History of Present Illness normal stools today mild persistent LLQ pain. needs Miralax for BM her daughter discussed overall decline with me at RN station, concerned about group home prognosis, and problems with Myasthenia discussed plan, PT and OT home when pain better, ID to change abx to PO soon, Vitals Vitals Vital Signs Date Time Temp Pulse Resp B/P (MAP) Pulse Ox O2 Delivery O2 Flow Rate FiO2 08/03/17 15:01 72 191/80 (117) 08/03/17 15:00 97.7 16 98 Nasal Cannula 2.0 97.7 Physical Exam General: Alert, Oriented X3, Cooperative, No acute distress Heart: Regular rate Lungs: Clear, Other Abdomen: Normal bowel sounds, Other (TTP LLQ, mild in LUQ as well) Extremities: No edema Skin: No rashes Labs LABS Laboratory Tests Test 08/02/17 17:50 08/02/17 20:52 08/03/17 05:40 08/03/17 12:01 Glucose (Fingerstick) 335 mg/dL (70-99) 211 mg/dL (70-99) 275 mg/dL (70-99) White Blood Count 11.5 x10^3/uL (4.0-11.0) Red Blood Count 2.94 x10^6/uL (3.50-5.40) Hemoglobin 7.8 g/dL (12.0-15.5) Hematocrit 26.2 % (36.0-47.0) Mean Corpuscular Volume 89 fL (79-100) Mean Corpuscular Hemoglobin 27 pg (25-35) Mean Corpuscular Hemoglobin Concent 30 g/dL (31-37) Red Cell Distribution Width 17.8 % (11.5-14.5) Platelet Count 227 x10^3/uL (140-400) Neutrophils (%) (Auto) 83 % (31-73) Lymphocytes (%) (Auto) 7 % (24-48) Monocytes (%) (Auto) 9 % (0-9) Eosinophils (%) (Auto) 0 % (0-3) Basophils (%) (Auto) 0 % (0-3) Neutrophils # (Auto) 9.6 x10^3uL (1.8-7.7) Lymphocytes # (Auto) 0.8 x10^3/uL (1.0-4.8) Monocytes # (Auto) 1.1 x10^3/uL (0.0-1.1) Eosinophils # (Auto) 0.0 x10^3/uL (0.0-0.7) Basophils # (Auto) 0.0 x10^3/uL (0.0-0.2) Sodium Level 147 mmol/L (136-145) Potassium Level 4.0 mmol/L (3.5-5.1) Chloride Level 108 mmol/L (98-107) Carbon Dioxide Level 32 mmol/L (21-32) Anion Gap 7 (6-14) Blood Urea Nitrogen 20 mg/dL (7-20) Creatinine 1.0 mg/dL (0.6-1.0) Estimated GFR (Cockcroft-Gault) 68.0 BUN/Creatinine Ratio 20 (6-20) Glucose Level 226 mg/dL (70-99) Calcium Level 8.3 mg/dL (8.5-10.1) Total Bilirubin 0.4 mg/dL (0.2-1.0) Aspartate Amino Transf (AST/SGOT) 16 U/L (15-37) Alanine Aminotransferase (ALT/SGPT) 23 U/L (14-59) Alkaline Phosphatase 86 U/L (46-116) Total Protein 5.9 g/dL (6.4-8.2) Albumin 2.4 g/dL (3.4-5.0) Albumin/Globulin Ratio 0.7 (1.0-1.7) Assessment and Plan Assessmemt and Plan Problems Medical Problems: (1) Congestive heart failure Status: Acute (2) Congestive heart failure (CHF) Status: Acute (3) Healthcare-associated pneumonia Status: Acute (4) Moderate protein malnutrition Status: Acute (5) Normocytic anemia Status: Acute (6) Severe sepsis Status: Acute (7) Type 2 diabetes mellitus Status: Acute Problems: Comment Review of Relevant I have reviewed the following items omer (where applicable) has been applied. Labs Laboratory Tests Test 08/01/17 17:23 08/01/17 21:17 08/02/17 06:30 08/02/17 07:52 Glucose (Fingerstick) 200 mg/dL (70-99) 137 mg/dL (70-99) 32 mg/dL (70-99) White Blood Count 9.6 x10^3/uL (4.0-11.0) Red Blood Count 2.90 x10^6/uL (3.50-5.40) Hemoglobin 7.7 g/dL (12.0-15.5) Hematocrit 25.5 % (36.0-47.0) Mean Corpuscular Volume 88 fL (79-100) Mean Corpuscular Hemoglobin 27 pg (25-35) Mean Corpuscular Hemoglobin Concent 30 g/dL (31-37) Red Cell Distribution Width 17.9 % (11.5-14.5) Platelet Count 189 x10^3/uL (140-400) Neutrophils (%) (Auto) 84 % (31-73) Lymphocytes (%) (Auto) 5 % (24-48) Monocytes (%) (Auto) 10 % (0-9) Eosinophils (%) (Auto) 1 % (0-3) Basophils (%) (Auto) 1 % (0-3) Neutrophils # (Auto) 8.0 x10^3uL (1.8-7.7) Lymphocytes # (Auto) 0.5 x10^3/uL (1.0-4.8) Monocytes # (Auto) 1.0 x10^3/uL (0.0-1.1) Eosinophils # (Auto) 0.0 x10^3/uL (0.0-0.7) Basophils # (Auto) 0.1 x10^3/uL (0.0-0.2) Sodium Level 145 mmol/L (136-145) Potassium Level 3.5 mmol/L (3.5-5.1) Chloride Level 107 mmol/L (98-107) Carbon Dioxide Level 33 mmol/L (21-32) Anion Gap 5 (6-14) Blood Urea Nitrogen 20 mg/dL (7-20) Creatinine 1.1 mg/dL (0.6-1.0) Estimated GFR (Cockcroft-Gault) 60.9 BUN/Creatinine Ratio 18 (6-20) Glucose Level 43 mg/dL (70-99) Calcium Level 8.0 mg/dL (8.5-10.1) Total Bilirubin 0.4 mg/dL (0.2-1.0) Aspartate Amino Transf (AST/SGOT) 23 U/L (15-37) Alanine Aminotransferase (ALT/SGPT) 30 U/L (14-59) Alkaline Phosphatase 82 U/L (46-116) Total Protein 5.5 g/dL (6.4-8.2) Albumin 2.3 g/dL (3.4-5.0) Albumin/Globulin Ratio 0.7 (1.0-1.7) Test 08/02/17 08:14 08/02/17 11:12 08/02/17 17:50 08/02/17 20:52 Glucose (Fingerstick) 48 mg/dL (70-99) 169 mg/dL (70-99) 335 mg/dL (70-99) 211 mg/dL (70-99) Test 08/03/17 05:40 08/03/17 12:01 White Blood Count 11.5 x10^3/uL (4.0-11.0) Red Blood Count 2.94 x10^6/uL (3.50-5.40) Hemoglobin 7.8 g/dL (12.0-15.5) Hematocrit 26.2 % (36.0-47.0) Mean Corpuscular Volume 89 fL (79-100) Mean Corpuscular Hemoglobin 27 pg (25-35) Mean Corpuscular Hemoglobin Concent 30 g/dL (31-37) Red Cell Distribution Width 17.8 % (11.5-14.5) Platelet Count 227 x10^3/uL (140-400) Neutrophils (%) (Auto) 83 % (31-73) Lymphocytes (%) (Auto) 7 % (24-48) Monocytes (%) (Auto) 9 % (0-9) Eosinophils (%) (Auto) 0 % (0-3) Basophils (%) (Auto) 0 % (0-3) Neutrophils # (Auto) 9.6 x10^3uL (1.8-7.7) Lymphocytes # (Auto) 0.8 x10^3/uL (1.0-4.8) Monocytes # (Auto) 1.1 x10^3/uL (0.0-1.1) Eosinophils # (Auto) 0.0 x10^3/uL (0.0-0.7) Basophils # (Auto) 0.0 x10^3/uL (0.0-0.2) Sodium Level 147 mmol/L (136-145) Potassium Level 4.0 mmol/L (3.5-5.1) Chloride Level 108 mmol/L (98-107) Carbon Dioxide Level 32 mmol/L (21-32) Anion Gap 7 (6-14) Blood Urea Nitrogen 20 mg/dL (7-20) Creatinine 1.0 mg/dL (0.6-1.0) Estimated GFR (Cockcroft-Gault) 68.0 BUN/Creatinine Ratio 20 (6-20) Glucose Level 226 mg/dL (70-99) Calcium Level 8.3 mg/dL (8.5-10.1) Total Bilirubin 0.4 mg/dL (0.2-1.0) Aspartate Amino Transf (AST/SGOT) 16 U/L (15-37) Alanine Aminotransferase (ALT/SGPT) 23 U/L (14-59) Alkaline Phosphatase 86 U/L (46-116) Total Protein 5.9 g/dL (6.4-8.2) Albumin 2.4 g/dL (3.4-5.0) Albumin/Globulin Ratio 0.7 (1.0-1.7) Glucose (Fingerstick) 275 mg/dL (70-99) Laboratory Tests Test 08/02/17 17:50 08/02/17 20:52 08/03/17 05:40 08/03/17 12:01 Glucose (Fingerstick) 335 mg/dL (70-99) 211 mg/dL (70-99) 275 mg/dL (70-99) White Blood Count 11.5 x10^3/uL (4.0-11.0) Red Blood Count 2.94 x10^6/uL (3.50-5.40) Hemoglobin 7.8 g/dL (12.0-15.5) Hematocrit 26.2 % (36.0-47.0) Mean Corpuscular Volume 89 fL (79-100) Mean Corpuscular Hemoglobin 27 pg (25-35) Mean Corpuscular Hemoglobin Concent 30 g/dL (31-37) Red Cell Distribution Width 17.8 % (11.5-14.5) Platelet Count 227 x10^3/uL (140-400) Neutrophils (%) (Auto) 83 % (31-73) Lymphocytes (%) (Auto) 7 % (24-48) Monocytes (%) (Auto) 9 % (0-9) Eosinophils (%) (Auto) 0 % (0-3) Basophils (%) (Auto) 0 % (0-3) Neutrophils # (Auto) 9.6 x10^3uL (1.8-7.7) Lymphocytes # (Auto) 0.8 x10^3/uL (1.0-4.8) Monocytes # (Auto) 1.1 x10^3/uL (0.0-1.1) Eosinophils # (Auto) 0.0 x10^3/uL (0.0-0.7) Basophils # (Auto) 0.0 x10^3/uL (0.0-0.2) Sodium Level 147 mmol/L (136-145) Potassium Level 4.0 mmol/L (3.5-5.1) Chloride Level 108 mmol/L (98-107) Carbon Dioxide Level 32 mmol/L (21-32) Anion Gap 7 (6-14) Blood Urea Nitrogen 20 mg/dL (7-20) Creatinine 1.0 mg/dL (0.6-1.0) Estimated GFR (Cockcroft-Gault) 68.0 BUN/Creatinine Ratio 20 (6-20) Glucose Level 226 mg/dL (70-99) Calcium Level 8.3 mg/dL (8.5-10.1) Total Bilirubin 0.4 mg/dL (0.2-1.0) Aspartate Amino Transf (AST/SGOT) 16 U/L (15-37) Alanine Aminotransferase (ALT/SGPT) 23 U/L (14-59) Alkaline Phosphatase 86 U/L (46-116) Total Protein 5.9 g/dL (6.4-8.2) Albumin 2.4 g/dL (3.4-5.0) Albumin/Globulin Ratio 0.7 (1.0-1.7) Microbiology 07/29/17 Blood Culture - Final, Complete NO GROWTH AFTER 5 DAYS 07/29/17 Urine Culture - Final, Complete 07/29/17 Urine Culture Result 1 (FREDDIE) - Final, Complete 07/29/17 Antimicrobic Susceptibility - Final, Complete Medications Current Medications Sodium Chloride 1,000 ml @ 780 mls/hr Q1H17M IV Last administered on 07:05; Start 07/29/17 at 06:14; Stop 07/29/17 at 08:14; Status DC Vancomycin HCl (Vanco Per Pharmacy) 1 each PRN DAILY PRN MC SEE COMMENTS Last administered on 07/29/17 19:28; Start 07/29/17 at 07:30; Stop 07/30/17 at 09 :35; Status DC Piperacillin Sod/ Tazobactam Sod (Zosyn Per Pharmacy) 1 each PRN DAILY PRN MC SEE COMMENTS; Start 07/29/17 at 07:30 Piperacillin Sod/ Tazobactam Sod (Zosyn) 4.5 gm 1X ONCE IVP Last administered on 07/29/17 19:14; Start 07/29/17 at 07:30; Stop 07/29/17 at 07:31; Status DC Vancomycin HCl 2 gm/Sodium Chloride 500 ml @ 250 mls/hr 1X ONCE IV Last administered on 07/29/17 19:17; Start 07/29/17 at 08:00; Stop 07/29/17 at 09 :59; Status DC Ondansetron HCl (Zofran) 4 mg PRN Q8HRS PRN IV NAUSEA/VOMITING; Start at 07:30; Stop 07/30/17 at 07:29; Status DC Fentanyl Citrate (Fentanyl 2ml Vial) 50 mcg PRN Q2HR PRN IV PAIN; Start at 07:30; Stop 07/30/17 at 07:29; Status DC Sodium Chloride 1,000 ml @ 100 mls/hr Q10H IV Last administered on 07/30/17 07:59; Start 07/29/17 at 07:28; Stop 07/30/17 at 07:27; Status DC Acetaminophen (Tylenol) 650 mg PRN Q4HRS PRN PO FEVER Last administered on 13:15; Start 07/29/17 at 07:30; Stop 07/30/17 at 07:29; Status DC Albuterol/ Ipratropium (Duoneb) 3 ml RTQID NEB Last administered on 07/30/17 07:24; Start 07/29/17 at 08:00; Stop 07/30/17 at 07:59; Status DC Acetaminophen (Tylenol) 500 mg PRN Q6HRS PRN PO PAIN Last administered on 08/03 10:58; Start 07/29/17 at 14:00 Ascorbic Acid (Vitamin C) 500 mg BID PO Last administered on 08/03/17 10:26; Start 07/29/17 at 21:00 Aspirin (Liza Aspirin) 325 mg DAILY PO Last administered on 08/03/17 10:21; Start 07/30/17 at 09:00 Clotrimazole (Lotrimin) 1 hema BID TP Last administered on 08/03/17 10:57; Start 07/29/17 at 21:00 Collagenase (Santyl) 250 hema DAILY TP ; Start 07/30/17 at 09:00; Status Cancel Ferrous Sulfate (Feosol) 325 mg QODAY PO Last administered on 08/02/17 08:43 ; Start 07/31/17 at 09:00; Stop 08/02/17 at 14:19; Status DC Folic Acid (Folic Acid) 1 mg DAILY PO Last administered on 08/03/17 10:26; Start 07/30/17 at 09:00 Hydralazine HCl (Apresoline) 10 mg TID PO Last administered on 08/03/17 14:05 ; Start 07/29/17 at 14:00 Latanoprost (Xalatan) 1 drop QHS OU Last administered on 08/02/17 20:53; Start 07/29/17 at 21:00 Metoprolol Tartrate (Lopressor) 50 mg BID PO Last administered on 08/03/17 10 :25; Start 07/29/17 at 21:00 Pantoprazole Sodium (Protonix) 40 mg DAILY PO Last administered on 08/02/17 08:43; Start 07/30/17 at 09:00 Polyethylene Glycol (miraLAX PACKET) 17 gm BID PO Last administered on 09:22; Start 07/29/17 at 21:00 Prednisone (Prednisone) 25 mg DAILY PO ; Start 07/30/17 at 09:00; Stop at 09:00; Status DC Pyridostigmine Kinsley (Mestinon) 60 mg QID PO Last administered on 08/03/17 14:05; Start 07/29/17 at 17:00 Senna/Docusate Sodium (Senna Plus) 1 tab PRN DAILY PRN PO CONSTIPATION; Start 07/29/17 at 13:45 Bumetanide (Bumex) 2 mg DAILY PO Last administered on 08/03/17 10:25; Start 07/30/17 at 09:00 Calcium/Vitamin D (Oscal D 500mg/ 200uts) 1 tab DAILYWBKFT PO Last administered on 08/03/17 10:26; Start 07/29/17 at 17:00 Gabapentin (Neurontin) 300 mg TID PO Last administered on 08/01/17 21:23; Start 07/29/17 at 15:00 Cetirizine HCl (ZyrTEC) 10 mg PRN DAILY PRN PO ALLERGIES; Start 07/30/17 at 09 :00 Non-Formulary Medication 2 tab DAILY PO ; Start 07/30/17 at 09:00; Stop at 09:00; Status DC Mycophenolate Mofetil (Cellcept) 1,500 mg HS PO Last administered on 20:54; Start 07/29/17 at 21:00 Oxycodone HCl (Roxicodone) 10 mg PRN Q4HRS PRN PO PAIN Last administered on 04:38; Start 07/29/17 at 14:15 Potassium Chloride (Klor-Con) 20 meq DAILYWBKFT PO Last administered on 10:20; Start 07/30/17 at 08:00 Atorvastatin Calcium (Lipitor) 40 mg QHS PO Last administered on 08/01/17 21: 23; Start 07/29/17 at 21:00 Lactobacillus Rhamnosus (Culturelle) 1 cap BID PO Last administered on 10:21; Start 07/29/17 at 21:00 Apixaban (Eliquis) 5 mg BID PO Last administered on 08/03/17 10:25; Start at 21:00 Insulin Aspart (NovoLOG) 28 units TIDWMEALS SQ Last administered on 07/30/17 08:11; Start 07/29/17 at 17:00; Stop 07/30/17 at 11:55; Status DC Insulin Detemir (Levemir) 25 units DAILYBFRSUP SQ ; Start 07/29/17 at 17:00; Stop 07/29/17 at 19:09; Status DC Insulin Detemir (Levemir) 40 units DAILYWBKFT SQ Last administered on 10:15; Start 07/30/17 at 08:00; Stop 08/02/17 at 10:58; Status DC Insulin Aspart (NovoLOG) CUSTOM SCALE TIDWMEALS SQ Last administered on 13:17; Start 07/29/17 at 17:00; Stop 08/03/17 at 14:39; Status DC Dextrose (Dextrose 50%-Water Syringe) 12.5 gm PRN Q15MIN PRN IV SEE COMMENTS Last administered on 08/02/17 08:41; Start 07/29/17 at 13:45 Oxycodone HCl (Roxicodone) 10 mg PRN Q6HRS PRN PO PAIN; Start 07/29/17 at 14: 15; Stop 08/01/17 at 12:48; Status DC Mycophenolate Mofetil (Cellcept) 1,000 mg DAILY PO Last administered on 10:59; Start 07/30/17 at 09:00 Prednisone (Prednisone) 50 mg DAILY PO Last administered on 07/30/17 07:58; Start 07/29/17 at 15:30; Stop 07/30/17 at 11:57; Status DC Sodium Chloride 1,000 ml @ 125 mls/hr 1X ONCE IV ; Start 07/29/17 at 15:45; Stop 07/29/17 at 23:44; Status DC Lidocaine/Sodium Bicarbonate (Buffered Lidocaine 1%) 20 ml STK-MED ONCE IJ ; Start 07/29/17 at 16:50; Stop 07/29/17 at 16:51; Status DC Lidocaine/Sodium Bicarbonate (Buffered Lidocaine 1%) 3 ml 1X ONCE IJ Last administered on 07/29/17 17:40; Start 07/29/17 at 17:30; Stop 07/29/17 at 17 :31; Status DC Insulin Detemir (Levemir) 25 units QHS SQ Last administered on 08/02/17 20:58 ; Start 07/29/17 at 21:00 Piperacillin Sod/ Tazobactam Sod (Zosyn) 3.375 gm Q6HRS IVP Last administered on 08/03/17 13:08; Start 07/30/17 at 00:00 Vancomycin HCl 1.25 gm/Dextrose/ Sodium Chloride 250 ml @ 167.007 mls/hr Q12H IV Last administered on 07/30/17 07:59; Start 07/30/17 at 07:00; Stop 07/30 at 09:35; Status DC Vancomycin HCl 1 each 1X ONCE MC ; Start 07/31/17 at 06:30; Stop 07/31/17 at 06:30; Status DC Insulin Aspart (NovoLOG) 10 units 1X ONCE SQ Last administered on 07/29/17 21:27; Start 07/29/17 at 20:45; Stop 07/29/17 at 20:46; Status DC Insulin Aspart (NovoLOG) 35 units TIDWMEALS SQ Last administered on 07/31/17 08:50; Start 07/30/17 at 12:00; Stop 07/31/17 at 11:37; Status DC Prednisone (Prednisone) 25 mg DAILY PO Last administered on 08/03/17 10:21; Start 07/31/17 at 09:00 Insulin Aspart (NovoLOG) 28 units TIDWMEALS SQ Last administered on 08/01/17 18:20; Start 07/31/17 at 12:00; Stop 08/02/17 at 10:58; Status DC Iron Sucrose 500 mg/Sodium Chloride 275 ml @ 78.571 mls/ hr 1X ONCE IV Last administered on 08/01/17 18:11; Start 08/01/17 at 16:30; Stop 08/01/17 at 19 :59; Status DC Ferrous Sulfate 300 mg HS PO ; Start 08/01/17 at 21:00 Insulin Aspart (NovoLOG) 18 units TIDWMEALS SQ Last administered on 08/03/17 13:18; Start 08/02/17 at 12:00 Insulin Detemir (Levemir) 20 units DAILYWBKFT SQ Last administered on 10:56; Start 08/03/17 at 08:00 Info (Anti-Coagulation Monitoring By Pharmacy) 1 each PRN DAILY PRN MC SEE COMMENTS Last administered on 08/03/17 13:34; Start 08/02/17 at 12:15 Ferrous Sulfate (Feosol) 325 mg QHS PO ; Start 08/03/17 at 21:00; Status Cancel Insulin Aspart (NovoLOG) CUSTOM SCALE TIDWMEALS SQ ; Start 08/03/17 at 17:00 Active Scripts Active Vitamin C (Ascorbic Acid) 500 Mg Tablet 500 Mg PO BID Reported Miralax (Polyethylene Glycol 3350) 17 Gm Powd.pack 1 Packet PO BID Protonix (Pantoprazole Sodium) 40 Mg Tablet.dr 1 Tab PO DAILY Claritin (Loratadine) 10 Mg Tablet 1 Tab PO DAILY PRN Hydralazine Hcl 10 Mg Tablet 1 Tab PO TID Gabapentin 300 Mg Capsule 300 Mg PO TID Santyl Ointment (Collagenase) 30 Gm Oint...g. 250 Hema TP DAILY DIRECTED BY PHYSICIAN Gretta Af (Clotrimazole) 12 Gm Cream..g. 1 Hema TP BID Aspirin 325 Mg Tablet 1 Tab PO DAILY Tylenol (Acetaminophen) 325 Mg Tablet 500 Mg PO Q6HRS PRN Xalatan (Latanoprost) 2.5 Ml Drops 1 Drop EACHEYE QHS Prednisone 20 Mg Tablet 25 Mg PO DAILY Bumetanide 2 Mg Tablet 2 Mg PO DAILY Oxycodone Hcl 10 Mg Tablet 10 Mg PO PRN Q4-6HRS PRN Cellcept (Mycophenolate Mofetil) 500 Mg Tablet 3 Tab PO QHS Senokot-S Tablet (Sennosides/Docusate Sodium) 1 Each Tablet 1 Tab PO PRN DAILY PRN Calcium + Vitamin D Tablet (Calcium Carbonate/Vitamin D3) 1 Each Tablet 1 Each PO DAILY Ferrous Sulfate 325 Mg Tablet 1 Tab PO QODAY Levemir (Insulin Detemir) 100 Unit/1 Ml Vial 25 Unit SQ DAILYWSUP Levemir (Insulin Detemir) 100 Unit/1 Ml Vial 40 Unit SQ DAILYWBKFT Folic Acid 1 Mg Tablet 1 Tab PO DAILY Potassium Chloride 20 Meq Tablet.er 20 Meq PO DAILY Novolog Flexpen (Insulin Aspart) 100 Unit/1 Ml Insuln.pen 35 Unit SQ TIDWMEALS Cellcept (Mycophenolate Mofetil) 500 Mg Tablet 2 Tab PO DAILY Eliquis (Apixaban) 5 Mg Tablet 5 Mg PO BID Fosamax (Alendronate Sodium) 70 Mg Tablet 1 Tab PO QSU Probiotic (Bacillus Coagulans) 1 Each Capsule.dr 1 Each PO PRN Multiple Vitamin (Multivitamin With Minerals) 1 Each Tablet 1 Each PO Rosuvastatin Calcium 10 Mg Tablet 10 Mg PO DAILY Pyridostigmine Kinsley 60 Mg Tablet 60 Mg PO QID Metoprolol Tartrate 50 Mg Tablet 1 Tab PO BID Vitals/I & O Vital Sign - Last 24 Hours 08/02/17 08/02/17 08/02/17 08/02/17 19:00 20:00 20:54 20:55 Temp 98.4 98.4 Pulse 82 82 82 Resp 16 B/P (MAP) 171/70 (103) 171/70 171/70 Pulse Ox 97 O2 Delivery Nasal Cannula Nasal Cannula O2 Flow Rate 2.0 2.0 08/02/17 08/02/17 08/02/17 08/03/17 21:03 22:05 23:42 03:38 Temp 98.3 97.9 98.3 97.9 Pulse 83 65 Resp 16 16 B/P (MAP) 158/72 (100) 157/64 (95) Pulse Ox 97 96 95 O2 Delivery Room Air Nasal Cannula Nasal Cannula O2 Flow Rate 2.0 2.0 2.0 2.0 08/03/17 08/03/17 08/03/17 08/03/17 04:38 05:49 07:00 08:00 Temp 97.7 97.7 Pulse 78 Resp 18 B/P (MAP) 157/71 (99) Pulse Ox 95 95 93 O2 Delivery Nasal Cannula Room Air Nasal Cannula Room Air O2 Flow Rate 2.0 2.0 08/03/17 08/03/17 08/03/17 08/03/17 10:21 10:25 11:00 14:05 Temp 97.8 97.8 Pulse 78 78 71 71 Resp 18 B/P (MAP) 157/71 157/71 157/58 (91) 157/58 Pulse Ox 100 O2 Delivery Nasal Cannula O2 Flow Rate 2.0 08/03/17 08/03/17 15:00 15:01 Temp 97.7 97.7 Pulse 75 72 Resp 16 B/P (MAP) 196/84 (121) 191/80 (117) Pulse Ox 98 O2 Delivery Nasal Cannula O2 Flow Rate 2.0 Intake and Output 08/02/17 08/02/17 08/03/17 15:00 23:00 07:00 Intake Total 240 ml 120 ml 550 ml Balance 240 ml 120 ml 550 ml SCARLET SAVAGE MD Aug 03, 2017 16:35
[2017-08-03] MEDS: FERROUS SULFATE ORAL 300 MG/5 ML SOLUTION. PO SCH (20:53)
[2017-08-03] MEDS ORDERED: FERROUS SULFATE 325 MG TABLET. PO SCH (21:00)
[2017-08-03] MEDS: ATORVASTATIN CALCIUM 40 MG TABLET. PO SCH (21:00)
[2017-08-03] MEDS: LATANOPROST 0.005% OPHTH SOLUTION 2.5ML BOTTLE. OU SCH (23:28)
[2017-08-04 03:05] VITALS: BP 182/61
[2017-08-04] MEDS: PIPERACILLIN/TAZO IV Push 3.375 GM VIAL. IVP SCH ×4 (05:02→18:01)
[2017-08-04 05:51] LABS: BASO # 0.1 x10^3/uL (0.0-0.2); BASO % 1 % (0-3); EOS % 1 % (0-3); HEMATOCRIT 26.4 % (36.0-47.0); HEMOGLOBIN 7.9 g/dL (12.0-15.5); LYMPH # 0.7 x10^3/uL (1.0-4.8); LYMPH % 7 % (24-48); MEAN CORPUSCULAR HEMOGLOBIN 27 pg (25-35); MEAN CORPUSCULAR HGB CONC 30 g/dL (31-37); MEAN CORPUSCULAR VOLUME 89 fL (79-100); MONO % 8 % (0-9); NEUT % 84 % (31-73); PLATELET COUNT 220 x10^3/uL (140-400); RED BLOOD COUNT 2.97 x10^6/uL (3.50-5.40); RED CELL DISTRIBUTION WIDTH 17.6 % (11.5-14.5); WHITE BLOOD COUNT 10.6 x10^3/uL (4.0-11.0)
[2017-08-04 06:08] LABS: ALBUMIN 2.4 g/dL (3.4-5.0); ALBUMIN/GLOBULIN RATIO 0.7 (1.0-1.7); CALCIUM 8.6 mg/dL (8.5-10.1); CREATININE 0.9 mg/dL (0.6-1.0); GFR 76.8; POTASSIUM 3.5 mmol/L (3.5-5.1); TOTAL BILIRUBIN 0.5 mg/dL (0.2-1.0); TOTAL PROTEIN 5.8 g/dL (6.4-8.2)
[2017-08-04] MEDS ORDERED: ALTEPLASE 2 MG VIAL INT CAT ONE (06:45)
[2017-08-04 07:00] VITALS: BP 127/64
[2017-08-04] MEDS: INSULIN ASPART 300 UNITS/3 ML INSULN.PEN SQ SCH ×6 (08:00→18:11)
[2017-08-04] MEDS: GABAPENTIN 300 MG CAPSULE. PO SCH ×3 (09:00→20:38)
[2017-08-04] MEDS: CLOTRIMAZOLE 1% TOPICAL CREAM 15GM TUBE. TP SCH ×2 (09:00→20:40)
[2017-08-04] MEDS: LACTOBACILLUS RHAMNOSUS GG 1 CAPSULE. PO SCH ×2 (09:00→20:38)
[2017-08-04] MEDS: PANTOPRAZOLE 40 MG TABLET.DR. PO SCH (09:00)
[2017-08-04] MEDS: INSULIN DETEMIR 300 UNITS/3 ML INSULN.PEN. SQ SCH ×2 (10:22→20:49)
[2017-08-04] MEDS: ASPIRIN 325 MG TABLET PO SCH (10:25)
[2017-08-04] MEDS: BUMETANIDE 1 MG TABLET. PO SCH (10:25)
[2017-08-04] MEDS: PYRIDOSTIGMINE BROMIDE 60 MG TABLET PO SCH ×4 (10:25→20:38)
[2017-08-04] MEDS: MYCOPHENOLATE MOFETIL 250 MG CAPSULE. PO SCH ×2 (10:26→20:38)
[2017-08-04] MEDS: predniSONE 10 MG TABLET PO SCH (10:26)
[2017-08-04] MEDS: hydrALAZINE 10 MG TABLET PO SCH ×3 (10:27→20:39)
[2017-08-04] MEDS: METOPROLOL TART IMMED RELEASE 50 MG TABLET. PO SCH ×2 (10:27→20:39)
[2017-08-04] MEDS: CALCIUM CARB/VIT D3 500/200 TABLET. PO SCH (10:28)
[2017-08-04] MEDS: APIXABAN 5 MG TABLET. PO SCH ×2 (10:29→20:39)
[2017-08-04] MEDS: ASCORBIC ACID 500 MG TABLET PO SCH ×2 (10:29→20:39)
[2017-08-04] MEDS: FOLIC ACID 1 MG TABLET. PO SCH (10:29)
[2017-08-04] MEDS: POTASSIUM CHLORIDE 20 MEQ TABLET.ER. PO SCH (10:29)
[2017-08-04] MEDS: POLYETHYLENE GLYCOL 3350 17 GM PACKET. PO SCH ×2 (10:31→20:33)
[2017-08-04 10:37] VITALS: BP 167/58
[2017-08-04] MEDS: ANTI-COAG MONITOR BY PHARMACY. MC PRN (12:11)
--- NOTE | 2017-08-04 12:47 | PDOC ---
Infectious Disease Note Subjective Subjective pt says improving though slowly no f/c/n/v/ SOA or CP c/o abdominal pain with varying intensity at times + gas and loose stools. ROS ROS GEN: Denies fevers, chills, sweats HEENT: Denies blurred vision, sore throat CV: Denies chest pain RESP: Denies shortness of air, cough NEURO: Denies confusion, dizziness MSK: Denies weakness, joint pain/swelling Vital Sign Vital Signs Vital Signs Date Time Temp Pulse Resp B/P (MAP) Pulse Ox O2 Delivery O2 Flow Rate FiO2 08/04/17 10:37 97.9 69 16 167/58 (94) 100 Nasal Cannula 2.0 97.9 Physical Exam PHYSICAL EXAM GENERAL: Sitting in the chair, smiling LUNGS: Clear HEART: S1S2, no gallop, no murmur ABD: Soft, NT, BS active EXT: BLE edema, RLE wound bandaged GROUP BUR[employer] MACHINE: Alert, 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, no focal neurologic deficit SKIN: No rash LUE-PICC. Labs Lab Laboratory Tests Test 08/03/17 17:56 08/03/17 21:02 08/04/17 05:30 08/04/17 07:16 Glucose (Fingerstick) 133 mg/dL (70-99) 171 mg/dL (70-99) 127 mg/dL (70-99) White Blood Count 10.6 x10^3/uL (4.0-11.0) Red Blood Count 2.97 x10^6/uL (3.50-5.40) Hemoglobin 7.9 g/dL (12.0-15.5) Hematocrit 26.4 % (36.0-47.0) Mean Corpuscular Volume 89 fL (79-100) Mean Corpuscular Hemoglobin 27 pg (25-35) Mean Corpuscular Hemoglobin Concent 30 g/dL (31-37) Red Cell Distribution Width 17.6 % (11.5-14.5) Platelet Count 220 x10^3/uL (140-400) Neutrophils (%) (Auto) 84 % (31-73) Lymphocytes (%) (Auto) 7 % (24-48) Monocytes (%) (Auto) 8 % (0-9) Eosinophils (%) (Auto) 1 % (0-3) Basophils (%) (Auto) 1 % (0-3) Neutrophils # (Auto) 8.9 x10^3uL (1.8-7.7) Lymphocytes # (Auto) 0.7 x10^3/uL (1.0-4.8) Monocytes # (Auto) 0.9 x10^3/uL (0.0-1.1) Eosinophils # (Auto) 0.1 x10^3/uL (0.0-0.7) Basophils # (Auto) 0.1 x10^3/uL (0.0-0.2) Sodium Level 148 mmol/L (136-145) Potassium Level 3.5 mmol/L (3.5-5.1) Chloride Level 108 mmol/L (98-107) Carbon Dioxide Level 34 mmol/L (21-32) Anion Gap 6 (6-14) Blood Urea Nitrogen 18 mg/dL (7-20) Creatinine 0.9 mg/dL (0.6-1.0) Estimated GFR (Cockcroft-Gault) 76.8 BUN/Creatinine Ratio 20 (6-20) Glucose Level 94 mg/dL (70-99) Calcium Level 8.6 mg/dL (8.5-10.1) Total Bilirubin 0.5 mg/dL (0.2-1.0) Aspartate Amino Transf (AST/SGOT) 16 U/L (15-37) Alanine Aminotransferase (ALT/SGPT) 25 U/L (14-59) Alkaline Phosphatase 73 U/L (46-116) Total Protein 5.8 g/dL (6.4-8.2) Albumin 2.4 g/dL (3.4-5.0) Albumin/Globulin Ratio 0.7 (1.0-1.7) Test 08/04/17 12:16 Glucose (Fingerstick) 176 mg/dL (70-99) Micro Micro BLOOD CULTURE Preliminary NO GROWTH AFTER 4 DAYS URINE CULTURE RES 1 Final Escherichia coli Antibiotic RSLT#1 Amoxicillin/Clavulanic Acid S Ampicillin R Cefepime S Ceftriaxone S Cefuroxime S Cephalothin S Ciprofloxacin S Ertapenem S Gentamicin S Imipenem S Levofloxacin S Nitrofurantoin S Piperacillin R Tetracycline R Tobramycin S Trimethoprim/Sulfa R Objective Assessment Diverticulitis UTI. E. coli, POA Myasthenia gravis, on immunosuppression PAD s/p recent angioplasty CAD Obesity Leukocytosis, steroids vs diverticulitis Plan Plan of Care cont Zosyn Monitor WBC supportive care D/w daughter COOKIE MELENDEZ MD Aug 04, 2017 12:46
[2017-08-04 15:00] VITALS: BP 129/43
--- NOTE | 2017-08-04 15:15 | PDOC ---
PROGRESS NOTES Chief Complaint Chief Complaint Sepsis, improving 1. Sepsis: severe POA in immunocompromised pt. improved 2. Diverticulitis: . no ongoing diarrhea, but abd pain and + CT findings. pain now improved, 3. Myasthenia gravis: cont home meds, incl immunosuppressives. very aggressive dz requiring mult meds, scheduled plasma exchanges. has MG related diplopia currently 4. CAD/CHF (chronic diastolic): no acute issues. cont home meds 5. CKD3: at baseline. monitor 6. DM2: hypoglycemia last night, good levels today, monitor with ISS, adjust insulin PRN 7. Anemia: stable-improved s/p transfuse 1 PRPC anemia labs c/w severe inflammation. given venofer x1, 8. OAC: apixaban for cardiac issues History of Present Illness History of Present Illness feels better, trying to get placed to Prov Place [facility] PT and OT Vitals Vitals Vital Signs Date Time Temp Pulse Resp B/P (MAP) Pulse Ox O2 Delivery O2 Flow Rate FiO2 08/04/17 10:37 97.9 69 16 167/58 (94) 100 Nasal Cannula 2.0 97.9 Physical Exam General: Alert, Oriented X3, Cooperative, No acute distress Heart: Regular rate Lungs: Clear, Other Abdomen: Normal bowel sounds, Other (TTP LLQ, mild in LUQ as well) Extremities: No edema Skin: No rashes Labs LABS Laboratory Tests Test 08/03/17 17:56 08/03/17 21:02 08/04/17 05:30 08/04/17 07:16 Glucose (Fingerstick) 133 mg/dL (70-99) 171 mg/dL (70-99) 127 mg/dL (70-99) White Blood Count 10.6 x10^3/uL (4.0-11.0) Red Blood Count 2.97 x10^6/uL (3.50-5.40) Hemoglobin 7.9 g/dL (12.0-15.5) Hematocrit 26.4 % (36.0-47.0) Mean Corpuscular Volume 89 fL (79-100) Mean Corpuscular Hemoglobin 27 pg (25-35) Mean Corpuscular Hemoglobin Concent 30 g/dL (31-37) Red Cell Distribution Width 17.6 % (11.5-14.5) Platelet Count 220 x10^3/uL (140-400) Neutrophils (%) (Auto) 84 % (31-73) Lymphocytes (%) (Auto) 7 % (24-48) Monocytes (%) (Auto) 8 % (0-9) Eosinophils (%) (Auto) 1 % (0-3) Basophils (%) (Auto) 1 % (0-3) Neutrophils # (Auto) 8.9 x10^3uL (1.8-7.7) Lymphocytes # (Auto) 0.7 x10^3/uL (1.0-4.8) Monocytes # (Auto) 0.9 x10^3/uL (0.0-1.1) Eosinophils # (Auto) 0.1 x10^3/uL (0.0-0.7) Basophils # (Auto) 0.1 x10^3/uL (0.0-0.2) Sodium Level 148 mmol/L (136-145) Potassium Level 3.5 mmol/L (3.5-5.1) Chloride Level 108 mmol/L (98-107) Carbon Dioxide Level 34 mmol/L (21-32) Anion Gap 6 (6-14) Blood Urea Nitrogen 18 mg/dL (7-20) Creatinine 0.9 mg/dL (0.6-1.0) Estimated GFR (Cockcroft-Gault) 76.8 BUN/Creatinine Ratio 20 (6-20) Glucose Level 94 mg/dL (70-99) Calcium Level 8.6 mg/dL (8.5-10.1) Total Bilirubin 0.5 mg/dL (0.2-1.0) Aspartate Amino Transf (AST/SGOT) 16 U/L (15-37) Alanine Aminotransferase (ALT/SGPT) 25 U/L (14-59) Alkaline Phosphatase 73 U/L (46-116) Total Protein 5.8 g/dL (6.4-8.2) Albumin 2.4 g/dL (3.4-5.0) Albumin/Globulin Ratio 0.7 (1.0-1.7) Test 08/04/17 12:16 Glucose (Fingerstick) 176 mg/dL (70-99) Assessment and Plan Assessmemt and Plan Problems Medical Problems: (1) Congestive heart failure Status: Acute (2) Congestive heart failure (CHF) Status: Acute (3) Healthcare-associated pneumonia Status: Acute (4) Moderate protein malnutrition Status: Acute (5) Normocytic anemia Status: Acute (6) Severe sepsis Status: Acute (7) Type 2 diabetes mellitus Status: Acute Problems: Comment Review of Relevant I have reviewed the following items omre (where applicable) has been applied. Labs Laboratory Tests Test 08/02/17 17:50 08/02/17 20:52 08/03/17 05:40 08/03/17 07:09 Glucose (Fingerstick) 335 mg/dL (70-99) 211 mg/dL (70-99) 212 mg/dL (70-99) White Blood Count 11.5 x10^3/uL (4.0-11.0) Red Blood Count 2.94 x10^6/uL (3.50-5.40) Hemoglobin 7.8 g/dL (12.0-15.5) Hematocrit 26.2 % (36.0-47.0) Mean Corpuscular Volume 89 fL (79-100) Mean Corpuscular Hemoglobin 27 pg (25-35) Mean Corpuscular Hemoglobin Concent 30 g/dL (31-37) Red Cell Distribution Width 17.8 % (11.5-14.5) Platelet Count 227 x10^3/uL (140-400) Neutrophils (%) (Auto) 83 % (31-73) Lymphocytes (%) (Auto) 7 % (24-48) Monocytes (%) (Auto) 9 % (0-9) Eosinophils (%) (Auto) 0 % (0-3) Basophils (%) (Auto) 0 % (0-3) Neutrophils # (Auto) 9.6 x10^3uL (1.8-7.7) Lymphocytes # (Auto) 0.8 x10^3/uL (1.0-4.8) Monocytes # (Auto) 1.1 x10^3/uL (0.0-1.1) Eosinophils # (Auto) 0.0 x10^3/uL (0.0-0.7) Basophils # (Auto) 0.0 x10^3/uL (0.0-0.2) Sodium Level 147 mmol/L (136-145) Potassium Level 4.0 mmol/L (3.5-5.1) Chloride Level 108 mmol/L (98-107) Carbon Dioxide Level 32 mmol/L (21-32) Anion Gap 7 (6-14) Blood Urea Nitrogen 20 mg/dL (7-20) Creatinine 1.0 mg/dL (0.6-1.0) Estimated GFR (Cockcroft-Gault) 68.0 BUN/Creatinine Ratio 20 (6-20) Glucose Level 226 mg/dL (70-99) Calcium Level 8.3 mg/dL (8.5-10.1) Total Bilirubin 0.4 mg/dL (0.2-1.0) Aspartate Amino Transf (AST/SGOT) 16 U/L (15-37) Alanine Aminotransferase (ALT/SGPT) 23 U/L (14-59) Alkaline Phosphatase 86 U/L (46-116) Total Protein 5.9 g/dL (6.4-8.2) Albumin 2.4 g/dL (3.4-5.0) Albumin/Globulin Ratio 0.7 (1.0-1.7) Test 08/03/17 12:01 08/03/17 17:56 08/03/17 21:02 08/04/17 05:30 Glucose (Fingerstick) 275 mg/dL (70-99) 133 mg/dL (70-99) 171 mg/dL (70-99) White Blood Count 10.6 x10^3/uL (4.0-11.0) Red Blood Count 2.97 x10^6/uL (3.50-5.40) Hemoglobin 7.9 g/dL (12.0-15.5) Hematocrit 26.4 % (36.0-47.0) Mean Corpuscular Volume 89 fL (79-100) Mean Corpuscular Hemoglobin 27 pg (25-35) Mean Corpuscular Hemoglobin Concent 30 g/dL (31-37) Red Cell Distribution Width 17.6 % (11.5-14.5) Platelet Count 220 x10^3/uL (140-400) Neutrophils (%) (Auto) 84 % (31-73) Lymphocytes (%) (Auto) 7 % (24-48) Monocytes (%) (Auto) 8 % (0-9) Eosinophils (%) (Auto) 1 % (0-3) Basophils (%) (Auto) 1 % (0-3) Neutrophils # (Auto) 8.9 x10^3uL (1.8-7.7) Lymphocytes # (Auto) 0.7 x10^3/uL (1.0-4.8) Monocytes # (Auto) 0.9 x10^3/uL (0.0-1.1) Eosinophils # (Auto) 0.1 x10^3/uL (0.0-0.7) Basophils # (Auto) 0.1 x10^3/uL (0.0-0.2) Sodium Level 148 mmol/L (136-145) Potassium Level 3.5 mmol/L (3.5-5.1) Chloride Level 108 mmol/L (98-107) Carbon Dioxide Level 34 mmol/L (21-32) Anion Gap 6 (6-14) Blood Urea Nitrogen 18 mg/dL (7-20) Creatinine 0.9 mg/dL (0.6-1.0) Estimated GFR (Cockcroft-Gault) 76.8 BUN/Creatinine Ratio 20 (6-20) Glucose Level 94 mg/dL (70-99) Calcium Level 8.6 mg/dL (8.5-10.1) Total Bilirubin 0.5 mg/dL (0.2-1.0) Aspartate Amino Transf (AST/SGOT) 16 U/L (15-37) Alanine Aminotransferase (ALT/SGPT) 25 U/L (14-59) Alkaline Phosphatase 73 U/L (46-116) Total Protein 5.8 g/dL (6.4-8.2) Albumin 2.4 g/dL (3.4-5.0) Albumin/Globulin Ratio 0.7 (1.0-1.7) Test 08/04/17 07:16 08/04/17 12:16 Glucose (Fingerstick) 127 mg/dL (70-99) 176 mg/dL (70-99) Laboratory Tests Test 08/03/17 17:56 08/03/17 21:02 08/04/17 05:30 08/04/17 07:16 Glucose (Fingerstick) 133 mg/dL (70-99) 171 mg/dL (70-99) 127 mg/dL (70-99) White Blood Count 10.6 x10^3/uL (4.0-11.0) Red Blood Count 2.97 x10^6/uL (3.50-5.40) Hemoglobin 7.9 g/dL (12.0-15.5) Hematocrit 26.4 % (36.0-47.0) Mean Corpuscular Volume 89 fL (79-100) Mean Corpuscular Hemoglobin 27 pg (25-35) Mean Corpuscular Hemoglobin Concent 30 g/dL (31-37) Red Cell Distribution Width 17.6 % (11.5-14.5) Platelet Count 220 x10^3/uL (140-400) Neutrophils (%) (Auto) 84 % (31-73) Lymphocytes (%) (Auto) 7 % (24-48) Monocytes (%) (Auto) 8 % (0-9) Eosinophils (%) (Auto) 1 % (0-3) Basophils (%) (Auto) 1 % (0-3) Neutrophils # (Auto) 8.9 x10^3uL (1.8-7.7) Lymphocytes # (Auto) 0.7 x10^3/uL (1.0-4.8) Monocytes # (Auto) 0.9 x10^3/uL (0.0-1.1) Eosinophils # (Auto) 0.1 x10^3/uL (0.0-0.7) Basophils # (Auto) 0.1 x10^3/uL (0.0-0.2) Sodium Level 148 mmol/L (136-145) Potassium Level 3.5 mmol/L (3.5-5.1) Chloride Level 108 mmol/L (98-107) Carbon Dioxide Level 34 mmol/L (21-32) Anion Gap 6 (6-14) Blood Urea Nitrogen 18 mg/dL (7-20) Creatinine 0.9 mg/dL (0.6-1.0) Estimated GFR (Cockcroft-Gault) 76.8 BUN/Creatinine Ratio 20 (6-20) Glucose Level 94 mg/dL (70-99) Calcium Level 8.6 mg/dL (8.5-10.1) Total Bilirubin 0.5 mg/dL (0.2-1.0) Aspartate Amino Transf (AST/SGOT) 16 U/L (15-37) Alanine Aminotransferase (ALT/SGPT) 25 U/L (14-59) Alkaline Phosphatase 73 U/L (46-116) Total Protein 5.8 g/dL (6.4-8.2) Albumin 2.4 g/dL (3.4-5.0) Albumin/Globulin Ratio 0.7 (1.0-1.7) Test 08/04/17 12:16 Glucose (Fingerstick) 176 mg/dL (70-99) Microbiology 07/29/17 Blood Culture - Final, Complete NO GROWTH AFTER 5 DAYS 07/29/17 Urine Culture - Final, Complete 07/29/17 Urine Culture Result 1 (FREDDIE) - Final, Complete 07/29/17 Antimicrobic Susceptibility - Final, Complete Medications Current Medications Sodium Chloride 1,000 ml @ 780 mls/hr Q1H17M IV Last administered on 07:05; Start 07/29/17 at 06:14; Stop 07/29/17 at 08:14; Status DC Vancomycin HCl (Vanco Per Pharmacy) 1 each PRN DAILY PRN MC SEE COMMENTS Last administered on 07/29/17 19:28; Start 07/29/17 at 07:30; Stop 07/30/17 at 09 :35; Status DC Piperacillin Sod/ Tazobactam Sod (Zosyn Per Pharmacy) 1 each PRN DAILY PRN MC SEE COMMENTS; Start 07/29/17 at 07:30 Piperacillin Sod/ Tazobactam Sod (Zosyn) 4.5 gm 1X ONCE IVP Last administered on 07/29/17 19:14; Start 07/29/17 at 07:30; Stop 07/29/17 at 07:31; Status DC Vancomycin HCl 2 gm/Sodium Chloride 500 ml @ 250 mls/hr 1X ONCE IV Last administered on 07/29/17 19:17; Start 07/29/17 at 08:00; Stop 07/29/17 at 09 :59; Status DC Ondansetron HCl (Zofran) 4 mg PRN Q8HRS PRN IV NAUSEA/VOMITING; Start at 07:30; Stop 07/30/17 at 07:29; Status DC Fentanyl Citrate (Fentanyl 2ml Vial) 50 mcg PRN Q2HR PRN IV PAIN; Start at 07:30; Stop 07/30/17 at 07:29; Status DC Sodium Chloride 1,000 ml @ 100 mls/hr Q10H IV Last administered on 07/30/17 07:59; Start 07/29/17 at 07:28; Stop 07/30/17 at 07:27; Status DC Acetaminophen (Tylenol) 650 mg PRN Q4HRS PRN PO FEVER Last administered on 13:15; Start 07/29/17 at 07:30; Stop 07/30/17 at 07:29; Status DC Albuterol/ Ipratropium (Duoneb) 3 ml RTQID NEB Last administered on 07/30/17 07:24; Start 07/29/17 at 08:00; Stop 07/30/17 at 07:59; Status DC Acetaminophen (Tylenol) 500 mg PRN Q6HRS PRN PO PAIN Last administered on 08/03 10:58; Start 07/29/17 at 14:00 Ascorbic Acid (Vitamin C) 500 mg BID PO Last administered on 08/04/17 10:29; Start 07/29/17 at 21:00 Aspirin (Liza Aspirin) 325 mg DAILY PO Last administered on 08/04/17 10:25; Start 07/30/17 at 09:00 Clotrimazole (Lotrimin) 1 hema BID TP Last administered on 08/04/17 09:00; Start 07/29/17 at 21:00 Collagenase (Santyl) 250 hema DAILY TP ; Start 07/30/17 at 09:00; Status Cancel Ferrous Sulfate (Feosol) 325 mg QODAY PO Last administered on 08/02/17 08:43 ; Start 07/31/17 at 09:00; Stop 08/02/17 at 14:19; Status DC Folic Acid (Folic Acid) 1 mg DAILY PO Last administered on 08/04/17 10:29; Start 07/30/17 at 09:00 Hydralazine HCl (Apresoline) 10 mg TID PO Last administered on 08/04/17 10:27 ; Start 07/29/17 at 14:00 Latanoprost (Xalatan) 1 drop QHS OU Last administered on 08/03/17 23:28; Start 07/29/17 at 21:00 Metoprolol Tartrate (Lopressor) 50 mg BID PO Last administered on 08/04/17 10 :27; Start 07/29/17 at 21:00 Pantoprazole Sodium (Protonix) 40 mg DAILY PO Last administered on 08/02/17 08:43; Start 07/30/17 at 09:00 Polyethylene Glycol (miraLAX PACKET) 17 gm BID PO Last administered on 10:31; Start 07/29/17 at 21:00 Prednisone (Prednisone) 25 mg DAILY PO ; Start 07/30/17 at 09:00; Stop at 09:00; Status DC Pyridostigmine Joshua (Mestinon) 60 mg QID PO Last administered on 08/04/17 12:40; Start 07/29/17 at 17:00 Senna/Docusate Sodium (Senna Plus) 1 tab PRN DAILY PRN PO CONSTIPATION; Start 07/29/17 at 13:45 Bumetanide (Bumex) 2 mg DAILY PO Last administered on 08/04/17 10:25; Start 07/30/17 at 09:00 Calcium/Vitamin D (Oscal D 500mg/ 200uts) 1 tab DAILYWBKFT PO Last administered on 08/04/17 10:28; Start 07/29/17 at 17:00 Gabapentin (Neurontin) 300 mg TID PO Last administered on 08/01/17 21:23; Start 07/29/17 at 15:00 Cetirizine HCl (ZyrTEC) 10 mg PRN DAILY PRN PO ALLERGIES; Start 07/30/17 at 09 :00 Non-Formulary Medication 2 tab DAILY PO ; Start 07/30/17 at 09:00; Stop at 09:00; Status DC Mycophenolate Mofetil (Cellcept) 1,500 mg HS PO Last administered on 20:52; Start 07/29/17 at 21:00 Oxycodone HCl (Roxicodone) 10 mg PRN Q4HRS PRN PO PAIN Last administered on 20:52; Start 07/29/17 at 14:15 Potassium Chloride (Klor-Con) 20 meq DAILYWBKFT PO Last administered on 10:29; Start 07/30/17 at 08:00 Atorvastatin Calcium (Lipitor) 40 mg QHS PO Last administered on 08/01/17 21: 23; Start 07/29/17 at 21:00 Lactobacillus Rhamnosus (Culturelle) 1 cap BID PO Last administered on 20:53; Start 07/29/17 at 21:00 Apixaban (Eliquis) 5 mg BID PO Last administered on 08/04/17 10:29; Start at 21:00 Insulin Aspart (NovoLOG) 28 units TIDWMEALS SQ Last administered on 07/30/17 08:11; Start 07/29/17 at 17:00; Stop 07/30/17 at 11:55; Status DC Insulin Detemir (Levemir) 25 units DAILYBFRSUP SQ ; Start 07/29/17 at 17:00; Stop 07/29/17 at 19:09; Status DC Insulin Detemir (Levemir) 40 units DAILYWBKFT SQ Last administered on 10:15; Start 07/30/17 at 08:00; Stop 08/02/17 at 10:58; Status DC Insulin Aspart (NovoLOG) CUSTOM SCALE TIDWMEALS SQ Last administered on 13:17; Start 07/29/17 at 17:00; Stop 08/03/17 at 14:39; Status DC Dextrose (Dextrose 50%-Water Syringe) 12.5 gm PRN Q15MIN PRN IV SEE COMMENTS Last administered on 08/02/17 08:41; Start 07/29/17 at 13:45 Oxycodone HCl (Roxicodone) 10 mg PRN Q6HRS PRN PO PAIN; Start 07/29/17 at 14: 15; Stop 08/01/17 at 12:48; Status DC Mycophenolate Mofetil (Cellcept) 1,000 mg DAILY PO Last administered on 10:26; Start 07/30/17 at 09:00 Prednisone (Prednisone) 50 mg DAILY PO Last administered on 07/30/17 07:58; Start 07/29/17 at 15:30; Stop 07/30/17 at 11:57; Status DC Sodium Chloride 1,000 ml @ 125 mls/hr 1X ONCE IV ; Start 07/29/17 at 15:45; Stop 07/29/17 at 23:44; Status DC Lidocaine/Sodium Bicarbonate (Buffered Lidocaine 1%) 20 ml STK-MED ONCE IJ ; Start 07/29/17 at 16:50; Stop 07/29/17 at 16:51; Status DC Lidocaine/Sodium Bicarbonate (Buffered Lidocaine 1%) 3 ml 1X ONCE IJ Last administered on 07/29/17 17:40; Start 07/29/17 at 17:30; Stop 07/29/17 at 17 :31; Status DC Insulin Detemir (Levemir) 25 units QHS SQ Last administered on 08/03/17 21:59 ; Start 07/29/17 at 21:00 Piperacillin Sod/ Tazobactam Sod (Zosyn) 3.375 gm Q6HRS IVP Last administered on 08/04/17 12:40; Start 07/30/17 at 00:00 Vancomycin HCl 1.25 gm/Dextrose/ Sodium Chloride 250 ml @ 167.007 mls/hr Q12H IV Last administered on 07/30/17 07:59; Start 07/30/17 at 07:00; Stop 07/30 at 09:35; Status DC Vancomycin HCl 1 each 1X ONCE MC ; Start 07/31/17 at 06:30; Stop 07/31/17 at 06:30; Status DC Insulin Aspart (NovoLOG) 10 units 1X ONCE SQ Last administered on 07/29/17 21:27; Start 07/29/17 at 20:45; Stop 07/29/17 at 20:46; Status DC Insulin Aspart (NovoLOG) 35 units TIDWMEALS SQ Last administered on 07/31/17 08:50; Start 07/30/17 at 12:00; Stop 07/31/17 at 11:37; Status DC Prednisone (Prednisone) 25 mg DAILY PO Last administered on 08/04/17 10:26; Start 07/31/17 at 09:00 Insulin Aspart (NovoLOG) 28 units TIDWMEALS SQ Last administered on 08/01/17 18:20; Start 07/31/17 at 12:00; Stop 08/02/17 at 10:58; Status DC Iron Sucrose 500 mg/Sodium Chloride 275 ml @ 78.571 mls/ hr 1X ONCE IV Last administered on 08/01/17 18:11; Start 08/01/17 at 16:30; Stop 08/01/17 at 19 :59; Status DC Ferrous Sulfate 300 mg HS PO Last administered on 08/03/17 20:53; Start at 21:00 Insulin Aspart (NovoLOG) 18 units TIDWMEALS SQ Last administered on 08/04/17 12:46; Start 08/02/17 at 12:00 Insulin Detemir (Levemir) 20 units DAILYWBKFT SQ Last administered on 10:22; Start 08/03/17 at 08:00 Info (Anti-Coagulation Monitoring By Pharmacy) 1 each PRN DAILY PRN MC SEE COMMENTS Last administered on 08/04/17 12:11; Start 08/02/17 at 12:15 Ferrous Sulfate (Feosol) 325 mg QHS PO ; Start 08/03/17 at 21:00; Status Cancel Insulin Aspart (NovoLOG) CUSTOM SCALE TIDWMEALS SQ ; Start 08/03/17 at 17:00 Alteplase, Recombinant (Cathflo) 2 mg 1X ONCE INT CAT Last administered on 06:48; Start 08/04/17 at 06:45; Stop 08/04/17 at 06:46; Status DC Active Scripts Active Vitamin C (Ascorbic Acid) 500 Mg Tablet 500 Mg PO BID Reported Miralax (Polyethylene Glycol 3350) 17 Gm Powd.pack 1 Packet PO BID Protonix (Pantoprazole Sodium) 40 Mg Tablet.dr 1 Tab PO DAILY Claritin (Loratadine) 10 Mg Tablet 1 Tab PO DAILY PRN Hydralazine Hcl 10 Mg Tablet 1 Tab PO TID Gabapentin 300 Mg Capsule 300 Mg PO TID Santyl Ointment (Collagenase) 30 Gm Oint...g. 250 Hema TP DAILY DIRECTED BY PHYSICIAN Lotrimin Af (Clotrimazole) 12 Gm Cream..g. 1 Hema TP BID Aspirin 325 Mg Tablet 1 Tab PO DAILY Tylenol (Acetaminophen) 325 Mg Tablet 500 Mg PO Q6HRS PRN Xalatan (Latanoprost) 2.5 Ml Drops 1 Drop EACHEYE QHS Prednisone 20 Mg Tablet 25 Mg PO DAILY Bumetanide 2 Mg Tablet 2 Mg PO DAILY Oxycodone Hcl 10 Mg Tablet 10 Mg PO PRN Q4-6HRS PRN Cellcept (Mycophenolate Mofetil) 500 Mg Tablet 3 Tab PO QHS Senokot-S Tablet (Sennosides/Docusate Sodium) 1 Each Tablet 1 Tab PO PRN DAILY PRN Calcium + Vitamin D Tablet (Calcium Carbonate/Vitamin D3) 1 Each Tablet 1 Each PO DAILY Ferrous Sulfate 325 Mg Tablet 1 Tab PO QODAY Levemir (Insulin Detemir) 100 Unit/1 Ml Vial 25 Unit SQ DAILYWSUP Levemir (Insulin Detemir) 100 Unit/1 Ml Vial 40 Unit SQ DAILYWBKFT Folic Acid 1 Mg Tablet 1 Tab PO DAILY Potassium Chloride 20 Meq Tablet.er 20 Meq PO DAILY Novolog Flexpen (Insulin Aspart) 100 Unit/1 Ml Insuln.pen 35 Unit SQ TIDWMEALS Cellcept (Mycophenolate Mofetil) 500 Mg Tablet 2 Tab PO DAILY Eliquis (Apixaban) 5 Mg Tablet 5 Mg PO BID Fosamax (Alendronate Sodium) 70 Mg Tablet 1 Tab PO QSU Probiotic (Bacillus Coagulans) 1 Each Capsule.dr 1 Each PO PRN Multiple Vitamin (Multivitamin With Minerals) 1 Each Tablet 1 Each PO Rosuvastatin Calcium 10 Mg Tablet 10 Mg PO DAILY Pyridostigmine Joshua 60 Mg Tablet 60 Mg PO QID Metoprolol Tartrate 50 Mg Tablet 1 Tab PO BID Vitals/I & O Vital Sign - Last 24 Hours 08/03/17 08/03/17 08/03/17 08/03/17 19:05 20:00 20:52 20:52 Temp 97.5 97.5 Pulse 74 72 Resp 18 B/P (MAP) 181/68 (105) 191/80 Pulse Ox 100 98 O2 Delivery Nasal Cannula Nasal Cannula Room Air O2 Flow Rate 2.0 2.0 08/03/17 08/03/17 08/03/17 08/04/17 20:53 23:05 23:30 03:05 Temp 97.8 98.2 97.8 98.2 Pulse 72 63 67 Resp 18 14 18 B/P (MAP) 191/80 182/65 (104) 182/61 (101) Pulse Ox 99 98 99 O2 Delivery Nasal Cannula Nasal Cannula Nasal Cannula O2 Flow Rate 2.0 2.0 2.0 08/04/17 08/04/17 08/04/17 08/04/17 07:00 08:00 10:27 10:27 Temp 97.8 97.8 Pulse 67 67 67 Resp 18 B/P (MAP) 127/64 (85) 127/64 127/64 Pulse Ox 99 O2 Delivery Nasal Cannula Nasal Cannula O2 Flow Rate 2.0 2.0 08/04/17 10:37 Temp 97.9 97.9 Pulse 69 Resp 16 B/P (MAP) 167/58 (94) Pulse Ox 100 O2 Delivery Nasal Cannula O2 Flow Rate 2.0 Intake and Output 08/03/17 08/03/17 08/04/17 15:00 23:00 07:00 Intake Total 500 ml 470 ml Balance 500 ml 470 ml SCARLET SAVAGE MD Aug 04, 2017 15:15
[2017-08-04] MEDS: oxyCODONE IR 5 MG TABLET PO PRN (18:23)
[2017-08-04 19:55] VITALS: BP 154/62
[2017-08-04] MEDS: ATORVASTATIN CALCIUM 40 MG TABLET. PO SCH (20:38)
[2017-08-04] MEDS: LATANOPROST 0.005% OPHTH SOLUTION 2.5ML BOTTLE. OU SCH (20:38)
[2017-08-04] MEDS: FERROUS SULFATE ORAL 300 MG/5 ML SOLUTION. PO SCH (20:38)
[2017-08-04 23:09] VITALS: BP 170/89
[2017-08-05] MEDS: PIPERACILLIN/TAZO IV Push 3.375 GM VIAL. IVP SCH ×3 (00:41→12:02)
[2017-08-05 03:06] VITALS: BP 185/75
[2017-08-05 03:39] VITALS: BP 148/67
[2017-08-05 07:00] VITALS: BP 187/61
[2017-08-05] MEDS: INSULIN ASPART 300 UNITS/3 ML INSULN.PEN SQ SCH ×4 (08:00→12:27)
[2017-08-05] MEDS: PANTOPRAZOLE 40 MG TABLET.DR. PO SCH (09:00)
[2017-08-05] MEDS: POLYETHYLENE GLYCOL 3350 17 GM PACKET. PO SCH (09:00)
[2017-08-05] MEDS: MYCOPHENOLATE MOFETIL 250 MG CAPSULE. PO SCH (09:04)
[2017-08-05] MEDS: APIXABAN 5 MG TABLET. PO SCH (09:04)
[2017-08-05] MEDS: predniSONE 10 MG TABLET PO SCH (09:05)
[2017-08-05] MEDS: LACTOBACILLUS RHAMNOSUS GG 1 CAPSULE. PO SCH (09:05)
[2017-08-05] MEDS: GABAPENTIN 300 MG CAPSULE. PO SCH ×2 (09:06→14:35)
[2017-08-05] MEDS: CALCIUM CARB/VIT D3 500/200 TABLET. PO SCH (09:06)
[2017-08-05] MEDS: ASPIRIN 325 MG TABLET PO SCH (09:06)
[2017-08-05] MEDS: METOPROLOL TART IMMED RELEASE 50 MG TABLET. PO SCH (09:07)
[2017-08-05] MEDS: FOLIC ACID 1 MG TABLET. PO SCH (09:07)
[2017-08-05] MEDS: PYRIDOSTIGMINE BROMIDE 60 MG TABLET PO SCH ×2 (09:07→12:30)
[2017-08-05] MEDS: ASCORBIC ACID 500 MG TABLET PO SCH (09:08)
[2017-08-05] MEDS: hydrALAZINE 10 MG TABLET PO SCH ×2 (09:08→14:35)
[2017-08-05] MEDS: CLOTRIMAZOLE 1% TOPICAL CREAM 15GM TUBE. TP SCH (09:09)
[2017-08-05] MEDS: BUMETANIDE 1 MG TABLET. PO SCH (09:09)
[2017-08-05] MEDS: INSULIN DETEMIR 300 UNITS/3 ML INSULN.PEN. SQ SCH (09:16)
[2017-08-05] MEDS: oxyCODONE IR 5 MG TABLET PO PRN (09:19)
[2017-08-05] MEDS: POTASSIUM CHLORIDE 20 MEQ TABLET.ER. PO SCH (09:20)
[2017-08-05 11:00] VITALS: BP 142/37
--- NOTE | 2017-08-05 11:01 | PDOC ---
Infectious Disease Note Subjective Subjective pt says improving though slowly no f/c/n/v/ SOA or CP c/o abdominal pain with varying intensity at times mainly at night with + gas and loose stools. during day time does well ROS ROS GEN: Denies fevers, chills, sweats HEENT: Denies blurred vision, sore throat CV: Denies chest pain RESP: Denies shortness of air, cough GI as above NEURO: Denies confusion, dizziness MSK: Denies weakness, joint pain/swelling Vital Sign Vital Signs Vital Signs Date Time Temp Pulse Resp B/P (MAP) Pulse Ox O2 Delivery O2 Flow Rate FiO2 08/05/17 09:19 99 Nasal Cannula 2.0 08/05/17 09:08 68 187/61 08/05/17 07:00 97.9 18 97.9 Physical Exam PHYSICAL EXAM GENERAL: NAD, Alert HEENT: PERRL, OC/OP NECK: Supple, no JVD, no LN LUNGS: Clear HEART: S1S2, no gallop, no murmur ABD: Soft, NT, no organomegaly, no rebound EXT: LLE chronic edema, no cyanosis 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, 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, no focal neurologic deficit SKIN: No rash IV: ok Labs Lab Laboratory Tests Test 08/04/17 12:16 08/04/17 17:35 08/04/17 20:37 08/05/17 07:51 Glucose (Fingerstick) 176 mg/dL (70-99) 171 mg/dL (70-99) 150 mg/dL (70-99) 82 mg/dL (70-99) Micro Micro BLOOD CULTURE Preliminary NO GROWTH AFTER 4 DAYS URINE CULTURE RES 1 Final Escherichia coli Antibiotic RSLT#1 Amoxicillin/Clavulanic Acid S Ampicillin R Cefepime S Ceftriaxone S Cefuroxime S Cephalothin S Ciprofloxacin S Ertapenem S Gentamicin S Imipenem S Levofloxacin S Nitrofurantoin S Piperacillin R Tetracycline R Tobramycin S Trimethoprim/Sulfa R Objective Assessment Diverticulitis UTI. E. coli, POA Myasthenia gravis, on immunosuppression PAD s/p recent angioplasty CAD Obesity Leukocytosis, steroids vs diverticulitis Plan Plan of Care cont Zosyn when ready for dc to rehab can send out on augmentin for 5 days Monitor WBC supportive care COOKIE MELENDEZ MD Aug 05, 2017 11:01
[2017-08-05] MEDS: ANTI-COAG MONITOR BY PHARMACY. MC PRN (11:39)
--- NOTE | 2017-08-05 11:43 | PDOC ---
PROGRESS NOTES Chief Complaint Chief Complaint Sepsis, improving 1. Sepsis: severe POA in immunocompromised pt. improved 2. Diverticulitis: . no ongoing diarrhea, but abd pain and + CT findings. pain now improved, 3. Myasthenia gravis: cont home meds, incl immunosuppressives. very aggressive dz requiring mult meds, scheduled plasma exchanges. has MG related diplopia currently 4. CAD/CHF (chronic diastolic): no acute issues. cont home meds 5. CKD3: at baseline. monitor 6. DM2: hypoglycemia last night, good levels today, monitor with ISS, adjust insulin PRN 7. Anemia: stable-improved s/p transfuse 1 PRPC anemia labs c/w severe inflammation. given venofer x1, 8. OAC: apixaban for cardiac issues 9. HLD 10. PAD 11. hx of CVA History of Present Illness History of Present Illness Patient seen and examined. Patient states she is doing a lot better. Denies chest pain, shortness of breath, fevers/chills. Would like to be discharged to SNU. Vitals Vitals Vital Signs Date Time Temp Pulse Resp B/P (MAP) Pulse Ox O2 Delivery O2 Flow Rate FiO2 08/05/17 11:16 96 Nasal Cannula 2.0 08/05/17 11:00 98.0 71 16 142/37 (72) 98.0 Physical Exam General: Alert, Oriented X3, Cooperative, No acute distress Heart: Regular rate Lungs: Clear, Other Abdomen: Normal bowel sounds, Other (TTP LLQ, mild in LUQ as well) Extremities: No edema Skin: No rashes Labs LABS Laboratory Tests Test 08/04/17 12:16 08/04/17 17:35 08/04/17 20:37 08/05/17 07:51 Glucose (Fingerstick) 176 mg/dL (70-99) 171 mg/dL (70-99) 150 mg/dL (70-99) 82 mg/dL (70-99) Review of Systems Review of Systems Denies chest pain, abdominal pain, shortness of breath, or fevers/chills. Assessment and Plan Assessmemt and Plan Problems Medical Problems: (1) Congestive heart failure Status: Acute (2) Congestive heart failure (CHF) Status: Acute (3) Healthcare-associated pneumonia Status: Acute (4) Moderate protein malnutrition Status: Acute (5) Normocytic anemia Status: Acute (6) Severe sepsis Status: Acute (7) Type 2 diabetes mellitus Status: Acute Sepsis, improving 1. Sepsis: severe POA in immunocompromised pt. improved 2. Diverticulitis: . no ongoing diarrhea, but abd pain and + CT findings. pain now improved, 3. Myasthenia gravis: cont home meds, incl immunosuppressives. very aggressive dz requiring mult meds, scheduled plasma exchanges. has MG related diplopia currently 4. CAD/CHF (chronic diastolic): no acute issues. cont home meds 5. CKD3: at baseline. monitor 6. DM2: hypoglycemia last night, good levels today, monitor with ISS, adjust insulin PRN 7. Anemia: stable-improved s/p transfuse 1 PRPC anemia labs c/w severe inflammation. given venofer x1, 8. OAC: apixaban for cardiac issues 9. HLD 10. PAD 11. hx of CVA PLAN: PRN Narcotics Zosyn Prednisone Continue home medications Possible discharge to SNU today Problems: Comment Review of Relevant I have reviewed the following items omer (where applicable) has been applied. Labs Laboratory Tests Test 08/03/17 12:01 08/03/17 17:56 08/03/17 21:02 08/04/17 05:30 Glucose (Fingerstick) 275 mg/dL (70-99) 133 mg/dL (70-99) 171 mg/dL (70-99) White Blood Count 10.6 x10^3/uL (4.0-11.0) Red Blood Count 2.97 x10^6/uL (3.50-5.40) Hemoglobin 7.9 g/dL (12.0-15.5) Hematocrit 26.4 % (36.0-47.0) Mean Corpuscular Volume 89 fL (79-100) Mean Corpuscular Hemoglobin 27 pg (25-35) Mean Corpuscular Hemoglobin Concent 30 g/dL (31-37) Red Cell Distribution Width 17.6 % (11.5-14.5) Platelet Count 220 x10^3/uL (140-400) Neutrophils (%) (Auto) 84 % (31-73) Lymphocytes (%) (Auto) 7 % (24-48) Monocytes (%) (Auto) 8 % (0-9) Eosinophils (%) (Auto) 1 % (0-3) Basophils (%) (Auto) 1 % (0-3) Neutrophils # (Auto) 8.9 x10^3uL (1.8-7.7) Lymphocytes # (Auto) 0.7 x10^3/uL (1.0-4.8) Monocytes # (Auto) 0.9 x10^3/uL (0.0-1.1) Eosinophils # (Auto) 0.1 x10^3/uL (0.0-0.7) Basophils # (Auto) 0.1 x10^3/uL (0.0-0.2) Sodium Level 148 mmol/L (136-145) Potassium Level 3.5 mmol/L (3.5-5.1) Chloride Level 108 mmol/L (98-107) Carbon Dioxide Level 34 mmol/L (21-32) Anion Gap 6 (6-14) Blood Urea Nitrogen 18 mg/dL (7-20) Creatinine 0.9 mg/dL (0.6-1.0) Estimated GFR (Cockcroft-Gault) 76.8 BUN/Creatinine Ratio 20 (6-20) Glucose Level 94 mg/dL (70-99) Calcium Level 8.6 mg/dL (8.5-10.1) Total Bilirubin 0.5 mg/dL (0.2-1.0) Aspartate Amino Transf (AST/SGOT) 16 U/L (15-37) Alanine Aminotransferase (ALT/SGPT) 25 U/L (14-59) Alkaline Phosphatase 73 U/L (46-116) Total Protein 5.8 g/dL (6.4-8.2) Albumin 2.4 g/dL (3.4-5.0) Albumin/Globulin Ratio 0.7 (1.0-1.7) Test 08/04/17 07:16 08/04/17 12:16 08/04/17 17:35 08/04/17 20:37 Glucose (Fingerstick) 127 mg/dL (70-99) 176 mg/dL (70-99) 171 mg/dL (70-99) 150 mg/dL (70-99) Test 08/05/17 07:51 Glucose (Fingerstick) 82 mg/dL (70-99) Laboratory Tests Test 08/04/17 12:16 08/04/17 17:35 08/04/17 20:37 08/05/17 07:51 Glucose (Fingerstick) 176 mg/dL (70-99) 171 mg/dL (70-99) 150 mg/dL (70-99) 82 mg/dL (70-99) Microbiology 07/29/17 Blood Culture - Final, Complete NO GROWTH AFTER 5 DAYS 07/29/17 Urine Culture - Final, Complete 07/29/17 Urine Culture Result 1 (FREDDIE) - Final, Complete 07/29/17 Antimicrobic Susceptibility - Final, Complete Medications Current Medications Sodium Chloride 1,000 ml @ 780 mls/hr Q1H17M IV Last administered on 07:05; Start 07/29/17 at 06:14; Stop 07/29/17 at 08:14; Status DC Vancomycin HCl (Vanco Per Pharmacy) 1 each PRN DAILY PRN MC SEE COMMENTS Last administered on 07/29/17 19:28; Start 07/29/17 at 07:30; Stop 07/30/17 at 09 :35; Status DC Piperacillin Sod/ Tazobactam Sod (Zosyn Per Pharmacy) 1 each PRN DAILY PRN MC SEE COMMENTS; Start 07/29/17 at 07:30 Piperacillin Sod/ Tazobactam Sod (Zosyn) 4.5 gm 1X ONCE IVP Last administered on 07/29/17 19:14; Start 07/29/17 at 07:30; Stop 07/29/17 at 07:31; Status DC Vancomycin HCl 2 gm/Sodium Chloride 500 ml @ 250 mls/hr 1X ONCE IV Last administered on 07/29/17 19:17; Start 07/29/17 at 08:00; Stop 07/29/17 at 09 :59; Status DC Ondansetron HCl (Zofran) 4 mg PRN Q8HRS PRN IV NAUSEA/VOMITING; Start at 07:30; Stop 07/30/17 at 07:29; Status DC Fentanyl Citrate (Fentanyl 2ml Vial) 50 mcg PRN Q2HR PRN IV PAIN; Start at 07:30; Stop 07/30/17 at 07:29; Status DC Sodium Chloride 1,000 ml @ 100 mls/hr Q10H IV Last administered on 07/30/17 07:59; Start 07/29/17 at 07:28; Stop 07/30/17 at 07:27; Status DC Acetaminophen (Tylenol) 650 mg PRN Q4HRS PRN PO FEVER Last administered on 13:15; Start 07/29/17 at 07:30; Stop 07/30/17 at 07:29; Status DC Albuterol/ Ipratropium (Duoneb) 3 ml RTQID NEB Last administered on 07/30/17 07:24; Start 07/29/17 at 08:00; Stop 07/30/17 at 07:59; Status DC Acetaminophen (Tylenol) 500 mg PRN Q6HRS PRN PO PAIN Last administered on 08/03 10:58; Start 07/29/17 at 14:00 Ascorbic Acid (Vitamin C) 500 mg BID PO Last administered on 08/05/17 09:08; Start 07/29/17 at 21:00 Aspirin (Liza Aspirin) 325 mg DAILY PO Last administered on 08/05/17 09:06; Start 07/30/17 at 09:00 Clotrimazole (Lotrimin) 1 hema BID TP Last administered on 08/05/17 09:09; Start 07/29/17 at 21:00 Collagenase (Santyl) 250 hema DAILY TP ; Start 07/30/17 at 09:00; Status Cancel Ferrous Sulfate (Feosol) 325 mg QODAY PO Last administered on 08/02/17 08:43 ; Start 07/31/17 at 09:00; Stop 08/02/17 at 14:19; Status DC Folic Acid (Folic Acid) 1 mg DAILY PO Last administered on 08/05/17 09:07; Start 07/30/17 at 09:00 Hydralazine HCl (Apresoline) 10 mg TID PO Last administered on 08/05/17 09:08 ; Start 07/29/17 at 14:00 Latanoprost (Xalatan) 1 drop QHS OU Last administered on 08/04/17 20:38; Start 07/29/17 at 21:00 Metoprolol Tartrate (Lopressor) 50 mg BID PO Last administered on 08/05/17 09 :07; Start 07/29/17 at 21:00 Pantoprazole Sodium (Protonix) 40 mg DAILY PO Last administered on 08/02/17 08:43; Start 07/30/17 at 09:00 Polyethylene Glycol (miraLAX PACKET) 17 gm BID PO Last administered on 10:31; Start 07/29/17 at 21:00 Prednisone (Prednisone) 25 mg DAILY PO ; Start 07/30/17 at 09:00; Stop at 09:00; Status DC Pyridostigmine [place] (Mestinon) 60 mg QID PO Last administered on 08/05/17 09:07; Start 07/29/17 at 17:00 Senna/Docusate Sodium (Senna Plus) 1 tab PRN DAILY PRN PO CONSTIPATION; Start 07/29/17 at 13:45 Bumetanide (Bumex) 2 mg DAILY PO Last administered on 08/05/17 09:09; Start 07/30/17 at 09:00 Calcium/Vitamin D (Oscal D 500mg/ 200uts) 1 tab DAILYWBKFT PO Last administered on 08/05/17 09:06; Start 07/29/17 at 17:00 Gabapentin (Neurontin) 300 mg TID PO Last administered on 08/05/17 09:06; Start 07/29/17 at 15:00 Cetirizine HCl (ZyrTEC) 10 mg PRN DAILY PRN PO ALLERGIES; Start 07/30/17 at 09 :00 Non-Formulary Medication 2 tab DAILY PO ; Start 07/30/17 at 09:00; Stop at 09:00; Status DC Mycophenolate Mofetil (Cellcept) 1,500 mg HS PO Last administered on 20:38; Start 07/29/17 at 21:00 Oxycodone HCl (Roxicodone) 10 mg PRN Q4HRS PRN PO PAIN Last administered on 09:19; Start 07/29/17 at 14:15 Potassium Chloride (Klor-Con) 20 meq DAILYWBKFT PO Last administered on 09:20; Start 07/30/17 at 08:00 Atorvastatin Calcium (Lipitor) 40 mg QHS PO Last administered on 08/04/17 20: 38; Start 07/29/17 at 21:00 Lactobacillus Rhamnosus (Culturelle) 1 cap BID PO Last administered on 09:05; Start 07/29/17 at 21:00 Apixaban (Eliquis) 5 mg BID PO Last administered on 08/05/17 09:04; Start at 21:00 Insulin Aspart (NovoLOG) 28 units TIDWMEALS SQ Last administered on 07/30/17 08:11; Start 07/29/17 at 17:00; Stop 07/30/17 at 11:55; Status DC Insulin Detemir (Levemir) 25 units DAILYBFRSUP SQ ; Start 07/29/17 at 17:00; Stop 07/29/17 at 19:09; Status DC Insulin Detemir (Levemir) 40 units DAILYWBKFT SQ Last administered on 10:15; Start 07/30/17 at 08:00; Stop 08/02/17 at 10:58; Status DC Insulin Aspart (NovoLOG) CUSTOM SCALE TIDWMEALS SQ Last administered on 13:17; Start 07/29/17 at 17:00; Stop 08/03/17 at 14:39; Status DC Dextrose (Dextrose 50%-Water Syringe) 12.5 gm PRN Q15MIN PRN IV SEE COMMENTS Last administered on 08/02/17 08:41; Start 07/29/17 at 13:45 Oxycodone HCl (Roxicodone) 10 mg PRN Q6HRS PRN PO PAIN; Start 07/29/17 at 14: 15; Stop 08/01/17 at 12:48; Status DC Mycophenolate Mofetil (Cellcept) 1,000 mg DAILY PO Last administered on 09:04; Start 07/30/17 at 09:00 Prednisone (Prednisone) 50 mg DAILY PO Last administered on 07/30/17 07:58; Start 07/29/17 at 15:30; Stop 07/30/17 at 11:57; Status DC Sodium Chloride 1,000 ml @ 125 mls/hr 1X ONCE IV ; Start 07/29/17 at 15:45; Stop 07/29/17 at 23:44; Status DC Lidocaine/Sodium Bicarbonate (Buffered Lidocaine 1%) 20 ml STK-MED ONCE IJ ; Start 07/29/17 at 16:50; Stop 07/29/17 at 16:51; Status DC Lidocaine/Sodium Bicarbonate (Buffered Lidocaine 1%) 3 ml 1X ONCE IJ Last administered on 07/29/17 17:40; Start 07/29/17 at 17:30; Stop 07/29/17 at 17 :31; Status DC Insulin Detemir (Levemir) 25 units QHS SQ Last administered on 08/04/17 20:49 ; Start 07/29/17 at 21:00 Piperacillin Sod/ Tazobactam Sod (Zosyn) 3.375 gm Q6HRS IVP Last administered on 08/05/17 06:14; Start 07/30/17 at 00:00 Vancomycin HCl 1.25 gm/Dextrose/ Sodium Chloride 250 ml @ 167.007 mls/hr Q12H IV Last administered on 07/30/17 07:59; Start 07/30/17 at 07:00; Stop 07/30 at 09:35; Status DC Vancomycin HCl 1 each 1X ONCE MC ; Start 07/31/17 at 06:30; Stop 07/31/17 at 06:30; Status DC Insulin Aspart (NovoLOG) 10 units 1X ONCE SQ Last administered on 07/29/17 21:27; Start 07/29/17 at 20:45; Stop 07/29/17 at 20:46; Status DC Insulin Aspart (NovoLOG) 35 units TIDWMEALS SQ Last administered on 07/31/17 08:50; Start 07/30/17 at 12:00; Stop 07/31/17 at 11:37; Status DC Prednisone (Prednisone) 25 mg DAILY PO Last administered on 08/05/17 09:05; Start 07/31/17 at 09:00 Insulin Aspart (NovoLOG) 28 units TIDWMEALS SQ Last administered on 08/01/17 18:20; Start 07/31/17 at 12:00; Stop 08/02/17 at 10:58; Status DC Iron Sucrose 500 mg/Sodium Chloride 275 ml @ 78.571 mls/ hr 1X ONCE IV Last administered on 08/01/17 18:11; Start 08/01/17 at 16:30; Stop 08/01/17 at 19 :59; Status DC Ferrous Sulfate 300 mg HS PO Last administered on 08/04/17 20:38; Start at 21:00 Insulin Aspart (NovoLOG) 18 units TIDWMEALS SQ Last administered on 08/05/17 09:16; Start 08/02/17 at 12:00 Insulin Detemir (Levemir) 20 units DAILYWBKFT SQ Last administered on 09:16; Start 08/03/17 at 08:00 Info (Anti-Coagulation Monitoring By Pharmacy) 1 each PRN DAILY PRN MC SEE COMMENTS Last administered on 08/04/17 12:11; Start 08/02/17 at 12:15 Ferrous Sulfate (Feosol) 325 mg QHS PO ; Start 08/03/17 at 21:00; Status Cancel Insulin Aspart (NovoLOG) CUSTOM SCALE TIDWMEALS SQ ; Start 08/03/17 at 17:00 Alteplase, Recombinant (Cathflo) 2 mg 1X ONCE INT CAT Last administered on 06:48; Start 08/04/17 at 06:45; Stop 08/04/17 at 06:46; Status DC Active Scripts Active Vitamin C (Ascorbic Acid) 500 Mg Tablet 500 Mg PO BID Reported Miralax (Polyethylene Glycol 3350) 17 Gm Powd.pack 1 Packet PO BID Protonix (Pantoprazole Sodium) 40 Mg Tablet.dr 1 Tab PO DAILY Claritin (Loratadine) 10 Mg Tablet 1 Tab PO DAILY PRN Hydralazine Hcl 10 Mg Tablet 1 Tab PO TID Gabapentin 300 Mg Capsule 300 Mg PO TID Santyl Ointment (Collagenase) 30 Gm Oint...g. 250 Hema TP DAILY DIRECTED BY PHYSICIAN Gretta Af (Clotrimazole) 12 Gm Cream..g. 1 Hema TP BID Aspirin 325 Mg Tablet 1 Tab PO DAILY Tylenol (Acetaminophen) 325 Mg Tablet 500 Mg PO Q6HRS PRN Xalatan (Latanoprost) 2.5 Ml Drops 1 Drop EACHEYE QHS Prednisone 20 Mg Tablet 25 Mg PO DAILY Bumetanide 2 Mg Tablet 2 Mg PO DAILY Oxycodone Hcl 10 Mg Tablet 10 Mg PO PRN Q4-6HRS PRN Cellcept (Mycophenolate Mofetil) 500 Mg Tablet 3 Tab PO QHS Senokot-S Tablet (Sennosides/Docusate Sodium) 1 Each Tablet 1 Tab PO PRN DAILY PRN Calcium + Vitamin D Tablet (Calcium Carbonate/Vitamin D3) 1 Each Tablet 1 Each PO DAILY Ferrous Sulfate 325 Mg Tablet 1 Tab PO QODAY Levemir (Insulin Detemir) 100 Unit/1 Ml Vial 25 Unit SQ DAILYWSUP Levemir (Insulin Detemir) 100 Unit/1 Ml Vial 40 Unit SQ DAILYWBKFT Folic Acid 1 Mg Tablet 1 Tab PO DAILY Potassium Chloride 20 Meq Tablet.er 20 Meq PO DAILY Novolog Flexpen (Insulin Aspart) 100 Unit/1 Ml Insuln.pen 35 Unit SQ TIDWMEALS Cellcept (Mycophenolate Mofetil) 500 Mg Tablet 2 Tab PO DAILY Eliquis (Apixaban) 5 Mg Tablet 5 Mg PO BID Fosamax (Alendronate Sodium) 70 Mg Tablet 1 Tab PO QSU Probiotic (Bacillus Coagulans) 1 Each Capsule.dr 1 Each PO PRN Multiple Vitamin (Multivitamin With Minerals) 1 Each Tablet 1 Each PO Rosuvastatin Calcium 10 Mg Tablet 10 Mg PO DAILY Pyridostigmine [place] 60 Mg Tablet 60 Mg PO QID Metoprolol Tartrate 50 Mg Tablet 1 Tab PO BID Vitals/I & O Vital Sign - Last 24 Hours 08/04/17 08/04/17 08/04/17 08/04/17 15:00 15:44 18:23 19:55 Temp 97.7 97.5 97.7 97.5 Pulse 77 77 68 Resp 16 20 B/P (MAP) 129/43 (71) 129/43 154/62 (92) Pulse Ox 97 97 99 O2 Delivery Nasal Cannula Nasal Cannula Nasal Cannula O2 Flow Rate 2.0 2.0 2.0 08/04/17 08/04/17 08/04/17 08/04/17 20:00 20:39 20:39 23:09 Temp 97.5 97.5 Pulse 68 68 58 Resp 20 B/P (MAP) 154/62 154/62 170/89 (116) Pulse Ox 98 O2 Delivery Nasal Cannula Nasal Cannula O2 Flow Rate 2.0 2.0 08/05/17 08/05/17 08/05/17 08/05/17 03:06 03:39 07:00 08:00 Temp 98.0 97.9 98.0 97.9 Pulse 69 67 68 Resp 20 18 B/P (MAP) 185/75 (111) 148/67 (94) 187/61 (103) Pulse Ox 100 99 O2 Delivery Nasal Cannula Nasal Cannula Nasal Cannula O2 Flow Rate 2.0 2.0 2.0 08/05/17 08/05/17 08/05/17 08/05/17 09:07 09:08 09:19 11:00 Temp 98.0 98.0 Pulse 68 68 71 Resp 16 B/P (MAP) 187/61 187/61 142/37 (72) Pulse Ox 99 96 O2 Delivery Nasal Cannula Nasal Cannula O2 Flow Rate 2.0 2.0 08/05/17 11:16 Pulse Ox 96 O2 Delivery Nasal Cannula O2 Flow Rate 2.0 Intake and Output 08/04/17 08/04/17 08/05/17 15:00 23:00 07:00 Intake Total 300 ml 530 ml Balance 300 ml 530 ml BI LARSON III DO Aug 05, 2017 11:43
[2017-08-05 15:00] VITALS: BP 139/55
--- NOTE | 2017-08-14 17:13 | DS ---
DATE OF DISCHARGE: 08/05/2017 ADMISSION DIAGNOSES: 1. Pneumonia. 2. Sepsis. DISCHARGE DIAGNOSES: 1. Resolving sepsis. 2. Diverticulitis. 3. Diabetes. 4. Chronic kidney disease. 5. Myasthenia gravis. HOSPITAL COURSE: The patient is a pleasant 61-year-old female who has multiple comorbidities. Basically, she presented with sepsis and pneumonia. She was admitted. We gave her breathing treatments, oxygen, steroids and antibiotics. Over the next few days, she returned to baseline, we discharged to skilled. DISPOSITION: Skilled. ACTIVITY: As tolerated. DIET: Low sodium. MEDICATIONS: Please see MRAD. TOTAL TIME ON DISCHARGE: 38 minutes. BI LARSON DO DR: YOSI/jesus JOB#: [id number] / [id number]
== END 2017-08-05 17:00 | DRG 871 ==
LOC: ER 05:45 → 6 SOUTH 07:31
PROVIDERS: ADMIT Internal Medicine; ATTEND Internal Medicine
PROC: 30233N1 Transfusion of Nonautologous Red Blood Cells into Peripheral Vein, Percutaneous Approach (ICD-10-PCS; principal; 2017-07-30)
PROC: 02HV33Z Insertion of Infusion Device into Superior Vena Cava, Percutaneous Approach (ICD-10-PCS; 2017-07-30)
PROC: B5181ZA Fluoroscopy of Superior Vena Cava using Low Osmolar Contrast, Guidance (ICD-10-PCS; 2017-07-30)
PROC: B54NZZA Ultrasonography of Left Upper Extremity Veins, Guidance (ICD-10-PCS; 2017-07-30)
DX: A41.9 Sepsis, unspecified organism (principal); E43 Unspecified severe protein-calorie malnutrition; E11.51 Type 2 diabetes mellitus with diabetic peripheral angiopathy without gangrene; E11.22 Type 2 diabetes mellitus with diabetic chronic kidney disease; G70.00 Myasthenia gravis without (acute) exacerbation; K57.92 Diverticulitis of intestine, part unspecified, without perforation or abscess without bleeding; E66.01 Morbid (severe) obesity due to excess calories; I50.32 Chronic diastolic (congestive) heart failure; I13.0 Hypertensive heart and chronic kidney disease with heart failure and stage 1 through stage 4 chronic kidney disease, or unspecified chronic kidney disease; N39.0 Urinary tract infection, site not specified; N18.3 Chronic kidney disease, stage 3 (moderate); E78.00 Pure hypercholesterolemia, unspecified; E11.649 Type 2 diabetes mellitus with hypoglycemia without coma; D64.9 Anemia, unspecified; E78.5 Hyperlipidemia, unspecified; J98.6 Disorders of diaphragm; R65.20 Severe sepsis without septic shock; E11.65 Type 2 diabetes mellitus with hyperglycemia; I25.10 Atherosclerotic heart disease of native coronary artery without angina pectoris; Z68.34 Body mass index [BMI] 34.0-34.9, adult; Z95.1 Presence of aortocoronary bypass graft; Z82.49 Family history of ischemic heart disease and other diseases of the circulatory system; Z86.73 Personal history of transient ischemic attack (TIA), and cerebral infarction without residual deficits; Z90.710 Acquired absence of both cervix and uterus; Z88.1 Allergy status to other antibiotic agents; Z88.8 Allergy status to other drugs, medicaments and biological substances; Z91.048 Other nonmedicinal substance allergy status; Z98.891 History of uterine scar from previous surgery; Z91.041 Radiographic dye allergy status; Z79.01 Long term (current) use of anticoagulants; B96.20 Unspecified Escherichia coli [E. coli] as the cause of diseases classified elsewhere; Z79.899 Other long term (current) drug therapy
CPT/HCPCS: 36415; 36569; 71010; 71250; 74176; 76937; 77001; 80048; 80053; 80076; 81001; 82728; 82962; 83540; 83550; 83605; 83615; 85007; 85018; 85025; 85045; 86850; 86900; 86901; 86902; 86922; 87040; 87086; 87186; 87804; 93005; 94640; 94760; C1751; C1892; J0775; J1756; J1815; J2543; J2997; J3370; J7030; J7040; J7042; J7512; J7517; J7620; P9016; 97110; 97116; 97530; 99285-25

== ENCOUNTER → 2017-08-07 | Outpatient (CLI) | payer OTHER ==
[2017-08-05 15:00] VITALS: BP 139/55
[~2017-08-07] MED LIST changes: +ACET325T9 PO; +ASPI325T8 PO; +CLOT12CR2 TP; +COLL30OI TP; +LORA10TA68 PO; +POLY17PO29 PO
== END | disposition home or self-care (01) ==
LOC: PMGWOUND 12:14
PROVIDERS: ATTEND Emergency Medicine Undersea and Hyperbaric Medicine
DX: I87.311 Chronic venous hypertension (idiopathic) with ulcer of right lower extremity (principal); E11.622 Type 2 diabetes mellitus with other skin ulcer; L97.212 Non-pressure chronic ulcer of right calf with fat layer exposed; E11.621 Type 2 diabetes mellitus with foot ulcer; L97.521 Non-pressure chronic ulcer of other part of left foot limited to breakdown of skin; E11.319 Type 2 diabetes mellitus with unspecified diabetic retinopathy without macular edema; E11.51 Type 2 diabetes mellitus with diabetic peripheral angiopathy without gangrene; E11.65 Type 2 diabetes mellitus with hyperglycemia; E11.649 Type 2 diabetes mellitus with hypoglycemia without coma; E11.22 Type 2 diabetes mellitus with diabetic chronic kidney disease; I13.0 Hypertensive heart and chronic kidney disease with heart failure and stage 1 through stage 4 chronic kidney disease, or unspecified chronic kidney disease; N18.3 Chronic kidney disease, stage 3 (moderate); I50.33 Acute on chronic diastolic (congestive) heart failure; E78.00 Pure hypercholesterolemia, unspecified; E03.9 Hypothyroidism, unspecified; K21.9 Gastro-esophageal reflux disease without esophagitis; I48.0 Paroxysmal atrial fibrillation; Z79.4 Long term (current) use of insulin; E66.2 Morbid (severe) obesity with alveolar hypoventilation; Z90.710 Acquired absence of both cervix and uterus; Z86.73 Personal history of transient ischemic attack (TIA), and cerebral infarction without residual deficits; Z68.37 Body mass index [BMI] 37.0-37.9, adult; Z87.891 Personal history of nicotine dependence; Z79.01 Long term (current) use of anticoagulants; I25.10 Atherosclerotic heart disease of native coronary artery without angina pectoris; Z95.1 Presence of aortocoronary bypass graft; M19.90 Unspecified osteoarthritis, unspecified site; J45.909 Unspecified asthma, uncomplicated
CPT/HCPCS: 99214

== ENCOUNTER → 2018-02-04 | Outpatient (CLI) | payer OTHER, MEDICAID, MEDICARE ==
[~2018-02-04] MED LIST changes: -ACET325T9 PO; -ALEN70TA3 PO; -AMOX1TAB11 PO; -APIX5TAB PO; -ASCO500T2 PO; -ASPI-630 PO; -ASPI325T8 PO; -BACI1CAP6 PO; -BUME2TAB PO; -CALC-98 PO; -CEFP100T PO; -CLOT12CR2 TP; -CLOT15CR3 TP; -COLL30OI TP; -DOXY100T PO; -DRON400T PO; -FERR-26 PO; -FOLI1TAB16 PO; -FURO40TA4 PO; -GABA-586 PO; +GADOBUTROL 7.5 MMOL/7.5 ML VIAL; -HYDR-2758 PO; -HYDR-2762 PO; -HYDR-2867 PO; -INSU100I17 SQ; -INSU100I27 SQ; -INSU100V13 SQ; +IOHEXOL 240 MG/ML 50ML VIAL.; -ISOS60TA2 PO; -LATA2.5D2 EACHEYE; +LIDOCAINE WITH 8.4% SOD BICARB 3 ML DISP.SYRIN.; -LORA10TA68 PO; -METH2.5T PO; -METO2.5T PO; -METO50TA6 PO; -MONT10TA9 PO; -MULT-460 PO; -MYCO500T PO; -NITR0.4T SL; +NITROGLYCERIN OINT 1 GM PACKET.; -OXYC10TA PO; -PANT40TA3 PO; -PANT40TA5 PO; -POLY17PO29 PO; -POTA20TA82 PO; -PRED-220 PO; -PRED20TA PO; -PRED50TA PO; -PYRI60TA PO; -RITU10VI IV; -ROSUVASTATIN CA10 MG PO; -SENN-37 PO; -SENN1TAB99 PO; -SPIR50TA2 PO; -VENTOLIN HFA18 GM INH; -[UNRECOGNIZED DRUG - CODE] PO; -oscal 500
[2018-02-04] MEDS: LIDOCAINE WITH 8.4% SOD BICARB 3 ML DISP.SYRIN. IJ (09:53)
[2018-02-04] MEDS: NITROGLYCERIN OINT 1 GM PACKET. TP (10:15)
[2018-02-04] MEDS: GADOBUTROL 7.5 MMOL/7.5 ML VIAL IV (10:20)
== END ==
LOC: INTRAD 09:04
DX: Z79.2 Long term (current) use of antibiotics (principal); N39.0 Urinary tract infection, site not specified; Z95.1 Presence of aortocoronary bypass graft; Z88.8 Allergy status to other drugs, medicaments and biological substances; Z91.048 Other nonmedicinal substance allergy status; G70.00 Myasthenia gravis without (acute) exacerbation; I25.10 Atherosclerotic heart disease of native coronary artery without angina pectoris; E11.22 Type 2 diabetes mellitus with diabetic chronic kidney disease; Z82.49 Family history of ischemic heart disease and other diseases of the circulatory system; I73.9 Peripheral vascular disease, unspecified; Z86.73 Personal history of transient ischemic attack (TIA), and cerebral infarction without residual deficits; E11.51 Type 2 diabetes mellitus with diabetic peripheral angiopathy without gangrene; E78.00 Pure hypercholesterolemia, unspecified; J98.6 Disorders of diaphragm; K21.9 Gastro-esophageal reflux disease without esophagitis; Z88.1 Allergy status to other antibiotic agents; N18.3 Chronic kidney disease, stage 3 (moderate); I13.0 Hypertensive heart and chronic kidney disease with heart failure and stage 1 through stage 4 chronic kidney disease, or unspecified chronic kidney disease; I50.32 Chronic diastolic (congestive) heart failure; Z90.710 Acquired absence of both cervix and uterus; Z98.890 Other specified postprocedural states; D64.9 Anemia, unspecified; Z79.899 Other long term (current) drug therapy; Z83.3 Family history of diabetes mellitus; F17.200 Nicotine dependence, unspecified, uncomplicated
CPT/HCPCS: 36569; 76937; 77001; A9585; C1751